=== PATIENT | male | born 1980 | race African-American/Black ===

== ENCOUNTER 2018-07-23 10:27 | Emergency (ER) | payer MEDICARE, OTHER ==
[2018-07-23 16:40] LABS: Eosinophils # (Auto) 0.4 K/mm3 (0.0-0.4); Eosinophils % (Auto) 9.9 % (0.0-4.3); Hematocrit 26.3 % (35.5-45.6); Hemoglobin 8.9 gm/dl (11.8-15.2); Lymphocytes # (Auto) 1.3 K/mm3 (1.2-5.4); Lymphocytes % (Auto) 30.6 % (13.4-35.0); Mean Corpuscular HGB Conc 34 % (32-34); Mean Corpuscular Volume 88 fl (84-94); Monocytes # (Auto) 0.3 K/mm3 (0.0-0.8); Monocytes % (Auto) 7.5 % (0.0-7.3); Platelet Count 219 K/mm3 (140-440); Red Blood Count 2.98 M/mm3 (3.65-5.03); Red Cell Distribution Width 17.7 % (13.2-15.2)
--- NOTE | 2018-07-23 16:53 | Emergency Department Report ---
<SERAFIN BUENO - Last Filed: 07/23/18 16:56> ED General Adult HPI - General Chief complaint: Medical Clearance Stated complaint: DIALYSIS Time Seen by Provider: 07/23/18 16:17 Source: patient, family Mode of arrival: Ambulatory Limitations: No Limitations - History of Present Illness Initial comments: This is a 38-year-old male brought by parents nontoxic, well nourished in appearance, no acute signs of distress presents to the ED for missed dialysis. Mother stated that patient gets diaylsis every 3 days and last dialysis was Sunday, making patient miss dialysis today. Mother and patient stated that they moved from [place] and yet has established a dialysis center/provider. Patient denies any chest pain, shortness of breathe, fever, chills, headache, nausea, vomiting, numbness, tingling, swelling. Patient denies any allergies. Severity scale (0 -10): 0 Improves with: none Worsens with: none Associated Symptoms: denies other symptoms. denies: confusion, chest pain, cough, diaphoresis, fever/chills, headaches, loss of appetite, malaise, nausea/vomiting, rash, seizure, shortness of breath, syncope, weakness Treatments Prior to Arrival: none - Related Data Allergies Allergy/AdvReac Type Severity Reaction Status Date / Time No Known Allergies Allergy Verified 07/23/18 11:11 ED Review of Systems Constitutional: denies: chills, fever Eyes: denies: eye pain, eye discharge, vision change ENT: denies: ear pain, throat pain Respiratory: denies: cough, shortness of breath, wheezing Cardiovascular: denies: chest pain, palpitations Endocrine: no symptoms reported Gastrointestinal: denies: abdominal pain, nausea, diarrhea Genitourinary: denies: urgency, dysuria Musculoskeletal: denies: back pain, joint swelling, arthralgia Skin: denies: rash, lesions Neurological: denies: headache, weakness, paresthesias Psychiatric: denies: anxiety, depression Hematological/Lymphatic: denies: easy bleeding, easy bruising ED Past Medical Hx - Past Medical History Previous Medical History?: Yes Hx Hypertension: Yes Hx Renal Disease: Yes (ESRD-T-TH-S) - Surgical History Past Surgical History?: Yes Additional Surgical History: Right AV fistula - Social History Smoking Status: Never Smoker Substance Use Type: None ED Physical Exam - General Limitations: No Limitations General appearance: alert, in no apparent distress - Head Head exam: Present: atraumatic, normocephalic - Neck Neck exam: Present: normal inspection, full ROM. Absent: tenderness, meningismus, lymphadenopathy - Respiratory Respiratory exam: Present: normal lung sounds bilaterally. Absent: respiratory distress, wheezes, rales, rhonchi, stridor, chest wall tenderness, accessory muscle use, decreased breath sounds, prolonged expiratory - Cardiovascular Cardiovascular Exam: Present: regular rate, normal rhythm, normal heart sounds. Absent: bradycardia, tachycardia, irregular rhythm, systolic murmur, diastolic murmur, rubs, gallop - GI/Abdominal GI/Abdominal exam: Present: soft, normal bowel sounds. Absent: distended, tenderness, guarding, rebound, rigid, diminished bowel sounds - Extremities Exam Extremities exam: Present: normal inspection, full ROM - Back Exam Back exam: Present: normal inspection, full ROM - Neurological Exam Neurological exam: Present: alert, oriented X3 - Psychiatric Psychiatric exam: Present: normal affect, normal mood - Skin Skin exam: Present: warm, dry, intact, normal color. Absent: rash ED Course - Reevaluation(s) Reevaluation #1: 07/23/18 16:55 Patient is speaking in full sentences with no signs of distress noted. - Consultations Consultation #1: 07/23/18 16:56 Patient signed out to Dr. Leon for further evaluation. ED Medical Decision Making - Lab Data Result diagrams: 07/23/18 16:28 07/23/18 16:28 ED Disposition Clinical Impression: ESRD (end stage renal disease) Disposition: DC-01 TO HOME OR SELFCARE Condition: Stable Instructions: Chronic Kidney Disease (ED) Additional Instructions: Continue current outpatient medications. Follow-up in 24 hours in this emergency room, or at a local urgent care center, or with a local primary care doctor for repeat basic metabolic panel to ascertain whether or not patient requires emergency dialysis. Please follow-up with Dr. Vilchis's office first thing tomorrow morning, and request to speak to the director of physician practices to determine what additional paperwork, documentation is necessary to secure the patient's place in that dialysis unit. Other alternative local dialysis units included Dr. Philip office, and Dr. Garcia's office For the patient's convenience, their respective names, phone numbers, addresses have been listed, and I recommend that patient go to either of those offices if not able to secure an appointment in the first nephrology office listed. Please return to the emergency room right away with new, worsening or different symptoms. Referrals: ABDIEL VILCHIS MD [Staff Physician] - 3-5 Days TIKA MOSLEY MD [Staff Physician] - 3-5 Days RONIT KHAN MD [Staff Physician] - 3-5 Days <CEE LEON - Last Filed: 07/24/18 02:02> ED Review of Systems ROS: Stated complaint: DIALYSIS Other details as noted in HPI ED Course Vital Signs 07/23/18 07/23/18 11:05 18:07 Temperature 97.8 F 97.8 F Pulse Rate 64 64 Respiratory 14 14 Rate Blood Pressure 113/70 113/72 [Right] O2 Sat by Pulse 100 100 Oximetry - Reevaluation(s) Reevaluation #2: 07/23/18 17:51 Patient in no respiratory distress and has no acute complaints. He received dialysis this past Sunday. Laboratory studies reviewed and are unremarkable. Patient does not meet criteria for emergent dialysis. The case management team has been consulted, and they have reported that they are going to continue to work externally on this case to resolve the patient's axis outpatient dialysis. Apparently, the [facility] is [facility] a [facility], after speaking to the covering physician, Dr. Vilchis The patient's mother was instructed to follow-up with that dialysis center tomorrow, and to ask to speak to the embedded case manager, director of physician practices, and find out what documentation she needs to submit, in order to secure an outpatient dialysis center. In addition, she'll be referred to alternative local dialysis groups to expand her available options of dialysis centers. The patient will be instructed to return in 24 hours for repeat basic metabolic panel to ascertain need for dialysis. Of note, the millwright supervisor, Dr. Vilchis called back shortly thereafter, and indicated to me that the patient has a scheduled dialysis session tomorrow. This was communicated to the patient's mother, who verbalized understanding. She was counseled to show up a little bit early to help out with paperwork if necessary. 07/24/18 02:01 ED Medical Decision Making - Lab Data Result diagrams: 07/23/18 16:28 07/23/18 16:28 Vital Signs 07/23/18 11:05 Temperature 97.8 F Pulse Rate 64 Respiratory 14 Rate Blood Pressure 113/70 [Right] O2 Sat by Pulse 100 Oximetry Lab Results 07/23/18 07/23/18 Range/Units 16:28 16:28 WBC 4.2 L (4.5-11.0) K/mm3 RBC 2.98 L (3.65-5.03) M/mm3 Hgb 8.9 L (11.8-15.2) gm/dl Hct 26.3 L (35.5-45.6) % MCV 88 (84-94) fl MCH 30 (28-32) pg MCHC 34 (32-34) % RDW 17.7 H (13.2-15.2) % Plt Count 219 (140-440) K/mm3 Lymph % (Auto) 30.6 (13.4-35.0) % [place] % (Auto) 7.5 H (0.0-7.3) % Eos % (Auto) 9.9 H (0.0-4.3) % Baso % (Auto) 1.0 (0.0-1.8) % Lymph # 1.3 (1.2-5.4) K/mm3 [place] # 0.3 (0.0-0.8) K/mm3 Eos # 0.4 (0.0-0.4) K/mm3 Baso # 0.0 (0.0-0.1) K/mm3 Seg Neutrophils % 51.0 (40.0-70.0) % Seg Neutrophils # 2.1 (1.8-7.7) K/mm3 Sodium 133 L (137-145) mmol/L Potassium 3.6 (3.6-5.0) mmol/L Chloride 93.4 L (98-107) mmol/L Carbon Dioxide 28 (22-30) mmol/L Anion Gap 15 mmol/L BUN 32 H (9-20) mg/dL Creatinine 5.6 H (0.8-1.5) mg/dL Estimated GFR 12 ml/min BUN/Creatinine Ratio 6 % Glucose 216 H (75-100) mg/dL Calcium 8.3 L (8.4-10.2) mg/dL Total Bilirubin 1.00 (0.1-1.2) mg/dL Direct Bilirubin 0.6 H (0-0.2) mg/dL Indirect Bilirubin 0.4 mg/dL AST 24 (5-40) units/L ALT 21 (7-56) units/L Alkaline Phosphatase 141 H (35-129) units/L Total Protein 8.0 (6.3-8.2) g/dL Albumin 3.0 L (3.9-5) g/dL Albumin/Globulin Ratio 0.6 % - Radiology Data Radiology results: report reviewed, image reviewed interpreted by me: X-ray of the chest negative for acute disease. Critical care attestation.: If time is entered above; I have spent that time in minutes in the direct care of this critically ill patient, excluding procedure time. ED Disposition Is pt being admited?: No Does the pt Need Aspirin: No
[2018-07-23 16:54] LABS: Bilirubin,Direct 0.6 mg/dL (0-0.2); Calcium 8.3 mg/dL (8.4-10.2)
--- NOTE | 2018-07-23 17:19 | XRay Report ---
FINAL REPORT EXAM: XR CHEST ROUTINE 2V HISTORY: cp TECHNIQUE: PA and lateral views of the chest PRIORS: None. FINDINGS: Lines, tubes, and devices: Metallic device overlies the anterior inferior aspect of the heart, likely a pacemaker. Lungs and pleura: Trachea is normal in position. Lungs are clear of infiltrate, pleural effusion, va scular congestion, or pneumothorax. Cardiomediastinal silhouette: Heart is enlarged. Other: Bony structures are intact. IMPRESSION: No acute cardiopulmonary process seen. Cardiomegaly
[2018-07-23 18:08] VITALS: BP 113/72
== END 2018-07-23 18:08 | disposition home or self-care (01) ==
LOC: ED 10:27
DX: I12.0 Hypertensive chronic kidney disease with stage 5 chronic kidney disease or end stage renal disease (principal); N18.6 End stage renal disease; Z99.2 Dependence on renal dialysis
CPT/HCPCS: 36415; 71046; 80048; 80076; 85025; 99283

== ENCOUNTER 2018-07-25 17:28 | Inpatient (IN) | payer MEDICARE, OTHER ==
[2018-07-25] MEDS ORDERED: TYLENOL PO ONE (17:49)
--- NOTE | 2018-07-25 17:49 | Emergency Department Report ---
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 Further treatment and work-up at subsequent clinical providers discretion. Patient/guardians urged not to elope from their condition may be serious if not clinically assessed and managed. Initial order include:
[2018-07-25] MEDS ORDERED: TYLENOL ONE (17:52)
--- NOTE | 2018-07-25 18:40 | Emergency Department Report ---
ED Fall HPI - General Chief Complaint: Extremity Problem,Nontraumatic Stated Complaint: LEFT LEG PAIN Time Seen by Provider: 07/25/18 18:32 Source: patient Mode of arrival: Wheelchair Limitations: Altered Mental Status - History of Present Illness Initial Comments: Patient is a 38 year-old mellitus emergency room with complaints of a slip and fall and a wet parking lot 2 hours prior to coming to the hospital. Patient is complaining of left hip pain and left lower back pain. Patient states the pain is bad. Patient has a history of CAD, cardiac arrest 2 with secondary anoxic brain injury, hypertension, hyperlipidemia, CAD, artificial nutrition via PEG tube, A. fib on warfarin. Mother is at bedside to assist with history. Mother states the patient slipped and fell directly onto his left hip. Patient is complaining of severe pain in his left lower back and left hip. Patient is not ambulatory due to pain. Patient was transported to the room in a wheelchair. Mother states that the patient states the pain is worse with movement and ambu lation and palpation. Mother states that the pain is better with rest and immobilization The fall was witnessed by mother. Mother states the patient did not lose consciousness and never hit his head. 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 lower back pain) - Related Data Home Medications Medication Instructions Recorded Confirmed Last Taken Clobetasol 0.05% 0.05 mg TP BID 07/26/18 07/26/18 Unknown Lidocaine 4% Kit 4 mg TP 3XW 07/26/18 07/26/18 Unknown Lipitor 40 mg PO DAILY 07/26/18 07/26/18 Unknown Metoprolol 25 mg PO Q12H 07/26/18 07/26/18 Unknown Omeprazole 20 mg PO BID 07/26/18 07/26/18 Unknown QUEtiapine [SEROquel] 25 mg PO DAILY 07/26/18 07/26/18 Unknown Warfarin [Coumadin] 2 mg PO DAILY 07/26/18 07/26/18 Unknown Allergies Allergy/AdvReac Type Severity Reaction Status Date / Time No Known Allergies Allergy Verified 07/25/18 17:57 ED Review of Systems ROS: Stated complaint: LEFT LEG PAIN Other details as noted in HPI Constitutional: denies: chills, fever Eyes: denies: eye pain, eye discharge, vision change ENT: denies: ear pain, throat pain Respiratory: denies: cough, shortness of breath, wheezing Cardiovascular: denies: chest pain, palpitations Endocrine: no symptoms reported Gastrointestinal: denies: abdominal pain, nausea, diarrhea Genitourinary: denies: urgency, dysuria Musculoskeletal: back pain. denies: joint swelling, arthralgia Skin: denies: rash, lesions Neurological: denies: headache, weakness, paresthesias Psychiatric: denies: anxiety, depression Hematological/Lymphatic: denies: easy bleeding, easy bruising ED Past Medical Hx - Past Medical History Previous Medical History?: Yes Hx Hypertension: Yes Hx Heart Attack/AMI: Yes Hx Renal Disease: Yes (ESRD-T-TH-S) Additional medical history: cardiac arrest X2. anoxic brain injury 2/2 cardiac arrest. afib on warfarin, hld, htn, cad. - Surgical History Past Surgical History?: Yes Additional Surgical History: Right AV fistula. peg tube - Family History Family history: no significant - Social History Smoking Status: Never Smoker Substance Use Type: None - Medications Home Medications: Home Medications Medication Instructions Recorded Confirmed Last Taken Type Clobetasol 0.05% 0.05 mg TP BID 07/26/18 07/26/18 Unknown History Lidocaine 4% Kit 4 mg TP 3XW 07/26/18 07/26/18 Unknown History Lipitor 40 mg PO DAILY 07/26/18 07/26/18 Unknown History Metoprolol 25 mg PO Q12H 07/26/18 07/26/18 Unknown History Omeprazole 20 mg PO BID 07/26/18 07/26/18 Unknown History QUEtiapine [SEROquel] 25 mg PO DAILY 07/26/18 07/26/18 Unknown History Warfarin [Coumadin] 2 mg PO DAILY 07/26/18 07/26/18 Unknown History ED Physical Exam - General Limitations: No Limitations General appearance: alert, in no apparent distress - Head Head exam: Present: atraumatic, normocephalic - Eye Eye exam: Present: normal appearance, PERRL Pupils: Present: normal accommodation - ENT ENT exam: Present: mucous membranes moist - Neck Neck exam: Present: normal inspection - Respiratory Respiratory exam: Present: normal lung sounds bilaterally. Absent: respiratory distress - Cardiovascular Cardiovascular Exam: Present: regular rate, normal rhythm. Absent: systolic murmur, diastolic murmur, rubs, gallop - GI/Abdominal GI/Abdominal exam: Present: soft, normal bowel sounds, other (PEG tube in place. ). Absent: distended, tenderness, guarding, rebound - Rectal Rectal exam: Present: deferred - Extremities Exam Extremities exam: Present: tenderness (left hip) - Back Exam Back exam: Present: normal inspection, tenderness, vertebral tenderness - Neurological Exam Neurological exam: Present: alert, altered (patient in O 2. Family states the patient is at baseline) - Psychiatric Psychiatric exam: Present: normal affect, normal mood - Skin Skin exam: Present: warm, dry, intact, normal color. Absent: rash ED Course Vital Signs 07/25/18 07/25/18 07/25/18 17:44 20:14 22:20 Temperature 97.7 F Pulse Rate 81 85 69 Respiratory 18 20 22 Rate Blood Pressure 143/77 Blood Pressure 132/72 118/76 [Left] O2 Sat by Pulse 100 97 96 Oximetry 07/26/18 01:44 Temperature Pulse Rate 81 Respiratory 18 Rate Blood Pressure Blood Pressure 108/57 [Left] O2 Sat by Pulse Oximetry - Reevaluation(s) Reevaluation #1: Discussed all results with family. Patient was admitted to the hospitalist service for further evaluation treatment. Patient will also be admitted to the orthopedics service. 07/25/18 23:17 - Consultations Consultation #1: Dr. Puente consulted, orthopedics. Dr. Puente states have the patient to be admitted to the hospitalist service and he will see the patient in the morning. 07/25/18 23:05 Consultation #2: Hospitalist consulted for admission. Hospitalist to assume care of the patient and admit patient 07/25/18 23:17 ED Medical Decision Making - Lab Data Result diagrams: 07/25/18 22:37 07/25/18 22:37 - Radiology Data Radiology results: report reviewed PROCEDURE: CT LUMBAR SPINE WO CON TECHNIQUE: Axial helical imaging through the lumbar spine with sagittal and coronal reformatted images obtained. HISTORY: hip pain. lower back pain. fall. pelvic pain COMPARISONS: CT abdomen and pelvis also performed today FINDINGS: There is grade 1 anterolisthesis L5 on S1 secondary to bilateral L5 spondylolysis.. There is slight loss of height of the anterior aspect of the vertebral body of L2 consistent with acute compression fracture as was demonstrated on the recent CT abdomen and pelvis. Loss of height is less than 25%. The vertebral heights are otherwise maintained. There is loss of height of the L1-L2 and L5-S1 discs. Visualization of detail of the contents of the lumbar canal is limited by artifact. There is no evidence of bony canal stenosis. The paraspinous soft tissues are unremarkable. There is a small amount of free fluid in the visualized portion of the pelvis. IMPRESSION: 1. Acute compression fracture L2 vertebral body. 2. Grade 1 anterolisthesis L5 on S1 with bilateral L5 spondylolysis PROCEDURE: XR FEMUR 2+V LT TECHNIQUE: AP and lateral views of the left femur HISTORY: s/p fall left leg pain COMPARISONS: None . FINDINGS: There is an acute nondisplaced acute fracture through the intertrochanteric region. Fracture is better identified on the lateral view. There is no evidence for dislocation. No soft tissue swelling or radiopaque foreign bodies are seen. Vascular calcifications in the soft tissues are noted. Bony mineralization is normal and joint spaces are maintained. IMPRESSION: Acute nondisplaced intertrochanteric fracture PROCEDURE: CT ABDOMEN PELVIS WO CON TECHNIQUE: Axial helical imaging through the abdomen and pelvis with sagittal and coronal reformatted images obtained. HISTORY: hip pain. lower back pain. fall. pelvic pain DLP: 532.43 COMPARISONS: CT lumbar spine also performed today FINDINGS: Visualization of fine detail is significantly limited by motion artifact and lack of contrast. The lung bases are notable for small bilateral pleural fluid collections and areas of pulmonary consolidation in the lower lobes bilaterally. The heart is enlarged with a small pericardial fluid collection. A surgical device is demonstrated in the right ventricle. The liver, spleen, pancreas, kidneys and adrenal glands are unremarkable. The gallbladder is moderately distended. There is increased density within the gallbladder which may represent sludge or gallstones. The bowel is normal caliber. There is a [id number] amount of stool throughout the colon. A percutaneous gastrostomy tube is demonstrated with the tip in the stomach. There is a small to moderate amount of free fluid in the abdomen and pelvis. There is no definite evidence of pneumoperitoneum. The abdominal aorta is normal caliber. The urinary bladder is mildly distended. There appears to be increased thickness of the urinary bladder wall. The prostate gland and seminal vesicles are unremarkable. The bony structures are notable for a compression fracture of the L2 vertebral body that appears to be acute. Loss of height is less than 50%. There is grade 1 anterolisthesis L5 on S1 with bilateral L5 spondylolysis. There is a mildly displaced left intertrochanteric fracture. There is diffuse anasarca. IMPRESSION: 1. This study is degraded by motion artifact and lack of contrast. 2. Mildly displaced left intertrochanteric fracture. 3. Compression fracture L2 vertebral body that appears to be acute. 4. Grade 1 anterolisthesis L5 on S1 with bilateral L5 spondylolysis. 5. Cardiomegaly with small pericardial effusion and surgical device in the right ventricle. 6. Pleural effusions and areas of pulmonary consolidation both lung bases. Infectious and noninfectious etiologies, to include CHF, immediately considered. 7. Small to moderate amount of free fluid in the abdomen and pelvis. 8. Percutaneous gastrostomy tube. 9. Diffuse anasarca. - Medical Decision Making She is a 38-year-old male with multiple medical problems and presented to the emergency room with left hip pain and low lower back pain. Patient was found to have a L2 compression fraction and a left intertrochanteric femur fracture. Orthopedics consulted. Orthopedics wants patient admitted to the hospitalist service. Patient was admitted to the hospitalist service for further evaluation and treatment. Patient's labs are consistent with anemia of chronic disease and chronic kidney disease stage V. Patient requires dialysis 3 days a week. - Differential Diagnosis back pain. Hip pain. fx. hematoma. Critical Care Time: Yes Critical care attestation.: If time is entered above; I have spent that time in minutes in the direct care of this critically ill patient, excluding procedure time. Critical Care Time: 35 minutes ED Disposition Clinical Impression: ESRD (end stage renal disease), CKD (chronic kidney disease) stage V requiring chronic dialysis Fall Qualifiers: Encounter type: initial encounter Qualified Code(s): W19.XXXA - Unspecified fall, initial encounter Lumbar compression fracture Qualifiers: Encounter type: initial encounter Lumbar vertebra fracture level: L2 Fracture type: closed Qualified Code(s): S32.020A - Wedge compression fracture of second lumbar vertebra, initial encounter for closed fracture Femur fracture, left Qualifiers: Encounter type: initial encounter Femur location: intertrochanteric Fracture type: closed Fracture alignment: displaced Qualified Code(s): S72.142A - Displaced intertrochanteric fracture of left femur, initial encounter for closed fracture Anemia Qualifiers: Anemia type: due to chronic kidney disease Chronic kidney disease stage: on chronic dialysis Qualified Code(s): N18.6 - End stage renal disease; D63.1 - Anemia in chronic kidney disease; Z99.2 - Dependence on renal dialysis Disposition: OP ADMIT IP TO THIS HOSP Is pt being admited?: Yes Does the pt Need Aspirin: No Condition: Critical Time of Disposition: 23:19
[2018-07-25] MEDS ORDERED: DILAUDID IV ONE (18:57)
--- NOTE | 2018-07-25 21:10 | XRay Report ---
PROCEDURE: XR FEMUR 2+V LT TECHNIQUE: AP and lateral views of the left femur HISTORY: s/p fall left leg pain COMPARISONS: None . FINDINGS: There is an acute nondisplaced acute fracture through the intertrochanteric region. Fracture is coleman r identified on the lateral view. There is no evidence for dislocation. No soft tissue swelling or radiopaque foreign bodies are seen. Vascular calcifications in the soft tissues are noted. Bony mineralization is normal and joint spaces are maintained. IMPRESSION: Acute nondisplaced intertrochanteric fracture This document is electronically signed by Elva Santos MD., July 25 2018 09:08:59 PM ET
--- NOTE | 2018-07-25 22:38 | Cat Scan Report ---
PROCEDURE: CT ABDOMEN PELVIS WO CON TECHNIQUE: Axial helical imaging through the abdomen and pelvis with sagittal and coronal reformatte d images obtained. HISTORY: hip pain. lower back pain. fall. pelvic pain DLP: 532.43 COMPARISONS: CT lumbar spine also performed today FINDINGS: Visualization of fine detail is significantly limited by motion artifact and lack of contrast. The lung bases are notable for small bilateral pleural fluid collections and areas of pulmonary conso lidation in the lower lobes bilaterally. The heart is enlarged with a small pericardial fluid collection. A surgical device is demonstrated in the right ventricle. The liver, spleen, pancreas, kidneys and adrenal glands are unremarkable. The gallbladder is moderately distended. There is increased density within the gallbladder which may represent sludge or gallstones. The bowel is normal caliber. There is a [id number] amount of stool throughout the colon. A percutaneous gastrostomy tube is demonstrated with the tip in the stomach. There is a small to moderate amount of free fluid in the abdomen and pelvis. There is no definite evidence of pneumoperitoneum. The abdominal aorta is normal caliber. The urinary bladder is mildly distended. There appears to be increased thickness of the urinary bladd er wall. The prostate gland and seminal vesicles are unremarkable. The bony structures are notable for a compression fracture of the L2 vertebral body that appears to b e acute. Loss of height is less than 50%. There is grade 1 anterolisthesis L5 on S1 with bilateral L5 spondylolysis. There is a mildly displaced left intertrochanteric fracture. There is diffuse anasarca. IMPRESSION: 1. This study is degraded by motion artifact and lack of contrast. 2. Mildly displaced left intertrochanteric fracture. 3. Compression fracture L2 vertebral body that appears to be acute. 4. Grade 1 anterolisthesis L5 on S1 with bilateral L5 spondylolysis. 5. Cardiomegaly with small pericardial effusion and surgical device in the right ventricle. 6. Pleural effusions and areas of pulmonary consolidation both lung bases. Infectious and noninfectio us etiologies, to include CHF, immediately considered. 7. Small to moderate amount of free fluid in the abdomen and pelvis. 8. Percutaneous gastrostomy tube. 9. Diffuse anasarca. This document is electronically signed by Lo Tolentino MD., July 25 2018 10:35:48 PM ET
[2018-07-25 22:47] LABS: Hematocrit 25.5 % (35.5-45.6); Hemoglobin 8.8 gm/dl (11.8-15.2); Mean Corpuscular HGB Conc 35 % (32-34); Mean Corpuscular Volume 88 fl (84-94); Platelet Count 189 K/mm3 (140-440); Red Blood Count 2.89 M/mm3 (3.65-5.03)
--- NOTE | 2018-07-25 22:49 | Cat Scan Report ---
PROCEDURE: CT LUMBAR SPINE WO CON TECHNIQUE: Axial helical imaging through the lumbar spine with sagittal and coronal reformatted imag es obtained. HISTORY: hip pain. lower back pain. fall. pelvic pain COMPARISONS: CT abdomen and pelvis also performed today FINDINGS: There is grade 1 anterolisthesis L5 on S1 secondary to bilateral L5 spondylolysis.. There is slight loss of height of the anterior aspect of the vertebral body of L2 consistent with acu te compression fracture as was demonstrated on the recent CT abdomen and pelvis. Loss of height is le ss than 25%. The vertebral heights are otherwise maintained. There is loss of height of the L1-L2 and L5-S1 discs. Visualization of detail of the contents of the lumbar canal is limited by artifact. There is no evide nce of bony canal stenosis. The paraspinous soft tissues are unremarkable. There is a small amount of free fluid in the visualized portion of the pelvis. IMPRESSION: 1. Acute compression fracture L2 vertebral body. 2. Grade 1 anterolisthesis L5 on S1 with bilateral L5 spondylolysis. This document is electronically signed by Lo Tolentino MD., July 25 2018 10:47:02 PM ET
[2018-07-25 23:03] LABS: Albumin 3.1 g/dL (3.9-5); Calcium 8.5 mg/dL (8.4-10.2)
--- NOTE | 2018-07-25 23:53 | History and Physical Report ---
History of Present Illness Date of examination: 07/25/18 History of present illness: 38 year old man history of coronary artery disease, A. fib, end-stage renal disease on dialysis, hypertension, hyperlipidemia, anoxic brain injury was brought to the emergency room because today he slipped outside and fell on his buttocks, there was no injury to the head, loss of consciousness. history per the mom, patient has been complaining of difficulty ambulating. Review of system unobtainable secondary to amoxicillin with an injury PAST MEDICAL HISTORY:coronary artery disease, A. fib, end-stage renal disease on dialysis, hypertension, hyperlipidemia, anoxic brain injury PAST SURGICAL HISTORY: AV fistula SOCIAL HISTORY: Denies alcohol, drugs, tobacco FAMILY HISTORY: Hypertension Medications and Allergies Allergies Allergy/AdvReac Type Severity Reaction Status Date / Time No Known Allergies Allergy Verified 07/25/18 17:57 Home Medications Medication Instructions Recorded Confirmed Last Taken Type Clobetasol 0.05% 0.05 mg TP BID 07/26/18 07/26/18 Unknown History Lidocaine 4% Kit 4 mg TP 3XW 07/26/18 07/26/18 Unknown History Lipitor 40 mg PO DAILY 07/26/18 07/26/18 Unknown History Metoprolol 25 mg PO Q12H 07/26/18 07/26/18 Unknown History Omeprazole 20 mg PO BID 07/26/18 07/26/18 Unknown History QUEtiapine [SEROquel] 25 mg PO DAILY 07/26/18 07/26/18 Unknown History Warfarin [Coumadin] 0.5 mg PO DAILY@1700 #30 tablet 08/02/18 Unknown Rx Exam - Physical Exam Narrative exam: General Apperance: The patient lying in bed, breathing comfortable HEENT: Normocephalic, atraumatic. Pupils equally round and reactive to light, EOMI, no sclericterus or JVD or thyromegaly or nodule. , no carotid bruit, mucous membranes moist, no exudate or erythema Heart: S1-S2, regular is rhythm Lungs: Clear to auscultation bilaterally, breathing comfortable Abdomen: Positive bowel sounds, soft, +peg, nontender, nondistended, no organomegaly Extremities: No edema cyanosis clubbing Skin: no rash, nodule, warm and dry Neuro: Difficult to assess - Constitutional Vitals: Temp Pulse Resp BP Pulse Ox 97.7 F 69 22 118/76 96 07/25/18 17:44 07/25/18 22:20 07/25/18 22:20 07/25/18 22:20 07/25/18 22:20 Results - Labs CBC & Chem 7: 07/29/18 04:05 07/29/18 04:05 Labs: Abnormal lab results 07/25/18 07/25/18 Range/Units 22:37 22:37 RBC 2.89 L (3.65-5.03) M/mm3 Hgb 8.8 L (11.8-15.2) gm/dl Hct 25.5 L (35.5-45.6) % MCHC 35 H (32-34) % RDW 18.0 H (13.2-15.2) % Sodium 135 L (137-145) mmol/L Chloride 94.8 L (98-107) mmol/L BUN 30 H (9-20) mg/dL Creatinine 5.1 H (0.8-1.5) mg/dL Glucose 131 H (75-100) mg/dL Alkaline Phosphatase 145 H (35-129) units/L Albumin 3.1 L (3.9-5) g/dL - Imaging and Cardiology CT scan - abdomen: report reviewed CT scan - pelvis: report reviewed Assessment and Plan CT of the femur and LS spine reviewed Assessment Left hip fracture Compression fracture of L2 coronary artery disease A. fib end-stage renal disease on dialysis hypertension hyperlipidemia anoxic brain injury Plan Admit to medicine Orthopedic is consulted to see the patient Consult renal for dialysis Continued appropriate outpatient medication IV morphine, DVT prophylaxis
[2018-07-26 00:28] LABS: INR 1.73 (0.87-1.13)
[2018-07-26 00:29] LABS: Partial Thromboplastin Time 43.7 Sec. (24.2-36.6)
[2018-07-26] MEDS ORDERED: NON-FORMULARY (Metoprolol 25 MG) PO SCH (01:45)
[2018-07-26] MEDS: MORPHINE IV PRN ×3 (02:42→23:08)
[2018-07-26 06:35] LABS: Basophils % (Auto) 0.5 % (0.0-1.8); Eosinophils # (Auto) 0.3 K/mm3 (0.0-0.4); Eosinophils % (Auto) 5.8 % (0.0-4.3); Hematocrit 26.3 % (35.5-45.6); Lymphocytes # (Auto) 1.2 K/mm3 (1.2-5.4); Lymphocytes % (Auto) 22.1 % (13.4-35.0); Mean Corpuscular HGB Conc 34 % (32-34); Mean Corpuscular Volume 88 fl (84-94); Monocytes # (Auto) 0.5 K/mm3 (0.0-0.8); Monocytes % (Auto) 9.5 % (0.0-7.3); Platelet Count 182 K/mm3 (140-440); Red Blood Count 2.98 M/mm3 (3.65-5.03); Red Cell Distribution Width 17.7 % (13.2-15.2)
[2018-07-26 06:55] LABS: Calcium 8.5 mg/dL (8.4-10.2)
--- NOTE | 2018-07-26 09:18 | Anesthesia Consultation ---
Anesthesia Consult and Med Hx Date of service: 07/26/18 - Airway Anesthetic Teeth Evaluation: Poor ROM Head & Neck: Adequate Mental/Hyoid Distance: Adequate Mallampati Class: Class III Intubation Access Assessment: Possibly Difficult (hx trach with decannulation 01/2018) - Pulmonary Exam CTA: Yes - Cardiac Exam Cardiac Exam: RRR (mild tachycardia) - Pre-Operative Health Status ASA Pre-Surgery Classification: ASA4 Proposed Anesthetic Plan: General - Pulmonary Hx Smoking: No Hx Asthma: No SOB: No COPD: No Home Oxygen Therapy: No Hx Sleep Apnea: No - Cardiovascular System Hx Hypertension: Yes Hx Heart Attack/AMI: No (hx cardiac arrest x2 01/2018) Hx Cardia Arrhythmia: Yes (a-fib on coumadin per chart review) Hx Pacemaker: No (apparent RV leadless pacer on CXR) - Central Nervous System Hx Neuromuscular Disorder: Yes (contracted on R side) CVA: Yes (anoxic brain injury) - Endocrine Hx End Stage Renal Disease: Yes (HD MWF (last 07/24/18)) Hx Liver Disease: No Hx Insulin Dependent Diabetes: No Hx Non-Insulin Dependent Diabetes: No Hx Thyroid Disease: No - Hematic Hx Anemia: Yes Hx Sickle Cell Disease: No - Other Systems Hx Alcohol Use: No Hx Substance Use: No Hx Obesity: No - Additional Comments Anesthesia Medical History Comments: PMH ESRD 2/2 poorly controlled HTN, cardiac arrest x2 complicated by anoxic brain injury s/p trach (now decannulated) and PEG 01/2018, a-fib on coumadin, apparent leadless pacer in RV on imaging who has left hip fracture 2/2 GLF. Scheduled for IMN femur. Medical hx provided by mother. [place]s with cardiology [place] of state. Cardiology consult requested and will await further evaluation prior to surgery.
--- NOTE | 2018-07-26 09:30 | Consultation ---
History of Present Illness Consult date: 07/26/18 Requesting physician: SUJATA HERNANDEZ Consult reason: pre op evaluation History of present illness: The patient is a 38 year-old male with a past medical history of CAD, CMP, HFrEF, paroxysmal atrial fibrillation, anticoagulated with coumadin, HTN, HLP, anoxic brain injury s/p cardiac arrest x 2, ESRD on HD, dysphagia, PEG in situ, RUE DVT. He recently relocated to [place] from [place]. He presented to emergency room with complaints of a slip and fall in a wet parking lot 2 hours prior to coming to the hospital. Patient c/o left hip pain and left lower back pain. Pt subsequently found to have acute left intertrochanteric fracture and acute L2 compression fracture. Cardiology has been consulted for preoperative evaluation. Pt mother at bedside has medical records from [place] - pt was undergoing RUE AVF placement on 02/15/2018 when he suffered cardiac arrest and anoxic brain injury, pt suffered an additional VT/PEA cardiac arrest on 06/18/2018, s/p cardiac cath on 06/28 which showed multivessel CAD and ca rdiomyopathy EF 40%, evaluated by cardiac surgery and pt was deemed too high risk for CABG. Past History Past Medical History: CAD, heart failure, hypertension, hyperlipidemia, other (anoxic brain injury) Medications and Allergies Allergies Allergy/AdvReac Type Severity Reaction Status Date / Time No Known Allergies Allergy Verified 07/25/18 17:57 Home Medications Medication Instructions Recorded Confirmed Last Taken Type Clobetasol 0.05% 0.05 mg TP BID 07/26/18 07/26/18 Unknown History Lidocaine 4% Kit 4 mg TP 3XW 07/26/18 07/26/18 Unknown History Lipitor 40 mg PO DAILY 07/26/18 07/26/18 Unknown History Metoprolol 25 mg PO Q12H 07/26/18 07/26/18 Unknown History Omeprazole 20 mg PO BID 07/26/18 07/26/18 Unknown History QUEtiapine [SEROquel] 25 mg PO DAILY 07/26/18 07/26/18 Unknown History Warfarin [Coumadin] 2 mg PO DAILY 07/26/18 07/26/18 Unknown History Active Meds: Active Medications Atorvastatin Calcium (Lipitor) 40 mg PO DAILY [facility] Clobetasol Propionate (Temovate) 1 applic TP BID [facility] Lidocaine HCl (Xylocaine Topical 4%) 2.5 ml TP TuThSa [facility] Metoprolol Tartrate (Lopressor) 25 mg PO Q12HR [facility] Morphine Sulfate (Morphine) 1 mg IV Q4H PRN PRN Reason: Pain, Moderate (4-6) Last Admin: 07/26/18 08:23 Dose: 1 mg Documented by: Ondansetron HCl (Zofran) 4 mg IV Q4H PRN PRN Reason: Nausea And Vomiting Pantoprazole Sodium (Protonix) 20 mg PO BID [facility] Quetiapine Fumarate (Seroquel) 25 mg PO DAILY [facility] Sodium Chloride (Sodium Chloride Flush Syringe 10 Ml) 10 ml IV BID [facility] Sodium Chloride (Sodium Chloride Flush Syringe 10 Ml) 10 ml IV PRN PRN PRN Reason: LINE FLUSH Review of Systems ROS unobtainable: due to mental status Physical Examination Vital Signs Temp Pulse Resp BP Pulse Ox 97.7 F 81 18 143/77 100 07/25/18 17:44 07/25/18 17:44 07/25/18 17:44 07/25/18 17:44 07/25/18 17:44 General appearance: no acute distress HEENT: Positive: PERRL, Normocephaly, Mucus Membranes Moist Neck: Positive: neck supple, trachea midline Cardiac: Positive: Regular Rhythm, S1/S2 Lungs: Positive: Decreased Breath Sounds Neuro: Positive: Other (unable to assess) Extremities: Absent: edema Results 07/26/18 05:42 07/26/18 05:42 Cardiac Enzymes 07/25/18 Range/Units 22:37 AST 31 (5-40) units/L Coagulation 07/25/18 Range/Units 23:59 PT 21.4 H (12.2-14.9) Sec. INR 1.73 H (0.87-1.13) APTT 43.7 H (24.2-36.6) Sec. CBC 07/25/18 07/26/18 Range/Units 22:37 05:42 WBC 5.2 5.3 (4.5-11.0) K/mm3 RBC 2.89 L 2.98 L (3.65-5.03) M/mm3 Hgb 8.8 L 9.0 L (11.8-15.2) gm/dl Hct 25.5 L 26.3 L (35.5-45.6) % Plt Count 189 182 (140-440) K/mm3 Lymph # 1.2 (1.2-5.4) K/mm3 [place] # 0.5 (0.0-0.8) K/mm3 Eos # 0.3 (0.0-0.4) K/mm3 Baso # 0.0 (0.0-0.1) K/mm3 Comprehensive Metabolic Panel 07/25/18 07/26/18 Range/Units 22:37 05:42 Sodium 135 L 136 L (137-145) mmol/L Potassium 4.2 4.1 (3.6-5.0) mmol/L Chloride 94.8 L 96.7 L (98-107) mmol/L Carbon Dioxide 28 25 (22-30) mmol/L BUN 30 H 33 H (9-20) mg/dL Creatinine 5.1 H 5.0 H (0.8-1.5) mg/dL Glucose 131 H 102 H (75-100) mg/dL Calcium 8.5 8.5 (8.4-10.2) mg/dL AST 31 (5-40) units/L ALT 25 (7-56) units/L Alkaline Phosphatase 145 H (35-129) units/L Total Protein 8.1 (6.3-8.2) g/dL Albumin 3.1 L (3.9-5) g/dL - Imaging and Cardiology Echo: pending Cardiac cath: report reviewed (cardiac cath on 06/28 which showed multivessel CAD and cardiomyopathy EF 40%) EKG interpretations - Telemetry EKG Rhythm: Sinus Tachycardia Assessment and Plan Pt mother at bedside has medical records from [place] - pt was undergoing RUE AVF placement on 02/15/2018 when he suffered cardiac arrest and anoxic brain injury, pt suffered an additional VT/PEA cardiac arrest on 06/18/2018, s/p cardiac cath on 06/28 which showed multivessel CAD and cardiomyopathy EF 40%, evaluated by cardiac surgery and pt was deemed too high risk for CABG. Obtain ECG. Obtain echo. Based on medical records, pt is at high cardiovascular risk for orthopedic surgery. Await ortho recs. Repeat ischemic evaluation (lexiscan MPI stress test) may be warranted if ortho plans to proceed with surgery. Additionally, pt on coumadin at home for h/o parox AFib. Consider initiation of heparin gtt today if no plans for surgery today and resume coumadin if/when okay per ortho. The patient has been seen in conjunction with Dr. Tellez who agrees with the assessment and plan of care. - Patient Problems (1) Fall Current Visit: Yes Status: Acute Qualifiers: Encounter type: initial encounter Qualified Code(s): W19.XXXA - Unspecified fall, initial encounter (2) Femur fracture, left Current Visit: Yes Status: Acute Qualifiers: Encounter type: initial encounter Femur location: intertrochanteric Fracture type: closed Fracture alignment: displaced Qualified Code(s): S72.142A - Displaced intertrochanteric fracture of left femur, initial encounter for closed fracture (3) Lumbar compression fracture Current Visit: Yes Status: Acute Qualifiers: Encounter type: initial encounter Lumbar vertebra fracture level: L2 Fracture type: closed Qualified Code(s): S32.020A - Wedge compression fracture of second lumbar vertebra, initial encounter for closed fracture (4) CAD (coronary artery disease) Current Visit: Yes Status: Chronic (5) Cardiomyopathy Current Visit: Yes Status: Chronic (6) History of cardiac arrest Current Visit: Yes Status: Chronic (7) Anoxic brain injury Current Visit: Yes Status: Chronic (8) Paroxysmal atrial fibrillation Current Visit: Yes Status: Chronic (9) On Coumadin for atrial fibrillation Current Visit: Yes Status: Chronic (10) HTN (hypertension) Current Visit: Yes Status: Chronic (11) Hyperlipidemia Current Visit: Yes Status: Chronic (12) ESRD on hemodialysis Current Visit: Yes Status: Chronic (13) History of DVT (deep vein thrombosis) Current Visit: Yes Status: Chronic (14) Anemia Current Visit: Yes Status: Acute Qualifiers: Anemia type: due to chronic kidney disease Chronic kidney disease stage: on chronic dialysis Qualified Code(s): N18.6 - End stage renal disease; D63.1 - Anemia in chronic kidney disease; Z99.2 - Dependence on renal dialysis
[2018-07-26] MEDS: PROTONIX PO SCH ×2 (09:40→23:12)
[2018-07-26] MEDS: LOPRESSOR PO SCH ×2 (09:40→23:14)
[2018-07-26] MEDS: SODIUM CHLORIDE FLUSH SYRINGE 10 ML IV SCH ×2 (09:43→23:12)
[2018-07-26] MEDS ORDERED: NON-FORMULARY (Lipitor 40 MG) PO SCH (10:00)
[2018-07-26] MEDS ORDERED: NON-FORMULARY (Omeprazole [Omeprazole] 20 MG) PO SCH (10:00)
[2018-07-26] MEDS ORDERED: LIDOCAINE TP SCH (10:00)
[2018-07-26] MEDS ORDERED: CLOBETASOL TP SCH (10:00)
[2018-07-26] MEDS: TEMOVATE TP SCH ×2 (12:41→23:12)
--- NOTE | 2018-07-26 13:21 | Consultation ---
History of Present Illness - History of Present Illness Thank you for the consultation ! Patient was evaluated today My assessment and plan are as follows; End-stage renal disease: Patient is currently in maintenance hemodialysis and will need to receive his dialysis treatment 3 times a week, ordered hemodialysis today No heparin during hemodialysis due to fall and injury Anemia, and instrument allergies: To monitor and follow Secondary hyperparathyroidism: Periodically check phosphorus and PTH level Hypertension and volume: To monitor and follow History of anoxic brain injury, admitted with status post fall and injury to his hip and buttock area Noted to have left hip fracture and compression fracture of L2, postherpetic to follow Chronic atrial fibrillation During this admission noted to have a hemoglobin of 8.8, sodium 135, potassium 4.2, BUN 30, creatinine is 5.1, blood pressure was normal We will continue to follow and make recommendations from renal standpoint. Thank you for the consultation Author: Dominic Abreu M.D. [facility], [address] [place] [address] Tel; [phone] Source of information: From mother and current chart History of present illness Patient is a 38-year-old [place] male who has been admitted here he has recently moved from [place] and has received 2 dialysis treatment here at [facility], and is normally dialyzing on Sunday and Sunday schedule patient currently does have a right upper WORKING fistula which has been used. Patient started hemodialysis around January 2018 according to mother, his kidneys had failed due to uncontrolled hypertension. Patient appears to be resting comfortably in bed. patient admitted to fall and injury to his hip and buttock Past medical history is significant for And surgical disease Anemia and end-stage renal disease Secondary hypertension Anoxic brain injury Coronary artery disease Heart failure Hyperlipidemia Chronic anticoagulation Atrial fibrillation Current allergies: Reviewed Home medication present medication: Reviewed Social history/family history: Reviewed Review of systems Limited due to stated condition Physical examination Vitals: Reviewed General: No acute distress HEENT: Oral mucosa moist no pallor or icterus Neck: Supple without any JVD thyromegaly or nodular mass Chest: Clear to auscultation Heart: Regular rate and rhythm S1-S2 heard no S3-S4 Abdomen: Soft nontender, bowel sounds present no renal bruit no suprapubic mas ses no CVA tenderness noted Extremity: Minimal edema dry skin no peripheral cyanosis working fistula right hand Endocrine: Thyroid not enlarged Psychiatric: No agitation and aggression noted Musculoskeletal: No joint effusion noted neurological; history of anoxic brain injury Labs and x-rays: Reviewed from this admission Past History Past Medical History: CAD, heart failure, hypertension, hyperlipidemia, other (anoxic brain injury) Medications and Allergies Allergies Allergy/AdvReac Type Severity Reaction Status Date / Time No Known Allergies Allergy Verified 07/25/18 17:57 Home Medications Medication Instructions Recorded Confirmed Last Taken Type Clobetasol 0.05% 0.05 mg TP BID 07/26/18 07/26/18 Unknown History Lidocaine 4% Kit 4 mg TP 3XW 07/26/18 07/26/18 Unknown History Lipitor 40 mg PO DAILY 07/26/18 07/26/18 Unknown History Metoprolol 25 mg PO Q12H 07/26/18 07/26/18 Unknown History Omeprazole 20 mg PO BID 07/26/18 07/26/18 Unknown History QUEtiapine [SEROquel] 25 mg PO DAILY 07/26/18 07/26/18 Unknown History Warfarin [Coumadin] 2 mg PO DAILY 07/26/18 07/26/18 Unknown History Active Meds: Active Medications Atorvastatin Calcium (Lipitor) 40 mg PO DAILY [facility] Last Admin: 07/26/18 09:40 Dose: Not Given Documented by: Clobetasol Propionate (Temovate) 1 applic TP BID [facility] Last Admin: 07/26/18 12:41 Dose: 1 applic Documented by: Lidocaine HCl (Xylocaine Topical 4%) 2.5 ml TP TuTa [facility] Metoprolol Tartrate (Lopressor) 25 mg PO Q12HR [facility] Last Admin: 07/26/18 09:40 Dose: Not Given Documented by: Morphine Sulfate (Morphine) 1 mg IV Q4H PRN PRN Reason: Pain, Moderate (4-6) Last Admin: 07/26/18 08:23 Dose: 1 mg Documented by: Ondansetron HCl (Zofran) 4 mg IV Q4H PRN PRN Reason: Nausea And Vomiting Pantoprazole Sodium (Protonix) 20 mg PO BID [facility] Last Admin: 07/26/18 09:40 Dose: Not Given Documented by: Quetiapine Fumarate (Seroquel) 25 mg PO DAILY [facility] Last Admin: 07/26/18 09:40 Dose: Not Given Documented by: Sodium Chloride (Sodium Chloride Flush Syringe 10 Ml) 10 ml IV BID [facility] Last Admin: 07/26/18 09:43 Dose: 10 ml Documented by: Sodium Chloride (Sodium Chloride Flush Syringe 10 Ml) 10 ml IV PRN PRN PRN Reason: LINE FLUSH Exam - Vital Signs Vital signs: Vital Signs Temp Pulse Resp BP Pulse Ox 97.7 F 81 18 143/77 100 07/25/18 17:44 07/25/18 17:44 07/25/18 17:44 07/25/18 17:44 07/25/18 17:44 Results - Lab Results 07/26/18 05:42 07/26/18 05:42 Most recent lab results Calcium 8.5 mg/dL (8.4-10.2) 07/26/18 05:42
--- NOTE | 2018-07-26 14:25 | Consultation ---
History of Present Illness - [facility] Consult date: 07/26/18 Consult reason: joint pain History of present illness: 38 y/o male with c/o left hip and low back pain after fall recently, seen in the ED Past History Past Medical History: CAD, heart failure, hypertension, hyperlipidemia, other (anoxic brain injury) Medications and Allergies Allergies Allergy/AdvReac Type Severity Reaction Status Date / Time No Known Allergies Allergy Verified 07/25/18 17:57 Home Medications Medication Instructions Recorded Confirmed Last Taken Type Clobetasol 0.05% 0.05 mg TP BID 07/26/18 07/26/18 Unknown History Lidocaine 4% Kit 4 mg TP 3XW 07/26/18 07/26/18 Unknown History Lipitor 40 mg PO DAILY 07/26/18 07/26/18 Unknown History Metoprolol 25 mg PO Q12H 07/26/18 07/26/18 Unknown History Omeprazole 20 mg PO BID 07/26/18 07/26/18 Unknown History QUEtiapine [SEROquel] 25 mg PO DAILY 07/26/18 07/26/18 Unknown History Warfarin [Coumadin] 2 mg PO DAILY 07/26/18 07/26/18 Unknown History Active Meds: Active Medications Atorvastatin Calcium (Lipitor) 40 mg PO DAILY [facility] Last Admin: 07/26/18 09:40 Dose: Not Given Documented by: Clobetasol Propionate (Temovate) 1 applic TP BID [facility] Last Admin: 07/26/18 12:41 Dose: 1 applic Documented by: Lidocaine HCl (Xylocaine Topical 4%) 2.5 ml TP TuTa [facility] Metoprolol Tartrate (Lopressor) 25 mg PO Q12HR [facility] Last Admin: 07/26/18 09:40 Dose: Not Given Documented by: Morphine Sulfate (Morphine) 1 mg IV Q4H PRN PRN Reason: Pain, Moderate (4-6) Last Admin: 07/26/18 08:23 Dose: 1 mg Documented by: Ondansetron HCl (Zofran) 4 mg IV Q4H PRN PRN Reason: Nausea And Vomiting Pantoprazole Sodium (Protonix) 20 mg PO BID [facility] Last Admin: 07/26/18 09:40 Dose: Not Given Documented by: Quetiapine Fumarate (Seroquel) 25 mg PO DAILY [facility] Last Admin: 07/26/18 09:40 Dose: Not Given Documented by: Sodium Chloride (Sodium Chloride Flush Syringe 10 Ml) 10 ml IV BID CARISSA Last Admin: 07/26/18 09:43 Dose: 10 ml Documented by: Sodium Chloride (Sodium Chloride Flush Syringe 10 Ml) 10 ml IV PRN PRN PRN Reason: LINE FLUSH Physical Examination - Physical exam Narrative exam: left hip - no obvious swelling/deformity, tender on passive ROM, plain xrays reviewed of the left femur - no fracture seen CT scan - no fx seen at hip/femur compression fx at L2 vertebra with mild wedging Eyes: PERRL ENT: Positive: clear oral mucosa Respiratory effort: normal Respiratory: bilateral: CTA Rhythm: regular Heart Sounds: Positive: S1 & S2 General gastrointestinal: Positive: soft, non-tender, non-distended, normal bowel sounds Integumentary: clear, warm, dry Neurologic: Positive: CNII-XII intact, moves all extremities, gait normal. Negative: focal deficits Assessment and Plan L2 compression fracture contusion left hip Recommendations- back bracing PT for gait training
--- NOTE | 2018-07-26 16:04 | Progress Note ---
Assessment and Plan Assessment and plan: --Status post fall; Fall precautions, physical therapy occupational therapy --Left hip fracture: Pain medications, PTOT, management per orthopedic --Compression fracture of L2: Orthopedics evaluation noted and appreciated Recommend back brace, supportive care --End-stage renal disease on hemodialysis; HD per schedule, nephrology following -- h/o coronary artery disease; Continue current cardiac medications, cardiology following --Chronic A. fib; rate controlled Stable on metoprolol closely monitor --Chronic anticoagulation with Coumadin; INR is 1.7, management per cardiology and orthopedic --Hypertension; moderate control, continue current antihypertensives When necessary medications --History of cardiac arrest in the past/anoxic brain injury Supportive care --h/o PEG : PEG feeds as needed Patient sometimes tolerates oral diet --DVT prophylaxis; patient is on Coumadin --Full CODE STATUS Closely monitor the patient and adjust management as needed History Interval history: 71-year-old male patient was admitted through emergency room after he slipped and fell. The patient was initially evaluated in the emergency room noted to have, compression fracture of L2 as well as acute nondisplaced intertrochanteric fracture Patient was evaluated by orthopedic surgeon Patient seen and examined medical records reviewed Patient is lying in the bed comfortable, noncommunicative Not in acute distress Vital signs reviewed Hospitalist Physical - Constitutional Vitals: Temp Pulse Resp BP Pulse Ox 98.3 F 91 H 18 128/80 96 07/26/18 02:48 07/26/18 02:48 07/26/18 02:48 07/26/18 02:48 07/26/18 02:48 General appearance: Present: no acute distress, well-nourished - EENT Eyes: Present: PERRL, EOM intact - Respiratory Respiratory effort: normal Respiratory: bilateral: diminished, negative: rales, rhonchi, wheezing - Cardiovascular Rhythm: regular Heart Sounds: Present: S1 & S2 - Extremities Extremities: no ischemia, No edema, abnormal (contracted) - Abdominal General gastrointestinal: soft, non-tender, non-distended, normal bowel sounds - Integumentary Integumentary: Present: clear, warm - Psychiatric Psychiatric: other (noncommunicative/anoxic encephalopathy) - Neurologic Neurologic: other (unable to assess) Results - Labs CBC & Chem 7: 07/26/18 05:42 07/26/18 05:42 Labs: Laboratory Last Values WBC 5.3 K/mm3 (4.5-11.0) 07/26/18 05:42 RBC 2.98 M/mm3 (3.65-5.03) L 07/26/18 05:42 Hgb 9.0 gm/dl (11.8-15.2) L 07/26/18 05:42 Hct 26.3 % (35.5-45.6) L 07/26/18 05:42 MCV 88 fl (84-94) 07/26/18 05:42 MCH 30 pg (28-32) 07/26/18 05:42 MCHC 34 % (32-34) 07/26/18 05:42 RDW 17.7 % (13.2-15.2) H 07/26/18 05:42 Plt Count 182 K/mm3 (140-440) 07/26/18 05:42 Lymph % (Auto) 22.1 % (13.4-35.0) 07/26/18 05:42 [place] % (Auto) 9.5 % (0.0-7.3) H 07/26/18 05:42 Eos % (Auto) 5.8 % (0.0-4.3) H 07/26/18 05:42 Baso % (Auto) 0.5 % (0.0-1.8) 07/26/18 05:42 Lymph # 1.2 K/mm3 (1.2-5.4) 07/26/18 05:42 [place] # 0.5 K/mm3 (0.0-0.8) 07/26/18 05:42 Eos # 0.3 K/mm3 (0.0-0.4) 07/26/18 05:42 Baso # 0.0 K/mm3 (0.0-0.1) 07/26/18 05:42 Seg Neutrophils % 62.1 % (40.0-70.0) 07/26/18 05:42 Seg Neutrophils # 3.3 K/mm3 (1.8-7.7) 07/26/18 05:42 PT 21.4 Sec. (12.2-14.9) H 07/25/18 23:59 INR 1.73 (0.87-1.13) H 07/25/18 23:59 APTT 43.7 Sec. (24.2-36.6) H 07/25/18 23:59 Sodium 136 mmol/L (137-145) L 07/26/18 05:42 Potassium 4.1 mmol/L (3.6-5.0) 07/26/18 05:42 Chloride 96.7 mmol/L (98-107) L 07/26/18 05:42 Carbon Dioxide 25 mmol/L (22-30) 07/26/18 05:42 Anion Gap 18 mmol/L 07/26/18 05:42 BUN 33 mg/dL (9-20) H 07/26/18 05:42 Creatinine 5.0 mg/dL (0.8-1.5) H 07/26/18 05:42 Estimated GFR 13 ml/min 07/26/18 05:42 BUN/Creatinine Ratio 7 % 07/26/18 05:42 Glucose 102 mg/dL (75-100) H 07/26/18 05:42 Calcium 8.5 mg/dL (8.4-10.2) 07/26/18 05:42 Total Bilirubin 1.10 mg/dL (0.1-1.2) 07/25/18 22:37 AST 31 units/L (5-40) 07/25/18 22:37 ALT 25 units/L (7-56) 07/25/18 22:37 Alkaline Phosphatase 145 units/L (35-129) H 07/25/18 22:37 Total Protein 8.1 g/dL (6.3-8.2) 07/25/18 22:37 Albumin 3.1 g/dL (3.9-5) L 07/25/18 22:37 Albumin/Globulin Ratio 0.6 % 07/25/18 22:37 Blood Type AB POSITIVE 07/26/18 09:29 Antibody Screen Negative 07/26/18 09:29 Nutrition/Malnutrition Assess - Dietary Evaluation Nutrition/Malnutrition Findings: Nutrition Notes Start: 07/26/18 14:33 Freq: Status: Active Protocol: Document 07/26/18 14:33 RM (Rec: 07/26/18 14:46 RM [id number]) Nutrition Notes Need for Assessment generated from: environmental safety specialist Initial or Follow up Brief Note Current Diagnosis Coronary Artery Disease Hypertension Hyperlipidemia Other Pertinent Diagnosis ESRD on HD, L hip fracture, Anoxic brain injury Current Diet Consistent CHO Labs/Tests Reviewed Pertinent Medications Reviewed Height 5 ft 7 in Weight 58.997 kg [place] Body Weight (kg) 67.27 BMI 20.3 Percent of energy/protein needs met: Screened for previously receiving nutrition support. NPO in place earlier today. Consistent CHO diet ordered later today. Per nurse pt has PEG. PEG not documented in record. Nurse stated she ordered consistent CHO diet but is waiting for pt mother to return so she can clarify wheter pt is fed through PEG or orally. Burn Absent Trauma Absent Nutrition Intervention Change Diet Order: Renal Follow-Up By: 07/29/18 Additional Comments Follow for POC
[2018-07-26] MEDS ORDERED: SODIUM BICARBONATE FEEDTUBE PRN ×2 (16:30→16:53)
[2018-07-26] MEDS ORDERED: PANCREAZE DR 10,500 UNIT FEEDTUBE PRN ×2 (16:30→16:53)
[2018-07-26] MEDS ORDERED: SIMPLE SYRUP FEEDTUBE PRN ×4 (16:30→16:53)
[2018-07-26] MEDS ORDERED: NACL 0.9% 100 ML IV PRN (17:59)
[2018-07-26 20:56] LABS: Hepatitis B Surface Antigen Nonreactive (Negative); Hepatitis C Virus Antibody Nonreactive (NonReactive)
[2018-07-26] MEDS: PROCRIT IV PRN (21:30)
[2018-07-27] MEDS: MORPHINE IV PRN ×3 (04:53→21:47)
[2018-07-27 05:09] LABS: Basophils % (Auto) 0.7 % (0.0-1.8); Eosinophils # (Auto) 0.2 K/mm3 (0.0-0.4); Eosinophils % (Auto) 3.6 % (0.0-4.3); Hematocrit 26.5 % (35.5-45.6); Hemoglobin 9.1 gm/dl (11.8-15.2); Lymphocytes # (Auto) 1.5 K/mm3 (1.2-5.4); Lymphocytes % (Auto) 29.5 % (13.4-35.0); Mean Corpuscular HGB Conc 34 % (32-34); Mean Corpuscular Volume 88 fl (84-94); Monocytes # (Auto) 0.4 K/mm3 (0.0-0.8); Monocytes % (Auto) 8.6 % (0.0-7.3); Platelet Count 190 K/mm3 (140-440); Red Blood Count 3.03 M/mm3 (3.65-5.03); Red Cell Distribution Width 17.6 % (13.2-15.2)
[2018-07-27 05:37] LABS: Calcium 8.7 mg/dL (8.4-10.2)
[2018-07-27] MEDS: LOPRESSOR PO SCH ×2 (10:22→21:46)
[2018-07-27] MEDS: PROTONIX PO SCH ×2 (10:22→21:46)
[2018-07-27] MEDS: TEMOVATE TP SCH ×2 (10:23→21:47)
--- NOTE | 2018-07-27 11:53 | Progress Note ---
Assessment and Plan No new cardiac symptoms. Continue current management. - Patient Problems (1) ESRD (end stage renal disease) Current Visit: Yes Status: Acute (2) Femur fracture, left Current Visit: Yes Status: Acute Qualifiers: Encounter type: initial encounter Femur location: intertrochanteric Fracture type: closed Fracture alignment: displaced Qualified Code(s): S72.142A - Displaced intertrochanteric fracture of left femur, initial encounter for closed fracture (3) Lumbar compression fracture Current Visit: Yes Status: Acute Qualifiers: Encounter type: initial encounter Lumbar vertebra fracture level: L2 Fracture type: closed Qualified Code(s): S32.020A - Wedge compression fracture of second lumbar vertebra, initial encounter for closed fracture (4) Anoxic brain injury Current Visit: Yes Status: Chronic (5) HTN (hypertension) Current Visit: Yes Status: Chronic (6) History of cardiac arrest Current Visit: Yes Status: Chronic (7) Hyperlipidemia Current Visit: Yes Status: Chronic (8) On Coumadin for atrial fibrillation Current Visit: Yes Status: Chronic Subjective Date of service: 07/27/18 Interval history: Patient denies chest pain difficulty breathing or palpitations. Objective Vital Signs Temp Pulse Resp BP Pulse Ox 07/27/18 07:14 97.8 F 91 H 18 133/78 97 07/27/18 04:38 98.5 F 89 18 128/77 97 07/26/18 23:14 98.5 F 94 H 16 139/82 98 07/26/18 21:50 98.7 F 90 18 140/82 07/26/18 20:45 142 H 142/80 07/26/18 20:30 90 140/80 07/26/18 20:15 92 H 146/84 07/26/18 20:00 96 H 148/86 07/26/18 19:45 94 H 148/87 07/26/18 19:30 89 129/73 07/26/18 19:15 93 H 138/74 07/26/18 19:00 94 H 114/76 07/26/18 18:45 94 H 138/86 07/26/18 18:30 98.8 F 93 H 18 135/81 07/26/18 15:28 98.8 F 92 H 18 134/80 97 07/26/18 12:22 98.0 F 91 H 18 129/85 96 - Physical Examination General: Other (patient appears to be chronically ill) HEENT: Positive: PERRL, Normocephaly, Mucus Membranes Moist Neck: Positive: neck supple, trachea midline Cardiac: Positive: S1/S2 (heard well) Lungs: Positive: clear to auscultation Neuro: Positive: Other (unable to assess) Abdomen: Positive: Soft Extremities: Absent: edema - Labs and Meds CBC 07/27/18 Range/Units 04:22 WBC 5.1 (4.5-11.0) K/mm3 RBC 3.03 L (3.65-5.03) M/mm3 Hgb 9.1 L (11.8-15.2) gm/dl Hct 26.5 L (35.5-45.6) % Plt Count 190 (140-440) K/mm3 Lymph # 1.5 (1.2-5.4) K/mm3 [place] # 0.4 (0.0-0.8) K/mm3 Eos # 0.2 (0.0-0.4) K/mm3 Baso # 0.0 (0.0-0.1) K/mm3 Comprehensive Metabolic Panel 07/27/18 Range/Units 04:22 Sodium 141 (137-145) mmol/L Potassium 4.3 (3.6-5.0) mmol/L Chloride 99.8 (98-107) mmol/L Carbon Dioxide 27 (22-30) mmol/L BUN 22 H (9-20) mg/dL Creatinine 3.8 H (0.8-1.5) mg/dL Glucose 86 (75-100) mg/dL Calcium 8.7 (8.4-10.2) mg/dL - Imaging and Cardiology Echo: pending Cardiac cath: report reviewed (cardiac cath on 06/28 which showed multivessel CAD and cardiomyopathy EF 40%)
--- NOTE | 2018-07-27 11:59 | Progress Note ---
Assessment and Plan Assessment and plan: --Status post fall; Fall precautions, physical therapy occupational therapy --Left hip fracture: Pain medications, PTOT, management per orthopedic --Compression fracture of L2: Orthopedics evaluation noted and appreciated Recommend back brace, supportive care --End-stage renal disease on hemodialysis; HD per schedule, nephrology following -- h/o coronary artery disease; Continue current cardiac medications, cardiology following --Chronic A. fib; rate controlled Stable on metoprolol closely monitor --Chronic anticoagulation with Coumadin; INR is 1.7, management per cardiology and orthopedic --Hypertension; moderate control, continue current antihypertensives When necessary medications --History of cardiac arrest in the past/anoxic brain injury Supportive care --h/o PEG : PEG feeds as needed Patient sometimes tolerates oral diet --DVT prophylaxis; patient is on Coumadin --Full CODE STATUS Closely monitor the patient and adjust management as needed History Interval history: Patient seen and examined medical records reviewed No new events reported by nursing staff Patient is stable, Vital signs noted Hospitalist Physical - Constitutional Vitals: Temp Pulse Resp BP Pulse Ox 97.8 F 91 H 18 133/78 97 07/27/18 07:14 07/27/18 07:14 07/27/18 07:14 07/27/18 07:14 07/27/18 07:14 General appearance: Present: no acute distress, well-nourished - EENT Eyes: Present: PERRL, EOM intact - Neck Neck: Present: supple, normal ROM - Respiratory Respiratory effort: normal Respiratory: bilateral: diminished, negative: rales, rhonchi, wheezing - Cardiovascular Rhythm: regular Heart Sounds: Present: S1 & S2 - Extremities Extremities: No edema, abnormal (contracted) - Abdominal General gastrointestinal: soft, non-tender, non-distended, normal bowel sounds, other (peg tube in place) - Integumentary Integumentary: Present: clear, warm - Psychiatric Psychiatric: other (noncommunicative) - Neurologic Neurologic: other (noncommunicative) Results - Labs CBC & Chem 7: 07/27/18 04:22 07/27/18 04:22 Labs: Laboratory Last Values WBC 5.1 K/mm3 (4.5-11.0) 07/27/18 04:22 RBC 3.03 M/mm3 (3.65-5.03) L 07/27/18 04:22 Hgb 9.1 gm/dl (11.8-15.2) L 07/27/18 04:22 Hct 26.5 % (35.5-45.6) L 07/27/18 04:22 MCV 88 fl (84-94) 07/27/18 04:22 MCH 30 pg (28-32) 07/27/18 04:22 MCHC 34 % (32-34) 07/27/18 04:22 RDW 17.6 % (13.2-15.2) H 07/27/18 04:22 Plt Count 190 K/mm3 (140-440) 07/27/18 04:22 Lymph % (Auto) 29.5 % (13.4-35.0) 07/27/18 04:22 [place] % (Auto) 8.6 % (0.0-7.3) H 07/27/18 04:22 Eos % (Auto) 3.6 % (0.0-4.3) 07/27/18 04:22 Baso % (Auto) 0.7 % (0.0-1.8) 07/27/18 04:22 Lymph # 1.5 K/mm3 (1.2-5.4) 07/27/18 04:22 [place] # 0.4 K/mm3 (0.0-0.8) 07/27/18 04:22 Eos # 0.2 K/mm3 (0.0-0.4) 07/27/18 04:22 Baso # 0.0 K/mm3 (0.0-0.1) 07/27/18 04:22 Seg Neutrophils % 57.6 % (40.0-70.0) 07/27/18 04:22 Seg Neutrophils # 2.9 K/mm3 (1.8-7.7) 07/27/18 04:22 PT 21.4 Sec. (12.2-14.9) H 07/25/18 23:59 INR 1.73 (0.87-1.13) H 07/25/18 23:59 APTT 43.7 Sec. (24.2-36.6) H 07/25/18 23:59 Sodium 141 mmol/L (137-145) 07/27/18 04:22 Potassium 4.3 mmol/L (3.6-5.0) 07/27/18 04:22 Chloride 99.8 mmol/L (98-107) 07/27/18 04:22 Carbon Dioxide 27 mmol/L (22-30) 07/27/18 04:22 Anion Gap 19 mmol/L 07/27/18 04:22 BUN 22 mg/dL (9-20) H 07/27/18 04:22 Creatinine 3.8 mg/dL (0.8-1.5) H 07/27/18 04:22 Estimated GFR 18 ml/min 07/27/18 04:22 BUN/Creatinine Ratio 6 % 07/27/18 04:22 Glucose 86 mg/dL (75-100) 07/27/18 04:22 Calcium 8.7 mg/dL (8.4-10.2) 07/27/18 04:22 Total Bilirubin 1.10 mg/dL (0.1-1.2) 07/25/18 22:37 AST 31 units/L (5-40) 07/25/18 22:37 ALT 25 units/L (7-56) 07/25/18 22:37 Alkaline Phosphatase 145 units/L (35-129) H 07/25/18 22:37 Total Protein 8.1 g/dL (6.3-8.2) 07/25/18 22:37 Albumin 3.1 g/dL (3.9-5) L 07/25/18 22:37 Albumin/Globulin Ratio 0.6 % 07/25/18 22:37 Hepatitis A IgM Ab Nonreactive (NonReactive) 07/26/18 19:25 Hep Bs Antigen Nonreactive (Negative) 07/26/18 19:25 Hep B Core IgM Ab Non-reactive (NonReactive) 07/26/18 19:25 Hepatitis C Antibody Nonreactive (NonReactive) 07/26/18 19:25 Blood Type AB POSITIVE 07/26/18 09:29 Antibody Screen Negative 07/26/18 09:29 Nutrition/Malnutrition Assess - Dietary Evaluation Nutrition/Malnutrition Findings: Nutrition Notes Start: 07/26/18 14:33 Freq: Status: Active Protocol: Document 07/26/18 14:33 RM (Rec: 07/26/18 14:46 RM [id number]) Nutrition Notes Need for Assessment generated from: patient account specialist Initial or Follow up Assessment Current Diagnosis Coronary Artery Disease Hypertension Hyperlipidemia Other Pertinent Diagnosis ESRD on HD, L hip fracture, Anoxic brain injury Current Diet Consistent CHO Labs/Tests Reviewed Pertinent Medications Reviewed Height 5 ft 7 in Weight 58.997 kg [place] Body Weight (kg) 67.27 BMI 20.3 Percent of energy/protein needs met: Screened for previously receiving nutrition support. Consulted for TF recommendation. NPO in place earlier today. Consistent CHO diet ordered later today. Per nurse pt has PEG. PEG not documented in record. Nurse called stating that pt mother stated TF infuses from 8 pm to 7 am and pt eats a few bites of food during the day. Nurse requested TF recommendation and radio news writer informed nurse that MD consult is necessary for that. Later received TF consult from MD. Burn Absent Trauma Absent #1 Nutrition Diagnosis Inadequate oral intake Etiology anoxic brain injury As Evidenced by Signs and Symptoms pt requiring enteral nutrition to meet nutritional needs Is patient on ventilator? No Is Patient Ambulatory and/or Out of Bed No REE-([facility]-confined to bed) 1771.164 Calculation Used for Recommendations [facility] Additional Notes Protein Needs: 71-77g (1.2-1. 3g/kg) Fluid Needs: 1 ml/kcal Nutrition Intervention Change Diet Order: Renal + TF Nutrition Support: Nepro at 80 ml/hr from 8 pm to 8 am. Water flush of 150 mls q 4 hrs . Kcal 1,728 Protein (gm) 78 Fluid (mL) 698 Goal #1 Meet at least 75% of calorie and protein needs via TF Anticipated Discharge Needs: TF Follow-Up By: 07/29/18 Additional Comments Follow for new TF
--- NOTE | 2018-07-27 12:50 | Progress Note ---
Assessment and Plan Impression * End-stage renal disease on maintenance hemodialysis * History of anoxic brain injury * Chronic atrial fibrillation * Hip fracture * Hypertension * Anemia secondary to ESRD Recommendations * Patient had dialysis treatment yesterday * Keep him on MWF scheduled for now as outpatient * Procrit with dialysis * No IV, BP over the puncture his access arm * Adjust diet and meds were ESRD state * Binders with meals * Further plan as per orthopedic services as well as cardiology Subjective Date of service: 07/27/18 Interval history: Patient is comfortable today. Denies any shortness of breath. No nausea or vomiting Objective - Vital Signs Vital signs: Vital Signs - 12hr 07/27/18 07/27/18 04:38 07:14 Temperature 98.5 F 97.8 F Pulse Rate 89 91 H Respiratory 18 18 Rate Blood Pressure 128/77 133/78 O2 Sat by Pulse 97 97 Oximetry - General Appearance General appearance: well-developed, well-nourished, appears stated age EENT: PERRL, mucous membranes moist Neck: no JVD, no thyromegaly, no carotid bruit, supple Respiratory: Present: Clear to Ascultation Cardiology: irregularly irregular, normal heart rate Gastrointestinal: normoactive bowel sounds, other (PEG tube in place) Integumentary: other (AV fistula in his right upper arm. Good bruit and thrill) Musculoskeletal: other (pain on movement of his hips) - Lab 07/27/18 04:22 07/27/18 04:22 Most recent lab results Calcium 8.7 mg/dL (8.4-10.2) 07/27/18 04:22 Medications & Allergies - Medications Allergies/Adverse Reactions: Allergies No Known Allergies Allergy (Verified 07/25/18 17:57) Home Medications: Home Medications Medication Instructions Recorded Confirmed Last Taken Type Clobetasol 0.05% 0.05 mg TP BID 07/26/18 07/26/18 Unknown History Lidocaine 4% Kit 4 mg TP 3XW 07/26/18 07/26/18 Unknown History Lipitor 40 mg PO DAILY 07/26/18 07/26/18 Unknown History Metoprolol 25 mg PO Q12H 07/26/18 07/26/18 Unknown History Omeprazole 20 mg PO BID 07/26/18 07/26/18 Unknown History QUEtiapine [SEROquel] 25 mg PO DAILY 07/26/18 07/26/18 Unknown History Warfarin [Coumadin] 2 mg PO DAILY 07/26/18 07/26/18 Unknown History Active Medications: Generic Name Dose Route Start Last Admin Trade Name Freq PRN Reason Stop Dose Admin Lipase/Protease/Amylase 1 each 07/26/18 16:30 Pancreashwin [place] 10,500 Unit FEEDTUBE PRN PRN For Clogged Feeding Tube Atorvastatin Calcium 40 mg 07/26/18 10:00 07/27/18 10:21 Lipitor PO 40 mg DAILY CARISSA Administration Clobetasol Propionate 1 applic 07/26/18 10:00 07/27/18 10:23 Temovate TP 1 applic BID CARISSA Administration Epoetin Jun 10,000 unit 07/26/18 18:13 07/26/18 21:30 Procrit IV 10,000 unit MIKAEL PRN Administration hemodialysis Sodium Chloride 100 mls @ 999 mls/hr 07/26/18 17:59 Nacl 0.9% IV MIKAEL PRN Hypotension Lidocaine HCl 2.5 ml 07/27/18 10:00 Xylocaine Topical 4% TP [facility] Metoprolol Tartrate 25 mg 07/26/18 10:00 07/27/18 10:22 Lopressor PO 25 mg Q12HR CARISSA Administration Morphine Sulfate 1 mg 07/25/18 23:53 07/27/18 11:33 Morphine IV 1 mg Q4H PRN Administration Pain, Moderate (4-6) Ondansetron HCl 4 mg 07/25/18 23:53 Zofran IV Q4H PRN Nausea And Vomiting Pantoprazole Sodium 20 mg 07/26/18 10:00 07/27/18 10:22 Protonix PO 20 mg BID CARISSA Administration Quetiapine Fumarate 25 mg 07/26/18 10:00 07/27/18 10:24 Seroquel PO Not Given DAILY CARISSA Simple Syrup 15 ml 07/26/18 16:30 Simple Syrup FEEDTUBE PRN PRN Hypoglycemia Simple Syrup 30 ml 07/26/18 16:30 Simple Syrup FEEDTUBE PRN PRN Hypoglycemia Sodium Bicarbonate 325 mg 07/26/18 16:30 Sodium Bicarbonate FEEDTUBE PRN PRN For Clogged Feeding Tube Sodium Chloride 10 ml 07/26/18 10:00 07/26/18 23:12 Sodium Chloride Flush Syringe 10 Ml IV 10 ml BID CARISSA Administration Sodium Chloride 10 ml 07/25/18 23:53 Sodium Chloride Flush Syringe 10 Ml IV PRN PRN LINE FLUSH
[2018-07-27] MEDS ORDERED: COUMADIN PO SCH ×2 (17:00)
[2018-07-27] MEDS: HEPARIN SUB-Q SCH (21:45)
[2018-07-27] MEDS: ZOFRAN IV PRN (21:46)
[2018-07-27] MEDS: SODIUM CHLORIDE FLUSH SYRINGE 10 ML IV SCH (21:49)
[2018-07-28 04:38] LABS: Basophils % (Auto) 0.7 % (0.0-1.8); Eosinophils # (Auto) 0.5 K/mm3 (0.0-0.4); Eosinophils % (Auto) 8.6 % (0.0-4.3); Hematocrit 29.4 % (35.5-45.6); Lymphocytes # (Auto) 1.6 K/mm3 (1.2-5.4); Lymphocytes % (Auto) 26.5 % (13.4-35.0); Mean Corpuscular HGB Conc 34 % (32-34); Mean Corpuscular Volume 89 fl (84-94); Monocytes # (Auto) 0.5 K/mm3 (0.0-0.8); Monocytes % (Auto) 8.9 % (0.0-7.3); Platelet Count 202 K/mm3 (140-440); Red Cell Distribution Width 17.5 % (13.2-15.2)
[2018-07-28 04:48] LABS: INR 1.56 (0.87-1.13)
[2018-07-28] MEDS: LOPRESSOR PO SCH ×2 (09:00→21:14)
[2018-07-28] MEDS: PROTONIX PO SCH ×2 (09:00→21:13)
[2018-07-28] MEDS: SODIUM CHLORIDE FLUSH SYRINGE 10 ML IV SCH ×2 (09:02→23:55)
[2018-07-28] MEDS: HEPARIN SUB-Q SCH ×2 (09:03→21:12)
[2018-07-28] MEDS: TEMOVATE TP SCH ×2 (09:03→21:39)
[2018-07-28] MEDS: MORPHINE IV PRN (10:35)
--- NOTE | 2018-07-28 11:21 | Progress Note ---
Assessment and Plan Impression * End-stage renal disease on maintenance hemodialysis * History of anoxic brain injury * Chronic atrial fibrillation * Hip fracture * Hypertension * Anemia secondary to ESRD Recommendations * Keep him on MWF dialysis schedule for now as outpatient * Procrit with dialysis * No IV, BP over the puncture his access arm * Adjust diet and meds were ESRD state * Binders with meals * Further plan as per orthopedic services as well as cardiology Subjective Date of service: 07/28/18 Interval history: Patient is comfortable today. Denies any shortness of breath. Objective - Vital Signs Vital signs: Vital Signs - 12hr 07/27/18 07/28/18 07/28/18 23:34 04:27 07:06 Temperature 98.0 F 98.2 F 98.0 F Pulse Rate 95 H 122 H 94 H Respiratory 17 16 20 Rate Blood Pressure 120/70 121/81 118/80 O2 Sat by Pulse 98 100 98 Oximetry 07/28/18 10:35 Temperature Pulse Rate Respiratory 20 Rate Blood Pressure O2 Sat by Pulse Oximetry - General Appearance General appearance: well-developed, well-nourished, appears stated age EENT: PERRL, mucous membranes moist Neck: no JVD, no thyromegaly, no carotid bruit, supple Respiratory: Present: Clear to Ascultation Cardiology: irregular, normal heart rate, S1S2, no murmurs Gastrointestinal: normal, normoactive bowel sounds, other (PEG tube in place) Integumentary: other (AV fistula right upper arm. Good bruit and thrill. Pain on movement of his legs) - Lab 07/28/18 04:18 07/27/18 04:22 Most recent lab results Calcium 8.7 mg/dL (8.4-10.2) 07/27/18 04:22 Medications & Allergies - Medications Allergies/Adverse Reactions: Allergies No Known Allergies Allergy (Verified 07/25/18 17:57) Home Medications: Home Medications Medication Instructions Recorded Confirmed Last Taken Type Clobetasol 0.05% 0.05 mg TP BID 07/26/18 07/26/18 Unknown History Lidocaine 4% Kit 4 mg TP 3XW 07/26/18 07/26/18 Unknown History Lipitor 40 mg PO DAILY 07/26/18 07/26/18 Unknown History Metoprolol 25 mg PO Q12H 07/26/18 07/26/18 Unknown History Omeprazole 20 mg PO BID 07/26/18 07/26/18 Unknown History QUEtiapine [SEROquel] 25 mg PO DAILY 07/26/18 07/26/18 Unknown History Warfarin [Coumadin] 2 mg PO DAILY 07/26/18 07/26/18 Unknown History Active Medications: Generic Name Dose Route Start Last Admin Trade Name Freq PRN Reason Stop Dose Admin Lipase/Protease/Amylase 1 each 07/26/18 16:30 Pancreaze 10,500 Unit FEEDTUBE PRN PRN For Clogged Feeding Tube Atorvastatin Calcium 40 mg 07/26/18 10:00 07/28/18 09:00 Lipitor PO 40 mg DAILY CARISSA Administration Clobetasol Propionate 1 applic 07/26/18 10:00 07/28/18 09:03 Temovate TP 1 applic BID CARISSA Administration Epoetin Jun 10,000 unit 07/26/18 18:13 07/26/18 21:30 Procrit IV 10,000 unit MIKAEL PRN Administration hemodialysis Heparin Sodium (Porcine) 5,000 unit 07/27/18 22:00 07/28/18 09:03 Heparin SUB-Q 5,000 unit Q12HR CARISSA Administration Sodium Chloride 100 mls @ 999 mls/hr 07/26/18 17:59 Nacl 0.9% IV MIKAEL PRN Hypotension Lidocaine HCl 2.5 ml 07/27/18 10:00 Xylocaine Topical 4% TP TuThSa CARISSA Metoprolol Tartrate 25 mg 07/26/18 10:00 07/28/18 09:00 Lopressor PO 25 mg Q12HR CARISSA Administration Morphine Sulfate 1 mg 07/25/18 23:53 07/28/18 10:35 Morphine IV 1 mg Q4H PRN Administration Pain, Moderate (4-6) Ondansetron HCl 4 mg 07/25/18 23:53 07/27/18 21:46 Zofran IV 4 mg Q4H PRN Administration Nausea And Vomiting Pantoprazole Sodium 20 mg 07/26/18 10:00 07/28/18 09:00 Protonix PO 20 mg BID CARISSA Administration Quetiapine Fumarate 25 mg 07/26/18 10:00 07/28/18 09:00 Seroquel PO 25 mg DAILY CARISSA Administration Simple Syrup 15 ml 07/26/18 16:30 Simple Syrup FEEDTUBE PRN PRN Hypoglycemia Simple Syrup 30 ml 07/26/18 16:30 Simple Syrup FEEDTUBE PRN PRN Hypoglycemia Sodium Bicarbonate 325 mg 07/26/18 16:30 Sodium Bicarbonate FEEDTUBE PRN PRN For Clogged Feeding Tube Sodium Chloride 10 ml 07/26/18 10:00 07/28/18 09:02 Sodium Chloride Flush Syringe 10 Ml IV 10 ml BID CARISSA Administration Sodium Chloride 10 ml 07/25/18 23:53 Sodium Chloride Flush Syringe 10 Ml IV PRN PRN LINE FLUSH Warfarin Sodium 6 mg 07/28/18 17:00 Coumadin PO DAILY@1700 [facility]
--- NOTE | 2018-07-28 18:01 | Progress Note ---
Assessment and Plan Assessment and plan: --Left hip fracture: Pain medications, PTOT, management per orthopedic --Compression fracture of L2: Orthopedics evaluation noted and appreciated Recommend back brace, supportive care --Status post fall; Fall precautions, physical therapy occupational therapy --End-stage renal disease on hemodialysis; HD per schedule, nephrology following -- h/o coronary artery disease; Continue current cardiac medications, cardiology following --Chronic A. fib; rate controlled Stable on metoprolol closely monitor --Chronic anticoagulation with Coumadin; INR is 1.7, management per cardiology and orthopedic --Hypertension; moderate control, continue current antihypertensives When necessary medications --History of cardiac arrest in the past/anoxic brain injury Supportive care --h/o PEG : PEG feeds as needed Patient sometimes tolerates oral diet --DVT prophylaxis; patient is on Coumadin --Full CODE STATUS Closely monitor the patient and adjust management as needed History Interval history: Patient seen and examined and medical records reviewed Clinically no change, No new events reported by nursing Patient not in acute distress vital signs stable Hospitalist Physical - Constitutional Vitals: Temp Pulse Resp BP Pulse Ox 98 F 87 18 94/54 98 07/28/18 16:01 07/28/18 16:01 07/28/18 16:01 07/28/18 16:01 07/28/18 16:01 General appearance: Present: no acute distress, well-nourished - EENT Eyes: Present: PERRL, EOM intact - Neck Neck: Present: supple, normal ROM - Respiratory Respiratory: negative: rales, rhonchi, wheezing - Cardiovascular Rhythm: regular Heart Sounds: Present: S1 & S2 - Extremities Extremities: abnormal (contracted) - Abdominal General gastrointestinal: soft, non-tender, non-distended, normal bowel sounds, other (PEG tube in place) - Integumentary Integumentary: Present: clear, warm - Psychiatric Psychiatric: other (noncommunicative) - Neurologic Neurologic: other (noncommunicative) Results - Labs CBC & Chem 7: 07/28/18 04:18 07/27/18 04:22 Labs: Laboratory Last Values WBC 6.0 K/mm3 (4.5-11.0) 07/28/18 04:18 RBC 3.30 M/mm3 (3.65-5.03) L 07/28/18 04:18 Hgb 10.0 gm/dl (11.8-15.2) L 07/28/18 04:18 Hct 29.4 % (35.5-45.6) L 07/28/18 04:18 MCV 89 fl (84-94) 07/28/18 04:18 MCH 31 pg (28-32) 07/28/18 04:18 MCHC 34 % (32-34) 07/28/18 04:18 RDW 17.5 % (13.2-15.2) H 07/28/18 04:18 Plt Count 202 K/mm3 (140-440) 07/28/18 04:18 Lymph % (Auto) 26.5 % (13.4-35.0) 07/28/18 04:18 [place] % (Auto) 8.9 % (0.0-7.3) H 07/28/18 04:18 Eos % (Auto) 8.6 % (0.0-4.3) H 07/28/18 04:18 Baso % (Auto) 0.7 % (0.0-1.8) 07/28/18 04:18 Lymph # 1.6 K/mm3 (1.2-5.4) 07/28/18 04:18 [place] # 0.5 K/mm3 (0.0-0.8) 07/28/18 04:18 Eos # 0.5 K/mm3 (0.0-0.4) H 07/28/18 04:18 Baso # 0.0 K/mm3 (0.0-0.1) 07/28/18 04:18 Seg Neutrophils % 55.3 % (40.0-70.0) 07/28/18 04:18 Seg Neutrophils # 3.3 K/mm3 (1.8-7.7) 07/28/18 04:18 PT 19.7 Sec. (12.2-14.9) H 07/28/18 04:09 INR 1.56 (0.87-1.13) H 07/28/18 04:09 APTT 43.7 Sec. (24.2-36.6) H 07/25/18 23:59 Sodium 141 mmol/L (137-145) 07/27/18 04:22 Potassium 4.3 mmol/L (3.6-5.0) 07/27/18 04:22 Chloride 99.8 mmol/L (98-107) 07/27/18 04:22 Carbon Dioxide 27 mmol/L (22-30) 07/27/18 04:22 Anion Gap 19 mmol/L 07/27/18 04:22 BUN 22 mg/dL (9-20) H 07/27/18 04:22 Creatinine 3.8 mg/dL (0.8-1.5) H 07/27/18 04:22 Estimated GFR 18 ml/min 07/27/18 04:22 BUN/Creatinine Ratio 6 % 07/27/18 04:22 Glucose 86 mg/dL (75-100) 07/27/18 04:22 POC Glucose 125 (70-105) H 07/28/18 16:26 Calcium 8.7 mg/dL (8.4-10.2) 07/27/18 04:22 Total Bilirubin 1.10 mg/dL (0.1-1.2) 07/25/18 22:37 AST 31 units/L (5-40) 07/25/18 22:37 ALT 25 units/L (7-56) 07/25/18 22:37 Alkaline Phosphatase 145 units/L (35-129) H 07/25/18 22:37 Total Protein 8.1 g/dL (6.3-8.2) 07/25/18 22:37 Albumin 3.1 g/dL (3.9-5) L 07/25/18 22:37 Albumin/Globulin Ratio 0.6 % 07/25/18 22:37 Hepatitis A IgM Ab Nonreactive (NonReactive) 07/26/18 19:25 Hep Bs Antigen Nonreactive (Negative) 07/26/18 19:25 Hep B Core IgM Ab Non-reactive (NonReactive) 07/26/18 19:25 Hepatitis C Antibody Nonreactive (NonReactive) 07/26/18 19:25 Blood Type AB POSITIVE 07/26/18 09:29 Antibody Screen Negative 07/26/18 09:29 Nutrition/Malnutrition Assess - Dietary Evaluation Nutrition/Malnutrition Findings: Nutrition Notes Start: 07/26/18 14:33 Freq: Status: Active Protocol: Document 07/26/18 14:33 RM (Rec: 07/26/18 14:46 RM [id number]) Nutrition Notes 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 Consulted for TF recommendation. NPO in place earlier today. Consistent CHO diet ordered later today. Per nurse pt has PEG. PEG not documented in record. Nurse called stating that pt mother stated TF infuses from 8 pm to 7 am and pt eats a few bites of food during the day. Nurse requested TF recommendation and movie writer informed nurse that MD consult is necessary for that. Later received TF consult from MD. Burn Absent Trauma Absent #1 Nutrition Diagnosis Inadequate oral intake Etiology anoxic brain injury As Evidenced by Signs and Symptoms pt requiring enteral nutrition to meet nutritional needs Is patient on ventilator? No Is Patient Ambulatory and/or Out of Bed No REE-([facility]-confined to bed) 1771.164 Calculation Used for Recommendations [facility] Additional Notes Protein Needs: 71-77g (1.2-1. 3g/kg) Fluid Needs: 1 ml/kcal Nutrition Intervention Change Diet Order: Renal + TF Nutrition Support: Nepro at 80 ml/hr from 8 pm to 8 am. Water flush of 150 mls q 4 hrs . Kcal 1,728 Protein (gm) 78 Fluid (mL) 698 Goal #1 Meet at least 75% of calorie and protein needs via TF Anticipated Discharge Needs: TF Follow-Up By: 07/29/18 Additional Comments Follow for new TF
[2018-07-28] MEDS: COUMADIN PO SCH (18:37)
[2018-07-28] MEDS: SODIUM CHLORIDE FLUSH SYRINGE 10 ML IV PRN (21:15)
[2018-07-29 04:40] LABS: Basophils % (Auto) 0.2 % (0.0-1.8); Eosinophils # (Auto) 0.1 K/mm3 (0.0-0.4); Eosinophils % (Auto) 1.3 % (0.0-4.3); Hematocrit 25.5 % (35.5-45.6); Hemoglobin 8.7 gm/dl (11.8-15.2); Lymphocytes # (Auto) 1.1 K/mm3 (1.2-5.4); Lymphocytes % (Auto) 16.1 % (13.4-35.0); Mean Corpuscular HGB Conc 34 % (32-34); Mean Corpuscular Volume 89 fl (84-94); Monocytes # (Auto) 0.5 K/mm3 (0.0-0.8); Platelet Count 191 K/mm3 (140-440); Red Blood Count 2.87 M/mm3 (3.65-5.03); Red Cell Distribution Width 17.4 % (13.2-15.2)
[2018-07-29 04:42] LABS: INR 2.25 (0.87-1.13)
[2018-07-29 04:43] LABS: Calcium 8.5 mg/dL (8.4-10.2)
--- NOTE | 2018-07-29 09:11 | Progress Note ---
Assessment and Plan Impression * End-stage renal disease on maintenance hemodialysis * History of anoxic brain injury * Chronic atrial fibrillation * Hip fracture * Hypertension * Anemia secondary to ESRD Recommendations * Patient is scheduled for hemodialysis for today * Keep him on MWF dialysis schedule for now as outpatient * Procrit with dialysis * No IV, BP over the puncture his access arm * Adjust diet and meds were ESRD state * Binders with meals * Further plan as per orthopedic services as well as cardiology Subjective Date of service: 07/29/18 Interval history: Patient is comfortable today. Denies any shortness of breath. Objective - Vital Signs Vital signs: Vital Signs - 12hr 07/28/18 07/29/18 07/29/18 21:14 00:15 03:24 Temperature 98.1 F 98.0 F Pulse Rate 86 82 82 Respiratory 16 16 Rate Blood Pressure 124/78 125/77 Blood Pressure 123/71 [Left] O2 Sat by Pulse 97 100 Oximetry 07/29/18 07:09 Temperature 97.0 F L Pulse Rate 84 Respiratory 18 Rate Blood Pressure 132/77 Blood Pressure [Left] O2 Sat by Pulse 98 Oximetry - General Appearance General appearance: well-developed, well-nourished, appears stated age EENT: PERRL, mucous membranes moist Neck: no JVD, no thyromegaly, no carotid bruit, supple Respiratory: Present: Clear to Ascultation Cardiology: regular, normal heart rate Gastrointestinal: normoactive bowel sounds, other (PEG tube in place) Integumentary: other (AV fistula right upper arm. Good bruit and thrill. Pain on movement of his hips) - Lab 07/29/18 04:05 07/29/18 04:05 Most recent lab results Calcium 8.5 mg/dL (8.4-10.2) 07/29/18 04:05 Medications & Allergies - Medications Allergies/Adverse Reactions: Allergies No Known Allergies Allergy (Verified 07/25/18 17:57) Home Medications: Home Medications Medication Instructions Recorded Confirmed Last Taken Type Clobetasol 0.05% 0.05 mg TP BID 07/26/18 07/26/18 Unknown History Lidocaine 4% Kit 4 mg TP 3XW 07/26/18 07/26/18 Unknown History Lipitor 40 mg PO DAILY 07/26/18 07/26/18 Unknown History Metoprolol 25 mg PO Q12H 07/26/18 07/26/18 Unknown History Omeprazole 20 mg PO BID 07/26/18 07/26/18 Unknown History QUEtiapine [SEROquel] 25 mg PO DAILY 07/26/18 07/26/18 Unknown History Warfarin [Coumadin] 2 mg PO DAILY 07/26/18 07/26/18 Unknown History Active Medications: Generic Name Dose Route Start Last Admin Trade Name Freq PRN Reason Stop Dose Admin Lipase/Protease/Amylase 1 each 07/26/18 16:[address] 10,500 Unit FEEDTUBE PRN PRN For Clogged Feeding Tube Atorvastatin Calcium 40 mg 07/26/18 10:00 07/28/18 09:00 Lipitor PO 40 mg DAILY CARISSA Administration Clobetasol Propionate 1 applic 07/26/18 10:00 07/28/18 21:39 Temovate TP 1 applic BID CARISSA Administration Epoetin Jun 10,000 unit 07/26/18 18:13 07/26/18 21:30 Procrit IV 10,000 unit MIKAEL PRN Administration hemodialysis Heparin Sodium (Porcine) 5,000 unit 07/27/18 22:00 07/28/18 21:12 Heparin SUB-Q 5,000 unit Q12HR CARISSA Administration Sodium Chloride 100 mls @ 999 mls/hr 07/26/18 17:59 Nacl 0.9% IV MIKAEL PRN Hypotension Lidocaine HCl 2.5 ml 07/27/18 10:00 Xylocaine Topical 4% TP TuThSa CARISSA Metoprolol Tartrate 25 mg 07/26/18 10:00 07/28/18 21:14 Lopressor PO 25 mg Q12HR CARISSA Administration Morphine Sulfate 1 mg 07/25/18 23:53 07/28/18 10:35 Morphine IV 1 mg Q4H PRN Administration Pain, Moderate (4-6) Ondansetron HCl 4 mg 07/25/18 23:53 07/27/18 21:46 Zofran IV 4 mg Q4H PRN Administration Nausea And Vomiting Pantoprazole Sodium 20 mg 07/26/18 10:00 07/28/18 21:13 Protonix PO 20 mg BID CARISSA Administration Quetiapine Fumarate 25 mg 07/26/18 10:00 07/28/18 09:00 Seroquel PO 25 mg DAILY CARISSA Administration Simple Syrup 15 ml 07/26/18 16:30 Simple Syrup FEEDTUBE PRN PRN Hypoglycemia Simple Syrup 30 ml 07/26/18 16:30 Simple Syrup FEEDTUBE PRN PRN Hypoglycemia Sodium Bicarbonate 325 mg 07/26/18 16:30 Sodium Bicarbonate FEEDTUBE PRN PRN For Clogged Feeding Tube Sodium Chloride 10 ml 07/26/18 10:00 07/28/18 23:55 Sodium Chloride Flush Syringe 10 Ml IV 10 ml BID CARISSA Administration Sodium Chloride 10 ml 07/25/18 23:53 07/28/18 21:15 Sodium Chloride Flush Syringe 10 Ml IV 10 ml PRN PRN Administration LINE FLUSH Warfarin Sodium 6 mg 07/28/18 17:00 07/28/18 18:37 Coumadin PO 6 mg DAILY@1700 CARISSA Administration
--- NOTE | 2018-07-29 10:26 | Progress Note ---
Assessment and Plan Currently stable cardiac status. No apparent plans for ortho surgery at this time, cont supportive measures and pain control. Cont home cardiac regimen. Nothing further to add from cardiac perspective at this time. Will sign off. Recommend pt follow up in our office with Dr. Tellez within 1-2 weeks of hospital discharge ([phone]). The patient has been seen in conjunction with Dr. Saldana who agrees with the assessment and plan of care. - Patient Problems (1) Fall Current Visit: Yes Status: Acute Qualifiers: Encounter type: initial encounter Qualified Code(s): W19.XXXA - Unspecified fall, initial encounter (2) Femur fracture, left Current Visit: Yes Status: Acute Qualifiers: Encounter type: initial encounter Femur location: intertrochanteric Fracture type: closed Fracture alignment: displaced Qualified Code(s): S72.142A - Displaced intertrochanteric fracture of left femur, initial encounter for closed fracture (3) Lumbar compression fracture Current Visit: Yes Status: Acute Qualifiers: Encounter type: initial encounter Lumbar vertebra fracture level: L2 Fracture type: closed Qualified Code(s): S32.020A - Wedge compression fracture of second lumbar vertebra, initial encounter for closed fracture (4) CAD (coronary artery disease) Current Visit: Yes Status: Chronic (5) Cardiomyopathy Current Visit: Yes Status: Chronic (6) History of cardiac arrest Current Visit: Yes Status: Chronic (7) Anoxic brain injury Current Visit: Yes Status: Chronic (8) Paroxysmal atrial fibrillation Current Visit: Yes Status: Chronic (9) On Coumadin for atrial fibrillation Current Visit: Yes Status: Chronic (10) HTN (hypertension) Current Visit: Yes Status: Chronic (11) Hyperlipidemia Current Visit: Yes Status: Chronic (12) ESRD on hemodialysis Current Visit: Yes Status: Chronic (13) History of DVT (deep vein thrombosis) Current Visit: Yes Status: Chronic (14) Anemia Current Visit: Yes Status: Acute Qualifiers: Anemia type: due to chronic kidney disease Chronic kidney disease stage: on chronic dialysis Qualified Code(s): N18.6 - End stage renal disease; D63.1 - Anemia in chronic kidney disease; Z99.2 - Dependence on renal dialysis Subjective Date of service: 07/29/18 Principal diagnosis: femur fx Interval history: pt resting in bed, awake, no current cardiac complaints. c/o leg pain. Objective Last Vital Signs Temp 97.0 F L 07/29/18 07:09 Pulse 84 07/29/18 07:09 Resp 18 07/29/18 07:09 BP 132/77 07/29/18 07:09 Pulse Ox 98 07/29/18 07:09 - Physical Examination General: Other (patient appears to be chronically ill) HEENT: Positive: PERRL, Normocephaly, Mucus Membranes Moist Neck: Positive: neck supple, trachea midline Cardiac: Positive: Reg Rate and Rhythm, S1/S2 Lungs: Positive: Decreased Breath Sounds Neuro: Positive: Other (unable to assess) Abdomen: Positive: Soft Extremities: Absent: edema - Labs and Meds Coagulation 07/29/18 Range/Units 04:05 PT 26.4 H (12.2-14.9) Sec. INR 2.25 H (0.87-1.13) CBC 07/29/18 Range/Units 04:05 WBC 6.7 (4.5-11.0) K/mm3 RBC 2.87 L (3.65-5.03) M/mm3 Hgb 8.7 L (11.8-15.2) gm/dl Hct 25.5 L (35.5-45.6) % Plt Count 191 (140-440) K/mm3 Lymph # 1.1 L (1.2-5.4) K/mm3 [place] # 0.5 (0.0-0.8) K/mm3 Eos # 0.1 (0.0-0.4) K/mm3 Baso # 0.0 (0.0-0.1) K/mm3 Comprehensive Metabolic Panel 07/29/18 Range/Units 04:05 Sodium 134 L (137-145) mmol/L Potassium 4.5 (3.6-5.0) mmol/L Chloride 94.9 L (98-107) mmol/L Carbon Dioxide 27 (22-30) mmol/L BUN 52 H (9-20) mg/dL Creatinine 5.6 H (0.8-1.5) mg/dL Glucose 239 H (75-100) mg/dL Calcium 8.5 (8.4-10.2) mg/dL - Imaging and Cardiology Echo: report reviewed (07/26/2018: EF 35-40%, mild to mod TR, RVSP 75mmHg, small pericardial effusion ) Cardiac cath: report reviewed (cardiac cath on 2/1 which showed multivessel CAD and cardiomyopathy EF 40%)
[2018-07-29] MEDS ORDERED: NACL 0.9 (PRIMING MACHINE ONLY DIALYSIS) MC ONE (13:11)
[2018-07-29] MEDS: PROCRIT IV PRN (13:15)
[2018-07-29] MEDS: LOPRESSOR PO SCH ×2 (14:49→23:00)
[2018-07-29] MEDS: HEPARIN SUB-Q SCH ×2 (14:49→22:00)
[2018-07-29] MEDS: PROTONIX PO SCH ×2 (14:49→22:01)
[2018-07-29] MEDS: TEMOVATE TP SCH ×2 (14:50→22:02)
--- NOTE | 2018-07-29 16:56 | Progress Note ---
Assessment and Plan Assessment and plan: --Left hip fracture: Pain medications, PTOT, management per orthopedic --Compression fracture of L2: Orthopedics evaluation noted and appreciated Recommend back brace, supportive care --Status post fall; Fall precautions, physical therapy occupational therapy --End-stage renal disease on hemodialysis; HD per schedule, nephrology following -- h/o coronary artery disease; Continue current cardiac medications, cardiology following --Chronic A. fib; rate controlled Stable on metoprolol closely monitor --Chronic anticoagulation with Coumadin; INR is 1.7, management per cardiology and orthopedic --Hypertension; moderate control, continue current antihypertensives When necessary medications --History of cardiac arrest in the past/anoxic brain injury Supportive care --h/o PEG : PEG feeds as needed Patient sometimes tolerates oral diet --DVT prophylaxis; patient is on Coumadin --Full CODE STATUS Closely monitor the patient and adjust management as needed History Interval history: Since seen and examined medical records reviewed Clinically no change , patient is comfortable No new events reported by the nursing Vital signs reviewed Hospitalist Physical - Constitutional Vitals: Temp Pulse Resp BP Pulse Ox 97.6 F 61 20 120/75 95 07/29/18 15:20 07/29/18 15:20 07/29/18 15:20 07/29/18 15:20 07/29/18 15:20 General appearance: Present: no acute distress, well-nourished - EENT Eyes: Present: PERRL, EOM intact - Neck Neck: Present: supple, normal ROM - Respiratory Respiratory effort: normal Respiratory: bilateral: diminished, negative: rales, rhonchi, wheezing - Cardiovascular Rhythm: regular Heart Sounds: Present: S1 & S2 - Extremities Extremities: no ischemia, No edema - Abdominal General gastrointestinal: soft, non-tender, non-distended, normal bowel sounds - Integumentary Integumentary: Present: clear, warm - Psychiatric Psychiatric: other (noncommunicative) - Neurologic Neurologic: other (noncommunicative) Results - Labs CBC & Chem 7: 07/29/18 04:05 07/29/18 04:05 Labs: Laboratory Last Values WBC 6.7 K/mm3 (4.5-11.0) 07/29/18 04:05 RBC 2.87 M/mm3 (3.65-5.03) L 07/29/18 04:05 Hgb 8.7 gm/dl (11.8-15.2) L 07/29/18 04:05 Hct 25.5 % (35.5-45.6) L 07/29/18 04:05 MCV 89 fl (84-94) 07/29/18 04:05 MCH 30 pg (28-32) 07/29/18 04:05 MCHC 34 % (32-34) 07/29/18 04:05 RDW 17.4 % (13.2-15.2) H 07/29/18 04:05 Plt Count 191 K/mm3 (140-440) 07/29/18 04:05 Lymph % (Auto) 16.1 % (13.4-35.0) 07/29/18 04:05 [facility] % (Auto) 8.0 % (0.0-7.3) H 07/29/18 04:05 Eos % (Auto) 1.3 % (0.0-4.3) 07/29/18 04:05 Baso % (Auto) 0.2 % (0.0-1.8) 07/29/18 04:05 Lymph # 1.1 K/mm3 (1.2-5.4) L 07/29/18 04:05 [facility] # 0.5 K/mm3 (0.0-0.8) 07/29/18 04:05 Eos # 0.1 K/mm3 (0.0-0.4) 07/29/18 04:05 Baso # 0.0 K/mm3 (0.0-0.1) 07/29/18 04:05 Seg Neutrophils % 74.4 % (40.0-70.0) H 07/29/18 04:05 Seg Neutrophils # 5.0 K/mm3 (1.8-7.7) 07/29/18 04:05 PT 26.4 Sec. (12.2-14.9) H 07/29/18 04:05 INR 2.25 (0.87-1.13) H 07/29/18 04:05 APTT 43.7 Sec. (24.2-36.6) H 07/25/18 23:59 Sodium 134 mmol/L (137-145) L 07/29/18 04:05 Potassium 4.5 mmol/L (3.6-5.0) 07/29/18 04:05 Chloride 94.9 mmol/L (98-107) L 07/29/18 04:05 Carbon Dioxide 27 mmol/L (22-30) 07/29/18 04:05 Anion Gap 17 mmol/L 07/29/18 04:05 BUN 52 mg/dL (9-20) H 07/29/18 04:05 Creatinine 5.6 mg/dL (0.8-1.5) H 07/29/18 04:05 Estimated GFR 12 ml/min 07/29/18 04:05 BUN/Creatinine Ratio 9 % 07/29/18 04:05 Glucose 239 mg/dL (75-100) H 07/29/18 04:05 POC Glucose 128 (70-105) H 07/29/18 16:36 Calcium 8.5 mg/dL (8.4-10.2) 07/29/18 04:05 Total Bilirubin 1.10 mg/dL (0.1-1.2) 07/25/18 22:37 AST 31 units/L (5-40) 07/25/18 22:37 ALT 25 units/L (7-56) 07/25/18 22:37 Alkaline Phosphatase 145 units/L (35-129) H 07/25/18 22:37 Total Protein 8.1 g/dL (6.3-8.2) 07/25/18 22:37 Albumin 3.1 g/dL (3.9-5) L 07/25/18 22:37 Albumin/Globulin Ratio 0.6 % 07/25/18 22:37 Hepatitis A IgM Ab Nonreactive (NonReactive) 07/26/18 19:25 Hep Bs Antigen Nonreactive (Negative) 07/26/18 19:25 Hep B Core IgM Ab Non-reactive (NonReactive) 07/26/18 19:25 Hepatitis C Antibody Nonreactive (NonReactive) 07/26/18 19:25 Blood Type AB POSITIVE 07/26/18 09:29 Antibody Screen Negative 07/26/18 09:29 Nutrition/Malnutrition Assess - Dietary Evaluation Nutrition/Malnutrition Findings: Nutrition Notes Start: 07/26/18 14:33 Freq: Status: Active Protocol: Document 07/29/18 15:41 RM (Rec: 07/29/18 15:42 RM [id number]) Nutrition Notes Initial or Follow up Reassessment Current Diagnosis Coronary Artery Disease Hypertension Hyperlipidemia Other Pertinent Diagnosis ESRD on HD, L hip fracture, Anoxic brain injury Current Diet Renal diet + Nepro at 80 mlr ( 8am-8pm) Labs/Tests Reviewed Pertinent Medications Reviewed Height 5 ft 7 in Weight 60.2 kg [place] Body Weight (kg) 67.27 BMI 20.7 Subjective/Other Information Pt not in room at time of visit. Nepro hanging in room. Per nurse pt is at HD but was tolerating TF before that. Percent of energy/protein needs met: 100%/100% #1 Nutrition Diagnosis Inadequate oral intake Diagnosis Progress(for reassessment Continues documentation) Is patient on ventilator? No Is Patient Ambulatory and/or Out of Bed No REE-([facility]-confined to bed) 2042.279 Calculation Used for Recommendations [facility] Additional Notes Protein Needs: 71-77g (1.2-1. 3g/kg) Fluid Needs: 1 ml/kcal Nutrition Intervention Change Diet Order: Renal + TF Nutrition Support: Nepro at 80 ml/hr from 8 pm to 8 am. Water flush of 150 mls q 4 hrs . Kcal 1,728 Protein (gm) 78 Fluid (mL) 698 Goal #1 Continue to meet at least 75% of calorie and protein needs via TF Anticipated Discharge Needs: Renal diet + Nepro 1.8 at 80 ml/hr (8am-8pm) Follow-Up By: 08/05/18 Additional Comments Follow for TF tolerance
[2018-07-29] MEDS: SODIUM CHLORIDE FLUSH SYRINGE 10 ML IV SCH ×3 (18:27→23:00)
[2018-07-29] MEDS: COUMADIN PO SCH (18:27)
[2018-07-29] MEDS: SODIUM CHLORIDE FLUSH SYRINGE 10 ML IV PRN (22:02)
[2018-07-30 04:51] LABS: INR 2.62 (0.87-1.13)
--- NOTE | 2018-07-30 08:49 | Progress Note ---
Assessment and Plan Impression * End-stage renal disease on maintenance hemodialysis * History of anoxic brain injury * Chronic atrial fibrillation * Hip fracture * Hypertension * Anemia secondary to ESRD Recommendations * Patient had uneventful hemodialysis yesterday * Keep him on MWF dialysis schedule for now as outpatient * Procrit with dialysis * No IV, BP or venipuncture his access arm * Adjust diet and meds were ESRD state * Binders with meals * Further plan as per orthopedic services as well as cardiology Subjective Date of service: 07/30/18 Principal diagnosis: femur fx Interval history: Patient is awake and alert. Uneventful hemodialysis yesterday. Still complains of pain in his left hip area. Denies any shortness of breath. Objective - Vital Signs Vital signs: Vital Signs - 12hr 07/29/18 07/29/18 07/29/18 21:52 22:00 23:00 Temperature 98.6 F Pulse Rate 79 78 Respiratory 17 Rate Respiratory 17 Rate [Left Hip] Blood Pressure 120/74 Blood Pressure 105/62 [Left] O2 Sat by Pulse 98 Oximetry 07/30/18 07/30/18 07/30/18 00:52 01:45 04:10 Temperature 97.7 F 97.7 F 97.5 F L Pulse Rate 78 Respiratory 18 18 16 Rate Respiratory Rate [Left Hip] Blood Pressure 114/68 135/78 Blood Pressure 114/68 [Left] O2 Sat by Pulse 96 Oximetry 07/30/18 07/30/18 07/30/18 04:12 06:40 07:00 Temperature 97.5 F L 98.6 F 98 F Pulse Rate 84 85 Respiratory 16 18 Rate Respiratory Rate [Left Hip] Blood Pressure Blood Pressure 135/78 131/78 [Left] O2 Sat by Pulse 96 97 Oximetry 07/30/18 07:05 Temperature 98.0 F Pulse Rate Respiratory 18 Rate Respiratory Rate [Left Hip] Blood Pressure 131/78 Blood Pressure [Left] O2 Sat by Pulse Oximetry - General Appearance General appearance: well-developed, well-nourished, appears stated age EENT: PERRL, mucous membranes moist Neck: no JVD, no thyromegaly, no carotid bruit, supple Respiratory: Present: Clear to Ascultation Cardiology: regular, normal heart rate, S1S2, no murmurs Gastrointestinal: normal, normoactive bowel sounds, other (PEG tube in place) Integumentary: other (AV fistula right upper arm. Good bruit and thrill. Pain on movement of his left lower extremity) - Lab 07/29/18 04:05 07/29/18 04:05 Most recent lab results Calcium 8.5 mg/dL (8.4-10.2) 07/29/18 04:05 Medications & Allergies - Medications Allergies/Adverse Reactions: Allergies No Known Allergies Allergy (Verified 07/25/18 17:57) Home Medications: Home Medications Medication Instructions Recorded Confirmed Last Taken Type Clobetasol 0.05% 0.05 mg TP BID 07/26/18 07/26/18 Unknown History Lidocaine 4% Kit 4 mg TP 3XW 07/26/18 07/26/18 Unknown History Lipitor 40 mg PO DAILY 07/26/18 07/26/18 Unknown History Metoprolol 25 mg PO Q12H 07/26/18 07/26/18 Unknown History Omeprazole 20 mg PO BID 07/26/18 07/26/18 Unknown History QUEtiapine [SEROquel] 25 mg PO DAILY 07/26/18 07/26/18 Unknown History Warfarin [Coumadin] 2 mg PO DAILY 07/26/18 07/26/18 Unknown History Active Medications: Generic Name Dose Route Start Last Admin Trade Name Freq PRN Reason Stop Dose Admin Lipase/Protease/Amylase 1 each 07/26/18 16:[address] 10,500 Unit FEEDTUBE PRN PRN For Clogged Feeding Tube Atorvastatin Calcium 40 mg 07/26/18 10:00 07/29/18 14:49 Lipitor PO 40 mg DAILY CARISSA Administration Clobetasol Propionate 1 applic 07/26/18 10:00 07/29/18 22:02 Temovate TP 1 applic BID CARISSA Administration Epoetin Jun 10,000 unit 07/26/18 18:13 07/29/18 13:15 Procrit IV 10,000 unit MIKAEL PRN Administration hemodialysis Heparin Sodium (Porcine) 5,000 unit 07/27/18 22:00 07/29/18 22:00 Heparin SUB-Q 5,000 unit Q12HR CARISSA Administration Sodium Chloride 100 mls @ 999 mls/hr 07/26/18 17:59 Nacl 0.9% IV MIKAEL PRN Hypotension Lidocaine HCl 2.5 ml 07/27/18 10:00 Xylocaine Topical 4% TP TuThSa CARISSA Metoprolol Tartrate 25 mg 07/26/18 10:00 07/29/18 23:00 Lopressor PO 25 mg Q12HR CARISSA Administration Morphine Sulfate 1 mg 07/25/18 23:53 07/28/18 10:35 Morphine IV 1 mg Q4H PRN Administration Pain, Moderate (4-6) Ondansetron HCl 4 mg 07/25/18 23:53 07/27/18 21:46 Zofran IV 4 mg Q4H PRN Administration Nausea And Vomiting Pantoprazole Sodium 20 mg 07/26/18 10:00 07/29/18 22:01 Protonix PO 20 mg BID CARISSA Administration Quetiapine Fumarate 25 mg 07/26/18 10:00 07/29/18 14:49 Seroquel PO 25 mg DAILY CARISSA Administration Simple Syrup 15 ml 07/26/18 16:30 Simple Syrup FEEDTUBE PRN PRN Hypoglycemia Simple Syrup 30 ml 07/26/18 16:30 Simple Syrup FEEDTUBE PRN PRN Hypoglycemia Sodium Bicarbonate 325 mg 07/26/18 16:30 Sodium Bicarbonate FEEDTUBE PRN PRN For Clogged Feeding Tube Sodium Chloride 10 ml 07/26/18 10:00 07/29/18 23:00 Sodium Chloride Flush Syringe 10 Ml IV 10 ml BID CARISSA Administration Sodium Chloride 10 ml 07/25/18 23:53 07/29/18 22:02 Sodium Chloride Flush Syringe 10 Ml IV 10 ml PRN PRN Administration LINE FLUSH Warfarin Sodium 6 mg 07/28/18 17:00 07/29/18 18:27 Coumadin PO 6 mg DAILY@1700 CARISSA Administration
[2018-07-30] MEDS: PROTONIX PO SCH ×2 (12:45→22:34)
[2018-07-30] MEDS: TEMOVATE TP SCH ×2 (12:45→22:35)
[2018-07-30] MEDS: LOPRESSOR PO SCH ×2 (12:45→22:34)
[2018-07-30] MEDS: SODIUM CHLORIDE FLUSH SYRINGE 10 ML IV SCH ×2 (12:45→22:35)
[2018-07-30] MEDS ORDERED: COUMADIN PO SCH (17:00)
--- NOTE | 2018-07-30 18:10 | Progress Note ---
Assessment and Plan Assessment and plan: --Left hip fracture: Pain medications, PTOT, management per orthopedic --Compression fracture of L2: Orthopedics evaluation noted and appreciated Recommend back brace, supportive care --Status post fall; Fall precautions, physical therapy occupational therapy --End-stage renal disease on hemodialysis; HD per schedule, nephrology following -- h/o coronary artery disease; Continue current cardiac medications, cardiology following --Chronic A. fib; rate controlled Stable on metoprolol closely monitor --Chronic anticoagulation with Coumadin; INR is 1.7, management per cardiology and orthopedic --Hypertension; moderate control, continue current antihypertensives When necessary medications --History of cardiac arrest in the past/anoxic brain injury Supportive care --h/o PEG : PEG feeds as needed Patient sometimes tolerates oral diet --DVT prophylaxis; patient is on Coumadin --Full CODE STATUS Closely monitor the patient and adjust management as needed History Interval history: Patient seen and examined medical records reviewed Clinically no change no new events reported by the nursing staff Vital signs noted Hospitalist Physical - Constitutional Vitals: Temp Pulse Resp BP Pulse Ox 98.9 F 77 20 120/71 98 07/30/18 15:47 07/30/18 15:47 07/30/18 15:47 07/30/18 15:47 07/30/18 15:47 General appearance: Present: no acute distress, well-nourished - EENT Eyes: Present: PERRL, EOM intact - Neck Neck: Present: supple, normal ROM - Respiratory Respiratory effort: normal Respiratory: negative: rales, rhonchi, wheezing - Cardiovascular Rhythm: regular Heart Sounds: Present: S1 & S2 - Extremities Extremities: no ischemia, No edema, abnormal (contracted) - Abdominal General gastrointestinal: soft, non-tender, non-distended, normal bowel sounds - Integumentary Integumentary: Present: clear, warm - Psychiatric Psychiatric: appropriate mood/affect, other (noncommunicative) - Neurologic Neurologic: other (noncommunicative) Results - Labs CBC & Chem 7: 07/29/18 04:05 07/29/18 04:05 Labs: Laboratory Last Values WBC 6.7 K/mm3 (4.5-11.0) 07/29/18 04:05 RBC 2.87 M/mm3 (3.65-5.03) L 07/29/18 04:05 Hgb 8.7 gm/dl (11.8-15.2) L 07/29/18 04:05 Hct 25.5 % (35.5-45.6) L 07/29/18 04:05 MCV 89 fl (84-94) 07/29/18 04:05 MCH 30 pg (28-32) 07/29/18 04:05 MCHC 34 % (32-34) 07/29/18 04:05 RDW 17.4 % (13.2-15.2) H 07/29/18 04:05 Plt Count 191 K/mm3 (140-440) 07/29/18 04:05 Lymph % (Auto) 16.1 % (13.4-35.0) 07/29/18 04:05 [place] % (Auto) 8.0 % (0.0-7.3) H 07/29/18 04:05 Eos % (Auto) 1.3 % (0.0-4.3) 07/29/18 04:05 Baso % (Auto) 0.2 % (0.0-1.8) 07/29/18 04:05 Lymph # 1.1 K/mm3 (1.2-5.4) L 07/29/18 04:05 [place] # 0.5 K/mm3 (0.0-0.8) 07/29/18 04:05 Eos # 0.1 K/mm3 (0.0-0.4) 07/29/18 04:05 Baso # 0.0 K/mm3 (0.0-0.1) 07/29/18 04:05 Seg Neutrophils % 74.4 % (40.0-70.0) H 07/29/18 04:05 Seg Neutrophils # 5.0 K/mm3 (1.8-7.7) 07/29/18 04:05 PT 29.8 Sec. (12.2-14.9) H 07/30/18 04:19 INR 2.62 (0.87-1.13) H 07/30/18 04:19 APTT 43.7 Sec. (24.2-36.6) H 07/25/18 23:59 Sodium 134 mmol/L (137-145) L 07/29/18 04:05 Potassium 4.5 mmol/L (3.6-5.0) 07/29/18 04:05 Chloride 94.9 mmol/L (98-107) L 07/29/18 04:05 Carbon Dioxide 27 mmol/L (22-30) 07/29/18 04:05 Anion Gap 17 mmol/L 07/29/18 04:05 BUN 52 mg/dL (9-20) H 07/29/18 04:05 Creatinine 5.6 mg/dL (0.8-1.5) H 07/29/18 04:05 Estimated GFR 12 ml/min 07/29/18 04:05 BUN/Creatinine Ratio 9 % 07/29/18 04:05 Glucose 239 mg/dL (75-100) H 07/29/18 04:05 POC Glucose 107 (70-105) H 07/30/18 16:37 Calcium 8.5 mg/dL (8.4-10.2) 07/29/18 04:05 Total Bilirubin 1.10 mg/dL (0.1-1.2) 07/25/18 22:37 AST 31 units/L (5-40) 07/25/18 22:37 ALT 25 units/L (7-56) 07/25/18 22:37 Alkaline Phosphatase 145 units/L (35-129) H 07/25/18 22:37 Total Protein 8.1 g/dL (6.3-8.2) 07/25/18 22:37 Albumin 3.1 g/dL (3.9-5) L 07/25/18 22:37 Albumin/Globulin Ratio 0.6 % 07/25/18 22:37 Hepatitis A IgM Ab Nonreactive (NonReactive) 07/26/18 19:25 Hep Bs Antigen Nonreactive (Negative) 07/26/18 19:25 Hep B Core IgM Ab Non-reactive (NonReactive) 07/26/18 19:25 Hepatitis C Antibody Nonreactive (NonReactive) 07/26/18 19:25 Blood Type AB POSITIVE 07/26/18 09:29 Antibody Screen Negative 07/26/18 09:29 Nutrition/Malnutrition Assess - Dietary Evaluation Nutrition/Malnutrition Findings: Nutrition Notes Start: 07/26/18 14:33 Freq: Status: Active Protocol: Document 07/29/18 15:41 RM (Rec: 07/29/18 15:42 RM [id number]) Nutrition Notes Initial or Follow up Reassessment Current Diagnosis Coronary Artery Disease Hypertension Hyperlipidemia Other Pertinent Diagnosis ESRD on HD, L hip fracture, Anoxic brain injury Current Diet Renal diet + Nepro at 80 mlr ( 8am-8pm) Labs/Tests Reviewed Pertinent Medications Reviewed Height 5 ft 7 in Weight 60.2 kg [place] Body Weight (kg) 67.27 BMI 20.7 Subjective/Other Information Pt not in room at time of visit. Nepro hanging in room. Per nurse pt is at HD but was tolerating TF before that. Percent of energy/protein needs met: 100%/100% #1 Nutrition Diagnosis Inadequate oral intake Diagnosis Progress(for reassessment Continues documentation) Is patient on ventilator? No Is Patient Ambulatory and/or Out of Bed No REE-([facility]-confined to bed) [phone] Calculation Used for Recommendations [facility] Additional Notes Protein Needs: 71-77g (1.2-1. 3g/kg) Fluid Needs: 1 ml/kcal Nutrition Intervention Change Diet Order: Renal + TF Nutrition Support: Nepro at 80 ml/hr from 8 pm to 8 am. Water flush of 150 mls q 4 hrs . Kcal 1,728 Protein (gm) 78 Fluid (mL) 698 Goal #1 Continue to meet at least 75% of calorie and protein needs via TF Anticipated Discharge Needs: Renal diet + Nepro 1.8 at 80 ml/hr (8am-8pm) Follow-Up By: 08/05/18 Additional Comments Follow for TF tolerance
[2018-07-30] MEDS: XYLOCAINE TOPICAL 4% TP SCH (19:31)
[2018-07-30] MEDS: HEPARIN SUB-Q SCH (19:32)
[2018-07-31 07:44] LABS: INR 4.24 (0.87-1.13)
[2018-07-31] MEDS: TEMOVATE TP SCH ×2 (09:41→22:01)
[2018-07-31] MEDS: LOPRESSOR PO SCH ×2 (10:36→21:59)
[2018-07-31] MEDS: SODIUM CHLORIDE FLUSH SYRINGE 10 ML IV SCH ×2 (10:36→22:10)
[2018-07-31] MEDS: PROTONIX PO SCH ×2 (10:49→21:59)
[2018-07-31 11:59] LABS: INR 4.73 (0.87-1.13)
[2018-07-31] MEDS ORDERED: NACL 0.9% 100 ML IV PRN (13:36)
--- NOTE | 2018-07-31 16:33 | Progress Note ---
Assessment and Plan Assessment and plan: --Left hip fracture: ortho evaluated feels only contusion hip Pain medications, PTOT, --Compression fracture of L2: Orthopedics evaluation noted and appreciated Recommend back brace,PT, OT supportive care --Status post fall; Fall precautions, physical therapy occupational therapy --End-stage renal disease on hemodialysis; HD per schedule, nephrology following -- h/o coronary artery disease; Continue current cardiac medications, cardiology following --Chronic A. fib; rate controlled Stable on metoprolol closely monitor --Chronic anticoagulation with Coumadin; Supratherapeutic INR 4.7, hold Coumadin Closely monitor, target INR 2-3 --Hypertension; moderate control, continue current antihypertensives When necessary medications --History of cardiac arrest in the past/anoxic brain injury Supportive care --h/o PEG : PEG feeds as needed Patient sometimes tolerates oral diet --DVT prophylaxis; patient is on Coumadin --Full CODE STATUS Closely monitor the patient and adjust management as needed Discharge planning; recommend SNF/acute rehabilitation placement. case management discussed with the mother who refused placement Requested discharge home with home health Possible discharge in 1-2 days if stable History Interval history: Patient seen and examined medical records reviewed Clinically no change Patient has elevated INR, no evidence of bleeding No new events reported by the nursing Vital signs reviewed Hospitalist Physical - Constitutional Vitals: Temp Pulse Resp BP Pulse Ox 99.2 F 96 H 16 134/77 98 07/31/18 15:00 07/31/18 16:15 07/31/18 15:00 07/31/18 16:15 07/31/18 00:46 General appearance: Present: no acute distress, well-nourished - EENT Eyes: Present: PERRL, EOM intact - Neck Neck: Present: supple, normal ROM - Respiratory Respiratory effort: normal Respiratory: bilateral: diminished, negative: rales, rhonchi, wheezing - Cardiovascular Rhythm: regular Heart Sounds: Present: S1 & S2 - Extremities Extremities: no ischemia, No edema, abnormal (contracted) - Abdominal General gastrointestinal: soft, non-tender, non-distended, normal bowel sounds, other (PEG tube in place) - Integumentary Integumentary: Present: clear, warm - Psychiatric Psychiatric: other (communication) - Neurologic Neurologic: other (residual weakness) Results - Labs CBC & Chem 7: 07/29/18 04:05 07/29/18 04:05 Labs: Laboratory Last Values WBC 6.7 K/mm3 (4.5-11.0) 07/29/18 04:05 RBC 2.87 M/mm3 (3.65-5.03) L 07/29/18 04:05 Hgb 8.7 gm/dl (11.8-15.2) L 07/29/18 04:05 Hct 25.5 % (35.5-45.6) L 07/29/18 04:05 MCV 89 fl (84-94) 07/29/18 04:05 MCH 30 pg (28-32) 07/29/18 04:05 MCHC 34 % (32-34) 07/29/18 04:05 RDW 17.4 % (13.2-15.2) H 07/29/18 04:05 Plt Count 191 K/mm3 (140-440) 07/29/18 04:05 Lymph % (Auto) 16.1 % (13.4-35.0) 07/29/18 04:05 [place] % (Auto) 8.0 % (0.0-7.3) H 07/29/18 04:05 Eos % (Auto) 1.3 % (0.0-4.3) 07/29/18 04:05 Baso % (Auto) 0.2 % (0.0-1.8) 07/29/18 04:05 Lymph # 1.1 K/mm3 (1.2-5.4) L 07/29/18 04:05 [place] # 0.5 K/mm3 (0.0-0.8) 07/29/18 04:05 Eos # 0.1 K/mm3 (0.0-0.4) 07/29/18 04:05 Baso # 0.0 K/mm3 (0.0-0.1) 07/29/18 04:05 Seg Neutrophils % 74.4 % (40.0-70.0) H 07/29/18 04:05 Seg Neutrophils # 5.0 K/mm3 (1.8-7.7) 07/29/18 04:05 PT 47.8 Sec. (12.2-14.9) H 07/31/18 11:24 INR 4.73 (0.87-1.13) H 07/31/18 11:24 APTT 43.7 Sec. (24.2-36.6) H 07/25/18 23:59 Sodium 134 mmol/L (137-145) L 07/29/18 04:05 Potassium 4.5 mmol/L (3.6-5.0) 07/29/18 04:05 Chloride 94.9 mmol/L (98-107) L 07/29/18 04:05 Carbon Dioxide 27 mmol/L (22-30) 07/29/18 04:05 Anion Gap 17 mmol/L 07/29/18 04:05 BUN 52 mg/dL (9-20) H 07/29/18 04:05 Creatinine 5.6 mg/dL (0.8-1.5) H 07/29/18 04:05 Estimated GFR 12 ml/min 07/29/18 04:05 BUN/Creatinine Ratio 9 % 07/29/18 04:05 Glucose 239 mg/dL (75-100) H 07/29/18 04:05 POC Glucose 158 (70-105) H 07/31/18 12:37 Calcium 8.5 mg/dL (8.4-10.2) 07/29/18 04:05 Total Bilirubin 1.10 mg/dL (0.1-1.2) 07/25/18 22:37 AST 31 units/L (5-40) 07/25/18 22:37 ALT 25 units/L (7-56) 07/25/18 22:37 Alkaline Phosphatase 145 units/L (35-129) H 07/25/18 22:37 Total Protein 8.1 g/dL (6.3-8.2) 07/25/18 22:37 Albumin 3.1 g/dL (3.9-5) L 07/25/18 22:37 Albumin/Globulin Ratio 0.6 % 07/25/18 22:37 Hepatitis A IgM Ab Nonreactive (NonReactive) 07/26/18 19:25 Hep Bs Antigen Nonreactive (Negative) 07/26/18 19:25 Hep B Core IgM Ab Non-reactive (NonReactive) 07/26/18 19:25 Hepatitis C Antibody Nonreactive (NonReactive) 07/26/18 19:25 Blood Type AB POSITIVE 07/26/18 09:29 Antibody Screen Negative 07/26/18 09:29 Nutrition/Malnutrition Assess - Dietary Evaluation Nutrition/Malnutrition Findings: Nutrition Notes Start: 07/26/18 14:33 Freq: Status: Active Protocol: Document 07/29/18 15:41 RM (Rec: 07/29/18 15:42 RM [id number]) Nutrition Notes Initial or Follow up Reassessment Current Diagnosis Coronary Artery Disease, Hypertension,Hyperlipidemia Other Pertinent Diagnosis ESRD on HD, L hip fracture, Anoxic brain injury Current Diet Renal diet + Nepro at 80 mlr ( 8am-8pm) Labs/Tests Reviewed Pertinent Medications Reviewed Height 5 ft 7 in Weight 60.2 kg [place] Body Weight (kg) 67.27 BMI 20.7 Subjective/Other Information Pt not in room at time of visit. Nepro hanging in room. Per nurse pt is at HD but was tolerating TF before that. Percent of energy/protein needs met: 100%/100% #1 Nutrition Diagnosis Inadequate oral intake Diagnosis Progress(for reassessment Continues documentation) Is patient on ventilator? No Is Patient Ambulatory and/or Out of Bed No REE-([facility]-confined to bed) [phone] Calculation Used for Recommendations [facility] Additional Notes Protein Needs: 71-77g (1.2-1. 3g/kg) Fluid Needs: 1 ml/kcal Nutrition Intervention Change Diet Order: Renal + TF Nutrition Support: Nepro at 80 ml/hr from 8 pm to 8 am. Water flush of 150 mls q 4 hrs . Kcal 1,728 Protein (gm) 78 Fluid (mL) 698 Goal #1 Continue to meet at least 75% of calorie and protein needs via TF Anticipated Discharge Needs: Renal diet + Nepro 1.8 at 80 ml/hr (8am-8pm) Follow-Up By: 08/05/18 Additional Comments Follow for TF tolerance
[2018-07-31] MEDS: PROCRIT IV PRN (17:57)
--- NOTE | 2018-07-31 23:33 | Progress Note ---
Assessment and Plan - Patient Problems (1) ESRD (end stage renal disease) Current Visit: Yes Status: Acute Plan to address problem: ESRD on hemodialysis - 2K/2.5ca/35Hco3 bath - MWF (2) Anemia Current Visit: Yes Status: Acute Qualifiers: Anemia type: due to chronic kidney disease Chronic kidney disease stage: on chronic dialysis Qualified Code(s): N18.6 - End stage renal disease; D63.1 - Anemia in chronic kidney disease; Z99.2 - Dependence on renal dialysis Plan to address problem: Moderate anemia : Hb: 8.7g/dl etiology 2/2 chronic kidney disease currently on epogen. Monitor CBC. (3) HTN (hypertension) Current Visit: Yes Status: Chronic Plan to address problem: HTN : controlled continue current medications. (4) Fall Current Visit: Yes Status: Acute Qualifiers: Encounter type: initial encounter Qualified Code(s): W19.XXXA - Unspecified fall, initial encounter Plan to address problem: Recent Fall Fall precautions. Subjective Principal diagnosis: femur fx Interval history: 38 year old with medical history signficant for CAD, Atrial fibrillation , ESRD on dialysis , HTN , Hyperlipidemia presents following a fall , also recent cardiac arrest I attest that I saw the Patient on hemodialysis Review of systems is limited by patients clinical status . Objective - Vital Signs Vital signs: Vital Signs - 12hr 07/31/18 07/31/18 07/31/18 15:00 15:15 15:30 Temperature 99.2 F Pulse Rate 87 88 91 H Respiratory 16 Rate Blood Pressure 144/83 133/79 143/83 O2 Sat by Pulse Oximetry 07/31/18 07/31/18 07/31/18 15:45 16:00 16:15 Temperature Pulse Rate 94 H 96 H 96 H Respiratory Rate Blood Pressure 136/87 143/86 134/77 O2 Sat by Pulse Oximetry 07/31/18 07/31/18 07/31/18 16:30 16:45 17:00 Temperature Pulse Rate 963 H 97 H 96 H Respiratory Rate Blood Pressure 120/67 147/86 142/85 O2 Sat by Pulse Oximetry 07/31/18 07/31/18 07/31/18 17:25 17:40 17:58 Temperature Pulse Rate 94 H 94 H 94 H Respiratory Rate Blood Pressure 130/84 129/83 131/77 O2 Sat by Pulse Oximetry 07/31/18 07/31/18 07/31/18 18:15 18:30 18:45 Temperature 98.9 F Pulse Rate 95 H 97 H 98 H Respiratory 16 Rate Blood Pressure 113/55 128/87 140/85 O2 Sat by Pulse Oximetry 07/31/18 20:32 Temperature 98.4 F Pulse Rate 93 H Respiratory 18 Rate Blood Pressure 119/78 O2 Sat by Pulse 100 Oximetry - General Appearance General appearance: well-developed EENT: ATNC, PERRL, mucous membranes dry Neck: no JVD, no thyromegaly, supple Respiratory: Present: Clear to Ascultation, Normal Exam, Diaphramatic Movement Cardiology: regular, S1S2 Gastrointestinal: normal, normoactive bowel sounds Integumentary: no rash Neurologic: confused Musculoskeletal: other Psychiatric: depressed - Lab 07/29/18 04:05 07/29/18 04:05 Most recent lab results Calcium 8.5 mg/dL (8.4-10.2) 07/29/18 04:05 - Imaging CT scan - abdomen: image reviewed, other Medications & Allergies - Medications Allergies/Adverse Reactions: Allergies No Known Allergies Allergy (Verified 07/25/18 17:57) Home Medications: Home Medications Medication Instructions Recorded Confirmed Last Taken Type Clobetasol 0.05% 0.05 mg TP BID 07/26/18 07/26/18 Unknown History Lidocaine 4% Kit 4 mg TP 3XW 07/26/18 07/26/18 Unknown History Lipitor 40 mg PO DAILY 07/26/18 07/26/18 Unknown History Metoprolol 25 mg PO Q12H 07/26/18 07/26/18 Unknown History Omeprazole 20 mg PO BID 07/26/18 07/26/18 Unknown History QUEtiapine [SEROquel] 25 mg PO DAILY 07/26/18 07/26/18 Unknown History Warfarin [Coumadin] 2 mg PO DAILY 07/26/18 07/26/18 Unknown History Active Medications: Generic Name Dose Route Start Last Admin Trade Name Freq PRN Reason Stop Dose Admin Lipase/Protease/Amylase 1 each 07/26/18 16:30 Pancreashwin Beaulieu 10,500 Unit FEEDTUBE PRN PRN For Clogged Feeding Tube Atorvastatin Calcium 40 mg 07/26/18 10:00 07/30/18 12:45 Lipitor PO 40 mg DAILY CARISSA Administration Clobetasol Propionate 1 applic 07/26/18 10:00 07/31/18 22:01 Temovate TP 1 applic BID CARISSA Administration Epoetin Jun 10,000 unit 07/26/18 18:13 07/31/18 17:57 Procrit IV 10,000 unit MIKAEL PRN Administration hemodialysis Sodium Chloride 100 mls @ 999 mls/hr 07/26/18 17:59 Nacl 0.9% IV MIKAEL PRN Hypotension Lidocaine HCl 2.5 ml 07/27/18 10:00 07/30/18 19:31 Xylocaine Topical 4% TP Not Given [facility] Metoprolol Tartrate 25 mg 07/26/18 10:00 07/31/18 21:59 Lopressor PO 25 mg Q12HR CARISSA Administration Morphine Sulfate 1 mg 07/25/18 23:53 07/28/18 10:35 Morphine IV 1 mg Q4H PRN Administration Pain, Moderate (4-6) Ondansetron HCl 4 mg 07/25/18 23:53 07/27/18 21:46 Zofran IV 4 mg Q4H PRN Administration Nausea And Vomiting Pantoprazole Sodium 20 mg 07/26/18 10:00 07/31/18 21:59 Protonix PO 20 mg BID CARISSA Administration Quetiapine Fumarate 25 mg 07/26/18 10:00 07/30/18 12:45 Seroquel PO 25 mg DAILY CARISSA Administration Simple Syrup 15 ml 07/26/18 16:30 Simple Syrup FEEDTUBE PRN PRN Hypoglycemia Simple Syrup 30 ml 07/26/18 16:30 Simple Syrup FEEDTUBE PRN PRN Hypoglycemia Sodium Bicarbonate 325 mg 07/26/18 16:30 Sodium Bicarbonate FEEDTUBE PRN PRN For Clogged Feeding Tube Sodium Chloride 10 ml 07/26/18 10:00 07/31/18 22:10 Sodium Chloride Flush Syringe 10 Ml IV 10 ml BID CARISSA Administration Sodium Chloride 10 ml 07/25/18 23:53 07/29/18 22:02 Sodium Chloride Flush Syringe 10 Ml IV 10 ml PRN PRN Administration LINE FLUSH
[2018-08-01] MEDS: MORPHINE IV PRN ×4 (00:23→14:19)
[2018-08-01 06:13] LABS: INR 3.69 (0.87-1.13)
[2018-08-01] MEDS: ZOFRAN IV PRN (06:51)
[2018-08-01] MEDS: LOPRESSOR PO SCH ×2 (09:29→21:28)
[2018-08-01] MEDS: PROTONIX PO SCH ×2 (09:29→21:28)
[2018-08-01] MEDS: SODIUM CHLORIDE FLUSH SYRINGE 10 ML IV SCH ×2 (09:30→21:30)
[2018-08-01] MEDS: TEMOVATE TP SCH ×2 (09:32→21:40)
[2018-08-01] MEDS: XYLOCAINE TOPICAL 4% TP SCH (09:34)
--- NOTE | 2018-08-01 11:14 | Progress Note ---
Assessment and Plan - Patient Problems (1) ESRD (end stage renal disease) Current Visit: Yes Status: Acute Plan to address problem: ESRD on hemodialysis - 2K/2.5ca/35Hco3 bath - Tolerated dialysis well. - No acute indication for dialysis today - Will continue MWF schedule. (2) Anemia Current Visit: Yes Status: Acute Qualifiers: Anemia type: due to chronic kidney disease Chronic kidney disease stage: on chronic dialysis Qualified Code(s): N18.6 - End stage renal disease; D63.1 - Anemia in chronic kidney disease; Z99.2 - Dependence on renal dialysis Plan to address problem: Moderate anemia : Hb: 8.7g/dl etiology 2/2 chronic kidney disease currently on epogen. Monitor CBC. (3) HTN (hypertension) Current Visit: Yes Status: Chronic Plan to address problem: HTN : controlled continue current medications. (4) Fall Current Visit: Yes Status: Acute Qualifiers: Encounter type: initial encounter Qualified Code(s): W19.XXXA - Unspecified fall, initial encounter Plan to address problem: Recent Fall CT with evidence of multiple fractures. Fall precautions. Thank you for this consultation Subjective Principal diagnosis: ESRD /volume status managment admitted with femur fx Interval history: 38 year old with medical history signficant for CAD, Atrial fibrillation , ESRD on dialysis via a Right arm AVF, HTN , Hyperlipidemia presents following a fall , also recent cardiac arrest Review of systems is limited by patients clinical status . Patients family at bedside today, they have been trying to call his primary care physician as requested by case making machine operator . had questions regarding aspirin and coumadin . Objective - Vital Signs Vital signs: Vital Signs - 12hr 08/01/18 08/01/18 08/01/18 00:12 04:39 07:53 Temperature 98.2 F 98.6 F Pulse Rate 83 86 84 Respiratory 18 18 Rate Blood Pressure 110/72 114/70 Blood Pressure [Left] O2 Sat by Pulse 97 99 98 Oximetry 08/01/18 08:00 Temperature 98.6 F Pulse Rate 79 Respiratory 18 Rate Blood Pressure Blood Pressure 122/75 [Left] O2 Sat by Pulse Oximetry - General Appearance General appearance: well-developed, well-nourished EENT: ATNC, PERRL Neck: no JVD, no thyromegaly, supple Respiratory: Present: Decreased Breath Sounds Cardiology: regular, S1S2 Gastrointestinal: normal, normoactive bowel sounds Neurologic: disoriented Psychiatric: mood/affect appropriate - Lab 07/29/18 04:05 07/29/18 04:05 Most recent lab results Calcium 8.5 mg/dL (8.4-10.2) 07/29/18 04:05 - Imaging CT scan - abdomen: image reviewed (abdominal CT with anasarca and multiple fractures. ) Medications & Allergies - Medications Allergies/Adverse Reactions: Allergies No Known Allergies Allergy (Verified 07/25/18 17:57) Home Medications: Home Medications Medication Instructions Recorded Confirmed Last Taken Type Clobetasol 0.05% 0.05 mg TP BID 07/26/18 07/26/18 Unknown History Lidocaine 4% Kit 4 mg TP 3XW 07/26/18 07/26/18 Unknown History Lipitor 40 mg PO DAILY 07/26/18 07/26/18 Unknown History Metoprolol 25 mg PO Q12H 07/26/18 07/26/18 Unknown History Omeprazole 20 mg PO BID 07/26/18 07/26/18 Unknown History QUEtiapine [SEROquel] 25 mg PO DAILY 07/26/18 07/26/18 Unknown History Warfarin [Coumadin] 2 mg PO DAILY 07/26/18 07/26/18 Unknown History Active Medications: Generic Name Dose Route Start Last Admin Trade Name Freq PRN Reason Stop Dose Admin Lipase/Protease/Amylase 1 each 07/26/18 16:[address] 10,500 Unit FEEDTUBE PRN PRN For Clogged Feeding Tube Atorvastatin Calcium 40 mg 07/26/18 10:00 08/01/18 09:29 Lipitor PO 40 mg DAILY CARISSA Administration Clobetasol Propionate 1 applic 07/26/18 10:00 08/01/18 09:32 Temovate TP 1 applic BID CARISSA Administration Epoetin Jun 10,000 unit 07/26/18 18:13 07/31/18 17:57 Procrit IV 10,000 unit MIKAEL PRN Administration hemodialysis Sodium Chloride 100 mls @ 999 mls/hr 07/26/18 17:59 Nacl 0.9% IV MIKAEL PRN Hypotension Lidocaine HCl 2.5 ml 07/27/18 10:00 08/01/18 09:34 [facility]ical 4% [facility] Tartrate 25 mg 07/26/18 10:00 08/01/18 09:29 Lopressor PO 25 mg Q12HR CARISSA Administration Morphine Sulfate 1 mg 07/25/18 23:53 08/01/18 06:50 Morphine IV 1 mg Q4H PRN Administration Pain, Moderate (4-6) Ondansetron HCl 4 mg 07/25/18 23:53 08/01/18 06:51 Zofran IV 4 mg Q4H PRN Administration Nausea And Vomiting Pantoprazole Sodium 20 mg 07/26/18 10:00 08/01/18 09:29 Protonix PO 20 mg BID CARISSA Administration Quetiapine Fumarate 25 mg 07/26/18 10:00 08/01/18 09:29 Seroquel PO 25 mg DAILY CARISSA Administration Simple Syrup 15 ml 07/26/18 16:30 Simple Syrup FEEDTUBE PRN PRN Hypoglycemia Simple Syrup 30 ml 07/26/18 16:30 Simple Syrup FEEDTUBE PRN PRN Hypoglycemia Sodium Bicarbonate 325 mg 07/26/18 16:30 Sodium Bicarbonate FEEDTUBE PRN PRN For Clogged Feeding Tube Sodium Chloride 10 ml 07/26/18 10:00 08/01/18 09:30 Sodium Chloride Flush Syringe 10 Ml IV 10 ml BID CARISSA Administration Sodium Chloride 10 ml 07/25/18 23:53 07/29/18 22:02 Sodium Chloride Flush Syringe 10 Ml IV 10 ml PRN PRN Administration LINE FLUSH
--- NOTE | 2018-08-01 19:18 | Progress Note ---
Assessment and Plan Assessment and plan: --Chronic anticoagulation with Coumadin; Supratherapeutic INR 4.7- 3.69 hold Coumadin Closely monitor, target INR 2-3 --Left hip fracture: ortho evaluated feels only contusion hip Pain medications, PTOT, --Compression fracture of L2: Orthopedics evaluation noted and appreciated Recommend back brace,PT, OT supportive care --Status post fall; Fall precautions, physical therapy occupational therapy --End-stage renal disease on hemodialysis; HD per schedule, nephrology following -- h/o coronary artery disease; Continue current cardiac medications, cardiology following --Chronic A. fib; rate controlled Stable on metoprolol closely monitor --Hypertension; moderate control, continue current antihypertensives When necessary medications --History of cardiac arrest in the past/anoxic brain injury Supportive care --h/o PEG : PEG feeds as needed Patient sometimes tolerates oral diet --DVT prophylaxis; patient is on Coumadin --Full CODE STATUS Closely monitor the patient and adjust management as needed Discharge planning; recommend SNF/acute rehabilitation placement. case management discussed with the mother who refused placement Requested discharge home with home health Possible discharge tomorrow if stable History Interval history: Patient seen and examined medical records reviewed No new events reported by the nursing staff Vital signs reviewed INR is supratherapeutic today 3.69 No new complaints Hospitalist Physical - Constitutional Vitals: Temp Pulse Resp BP Pulse Ox 98.6 F 79 20 122/75 98 08/01/18 08:00 08/01/18 08:00 08/01/18 14:19 08/01/18 08:00 08/01/18 07:53 General appearance: Present: no acute distress, well-nourished - EENT Eyes: Present: PERRL, EOM intact - Neck Neck: Present: supple, normal ROM - Respiratory Respiratory effort: normal Respiratory: bilateral: diminished, negative: rales, rhonchi, wheezing - Cardiovascular Rhythm: regular Heart Sounds: Present: S1 & S2 - Extremities Extremities: no ischemia, No edema - Abdominal General gastrointestinal: soft, non-tender, non-distended, normal bowel sounds, other (PEG tube in place) - Integumentary Integumentary: Present: clear, warm - Psychiatric Psychiatric: cooperative - Neurologic Neurologic: other (residual weakness) Results - Labs CBC & Chem 7: 07/29/18 04:05 07/29/18 04:05 Labs: Laboratory Last Values WBC 6.7 K/mm3 (4.5-11.0) 07/29/18 04:05 RBC 2.87 M/mm3 (3.65-5.03) L 07/29/18 04:05 Hgb 8.7 gm/dl (11.8-15.2) L 07/29/18 04:05 Hct 25.5 % (35.5-45.6) L 07/29/18 04:05 MCV 89 fl (84-94) 07/29/18 04:05 MCH 30 pg (28-32) 07/29/18 04:05 MCHC 34 % (32-34) 07/29/18 04:05 RDW 17.4 % (13.2-15.2) H 07/29/18 04:05 Plt Count 191 K/mm3 (140-440) 07/29/18 04:05 Lymph % (Auto) 16.1 % (13.4-35.0) 07/29/18 04:05 [place] % (Auto) 8.0 % (0.0-7.3) H 07/29/18 04:05 Eos % (Auto) 1.3 % (0.0-4.3) 07/29/18 04:05 Baso % (Auto) 0.2 % (0.0-1.8) 07/29/18 04:05 Lymph # 1.1 K/mm3 (1.2-5.4) L 07/29/18 04:05 [place] # 0.5 K/mm3 (0.0-0.8) 07/29/18 04:05 Eos # 0.1 K/mm3 (0.0-0.4) 07/29/18 04:05 Baso # 0.0 K/mm3 (0.0-0.1) 07/29/18 04:05 Seg Neutrophils % 74.4 % (40.0-70.0) H 07/29/18 04:05 Seg Neutrophils # 5.0 K/mm3 (1.8-7.7) 07/29/18 04:05 PT 39.2 Sec. (12.2-14.9) H 08/01/18 05:53 INR 3.69 (0.87-1.13) H 08/01/18 05:53 APTT 43.7 Sec. (24.2-36.6) H 07/25/18 23:59 Sodium 134 mmol/L (137-145) L 07/29/18 04:05 Potassium 4.5 mmol/L (3.6-5.0) 07/29/18 04:05 Chloride 94.9 mmol/L (98-107) L 07/29/18 04:05 Carbon Dioxide 27 mmol/L (22-30) 07/29/18 04:05 Anion Gap 17 mmol/L 07/29/18 04:05 BUN 52 mg/dL (9-20) H 07/29/18 04:05 Creatinine 5.6 mg/dL (0.8-1.5) H 07/29/18 04:05 Estimated GFR 12 ml/min 07/29/18 04:05 BUN/Creatinine Ratio 9 % 07/29/18 04:05 Glucose 239 mg/dL (75-100) H 07/29/18 04:05 POC Glucose 101 (70-105) 08/01/18 18:05 Calcium 8.5 mg/dL (8.4-10.2) 07/29/18 04:05 Total Bilirubin 1.10 mg/dL (0.1-1.2) 07/25/18 22:37 AST 31 units/L (5-40) 07/25/18 22:37 ALT 25 units/L (7-56) 07/25/18 22:37 Alkaline Phosphatase 145 units/L (35-129) H 07/25/18 22:37 Total Protein 8.1 g/dL (6.3-8.2) 07/25/18 22:37 Albumin 3.1 g/dL (3.9-5) L 07/25/18 22:37 Albumin/Globulin Ratio 0.6 % 07/25/18 22:37 Hepatitis A IgM Ab Nonreactive (NonReactive) 07/26/18 19:25 Hep Bs Antigen Nonreactive (Negative) 07/26/18 19:25 Hep B Core IgM Ab Non-reactive (NonReactive) 07/26/18 19:25 Hepatitis C Antibody Nonreactive (NonReactive) 07/26/18 19:25 Blood Type AB POSITIVE 07/26/18 09:29 Antibody Screen Negative 07/26/18 09:29 Nutrition/Malnutrition Assess - Dietary Evaluation Nutrition/Malnutrition Findings: Nutrition Notes Start: 07/26/18 14:33 Freq: Status: Active Protocol: Document 07/29/18 15:41 RM (Rec: 07/29/18 15:42 RM [id number]) Nutrition Notes Initial or Follow up Reassessment Current Diagnosis Coronary Artery Disease, Hypertension,Hyperlipidemia Other Pertinent Diagnosis ESRD on HD, L hip fracture, Anoxic brain injury Current Diet Renal diet + Nepro at 80 mlr ( 8am-8pm) Labs/Tests Reviewed Pertinent Medications Reviewed Height 5 ft 7 in Weight 60.2 kg [place] Body Weight (kg) 67.27 BMI 20.7 Subjective/Other Information Pt not in room at time of visit. Nepro hanging in room. Per nurse pt is at HD but was tolerating TF before that. Percent of energy/protein needs met: 100%/100% #1 Nutrition Diagnosis Inadequate oral intake Diagnosis Progress(for reassessment Continues documentation) Is patient on ventilator? No Is Patient Ambulatory and/or Out of Bed No REE-([facility]-confined to bed) [phone] Calculation Used for Recommendations [facility] Additional Notes Protein Needs: 71-77g (1.2-1. 3g/kg) Fluid Needs: 1 ml/kcal Nutrition Intervention Change Diet Order: Renal + TF Nutrition Support: Nepro at 80 ml/hr from 8 pm to 8 am. Water flush of 150 mls q 4 hrs . Kcal 1,728 Protein (gm) 78 Fluid (mL) 698 Goal #1 Continue to meet at least 75% of calorie and protein needs via TF Anticipated Discharge Needs: Renal diet + Nepro 1.8 at 80 ml/hr (8am-8pm) Follow-Up By: 08/05/18 Additional Comments Follow for TF tolerance
[2018-08-02 05:18] LABS: INR 2.92 (0.87-1.13)
[2018-08-02] MEDS: LOPRESSOR PO SCH (09:29)
[2018-08-02] MEDS: PROTONIX PO SCH (09:29)
[2018-08-02] MEDS: MORPHINE IV PRN (10:00)
[2018-08-02] MEDS ORDERED: NACL 0.9 (PRIMING MACHINE ONLY DIALYSIS) MC ONE ×2 (12:48→20:49)
--- NOTE | 2018-08-02 14:00 | Progress Note ---
Assessment and Plan Contusion left hip Compression fracture L2 vertebrae Recommendations may discharge to home or SNF with in my office in 2-3 weeks Subjective Date of service: 08/02/18 Principal diagnosis: ESRD /volume status managment admitted with femur fx Interval history: no c/o's noted today Objective Vital signs: Vital Signs - 12hr 08/02/18 08/02/18 08/02/18 04:50 07:51 11:21 Temperature 98.2 F 98.5 F 97.9 F Pulse Rate 82 84 77 Respiratory 18 18 18 Rate Blood Pressure 120/80 130/84 118/79 O2 Sat by Pulse 97 99 99 Oximetry 08/02/18 08/02/18 08/02/18 12:00 12:15 12:30 Temperature 98.0 F Pulse Rate 76 78 77 Respiratory 18 Rate Blood Pressure 113/75 113/78 107/74 O2 Sat by Pulse Oximetry Narrative Exam: left hip - no obvious swelling/deformity, tender on passive ROM, plain xrays reviewed of the left femur - no fracture seen CT scan - no fx seen at hip/femur compression fx at L2 vertebra with mild wedging - Labs CBC & BMP: 07/29/18 04:05 07/29/18 04:05 Labs: Abnormal lab results 08/01/18 08/02/18 08/02/18 Range/Units 22:07 04:25 06:27 PT 32.5 H (12.2-14.9) Sec. INR 2.92 H (0.87-1.13) POC Glucose 127 H 194 H (70-105) 08/02/18 Range/Units 11:25 PT (12.2-14.9) Sec. INR (0.87-1.13) POC Glucose 152 H (70-105)
--- NOTE | 2018-08-02 14:40 | Discharge Summary ---
Providers - Providers Date of Admission: 07/25/18 23:53 Date of discharge: 08/02/18 Attending physician: RASHEEDA BATRES 07/25/18 23:50 Consult to Physician [CONS] Routine Comment: Consulting Provider: SANJU RICHMOND Physician Instructions: Reason For Exam: femur fx. l2 fx 07/26/18 00:23 Consult to Physician [CONS] Routine Comment: Consulting Provider: MALDONADO JEAN-BAPTISTE Physician Instructions: Reason For Exam: hd 07/26/18 09:03 Consult to Cardiology [CONS] Urgent Consulting Provider: YA KUHN Reason For Exam: Preoperative evaluation 07/26/18 16:30 Consult to Dietitian/Nutrition [CONS] Routine Physician Instructions: Assess nutrtn needs, initiate, modify, manage TF Reason For Exam: Reason for Consult: Write/Manage Tube Feeding Reason for Consult: Write/Manage Tube Feeding 07/27/18 11:02 Physical Therapy Evaluation and Treat [CONS] Routine Comment: Lumbar Corset when oob Reason For Exam: L2 vertebra Fracture. Assistive devices?: Yes: lumbar Corset when oob Primary care physician: WAIVER ANALYST Hospitalization Reason for admission: status post fall/hip injury/fracture L2 spine Condition: Fair Pertinent studies: CT abdomen and pelvis Femur x-ray Lumbar spine CT Echocardiogram Hospital course: 38-year-old male patient with significant history of coronary artery disease A. fib end-stage renal disease on hemodialysis chronic anticoagulation hypertension dyslipidemia was admitted through emergency room with history of fall. Patient was extensively evaluated in the ED, Noted to have left hip fracture, evaluated by orthopedic feels that No fracture noted ,it is contusion and supportive care, Compression fracture L2, recommend increase and physical therapy of the patient is stable Patient was admitted and evaluated by orthopedic surgeon and symptomatically managed Patient was also seen by client care manager medications optimized, Case management has evaluated the patient and recommended acute rehabilitation however patient's family and mother,the main caregiver refused, And requested home health Today patient is stable, no new complaints,, Cleared by orthopedic, nephrology, cardiology for discharge and follow-up with them per schedule Patient is hemodynamically stable at discharge . Discharge diagnosis:; --Compression fracture of L2: Orthopedics evaluated , Recommend back brace,PT, OT supportive care --Status post fall; Fall precautions, physical therapy occupational therapy --Left hip fracture:contusion ortho evaluated feels only contusion no evidence of fracture Pain medications, PTOT, follow-up in the office --Chronic A. fib; rate controlled Stable on metoprolol closely monitor --Chronic anticoagulation with Coumadin; Supratherapeutic INR 4.7- 3.69 held Coumadin Today INR is therapeutic between 2 and 3 --End-stage renal disease on hemodialysis; HD per schedule, nephrology following -- h/o coronary artery disease; Continue current cardiac medications, cardiology following --Hypertension; continue current antihypertensives --History of cardiac arrest in the past/anoxic brain injury --h/o PEG : PEG feeds as needed Patient sometimes tolerates oral diet --DVT prophylaxis; patient is on Coumadin Patient stable at discharge Orthopedic cleared, recommend pain management OT PT Follow-up in the office per scheduling Disposition: [id number] HOME UNDER HOME [facility] Time spent for discharge: 33 min Core Measure Documentation - Palliative Care Palliative Care/ Comfort Measures: Not Applicable - Core Measures Any of the following diagnoses?: none Exam - Constitutional Vitals: Temp Pulse Resp BP Pulse Ox 98.0 F 82 18 99/60 99 08/02/18 12:00 08/02/18 13:15 08/02/18 12:00 08/02/18 13:15 08/02/18 11:21 General appearance: Present: no acute distress, well-nourished - EENT Eyes: Present: PERRL, EOM intact - Neck Neck: Present: supple, normal ROM - Respiratory Respiratory effort: normal Respiratory: negative: rales, rhonchi, wheezing - Cardiovascular Rhythm: regular Heart Sounds: Present: S1 & S2 - Extremities Extremities: no ischemia, No edema, abnormal (contracted) - Abdominal General gastrointestinal: Present: soft, non-tender, non-distended, normal bowel sounds, other (PEG tube In place) - Integumentary Integumentary: Present: clear, warm - Musculoskeletal Musculoskeletal: generalized weakness - Psychiatric Psychiatric: cooperative - Neurologic Neurologic: other (anoxic brain injury) Plan Activity: advance as tolerated, fall precautions Diet: other ( PEG Feeds per protocol ) Special Instructions: physical therapy, occupational therapy Additional Instructions: Check INR in 2 days at PMDs office[target INR 2-3]. PEG feeds per protocol. Oral diet as tolerated. Fall Precautions Follow up with: CLEOPATRA JUAREZ MD [Primary Care Provider] - 7 Days SANJU RICHMOND MD [Staff Physician] - 7 Days Forms: Warfarin Discharge Instruction Prescriptions: Warfarin [Coumadin] 0.5 mg PO DAILY@1700 #30 tablet
[2018-08-02] MEDS: PROCRIT IV PRN (14:44)
--- NOTE | 2018-08-02 16:25 | Progress Note ---
Assessment and Plan - Patient Problems (1) ESRD (end stage renal disease) Current Visit: Yes Status: Acute Plan to address problem: ESRD on hemodialysis - 2K/2.5ca/35Hco3 bath - Tolerated dialysis well. - No acute indication for dialysis today - Will continue MWF schedule. (2) Anemia Current Visit: Yes Status: Acute Qualifiers: Anemia type: due to chronic kidney disease Chronic kidney disease stage: on chronic dialysis Qualified Code(s): N18.6 - End stage renal disease; D63.1 - Anemia in chronic kidney disease; Z99.2 - Dependence on renal dialysis Plan to address problem: Moderate anemia : Hb: 8.7g/dl etiology 2/2 chronic kidney disease currently on epogen. Monitor CBC. (3) HTN (hypertension) Current Visit: Yes Status: Chronic Plan to address problem: HTN : controlled continue current medications. (4) Fall Current Visit: Yes Status: Acute Qualifiers: Encounter type: initial encounter Qualified Code(s): W19.XXXA - Unspecified fall, initial encounter Plan to address problem: Recent Fall CT with evidence of multiple fractures. Fall precautions. Thank you for this consultation Subjective Principal diagnosis: ESRD /volume status managment admitted with femur fx Interval history: 38 year old with medical history signficant for CAD, Atrial fibrillation , ESRD on dialysis via a Right arm AVF, HTN , Hyperlipidemia presents following a fall , also recent cardiac arrest Patient seen today denies any complaints I attest that I saw the patient on dialysis. Objective - Vital Signs Vital signs: Vital Signs - 12hr 08/02/18 08/02/18 08/02/18 04:50 07:51 11:21 Temperature 98.2 F 98.5 F 97.9 F Pulse Rate 82 84 77 Respiratory 18 18 18 Rate Blood Pressure 120/80 130/84 118/79 O2 Sat by Pulse 97 99 99 Oximetry 08/02/18 08/02/18 08/02/18 12:00 12:15 12:30 Temperature 98.0 F Pulse Rate 76 78 77 Respiratory 18 Rate Blood Pressure 113/75 113/78 107/74 O2 Sat by Pulse Oximetry 08/02/18 08/02/18 08/02/18 12:45 13:00 13:15 Temperature Pulse Rate 79 82 82 Respiratory Rate Blood Pressure 108/74 136/74 99/60 O2 Sat by Pulse Oximetry 03/01/1308/02/18 08/02/18 13:30 13:45 14:00 Temperature Pulse Rate 83 80 81 Respiratory Rate Blood Pressure 124/77 121/79 126/78 O2 Sat by Pulse Oximetry 08/02/18 08/02/18 08/02/18 14:15 14:30 14:45 Temperature Pulse Rate 81 83 83 Respiratory Rate Blood Pressure 122/76 117/75 139/74 O2 Sat by Pulse Oximetry 08/02/18 08/02/18 08/02/18 15:00 15:15 15:35 Temperature 98.2 F Pulse Rate 82 80 81 Respiratory 18 Rate Blood Pressure 120/70 124/74 121/81 O2 Sat by Pulse Oximetry - General Appearance General appearance: well-developed, well-nourished EENT: ATNC, PERRL, mucous membranes moist Neck: no JVD Respiratory: Present: Clear to Ascultation Cardiology: S1S2 Gastrointestinal: normal, normoactive bowel sounds Integumentary: no rash Neurologic: other (awake and alert occassionally confused. ) Musculoskeletal: deferred Psychiatric: mood/affect appropriate - Lab 07/29/18 04:05 07/29/18 04:05 Most recent lab results Calcium 8.5 mg/dL (8.4-10.2) 07/29/18 04:05 - Imaging Chest x-ray: report reviewed Medications & Allergies - Medications Allergies/Adverse Reactions: Allergies No Known Allergies Allergy (Verified 07/25/18 17:57) Home Medications: Home Medications Medication Instructions Recorded Confirmed Last Taken Type Clobetasol 0.05% 0.05 mg TP BID 07/26/18 07/26/18 Unknown History Lidocaine 4% Kit 4 mg TP 3XW 07/26/18 07/26/18 Unknown History Lipitor 40 mg PO DAILY 07/26/18 07/26/18 Unknown History Metoprolol 25 mg PO Q12H 07/26/18 07/26/18 Unknown History Omeprazole 20 mg PO BID 07/26/18 07/26/18 Unknown History QUEtiapine [SEROquel] 25 mg PO DAILY 07/26/18 07/26/18 Unknown History Warfarin [Coumadin] 0.5 mg PO DAILY@1700 #30 tablet 08/02/18 Unknown Rx Active Medications: Generic Name Dose Route Start Last Admin Trade Name Freq PRN Reason Stop Dose Admin Lipase/Protease/Amylase 1 each 07/26/18 16:[address] 10,500 Unit FEEDTUBE PRN PRN For Clogged Feeding Tube Atorvastatin Calcium 40 mg 07/26/18 10:00 08/02/18 09:29 Lipitor PO 40 mg DAILY CARISSA Administration Clobetasol Propionate 1 applic 07/26/18 10:00 08/01/18 21:40 Temovate TP 1 applic BID CARISSA Administration Epoetin Jun 10,000 unit 07/26/18 18:13 08/02/18 14:44 Procrit IV 10,000 unit MIKAEL PRN Administration hemodialysis Sodium Chloride 100 mls @ 999 mls/hr 07/26/18 17:59 Nacl 0.9% IV MIKAEL PRN Hypotension Lidocaine HCl 2.5 ml 07/27/18 10:00 08/01/18 09:34 Xylocaine Topical 4% TP Not [facility] Tartrate 25 mg 07/26/18 10:00 08/02/18 09:29 Lopressor PO 25 mg Q12HR CARISSA Administration Morphine Sulfate 1 mg 07/25/18 23:53 08/02/18 10:00 Morphine IV 1 mg Q4H PRN Administration Pain, Moderate (4-6) Ondansetron HCl 4 mg 07/25/18 23:53 08/01/18 06:51 Zofran IV 4 mg Q4H PRN Administration Nausea And Vomiting Pantoprazole Sodium 20 mg 07/26/18 10:00 08/02/18 09:29 Protonix PO 20 mg BID CARISSA Administration Quetiapine Fumarate 25 mg 07/26/18 10:00 08/02/18 09:29 Seroquel PO 25 mg DAILY CARISSA Administration Simple Syrup 15 ml 07/26/18 16:30 Simple Syrup FEEDTUBE PRN PRN Hypoglycemia Simple Syrup 30 ml 07/26/18 16:30 Simple Syrup FEEDTUBE PRN PRN Hypoglycemia Sodium Bicarbonate 325 mg 07/26/18 16:30 Sodium Bicarbonate FEEDTUBE PRN PRN For Clogged Feeding Tube Sodium Chloride 10 ml 07/26/18 10:00 08/01/18 21:30 Sodium Chloride Flush Syringe 10 Ml IV 10 ml BID CARISSA Administration Sodium Chloride 10 ml 07/25/18 23:53 07/29/18 22:02 Sodium Chloride Flush Syringe 10 Ml IV 10 ml PRN PRN Administration LINE FLUSH Warfarin Sodium 0.5 mg 08/02/18 17:00 Coumadin PO DAILY@1700 CARISSA
[2018-08-02 16:56] VITALS: BP 118/75
[2018-08-02] MEDS ORDERED: COUMADIN PO SCH (17:00)
== END 2018-08-02 18:42 | disposition home health service (06) | DRG 551 ==
LOC: ED 17:28 → 3B-SURG 23:53
PROVIDERS: ADMIT Internal Medicine; ATTEND Internal Medicine
PROC: 5A1D70Z Performance of Urinary Filtration, Intermittent, Less than 6 Hours Per Day (ICD-10-PCS; principal; 2018-07-26)
PROC: 5A1D70Z Performance of Urinary Filtration, Intermittent, Less than 6 Hours Per Day (ICD-10-PCS; 2018-07-29)
PROC: 5A1D70Z Performance of Urinary Filtration, Intermittent, Less than 6 Hours Per Day (ICD-10-PCS; 2018-07-31)
PROC: 5A1D70Z Performance of Urinary Filtration, Intermittent, Less than 6 Hours Per Day (ICD-10-PCS; 2018-08-02)
DX: S32.029A Unspecified fracture of second lumbar vertebra, initial encounter for closed fracture (principal); S72.145A Nondisplaced intertrochanteric fracture of left femur, initial encounter for closed fracture; N18.6 End stage renal disease; G93.1 Anoxic brain damage, not elsewhere classified; I42.9 Cardiomyopathy, unspecified; I13.2 Hypertensive heart and chronic kidney disease with heart failure and with stage 5 chronic kidney disease, or end stage renal disease; N25.81 Secondary hyperparathyroidism of renal origin; I50.20 Unspecified systolic (congestive) heart failure; I25.10 Atherosclerotic heart disease of native coronary artery without angina pectoris; D63.1 Anemia in chronic kidney disease; I48.2 Chronic atrial fibrillation; R13.10 Dysphagia, unspecified; W01.0XXA Fall on same level from slipping, tripping and stumbling without subsequent striking against object, initial encounter; E78.5 Hyperlipidemia, unspecified; Z79.899 Other long term (current) drug therapy; Z79.01 Long term (current) use of anticoagulants; Z86.74 Personal history of sudden cardiac arrest; Z93.1 Gastrostomy status; Z95.828 Presence of other vascular implants and grafts; Y93.89 Activity, other specified; Y99.8 Other external cause status; Z99.2 Dependence on renal dialysis; Y92.481 Parking lot as the place of occurrence of the external cause
CPT/HCPCS: 36415; 71046; 72131; 74176; 80048; 80053; 80074; 80076; 82962; 85025; 85027; 85610; 85730; 86850; 86900; 86901; 93005; 93010; 93306; 96374; 99291; G0378; A9270-GY; J0885; J1170; J1644; J2270; J2405; J7030

== ENCOUNTER 2018-11-13 16:12 | Emergency (ER) | payer MEDICARE ==
[2018-11-13] MEDS ORDERED: SILVER NITRATE TP ONE ×3 (16:44→17:01)
--- NOTE | 2018-11-13 17:40 | Emergency Department Report ---
HPI - General Chief Complaint: Extremity Problem,Nontraumatic Time Seen by Provider: 11/13/18 17:00 - HPI HPI: patient with right arm dialysis graft that is bleeding. Patient had dialysis today and dialysis nurses report that the graft was bleeding throughout dialysis, but mildly. Bleeding had significantly worsen after dialysis, patient was brought by EMS to the ED. Upon arrival to the ED trauma bay 1, patient had arterial bleeding in the dialysis access area. He denies any pain, n/v, sob, chest pain, dizziness or lightheadedness. Bleeding was stopped momentarily with pressure. Area was cleaned in Betadine, small amount of lidocaine use and to figure of 8 stitches placed on the 2 areas that were bleeding. Bleeding stopped. Patient was observed in ED for about 2 hours, no more bleeding was observed. I consulted vascular surgery Dr. Ann, he agrees to see patient in a.m., prior to his next dialysis scheduled to reevaluate the patient's graft. ED Past Medical Hx - Past Medical History Previous Medical History?: Yes Hx Hypertension: Yes Hx Heart Attack/AMI: No (hx cardiac arrest x2 01/2018) Hx Congestive Heart Failure: No Hx Diabetes: No Hx Liver Disease: No Hx Renal Disease: Yes (ESRD-T-TH-S) Hx Sickle Cell Disease: No Hx Arthritis: No Hx Kidney Stones: No Hx Asthma: No Hx COPD: No Hx Tuberculosis: No Hx Dementia: Yes Additional medical history: cardiac arrest X2. anoxic brain injury 2/2 cardiac arrest. afib on warfarin, hld, htn, cad. - Surgical History Past Surgical History?: Yes Hx Coronary Stent: No Hx Open Heart Surgery: No Hx Pacemaker: No (apparent RV leadless pacer on CXR) Hx Appendectomy: No Additional Surgical History: Right AV fistula. peg tube, trach - Social History Smoking Status: Never Smoker - Medications Home Medications: Home Medications Medication Instructions Recorded Confirmed Last Taken Type Lipitor 40 mg PO DAILY 07/26/18 11/13/18 Unknown History Metoprolol 25 mg PO Q12H 07/26/18 11/13/18 Unknown History Omeprazole 20 mg PO DAILY 07/26/18 11/13/18 Unknown History QUEtiapine [SEROquel] 25 mg PO DAILY 07/26/18 11/13/18 Unknown History Aspirin [Aspirin BABY CHEW TAB] 81 mg PO DAILY 11/13/18 11/13/18 Unknown History Lisinopril [Zestril] 5 mg PO DAILY 11/13/18 11/13/18 Unknown History Warfarin [Coumadin] 2 mg PO DAILY 11/13/18 11/13/18 Unknown History ED Review of Systems ROS: Stated complaint: PORT BLEED Other details as noted in HPI Comment: All other systems reviewed and negative ENT: denies: ear pain Respiratory: denies: cough Endocrine: denies: intolerance to cold Gastrointestinal: denies: nausea Genitourinary: denies: urgency Skin: denies: rash Neurological: denies: headache Psychiatric: denies: anxiety Hematological/Lymphatic: easy bleeding Physical Exam - Physical Exam Vital Signs: Vital Signs 11/13/18 11/13/18 11/13/18 16:26 16:50 17:32 Pulse Rate 173 H 61 62 Respiratory 18 14 13 Rate Blood Pressure 173/92 [Left] O2 Sat by Pulse 99 98 100 Oximetry Physical Exam: - Physical Exam Physical Exam: - General Limitations: No Limitations General appearance: alert, in no apparent distress. - Head Head exam: Present: atraumatic, normocephalic - Eye Eye exam: Present: normal appearance - ENT ENT exam: Present: mucous membranes moist - Neck Neck exam: Present: normal inspection - Respiratory Respiratory exam: Present: normal lung sounds bilaterally. Absent: respiratory distress - Cardiovascular Cardiovascular Exam: Present: normal rhythm, tachycardia. Absent: systolic murmur, diastolic murmur, rubs, gallop - GI/Abdominal GI/Abdominal exam: Present: soft, normal bowel sounds - Extremities Exam Extremities exam: Present: Right upper arm graft with 2 puncture old, about 0.5 cm each. - Back Exam Back exam: Present: normal inspection - Neurological Exam Neurological exam: Present: alert, oriented X3 - Psychiatric Psychiatric exam: normal affect and mood - Skin Skin exam: Present: warm, dry, intact, normal color. Absent: rash ED Course Vital Signs 11/13/18 11/13/18 11/13/18 16:26 16:50 17:32 Pulse Rate 173 H 61 62 Respiratory 18 14 13 Rate Blood Pressure 173/92 [Left] O2 Sat by Pulse 99 98 100 Oximetry - Reevaluation(s) Reevaluation #1: 11/13/18 18:35 Normal bleeding. Patient stable. BP better. ED Medical Decision Making - Lab Data Result diagrams: 11/13/18 17:20 11/13/18 17:20 - Medical Decision Making patient with right arm dialysis graft that is bleeding. Patient had dialysis today and dialysis nurses report that the graft was bleeding throughout dialysis, but mildly. Bleeding had significantly worsen after dialysis, patient was brought by EMS to the ED. Upon arrival to the ED trauma bay 1, patient had arterial bleeding in the dialysis access area. He denies any pain, n/v, sob, chest pain, dizziness or lightheadedness. Bleeding was stopped momentarily with pressure. Area was cleaned in Betadine, small amount of lidocaine use and two figure of 8 stitches placed on the 2 areas that were bleeding. Bleeding sto pped. Patient was observed in ED for about 2 hours, no more bleeding was observed. I consulted vascular surgery Dr. Ann, he agrees to see patient in a.m.prior to his next dialysis scheduled for Sunday to reevaluate the patient's graft. Critical care attestation.: If time is entered above; I have spent that time in minutes in the direct care of this critically ill patient, excluding procedure time. ED Disposition Clinical Impression: On Coumadin for atrial fibrillation Hemorrhage of arteriovenous graft Qualifiers: Encounter type: initial encounter Qualified Code(s): T82.838A - Hemorrhage due to vascular prosthetic devices, implants and grafts, initial encounter Disposition: TO HOME OR SELFCARE Is pt being admited?: No Does the pt Need Aspirin: No Condition: Stable Instructions: End-Stage Kidney Disease (ED) Additional Instructions: Do not take COUMADIN FOR 48HRS. Referrals: CHRIS WAGNER MD [Primary Care Provider] - 3-5 Days CAROLINE ANN MD [Staff Physician] - 24 Hours
[2018-11-13 17:49] LABS: Hematocrit 46.5 % (35.5-45.6); Hemoglobin 15.6 gm/dl (11.8-15.2); Mean Corpuscular HGB Conc 34 % (32-34); Mean Corpuscular Volume 88 fl (84-94); Platelet Count 155 K/mm3 (140-440); Red Blood Count 5.26 M/mm3 (3.65-5.03); Red Cell Distribution Width 17.9 % (13.2-15.2)
[2018-11-13] MEDS ORDERED: CATAPRES PO ONE (17:56)
[2018-11-13 17:58] LABS: INR 4.65 (0.87-1.13)
[2018-11-13 18:04] LABS: Partial Thromboplastin Time 64.5 Sec. (24.2-36.6)
[2018-11-13 18:12] LABS: Albumin 4.2 g/dL (3.9-5); Calcium 9.4 mg/dL (8.4-10.2)
[2018-11-13 18:51] LABS: Basophils % (Manual) 0 % (0.0-1.8); Platelet Estimate Consistent w Auto; Poikilocytosis 1+; Total Cells Counted 100
[2018-11-13 18:59] VITALS: BP 151/78
== END 2018-11-13 19:02 | disposition home or self-care (01) ==
LOC: ED 16:12
DX: T82.838A Hemorrhage due to vascular prosthetic devices, implants and grafts, initial encounter (principal); I48.91 Unspecified atrial fibrillation; I12.0 Hypertensive chronic kidney disease with stage 5 chronic kidney disease or end stage renal disease; N18.6 End stage renal disease; Z99.2 Dependence on renal dialysis; Z79.82 Long term (current) use of aspirin; Z79.01 Long term (current) use of anticoagulants; Z79.899 Other long term (current) drug therapy; Z95.1 Presence of aortocoronary bypass graft; Y84.0 Cardiac catheterization as the cause of abnormal reaction of the patient, or of later complication, without mention of misadventure at the time of the procedure; Y92.89 Other specified places as the place of occurrence of the external cause
CPT/HCPCS: 36415; 80053; 85007; 85025; 85610; 85730; 99283

== ENCOUNTER 2018-11-20 07:44 | Emergency (ER) | payer MEDICARE ==
[2018-11-20 08:12] LABS: Hemoglobin 11.8 gm/dl (11.8-15.2); Mean Corpuscular HGB Conc 33 % (32-34); Mean Corpuscular Volume 89 fl (84-94); Platelet Count 133 K/mm3 (140-440); Red Blood Count 4.03 M/mm3 (3.65-5.03); Red Cell Distribution Width 17.7 % (13.2-15.2)
[2018-11-20 08:22] LABS: Calcium 8.2 mg/dL (8.4-10.2)
[2018-11-20 08:35] LABS: INR 2.59 (0.87-1.13)
[2018-11-20 08:36] LABS: Partial Thromboplastin Time 46.8 Sec. (24.2-36.6)
--- NOTE | 2018-11-20 08:59 | Emergency Department Report ---
ED Male HPI - General Chief complaint: Urogenital-Male Stated complaint: BLOOD IN STOOL Time Seen by Provider: 11/20/18 08:50 Source: family Mode of arrival: Ambulatory Limitations: Altered Mental Status - History of Present Illness Initial comments: Patient is a 38-year-old male that presents to the emergency room with complaints of hematuria times one. Patient states he is not having any pain. Patient and mother riding history. Mother states the patient is on warfarin. Patient's on dialysis and does not create very much urine. Mother states there was gross blood and in the toilet this morning. Mother states is not coming from the rectum is coming from the penis. Patient and mother deny in the stool. Patient denies pain. She denies abdominal pain. Patient denies nausea vomiting. Patient denies chest pain shortness of breath. -: Sudden Radiation: none Consistency: intermittent Improves with: none Worsens with: none blood in urine. denies: discharge, swelling, mass, rash, urinary retention, dysuria, fever, nausea/vomiting, incontinence - Related Data Home Medications Medication Instructions Recorded Confirmed Last Taken Lipitor 40 mg PO DAILY 07/26/18 11/13/18 Unknown Metoprolol 25 mg PO Q12H 07/26/18 11/13/18 Unknown Omeprazole 20 mg PO DAILY 07/26/18 11/13/18 Unknown QUEtiapine [SEROquel] 25 mg PO DAILY 07/26/18 11/13/18 Unknown Aspirin [Aspirin BABY CHEW TAB] 81 mg PO DAILY 11/13/18 11/13/18 Unknown Lisinopril [Zestril] 5 mg PO DAILY 11/13/18 11/13/18 Unknown Warfarin [Coumadin] 2 mg PO DAILY 11/13/18 11/13/18 Unknown Previous Rx's Medication Instructions Recorded Last Taken Type Ciprofloxacin HCl [Ciprofloxacin 250 mg PO BID 10 Days #20 tablet 11/20/18 Unknown Rx TAB] Allergies Allergy/AdvReac Type Severity Reaction Status Date / Time No Known Allergies Allergy Verified 07/25/18 17:57 ED Review of Systems ROS: Stated complaint: BLOOD IN STOOL Other details as noted in HPI Constitutional: denies: chills, fever Eyes: denies: eye pain, eye discharge, vision change ENT: denies: ear pain, throat pain Respiratory: denies: cough, shortness of breath, wheezing Cardiovascular: denies: chest pain, palpitations Endocrine: no symptoms reported Gastrointestinal: denies: abdominal pain, nausea, diarrhea Genitourinary: hematuria. denies: urgency, dysuria, frequency, discharge, testicular pain, testicular mass Musculoskeletal: denies: back pain, joint swelling, arthralgia Skin: denies: rash, lesions Neurological: denies: headache, weakness, paresthesias Psychiatric: denies: anxiety, depression Hematological/Lymphatic: denies: easy bleeding, easy bruising ED Past Medical Hx - Past Medical History Previous Medical History?: Yes Hx Hypertension: Yes Hx Heart Attack/AMI: No (hx cardiac arrest x2 01/2018) Hx Congestive Heart Failure: No Hx Diabetes: No Hx Liver Disease: No Hx Renal Disease: Yes (ESRD-T--) Hx Sickle Cell Disease: No Hx Arthritis: No Hx Kidney Stones: No Hx Asthma: No Hx COPD: No Hx Tuberculosis: No Hx Dementia: Yes Additional medical history: cardiac arrest X2. anoxic brain injury 2/2 cardiac arrest. afib on warfarin, hld, htn, cad. - Surgical History Past Surgical History?: Yes Hx Coronary Stent: No Hx Open Heart Surgery: No Hx Pacemaker: No (apparent RV leadless pacer on CXR) Hx Appendectomy: No Additional Surgical History: Right AV fistula. peg tube, trach - Family History Family history: no significant - Social History Smoking Status: Never Smoker Substance Use Type: None - Medications Home Medications: Home Medications Medication Instructions Recorded Confirmed Last Taken Type Lipitor 40 mg PO DAILY 07/26/18 11/13/18 Unknown History Metoprolol 25 mg PO Q12H 07/26/18 11/13/18 Unknown History Omeprazole 20 mg PO DAILY 07/26/18 11/13/18 Unknown History QUEtiapine [SEROquel] 25 mg PO DAILY 07/26/18 11/13/18 Unknown History Aspirin [Aspirin BABY CHEW TAB] 81 mg PO DAILY 11/13/18 11/13/18 Unknown History Lisinopril [Zestril] 5 mg PO DAILY 11/13/18 11/13/18 Unknown History Warfarin [Coumadin] 2 mg PO DAILY 11/13/18 11/13/18 Unknown History Ciprofloxacin HCl [Ciprofloxacin 250 mg PO BID 10 Days #20 tablet 11/20/18 Unknown Rx TAB] ED Physical Exam - General Limitations: Altered Mental Status General appearance: alert, in no apparent distress - Head Head exam: Present: atraumatic, normocephalic - Eye Eye exam: Present: normal appearance - ENT ENT exam: Present: mucous membranes moist - Neck Neck exam: Present: normal inspection - Respiratory Respiratory exam: Present: normal lung sounds bilaterally. Absent: respiratory distress, wheezes, rales, rhonchi - Cardiovascular Cardiovascular Exam: Present: regular rate, normal rhythm. Absent: systolic murmur, diastolic murmur, rubs, gallop - GI/Abdominal GI/Abdominal exam: Present: soft, normal bowel sounds. Absent: distended, tenderness, guarding - Rectal Rectal exam: Present: deferred - Extremities Exam Extremities exam: Present: normal inspection - Back Exam Back exam: Present: normal inspection, full ROM. Absent: tenderness, CVA tenderness (R), CVA tenderness (L), paraspinal tenderness, vertebral tenderness - Neurological Exam Neurological exam: Present: alert, altered (patient is A& O 2. Patient is oriented to place and person) - Psychiatric Psychiatric exam: Present: normal affect, normal mood - Skin Skin exam: Present: warm, dry, intact, normal color. Absent: rash ED Course Vital Signs 11/20/18 11/20/18 11/20/18 07:45 09:21 09:22 Temperature 98.3 F 97.5 F L Pulse Rate 63 61 Respiratory 16 18 16 Rate Blood Pressure 122/71 Blood Pressure 159/82 [Left] O2 Sat by Pulse 98 100 Oximetry 11/20/18 11:19 Temperature Pulse Rate 62 Respiratory 18 Rate Blood Pressure Blood Pressure 163/84 [Left] O2 Sat by Pulse 100 Oximetry - Reevaluation(s) Reevaluation #1: Discussed all results with patient. Patient is stable for discharge. Patient will be discharged home. Patient and mother agree to plan of care. Patient/mother given discharge instructions. Patient/mother voiced understanding of discharge instructions. Patient to continue with dialysis schedule. 11/20/18 10:49 ED Medical Decision Making - Lab Data Result diagrams: 11/20/18 07:58 11/20/18 07:58 - Medical Decision Making Patient is a 38-year-old male who presents emergency room for asymptomatic gross hematuria. Patient found have a UTI. Patient's left consistent with end-stage renal disease. Patient is on dialysis. Patient instructed to continue dialysis. Patient given discharge instructions. Mother at bedside during discussions. Patient's labs essentially unremarkable except for ESRD. Patient's UA positive for hematuria and WBCs. Patient given Cipro 250 mg by mouth twice a day for 10 days. Patient's INR within normal range for Coumadin therapy. Patient instructed to hold Coumadin for 2 days due to going on Cipro and follow up with primary care within 2 days for further management of his Coumadin and being on antibiotics. - Differential Diagnosis UTI. Hematuria. Coumadin toxicity Critical care attestation.: If time is entered above; I have spent that time in minutes in the direct care of this critically ill patient, excluding procedure time. ED Disposition Clinical Impression: Hematuria, gross, Painless hematuria, CKD (chronic kidney disease) stage V requiring chronic dialysis, On Coumadin for atrial fibrillation UTI (urinary tract infection) Qualifiers: Urinary tract infection type: acute cystitis Hematuria presence: with hematuria Qualified Code(s): N30.01 - Acute cystitis with hematuria Disposition: TO HOME OR SELFCARE Is pt being admited?: No Does the pt Need Aspirin: No Condition: Stable Instructions: Urinary Tract Infection in Men (ED), Acute Hematuria (ED) Additional Instructions: Patient to follow-up with primary care in 2-3 days. He is to follow-up with urologist in 2-3 days. Patient to take Tylenol when necessary for pain. Patient to return to ER if condition worsens. Patient to take meds as directed. Patient to increase water. Patient to rest. Patient to continue all meds. Patient to follow up with primary care for management of his Coumadin. Patient to hold Coumadin for 2 days Prescriptions: Ciprofloxacin HCl [Ciprofloxacin TAB] 250 mg PO BID 10 Days #20 tablet Referrals: CHRIS WAGNER MD [Primary Care Provider] - 2-3 Days MARY ELLEN PRIDE MD [Staff Physician] - 2-3 Days Time of Disposition: 10:48
[2018-11-20 09:30] LABS: Basophils % (Manual) 0 % (0.0-1.8); Total Cells Counted 100
[2018-11-20 09:31] LABS: Platelet Estimate Consistent w Auto; Poikilocytosis 1+
[2018-11-20 10:25] LABS: Bacteria,Urine 4+ /HPF (Negative)
[2018-11-20 10:26] LABS: RBC,Urine > 182.0 /HPF (0.0-6.0)
[2018-11-20 10:33] LABS: Bilirubin,Urine NEG (Negative); Blood,Urine LG (Negative); Color,Urine Red (Yellow); Urobilinogen,Urine < 2.0 mg/dL (<2.0)
[2018-11-20 10:34] LABS: Protein,Urine >2000 mg dL mg/dL (Negative)
[2018-11-20 11:19] VITALS: BP 163/84
== END 2018-11-20 11:19 | disposition home or self-care (01) ==
LOC: ED 07:44
DX: I12.0 Hypertensive chronic kidney disease with stage 5 chronic kidney disease or end stage renal disease (principal); N18.6 End stage renal disease; Z99.2 Dependence on renal dialysis; Z98.890 Other specified postprocedural states; Z79.01 Long term (current) use of anticoagulants; Z79.82 Long term (current) use of aspirin; Z79.899 Other long term (current) drug therapy
CPT/HCPCS: 36415; 80048; 81001; 85007; 85025; 85610; 85730; 99283

== ENCOUNTER 2019-02-28 18:11 | Emergency (ER) | payer MEDICARE ==
[2019-02-28 19:55] LABS: Hematocrit 36.1 % (35.5-45.6); Hemoglobin 11.8 gm/dl (11.8-15.2); Mean Corpuscular HGB Conc 33 % (32-34); Mean Corpuscular Volume 92 fl (84-94); Red Blood Count 3.95 M/mm3 (3.65-5.03); Red Cell Distribution Width 15.1 % (13.2-15.2)
[2019-02-28] MEDS ORDERED: FAMOTIDINE 20 MG/2 ML INJ IV ONE (20:03)
[2019-02-28] MEDS ORDERED: ONDANSETRON 4 MG/2 ML INJ IV ONE (20:04)
[2019-02-28 20:25] LABS: Albumin 3.4 g/dL (3.9-5); Calcium 8.2 mg/dL (8.4-10.2)
[2019-02-28 20:29] LABS: Platelet Count 94 K/mm3 (140-440)
[2019-02-28 20:35] LABS: Bilirubin,Urine NEG (Negative); Blood,Urine LG (Negative); Color,Urine Yellow (Yellow); Urobilinogen,Urine < 2.0 mg/dL (<2.0)
[2019-02-28 20:36] LABS: Protein,Urine >500 mg/dL (Negative)
[2019-02-28 20:48] VITALS: BP 121/71
--- NOTE | 2019-02-28 21:39 | Ultrasound Report ---
LIMITED RUQ ABDOMINAL ULTRASOUND INDICATION: RUQ PAIN. COMPARISON: No relevant prior imaging study available. FINDINGS: Pancreas: Visualized portions show no significant abnormality. Abdominal Aorta: No significant abnormality. IVC: No significant abnormality. Liver: Normal. Gallbladder: There are a few 5 mm stones in the neck of the gallbladder. No gallbladder wall thickeni ng or pericholecystic fluid noted.. Bile ducts: Normal. Common bile duct measures 4 mm. Free fluid: None. Additional Findings: Right kidney was well visualized and appeared unremarkable.. IMPRESSION: 1. Cholelithiasis. No sonographic evidence for acute cholecystitis.. Signer Name: Orquidea Johnson MD Signed: 02/28/2019 9:35 PM Workstation Name: [id number]
--- NOTE | 2019-02-28 22:11 | Emergency Department Report ---
ED Abdominal Pain HPI - General Chief Complaint: Abdominal Pain Stated Complaint: ABD PAIN Source: patient, family, EMS Mode of arrival: Stretcher Limitations: Other - History of Present Illness Initial Comments: Patient is a 38-year-old male with a history of anoxic brain injury, A. fib, ESRD on hemodialysis 3 times a week, the last of which was 8 hours ago, presents to the ED accompanied by his mother, with acute onset persistent diffuse upper abdominal pain radiating to the right upper quadrant per mother relates much of the patient's history. Mother states that the patient is nonverbal most of the time because of the previous brain injury. Mother states that the patient was at dialysis earlier when he started complaining of abdominal pain in the upper abdomen mostly in the right upper quadrant area with nausea. Mother states the patient has been sleeping most of the time after coming home dialysis. Mother states the patient has not had any vomiting, chest pain, shortness of breath, fever, chills, seizures, syncope, cough or diarrhea. MD Complaint: abdominal pain, other (nausea) -: Sudden, hour(s) (12) Location: RUQ, epigastric Radiation: none Migration to: no migration Quality: cramping, aching Consistency: constant Improves With: eating Worsens With: nothing Associated Symptoms: denies other symptoms, nausea. denies: vomiting, diarrhea, fever, chills, constipation, hematemesis, hematochezia, melena, syncope - Related Data Home Medications Medication Instructions Recorded Confirmed Last Taken Lipitor 40 mg PO DAILY 07/26/18 02/20/19 Unknown Metoprolol 25 mg PO Q12H 07/26/18 02/20/19 Unknown Omeprazole 20 mg PO DAILY 07/26/18 02/20/19 Unknown QUEtiapine [SEROquel] 25 mg PO DAILY 07/26/18 02/20/19 Unknown Aspirin [Aspirin BABY CHEW TAB] 81 mg PO DAILY 11/13/18 02/20/19 Unknown Lisinopril [Zestril TAB] 5 mg PO DAILY 11/13/18 02/20/19 Unknown Warfarin [Coumadin] 2 mg PO DAILY 11/13/18 02/20/19 Unknown Tramadol ER (Nf) [Ultram ER (Nf)] 50 mg PO BID 02/20/19 02/20/19 Unknown Previous Rx's Medication Instructions Recorded Last Taken Type Ciprofloxacin HCl [Ciprofloxacin 250 mg PO BID 10 Days #20 tablet 11/20/18 Unknown Rx TAB] Dicyclomine [Bentyl] 20 mg PO Q6H PRN #24 tablet 02/28/19 Unknown Rx Ondansetron [Zofran Odt] 4 mg PO Q6HR PRN #20 tab.rapdis 02/28/19 Unknown Rx raNITIdine HCl [Zantac] 150 mg PO Q12H #30 tablet 02/28/19 Unknown Rx Allergies Allergy/AdvReac Type Severity Reaction Status Date / Time No Known Allergies Allergy Verified 07/25/18 17:57 ED Review of Systems ROS: Stated complaint: ABD PAIN Other details as noted in HPI Constitutional: denies: chills, fever Eyes: denies: eye pain, eye discharge, vision change ENT: denies: ear pain, throat pain Respiratory: denies: cough, shortness of breath, wheezing Cardiovascular: denies: chest pain, palpitations Endocrine: no symptoms reported Gastrointestinal: abdominal pain, nausea. denies: diarrhea Genitourinary: denies: urgency, dysuria Musculoskeletal: denies: back pain, joint swelling, arthralgia Skin: denies: rash, lesions Neurological: denies: headache, weakness, paresthesias Psychiatric: denies: anxiety, depression Hematological/Lymphatic: denies: easy bleeding, easy bruising ED Past Medical Hx - Past Medical History Previous Medical History?: Yes Hx Hypertension: Yes 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 anoxic brain injury 2/2 cardiac arrest. afib on warfarin, hld, htn, cad. - Surgical History Past Surgical History?: Yes Hx Coronary Stent: No Hx Open Heart Surgery: No Hx Pacemaker: No (apparent RV leadless pacer on CXR) Hx Appendectomy: No Additional Surgical History: Right AV fistula. peg tube, trach - Social History Smoking Status: Never Smoker Substance Use Type: None - Medications Home Medications: Home Medications Medication Instructions Recorded Confirmed Last Taken Type Lipitor 40 mg PO DAILY 07/26/18 02/20/19 Unknown History Metoprolol 25 mg PO Q12H 07/26/18 02/20/19 Unknown History Omeprazole 20 mg PO DAILY 07/26/18 02/20/19 Unknown History QUEtiapine [SEROquel] 25 mg PO DAILY 07/26/18 02/20/19 Unknown History Aspirin [Aspirin BABY CHEW TAB] 81 mg PO DAILY 11/13/18 02/20/19 Unknown History Lisinopril [Zestril TAB] 5 mg PO DAILY 11/13/18 02/20/19 Unknown History Warfarin [Coumadin] 2 mg PO DAILY 11/13/18 02/20/19 Unknown History Ciprofloxacin HCl [Ciprofloxacin 250 mg PO BID 10 Days #20 tablet 11/20/18 Unknown Rx TAB] Tramadol ER (Nf) [Ultram ER (Nf)] 50 mg PO BID 02/20/19 02/20/19 Unknown History Dicyclomine [Bentyl] 20 mg PO Q6H PRN #24 tablet 02/28/19 Unknown Rx Ondansetron [Zofran Odt] 4 mg PO Q6HR PRN #20 tab.rapdis 02/28/19 Unknown Rx raNITIdine HCl [Zantac] 150 mg PO Q12H #30 tablet 02/28/19 Unknown Rx ED Physical Exam - General Limitations: Other General appearance: alert, in no apparent distress - Head Head exam: Present: atraumatic, normocephalic, normal inspection - Eye Eye exam: Present: normal appearance, PERRL Pupils: Present: normal accommodation - ENT ENT exam: Present: normal exam, normal orophraynx, mucous membranes moist, normal external ear exam - Neck Neck exam: Present: normal inspection, full ROM - Respiratory Respiratory exam: Present: normal lung sounds bilaterally. Absent: respiratory distress, wheezes, rales, rhonchi, chest wall tenderness, accessory muscle use, prolonged expiratory - Cardiovascular Cardiovascular Exam: Present: regular rate, normal rhythm, normal heart sounds. Absent: systolic murmur, diastolic murmur, rubs, gallop - GI/Abdominal GI/Abdominal exam: Present: soft, tenderness (Mildly tender RUQ and epigastric area to palpation), normal bowel sounds. Absent: guarding, rebound, rigid, hypoactive bowel sounds, mass, pulsatile mass - Rectal Rectal exam: Present: deferred - Extremities Exam Extremities exam: Present: normal inspection, full ROM, normal capillary refill - Back Exam Back exam: Present: normal inspection, full ROM. Absent: muscle spasm, paraspinal tenderness - Neurological Exam Neurological exam: Present: alert, oriented X3, CN II-XII intact, normal gait, reflexes normal - Psychiatric Psychiatric exam: Present: normal affect, normal mood - Skin Skin exam: Present: warm, dry, intact, normal color. Absent: rash ED Course Vital Signs 02/28/19 19:30 Pulse Rate 60 Respiratory 16 Rate Blood Pressure 121/71 [Left] O2 Sat by Pulse 100 Oximetry - Reevaluation(s) Reevaluation #1: 02/28/19 22:25 This is a 38-year-old male with a history of end-stage renal disease on hemodialysis, A. fib and anoxic brain injury who presents to the ED accompanied by his mother with complaint of acute onset diffuse upper abdominal pain radiat ing to the right upper quadrant area with nausea for 8 hours. In the ED, patient is alert and oriented 3, appears groggy during the physical exam but answers questions appropriately, responding appropriately to every stimuli. Lab test results were reviewed and are none actionable, with creatinine level at chronic baseline for his chronic renal disease on hemodialysis. Other lab test results are nonactionable. Right upper quadrant gallbladder ultrasound shows cholelithiasis without evidence of cholecystitis. These findings were discussed with the ED attending physician Dr. Noemi puente through the plan of care to discharge the patient home for an outpatient follow-up with the general surgeon iron carrier Dr. Jackie hill for possible cholecystectomy procedure. The lab test results and the imaging report as well as the plan of care was discussed with the patient's family, and the mother was advised to contact the general surgeon iron carrier in 3 days to schedule an appointment for outpatient follow-up of cholelithiasis. Patient was therefore discharged home on pain medications and antiemetics as well as antacids. Mother was also advised of the patient return to the ED immediately if symptoms get worse. ED Medical Decision Making - Lab Data Result diagrams: 02/28/19 19:33 02/28/19 19:33 - Radiology Data Radiology results: report reviewed, image reviewed Findings [facility] [address] [place] [address] Ultrasound Report Signed Patient: MAXINE MELTON MR#: [id number] : 1980 Acct:[id number] Age/Sex: 38 / M ADM Date: 02/28/19 Loc: ED Attending Dr: Ordering Physician: RADHA POP Date of Service: 02/28/19 Procedure(s): US abdomen limited Accession Number(s): [id number] cc: RADHA POP LIMITED RUQ ABDOMINAL ULTRASOUND INDICATION: RUQ PAIN. COMPARISON: No relevant prior imaging study available. FINDINGS: Pancreas: Visualized portions show no significant abnormality. Abdominal Aorta: No significant abnormality. IVC: No significant abnormality. Liver: Normal. Gallbladder: There are a few 5 mm stones in the neck of the gallbladder. No gallbladder wall thickening or pericholecystic fluid noted.. Bile ducts: Normal. Common bile duct measures 4 mm. Free fluid: None. Additional Findings: Right kidney was well visualized and appeared unremarkable.. IMPRESSION: 1. Cholelithiasis. No sonographic evidence for acute cholecystitis.. Signer Name: Orquidea Johnson MD Signed: 02/28/2019 9:35 PM Workstation Name: [id number] Transcribed By: JR Dictated By: Orquidea Johnson MD Electronically Authenticated By: Orquidea Johnson MD Signed Date/Time: 02/28/192134 DD/ 30 TD/TT: - Medical Decision Making This is a 38-year-old male with a history of end-stage renal disease on hemodialysis, A. fib and anoxic brain injury who presents to the ED accompanied by his mother with complaint of acute onset diffuse upper abdominal pain radiating to the right upper quadrant area with nausea for 8 hours. In the ED, patient is alert and oriented 3, appears groggy during the physical exam but answers questions appropriately, responding appropriately to every stimuli. Lab test results were reviewed and are none actionable, with creatinine level at chronic baseline for his chronic renal disease on hemodialysis. Other lab test results are nonactionable. Right upper quadrant gallbladder ultrasound shows cholelithiasis without evidence of cholecystitis. These findings were discussed with the ED attending physician Dr. Noemi puente through the plan of care to discharge the patient home for an outpatient follow-up with the general surgeon iron carrier Dr. Jackie hill for possible cholecystectomy procedure. The lab test results and the imaging report as well as the plan of care was discussed with the patient's family, and the mother was advised to contact the general surgeon iron carrier in 3 days to schedule an appointment for outpatient follow-up of cholelithiasis. Patient was therefore discharged home on pain medications and antiemetics as well as antacids. Mother was also advised of the patient return to the ED immediately if symptoms get worse. - Differential Diagnosis Abdominal pain; Cholelithiasis; GERD, UTI Critical care attestation.: If time is entered above; I have spent that time in minutes in the direct care of this critically ill patient, excluding procedure time. ED Disposition Clinical Impression: Abdominal pain Qualifiers: Abdominal location: right upper quadrant Qualified Code(s): R10.11 - Right upper quadrant pain Cholelithiasis Qualifiers: Cholelithiasis location: gallbladder Cholecystitis presence: without cholecystitis Biliary obstruction: without biliary obstruction Qualified Code(s): K80.20 - Calculus of gallbladder without cholecystitis without obstruction Disposition: TO HOME OR SELFCARE Is pt being admited?: No Does the pt Need Aspirin: No Condition: Stable Instructions: Cholelithiasis (ED), Abdominal Pain (ED) Additional Instructions: Take medication with food, drink plenty of fluids and follow-up with the general surgeon iron carrier Dr. Samuel first thing on Sunday03/03/2019 to schedule an appointment. Please contact Dr. Samuel's office to schedule a follow-up appointment. Return to the ED immediately if symptoms get worse. Prescriptions: Dicyclomine [Bentyl] 20 mg PO Q6H PRN #24 tablet PRN Reason: Pain , Severe (7-10) raNITIdine HCl [Zantac] 150 mg PO Q12H #30 tablet Ondansetron [Zofran Odt] 4 mg PO Q6HR PRN #20 tab.rapdis PRN Reason: Nausea Referrals: EDISON SAMUEL DO [Staff Physician] - 3-5 Days Time of Disposition: 22:10 Print Language: NAMIBIAN
[2019-02-28 23:37] LABS: Total Cells Counted 100
[2019-02-28 23:38] LABS: Platelet Estimate Consistent w Auto; RBC Morphology Normal
== END 2019-02-28 22:20 | disposition home or self-care (01) ==
LOC: ED 18:11
DX: K80.20 Calculus of gallbladder without cholecystitis without obstruction (principal); I25.2 Old myocardial infarction; I12.0 Hypertensive chronic kidney disease with stage 5 chronic kidney disease or end stage renal disease; N18.6 End stage renal disease; Z99.2 Dependence on renal dialysis; F03.90 Unspecified dementia, unspecified severity, without behavioral disturbance, psychotic disturbance, mood disturbance, and anxiety
CPT/HCPCS: 36415; 76705; 80053; 81001; 83690; 85007; 85025; 96374; 96375; 99284; J2405

== ENCOUNTER → 2019-03-29 | Emergency (ER) | payer MEDICARE ==
[~2019-03-29] MED LIST: ACETAMINOPHEN 325 MG TAB PO PRN; MAGNESIUM HYDROXIDE (MOM) ORAL LIQD UDC PO PRN; MORPHINE 2 MG/1 ML INJ IV PRN; ONDANSETRON 4 MG/2 ML INJ IV PRN
--- NOTE | 2019-03-29 22:27 | Event Note ---
ED Screening Note Date of service: 03/29/19 Time: 22:22 ED Screening Note: This is a 38 y.o. M. that presents to the ER lethargic for 1 month. Patient mother states he was seen by PCP 4 times and they keep telling her he is okay. He went to dialysis yesterday and came home with weakness and coughing. She is concerned symptoms are worsening. PMH CAD, HTN, ESRD on dialysis MWF, and DVT. This initial assessment/diagnostic orders/clinical plan/treatment(s) is/are subject to change based on patients health status, clinical progression and re- assessment by fellow clinical providers in the ED. Further treatment and workup at subsequent clinical providers discretion. Patient/guardian urged not to elope from the ED as their condition may be serious if not clinically assessed and managed. Initial orders include: Labs and ekg
[2019-03-29 23:15] LABS: Basophils # (Auto) 0.1 K/mm3 (0.0-0.1); Basophils % (Auto) 1.3 % (0.0-1.8); Eosinophils # (Auto) 0.4 K/mm3 (0.0-0.4); Hematocrit 36.2 % (35.5-45.6); Hemoglobin 11.7 gm/dl (11.8-15.2); Lymphocytes # (Auto) 0.8 K/mm3 (1.2-5.4); Mean Corpuscular HGB Conc 32 % (32-34); Mean Corpuscular Volume 94 fl (84-94); Monocytes # (Auto) 0.3 K/mm3 (0.0-0.8); Monocytes % (Auto) 6.1 % (0.0-7.3); Platelet Count 131 K/mm3 (140-440); Red Blood Count 3.86 M/mm3 (3.65-5.03); Red Cell Distribution Width 16.4 % (13.2-15.2)
[2019-03-29 23:31] LABS: Albumin 3.5 g/dL (3.9-5); BUN/Creatinine Ratio 5; Blood Urea Nitrogen 29 mg/dL (9-20); Calcium 8.4 mg/dL (8.4-10.2); Hemolysis Index 7
[2019-03-29 23:52] LABS: Alanine Aminotransferase < 5 units/L (7-56)
--- NOTE | 2019-03-30 01:03 | Emergency Department Report ---
ED General Adult HPI - General Chief complaint: Weakness Stated complaint: GENERAL WEAKNESS Time Seen by Provider: 03/29/19 22:22 Source: patient Mode of arrival: Ambulatory Limitations: No Limitations - History of Present Illness Initial comments: Patient is 38 years old male with history of cardiac arrest x2, end-stage renal disease on hemodialysis, hypertension and diabetes. Patient brought to the emergency room by his mother. Mother stated that patient has been lethargic for the last 2-3 weeks. She also notices that he has been coughing a lot in the last 2-3 days. She denied any fever or chills. She stated that patient had his dialysis yesterday. Patient is lethargic and obtunded but is following command. - Related Data Home Medications Medication Instructions Recorded Confirmed Last Taken Lipitor 40 mg PO DAILY 07/26/18 02/20/19 Unknown Metoprolol 25 mg PO Q12H 07/26/18 02/20/19 Unknown Omeprazole 20 mg PO DAILY 07/26/18 02/20/19 Unknown QUEtiapine [SEROquel] 25 mg PO DAILY 07/26/18 02/20/19 Unknown Aspirin [Aspirin BABY CHEW TAB] 81 mg PO DAILY 11/13/18 02/20/19 Unknown Lisinopril [Zestril TAB] 5 mg PO DAILY 11/13/18 02/20/19 Unknown Warfarin [Coumadin] 2 mg PO DAILY 11/13/18 02/20/19 Unknown Tramadol ER (Nf) [Ultram ER (Nf)] 50 mg PO BID 02/20/19 02/20/19 Unknown Previous Rx's Medication Instructions Recorded Last Taken Type Ciprofloxacin HCl [Ciprofloxacin 250 mg PO BID 10 Days #20 tablet 11/20/18 Unknown Rx TAB] Dicyclomine [Bentyl] 20 mg PO Q6H PRN #24 tablet 02/28/19 Unknown Rx Ondansetron [Zofran Odt] 4 mg PO Q6HR PRN #20 tab.rapdis 02/28/19 Unknown Rx raNITIdine HCl [Zantac] 150 mg PO Q12H #30 tablet 02/28/19 Unknown Rx Allergies Allergy/AdvReac Type Severity Reaction Status Date / Time No Known Allergies Allergy Verified 07/25/18 17:57 ED Review of Systems ROS: Stated complaint: GENERAL WEAKNESS Other details as noted in HPI Comment: All other systems reviewed and negative Constitutional: denies: chills, fever Respiratory: cough. denies: shortness of breath, SOB with exertion, SOB at rest Cardiovascular: denies: chest pain, palpitations Gastrointestinal: denies: abdominal pain, nausea, vomiting ED Past Medical Hx - Past Medical History Previous Medical History?: Yes Hx Hypertension: Yes 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 anoxic brain injury 2/2 cardiac arrest. afib on warfarin, hld, htn, cad. - Surgical History Past Surgical History?: Yes Hx Coronary Stent: No Hx Open Heart Surgery: No Hx Pacemaker: (apparent RV leadless pacer on CXR) Hx Appendectomy: No Additional Surgical History: Right AV fistula. peg tube, trach - Social History Smoking Status: Never Smoker Substance Use Type: None - Medications Home Medications: Home Medications Medication Instructions Recorded Confirmed Last Taken Type Lipitor 40 mg PO DAILY 07/26/18 02/20/19 Unknown History Metoprolol 25 mg PO Q12H 07/26/18 02/20/19 Unknown History Omeprazole 20 mg PO DAILY 07/26/18 02/20/19 Unknown History QUEtiapine [SEROquel] 25 mg PO DAILY 07/26/18 02/20/19 Unknown History Aspirin [Aspirin BABY CHEW TAB] 81 mg PO DAILY 11/13/18 02/20/19 Unknown History Lisinopril [Zestril TAB] 5 mg PO DAILY 11/13/18 02/20/19 Unknown History Warfarin [Coumadin] 2 mg PO DAILY 11/13/18 02/20/19 Unknown History Ciprofloxacin HCl [Ciprofloxacin 250 mg PO BID 10 Days #20 tablet 11/20/18 Unknown Rx TAB] Tramadol ER (Nf) [Ultram ER (Nf)] 50 mg PO BID 02/20/19 02/20/19 Unknown History Dicyclomine [Bentyl] 20 mg PO Q6H PRN #24 tablet 02/28/19 Unknown Rx Ondansetron [Zofran Odt] 4 mg PO Q6HR PRN #20 tab.rapdis 02/28/19 Unknown Rx raNITIdine HCl [Zantac] 150 mg PO Q12H #30 tablet 02/28/19 Unknown Rx ED Physical Exam - General Limitations: No Limitations General appearance: obtunded - Head Head exam: Present: atraumatic, normocephalic, normal inspection - Eye Eye exam: Present: normal appearance - ENT ENT exam: Present: normal exam, normal orophraynx, mucous membranes moist - Neck Neck exam: Present: normal inspection, full ROM. Absent: tenderness, meningismus - Respiratory Respiratory exam: Present: normal lung sounds bilaterally - Cardiovascular Cardiovascular Exam: Present: regular rate, normal rhythm, normal heart sounds - GI/Abdominal GI/Abdominal exam: Present: soft, normal bowel sounds. Absent: distended, tenderness, guarding, rebound, rigid, organomegaly, mass, bruit, pulsatile mass, hernia - Extremities Exam Extremities exam: Present: normal inspection, full ROM, normal capillary refill - Neurological Exam Neurological exam: Present: alert, oriented X3 - Skin Skin exam: Present: warm, intact ED Course Vital Signs 03/29/19 03/30/19 03/30/19 22:20 02:13 02:15 Temperature 98.4 F Pulse Rate 62 60 Respiratory 18 16 Rate Blood Pressure 148/76 128/74 137/71 O2 Sat by Pulse 100 100 Oximetry 03/30/19 03/30/19 03/30/19 02:30 02:45 03:00 Temperature Pulse Rate 61 60 63 Respiratory 20 11 L 12 Rate Blood Pressure 142/77 125/74 129/78 O2 Sat by Pulse 100 98 100 Oximetry 03/30/19 03/30/19 03/30/19 03:15 03:30 03:45 Temperature Pulse Rate 63 61 60 Respiratory 13 20 18 Rate Blood Pressure 130/74 119/76 128/77 O2 Sat by Pulse 100 100 100 Oximetry ED Medical Decision Making - Lab Data Result diagrams: 03/29/19 22:39 03/29/19 22:39 - EKG Data -: EKG Interpreted by Oh EKG shows normal: sinus rhythm Rate: normal - EKG Data Interpretation: no acute changes - Radiology Data Radiology results: report reviewed - Medical Decision Making Patient is 38 years old male with history of cardiac arrest x2, end-stage renal disease on hemodialysis, hypertension and diabetes. Patient brought to the emergency room by his mother. Mother stated that patient has been lethargic for the last 2-3 weeks. She also notices that he has been coughing a lot in the last 2-3 days. She denied any fever or chills. She stated that patient had his dialysis yesterday. Patient is lethargic and obtunded but is following command. EKG showed no ST elevation or depression. Chest x-ray is unremarkable. CT brain is negative for acute finding. Labs reviewed and showed elevated creatinine was she is consistent with his kidney failure patient had dialysis yesterday. I discussed the patient with , he agreed to admit Frantz to hospital for further management. Critical care attestation.: If time is entered above; I have spent that time in minutes in the direct care of this critically ill patient, excluding procedure time. ED Disposition Clinical Impression: Altered mental status, ESRD on hemodialysis Disposition: OP ADMIT IP TO THIS HOSP Is pt being admited?: Yes Condition: Stable Referrals: PRIMARY CARE, [Primary Care Provider] - 3-5 Days
--- NOTE | 2019-03-30 01:25 | XRay Report ---
CHEST 1 VIEW 03/30/2019 12:57 AM INDICATION / CLINICAL INFORMATION: cough. COMPARISON: 07/23/18 FINDINGS: SUPPORT DEVICES: None. HEART / MEDIASTINUM: Heart is mildly enlarged. Leadless pacemaker projects over the right ventricle, unchanged.. LUNGS / PLEURA: No significant pulmonary or pleural abnormality. No pneumothorax. ADDITIONAL FINDINGS: No significant additional findings. IMPRESSION: 1. No acute pulmonary or pleural findings. Signer Name: Fortino Sagastume MD Signed: 03/30/2019 1:21 AM Workstation Name: [id number]
--- NOTE | 2019-03-30 01:39 | Cat Scan Report ---
CT HEAD WITHOUT CONTRAST INDICATION / CLINICAL INFORMATION: Altered mental status. TECHNIQUE: All CT scans at this location are performed using CT dose reduction for ALARA by means of automated e xposure control. COMPARISON: None available. FINDINGS: HEMORRHAGE: None. EXTRA-AXIAL SPACES: Normal in size and morphology for the patient's age. VENTRICULAR SYSTEM: Normal in size and morphology for the patient's age. CEREBRAL PARENCHYMA: No significant abnormality. No acute territorial infarct. MIDLINE SHIFT OR HERNIATION: None. CEREBELLUM / BRAINSTEM: No significant abnormality. ORBITS: Normal as visualized. SOFT TISSUES of HEAD: Skin thickening and increased subcutaneous soft tissue density of the posterior neck. CALVARIUM: No significant abnormality. PARANASAL SINUSES / MASTOID AIR CELLS: Normal as visualized. ADDITIONAL FINDINGS: None. IMPRESSION: 1. No acute intracranial abnormality. Signer Name: Fortino Sagastume MD Signed: 03/30/2019 2:35 AM Workstation Name: [id number]
[2019-03-30 02:11] LABS: Chol/HDL Ratio 3.77 %
[2019-03-30 07:09] VITALS: BP 138/97
--- NOTE | 2019-03-30 07:15 | History and Physical Report ---
History of Present Illness Date of examination: 03/30/19 Date of admission: 03/30/19 Chief complaint: Altered mental status for 2 weeks History of present illness: Patient is a 38-year-old male with known history of history of renal disease on dialysis, hypertension, diabetes mellitus, hyperlipidemia. He is accompanied to the emergency room today by his mother. Has been no history of fever or chills no chest pain no shortness of breath however patient has been quite lethargic lately. Patient is sad to have had similar episodes in the past and had gone into car diac arrest in the past. Patient has been compliant with his medications and also with his dialysis. Last dialysis was yesterday. Past History Past Medical History: renal failure (On dialysis) Past Surgical History: Other (Tracheostomy placement in the past) Social history: no significant social history Family history: CAD (Father had an LA) Medications and Allergies Allergies Allergy/AdvReac Type Severity Reaction Status Date / Time No Known Allergies Allergy Verified 07/25/18 17:57 Home Medications Medication Instructions Recorded Confirmed Last Taken Type Lipitor 40 mg PO DAILY 07/26/18 02/20/19 Unknown History Metoprolol 25 mg PO Q12H 07/26/18 02/20/19 Unknown History Omeprazole 20 mg PO DAILY 07/26/18 02/20/19 Unknown History QUEtiapine [SEROquel] 25 mg PO DAILY 07/26/18 02/20/19 Unknown History Aspirin [Aspirin BABY CHEW TAB] 81 mg PO DAILY 11/13/18 02/20/19 Unknown History Lisinopril [Zestril TAB] 5 mg PO DAILY 11/13/18 02/20/19 Unknown History Warfarin [Coumadin] 2 mg PO DAILY 11/13/18 02/20/19 Unknown History Ciprofloxacin HCl [Ciprofloxacin 250 mg PO BID 10 Days #20 tablet 11/20/18 Unknown Rx TAB] Tramadol ER (Nf) [Ultram ER (Nf)] 50 mg PO BID 02/20/19 02/20/19 Unknown History Dicyclomine [Bentyl] 20 mg PO Q6H PRN #24 tablet 02/28/19 Unknown Rx Ondansetron [Zofran Odt] 4 mg PO Q6HR PRN #20 tab.rapdis 02/28/19 Unknown Rx raNITIdine HCl [Zantac] 150 mg PO Q12H #30 tablet 02/28/19 Unknown Rx Active Meds: Active Medications Acetaminophen (Tylenol) 650 mg PO Q4H PRN PRN Reason: Pain MILD(1-3)/Fever >100.5/GOLDEN Magnesium Hydroxide (Milk Of Magnesia) 30 ml PO Q4H PRN PRN Reason: Constipation Morphine Sulfate (Morphine) 2 mg IV Q4H PRN PRN Reason: Pain, Moderate (4-6) Ondansetron HCl (Zofran) 4 mg IV Q8H PRN PRN Reason: Nausea And Vomiting Sodium Chloride (Sodium Chloride Flush Syringe 10 Ml) 10 ml IV BID CARISSA Sodium Chloride (Sodium Chloride Flush Syringe 10 Ml) 10 ml IV PRN PRN PRN Reason: LINE FLUSH Review of Systems Constitutional: fatigue Neurological: confusion Exam - Constitutional Vitals: Temp Pulse Resp BP Pulse Ox 98.4 F 62 10 L 138/97 98 03/29/19 22:20 03/30/19 06:00 03/30/19 06:00 03/30/19 06:00 03/30/19 06:00 - EENT Eyes: Present: PERRL, EOM intact ENT: hearing intact, clear oral mucosa - Neck Neck: Present: supple, normal ROM - Respiratory Respiratory effort: normal Respiratory: bilateral: CTA - Cardiovascular Rhythm: regular Heart Sounds: Present: S1 & S2 - Extremities Extremities: no ischemia, pulses intact, No edema Peripheral Pulses: within normal limits - Abdominal General gastrointestinal: Present: soft, non-tender - Integumentary Integumentary: Present: clear, warm, dry - Musculoskeletal Musculoskeletal: strength equal bilaterally - Neurologic Neurologic: CNII-XII intact, moves all extremities Results - Labs CBC & Chem 7: 03/29/19 22:39 03/29/19 22:39 Labs: Abnormal lab results 03/29/19 03/29/19 03/30/19 Range/Units 22:39 22:39 01:16 EST Hgb 11.7 L (11.8-15.2) gm/dl RDW 16.4 H (13.2-15.2) % Plt Count 131 L (140-440) K/mm3 Eos % (Auto) 10.0 H (0.0-4.3) % Lymph # 0.8 L (1.2-5.4) K/mm3 Sodium 130 L (137-145) mmol/L Chloride 97.3 L (98-107) mmol/L Carbon Dioxide 20 L (22-30) mmol/L BUN 29 H (9-20) mg/dL Creatinine 6.2 H (0.8-1.5) mg/dL Glucose 135 H (75-100) mg/dL ALT < 5 L (7-56) units/L Troponin T 0.380 H* (0.00-0.029) ng/mL Albumin 3.5 L (3.9-5) g/dL HDL Cholesterol 31 L (40-59) mg/dL 03/30/19 Range/Units 02:49 Hgb (11.8-15.2) gm/dl RDW (13.2-15.2) % Plt Count (140-440) K/mm3 Eos % (Auto) (0.0-4.3) % Lymph # (1.2-5.4) K/mm3 Sodium (137-145) mmol/L Chloride (98-107) mmol/L Carbon Dioxide (22-30) mmol/L BUN (9-20) mg/dL Creatinine (0.8-1.5) mg/dL Glucose (75-100) mg/dL ALT (7-56) units/L Troponin T 0.349 H* (0.00-0.029) ng/mL Albumin (3.9-5) g/dL HDL Cholesterol (40-59) mg/dL Assessment and Plan - Patient Problems (1) Altered mental status Current Visit: Yes Status: Acute Plan to address problem: Etiology is unclear. Will monitor mental status. Patient admitted for observation. (2) ESRD needing dialysis Current Visit: No Status: Acute Plan to address problem: Patient is on dialysis. We will monitor chemistry
== END | disposition left against medical advice (07) ==
LOC: ED 22:13
DX: R41.82 Altered mental status, unspecified (principal); I25.2 Old myocardial infarction; I25.10 Atherosclerotic heart disease of native coronary artery without angina pectoris; F03.90 Unspecified dementia, unspecified severity, without behavioral disturbance, psychotic disturbance, mood disturbance, and anxiety; I12.0 Hypertensive chronic kidney disease with stage 5 chronic kidney disease or end stage renal disease; E11.22 Type 2 diabetes mellitus with diabetic chronic kidney disease; N18.6 End stage renal disease; Z99.2 Dependence on renal dialysis; Z79.899 Other long term (current) drug therapy; Z86.718 Personal history of other venous thrombosis and embolism
CPT/HCPCS: 36415; 70450; 71045; 80053; 80061; 82140; 84484; 85025; 93005; 93010

== ENCOUNTER 2019-03-30 13:31 | Inpatient (IN) | payer MEDICARE ==
[2019-03-30 15:03] LABS: Basophils % (Auto) 0.4 % (0.0-1.8); Eosinophils # (Auto) 0.2 K/mm3 (0.0-0.4); Eosinophils % (Auto) 2.2 % (0.0-4.3); Hematocrit 39.1 % (35.5-45.6); Hemoglobin 12.3 gm/dl (11.8-15.2); Lymphocytes # (Auto) 0.6 K/mm3 (1.2-5.4); Lymphocytes % (Auto) 8.9 % (13.4-35.0); Mean Corpuscular HGB Conc 31 % (32-34); Mean Corpuscular Volume 96 fl (84-94); Monocytes # (Auto) 0.4 K/mm3 (0.0-0.8); Monocytes % (Auto) 5.3 % (0.0-7.3); Platelet Count 128 K/mm3 (140-440); Red Blood Count 4.06 M/mm3 (3.65-5.03); Red Cell Distribution Width 16.6 % (13.2-15.2)
[2019-03-30 15:13] LABS: INR 1.79 (0.87-1.13)
[2019-03-30 15:25] LABS: Albumin 3.7 g/dL (3.9-5); BUN/Creatinine Ratio 5; Bilirubin,Direct 0.5 mg/dL (0-0.2); Blood Urea Nitrogen 38 mg/dL (9-20); Calcium 8.6 mg/dL (8.4-10.2); Hemolysis Index 6
[2019-03-30 15:30] LABS: Alanine Aminotransferase < 5 units/L (7-56)
--- NOTE | 2019-03-30 15:35 | Emergency Department Report ---
ED Altered Mental Status HPI - General Chief Complaint: Altered Mental Status Stated Complaint: AMS Time Seen by Provider: 03/30/19 14:12 Source: family, EMS Mode of arrival: Stretcher Limitations: Altered Mental Status, Physical Limitation - History of Present Illness Initial Comments: 38-year-old Yor[place] male presents back to the emergency room for worsening altered mental status. Patient has a history of end-stage renal disease, hyperlipidemia, diabetes, hypertension and was last dialysis on 03/28/2019. Mother brings patient in her worsening altered mental status.. Patient was seen yesterday and was admitted but left the hospital. Mother reports that he is seen by [facility] on [address] MD Complaint: altered mental status Onset/Timin -: month(s) Consistency of Symptoms: getting worse Context: history of similar presen Associated Symptoms: cough. denies: chest pain, nausea/vomiting, rash - Related Data Home Medications Medication Instructions Recorded Confirmed Last Taken Lipitor 40 mg PO DAILY 07/26/18 03/30/19 Unknown Metoprolol 25 mg PO Q12H 07/26/18 03/30/19 Unknown Omeprazole 20 mg PO DAILY 07/26/18 03/30/19 Unknown QUEtiapine [SEROquel] 25 mg PO DAILY 07/26/18 03/30/19 Unknown Aspirin [Aspirin BABY CHEW TAB] 81 mg PO DAILY 11/13/18 03/30/19 Unknown Lisinopril [Zestril TAB] 5 mg PO DAILY 11/13/18 03/30/19 Unknown Warfarin [Coumadin] 2 mg PO DAILY 11/13/18 03/30/19 Unknown Ursodiol 300 mg PO BID 03/30/19 03/30/19 Unknown acetaZOLAMIDE [Diamox TAB] 500 mg PO BID 03/30/19 03/30/19 Unknown Previous Rx's Medication Instructions Recorded Last Taken Type Ondansetron [Zofran ODT TAB] 4 mg PO Q6HR PRN #20 tab.rapdis 02/28/19 Unknown Rx raNITIdine HCl [Zantac] 150 mg PO Q12H #30 tablet 02/28/19 Unknown Rx guaiFENesin [Robitussin] 200 mg PO Q4H PRN #1 bottle 04/04/19 Unknown Rx Allergies Allergy/AdvReac Type Severity Reaction Status Date / Time No Known Allergies Allergy Verified 07/25/18 17:57 ED Review of Systems ROS: Stated complaint: AMS Other details as noted in HPI Comment: All other systems reviewed and negative ED Past Medical Hx - Past Medical History Hx Hypertension: Yes 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 anoxic brain injury 2/ cardiac arrest. afib on warfarin, hld, htn, cad. - Surgical History Hx Coronary Stent: No Hx Open Heart Surgery: No Hx Pacemaker: (apparent RV leadless pacer on CXR) Hx Appendectomy: No Additional Surgical History: Right AV fistula. peg tube, trach - Social History Smoking Status: Never Smoker Substance Use Type: None - Medications Home Medications: Home Medications Medication Instructions Recorded Confirmed Last Taken Type Lipitor 40 mg PO DAILY 07/26/18 03/30/19 Unknown History Metoprolol 25 mg PO Q12H 07/26/18 03/30/19 Unknown History Omeprazole 20 mg PO DAILY 07/26/18 03/30/19 Unknown History QUEtiapine [SEROquel] 25 mg PO DAILY 07/26/18 03/30/19 Unknown History Aspirin [Aspirin BABY CHEW TAB] 81 mg PO DAILY 11/13/18 03/30/19 Unknown History Lisinopril [Zestril TAB] 5 mg PO DAILY 11/13/18 03/30/19 Unknown History Warfarin [Coumadin] 2 mg PO DAILY 11/13/18 03/30/19 Unknown History Ondansetron [Zofran ODT TAB] 4 mg PO Q6HR PRN #20 tab.rapdis 02/28/19 03/30/19 Unknown Rx raNITIdine HCl [Zantac] 150 mg PO Q12H #30 tablet 02/28/19 03/30/19 Unknown Rx Ursodiol 300 mg PO BID 03/30/19 03/30/19 Unknown History acetaZOLAMIDE [Diamox TAB] 500 mg PO BID 03/30/19 03/30/19 Unknown History guaiFENesin [Robitussin] 200 mg PO Q4H PRN #1 bottle 04/04/19 Unknown Rx ED Physical Exam - General Limitations: Altered Mental Status, Physical Limitation General appearance: lethargic - Eye Eye exam: Present: normal appearance - ENT ENT exam: Present: mucous membranes moist - Respiratory Respiratory exam: Present: normal lung sounds bilaterally. Absent: respiratory distress - Cardiovascular Cardiovascular Exam: Present: regular rate, normal rhythm. Absent: systolic murmur, diastolic murmur, rubs, gallop - GI/Abdominal GI/Abdominal exam: Present: soft, normal bowel sounds. Absent: distended, tenderness, guarding - Rectal Rectal exam: Present: deferred - Extremities Exam Extremities exam: Present: normal inspection - Back Exam Back exam: Present: normal inspection - Neurological Exam Neurological exam: Present: alert, oriented X3 - Psychiatric Psychiatric exam: Present: depressed - Skin Skin exam: Present: warm, dry, intact, normal color. Absent: rash ED Course Vital Signs 03/30/19 03/30/19 03/30/19 13:48 17:29 18:33 Temperature 98.9 F Pulse Rate 63 62 62 Respiratory 18 16 20 Rate Blood Pressure 120/78 148/70 Blood Pressure 126/72 [Left] O2 Sat by Pulse 100 100 100 Oximetry 03/30/19 03/30/19 03/30/19 18:46 19:00 19:15 Temperature 98.2 F Pulse Rate 60 Respiratory 24 18 21 Rate Blood Pressure 148/70 138/75 133/80 Blood Pressure 127/70 [Left] O2 Sat by Pulse 99 100 100 Oximetry 03/30/19 03/30/19 03/30/19 19:30 19:45 20:00 Temperature Pulse Rate Respiratory 21 20 19 Rate Blood Pressure 133/80 143/71 143/71 Blood Pressure [Left] O2 Sat by Pulse 100 96 98 Oximetry 03/30/19 03/30/19 03/30/19 20:15 20:30 20:45 Temperature Pulse Rate Respiratory 20 23 20 Rate Blood Pressure 132/75 132/75 122/74 Blood Pressure [Left] O2 Sat by Pulse 100 100 98 Oximetry 03/30/19 03/30/19 03/30/19 21:00 21:16 21:30 Temperature Pulse Rate Respiratory 20 20 17 Rate Blood Pressure 122/74 111/69 122/72 Blood Pressure [Left] O2 Sat by Pulse 100 100 100 Oximetry 03/30/19 03/30/19 03/30/19 21:45 22:00 22:15 Temperature Pulse Rate Respiratory 22 20 19 Rate Blood Pressure 132/73 132/73 127/72 Blood Pressure [Left] O2 Sat by Pulse 100 100 Oximetry 03/30/19 03/30/19 03/30/19 22:30 22:45 23:00 Temperature Pulse Rate Respiratory 20 20 19 Rate Blood Pressure 127/72 129/72 122/61 Blood Pressure [Left] O2 Sat by Pulse 99 97 Oximetry 03/30/19 03/30/19 03/30/19 23:15 23:16 23:30 Temperature Pulse Rate 62 Respiratory 20 21 Rate Blood Pressure 109/65 119/74 Blood Pressure [Left] O2 Sat by Pulse 97 100 Oximetry 03/30/19 03/30/19 23:40 23:50 Temperature Pulse Rate Respiratory 24 18 Rate Blood Pressure 119/74 114/70 Blood Pressure [Left] O2 Sat by Pulse 100 100 Oximetry - Lab Data Result diagrams: 04/02/19 05:59 04/04/19 07:18 Lab Results 03/30/19 03/30/19 03/30/19 Range/Units 14:48 14:48 14:48 WBC 7.3 (4.5-11.0) K/mm3 RBC 4.06 (3.65-5.03) M/mm3 Hgb 12.3 (11.8-15.2) gm/dl Hct 39.1 (35.5-45.6) % MCV 96 H (84-94) fl MCH 30 (28-32) pg MCHC 31 L (32-34) % RDW 16.6 H (13.2-15.2) % Plt Count 128 L (140-440) K/mm3 Lymph % (Auto) 8.9 L (13.4-35.0) % Tripp % (Auto) 5.3 (0.0-7.3) % Eos % (Auto) 2.2 (0.0-4.3) % Baso % (Auto) 0.4 (0.0-1.8) % Lymph # 0.6 L (1.2-5.4) K/mm3 Tripp # 0.4 (0.0-0.8) K/mm3 Eos # 0.2 (0.0-0.4) K/mm3 Baso # 0.0 (0.0-0.1) K/mm3 Seg Neutrophils % 83.2 H (40.0-70.0) % Seg Neutrophils # 6.1 (1.8-7.7) K/mm3 PT (12.2-14.9) Sec. INR (0.87-1.13) APTT (24.2-36.6) Sec. Heparin Anti-Xa, Unfract (Negative) Sodium (137-145) mmol/L Potassium (3.6-5.0) mmol/L Chloride (98-107) mmol/L Carbon Dioxide (22-30) mmol/L Anion Gap mmol/L BUN (9-20) mg/dL Creatinine (0.8-1.5) mg/dL Estimated GFR ml/min BUN/Creatinine Ratio % Glucose (75-100) mg/dL Lactic Acid 1.40 (0.7-2.0) mmol/L Calcium (8.4-10.2) mg/dL Total Bilirubin (0.1-1.2) mg/dL Direct Bilirubin (0-0.2) mg/dL Indirect Bilirubin mg/dL AST (5-40) units/L ALT (7-56) units/L Alkaline Phosphatase (35-129) units/L Ammonia 51.0 (25-60) umol/L Troponin T (0.00-0.029) ng/mL Total Protein (6.3-8.2) g/dL Albumin (3.9-5) g/dL Albumin/Globulin Ratio % Serotonin Release Assay Vitamin B12 (211-911) pg/mL Folate (7.3-26.0) ng/mL Salicylates (2.8-20.0) mg/dL Acetaminophen (10.0-30.0) ug/mL Heparin-induced Plt Ab (Negative) UF Heparin High Dose % Release LACY UFH Low Dose 0.1 % Release LACY UFH Low Dose 0.5 % Release 03/30/19 03/30/19 03/30/19 Range/Units 14:48 14:48 14:48 WBC (4.5-11.0) K/mm3 RBC (3.65-5.03) M/mm3 Hgb (11.8-15.2) gm/dl Hct (35.5-45.6) % MCV (84-94) fl MCH (28-32) pg MCHC (32-34) % RDW (13.2-15.2) % Plt Count (140-440) K/mm3 Lymph % (Auto) (13.4-35.0) % Tripp % (Auto) (0.0-7.3) % Eos % (Auto) (0.0-4.3) % Baso % (Auto) (0.0-1.8) % Lymph # (1.2-5.4) K/mm3 Tripp # (0.0-0.8) K/mm3 Eos # (0.0-0.4) K/mm3 Baso # (0.0-0.1) K/mm3 Seg Neutrophils % (40.0-70.0) % Seg Neutrophils # (1.8-7.7) K/mm3 PT 20.5 H (12.2-14.9) Sec. INR 1.79 H (0.87-1.13) APTT 37.0 H (24.2-36.6) Sec. Heparin Anti-Xa, Unfract (Negative) Sodium (137-145) mmol/L Potassium (3.6-5.0) mmol/L Chloride (98-107) mmol/L Carbon Dioxide (22-30) mmol/L Anion Gap mmol/L BUN (9-20) mg/dL Creatinine (0.8-1.5) mg/dL Estimated GFR ml/min BUN/Creatinine Ratio % Glucose (75-100) mg/dL Lactic Acid (0.7-2.0) mmol/L Calcium (8.4-10.2) mg/dL Total Bilirubin (0.1-1.2) mg/dL Direct Bilirubin (0-0.2) mg/dL Indirect Bilirubin mg/dL AST (5-40) units/L ALT (7-56) units/L Alkaline Phosphatase (35-129) units/L Ammonia (25-60) umol/L Troponin T 0.374 H* (0.00-0.029) ng/mL Total Protein (6.3-8.2) g/dL Albumin (3.9-5) g/dL Albumin/Globulin Ratio % Serotonin Release Assay Vitamin B12 (211-911) pg/mL Folate (7.3-26.0) ng/mL Salicylates < 0.3 L (2.8-20.0) mg/dL Acetaminophen (10.0-30.0) ug/mL Heparin-induced Plt Ab (Negative) UF Heparin High Dose % Release LACY UFH Low Dose 0.1 % Release LACY UFH Low Dose 0.5 % Release 03/30/19 03/30/19 03/31/19 Range/Units 14:48 14:48 06:40 WBC 5.5 (4.5-11.0) K/mm3 RBC 4.18 (3.65-5.03) M/mm3 Hgb 12.8 (11.8-15.2) gm/dl Hct 39.9 (35.5-45.6) % MCV 96 H (84-94) fl MCH 31 (28-32) pg MCHC 32 (32-34) % RDW 17.1 H (13.2-15.2) % Plt Count 128 L (140-440) K/mm3 Lymph % (Auto) 11.4 L (13.4-35.0) % Tripp % (Auto) 9.7 H (0.0-7.3) % Eos % (Auto) 3.3 (0.0-4.3) % Baso % (Auto) 0.7 (0.0-1.8) % Lymph # 0.6 L (1.2-5.4) K/mm3 Tripp # 0.5 (0.0-0.8) K/mm3 Eos # 0.2 (0.0-0.4) K/mm3 Baso # 0.0 (0.0-0.1) K/mm3 Seg Neutrophils % 74.9 H (40.0-70.0) % Seg Neutrophils # 4.2 (1.8-7.7) K/mm3 PT (12.2-14.9) Sec. INR (0.87-1.13) APTT (24.2-36.6) Sec. Heparin Anti-Xa, Unfract (Negative) Sodium 129 L (137-145) mmol/L Potassium 3.6 (3.6-5.0) mmol/L Chloride 96.1 L (98-107) mmol/L Carbon Dioxide 18 L (22-30) mmol/L Anion Gap 19 mmol/L BUN 38 H (9-20) mg/dL Creatinine 7.0 H (0.8-1.5) mg/dL Estimated GFR 9 ml/min BUN/Creatinine Ratio 5 % Glucose 137 H (75-100) mg/dL Lactic Acid (0.7-2.0) mmol/L Calcium 8.6 (8.4-10.2) mg/dL Total Bilirubin 1.20 (0.1-1.2) mg/dL Direct Bilirubin 0.5 H (0-0.2) mg/dL Indirect Bilirubin 0.7 mg/dL AST 6 (5-40) units/L ALT < 5 L (7-56) units/L Alkaline Phosphatase 142 H (35-129) units/L Ammonia (25-60) umol/L Troponin T (0.00-0.029) ng/mL Total Protein 8.0 (6.3-8.2) g/dL Albumin 3.7 L (3.9-5) g/dL Albumin/Globulin Ratio 0.9 % Serotonin Release Assay Vitamin B12 (211-911) pg/mL Folate (7.3-26.0) ng/mL Salicylates (2.8-20.0) mg/dL Acetaminophen < 5.0 L (10.0-30.0) ug/mL Heparin-induced Plt Ab (Negative) UF Heparin High Dose % Release LACY UFH Low Dose 0.1 % Release LACY UFH Low Dose 0.5 % Release 03/31/19 03/31/19 03/31/19 Range/Units 06:40 06:40 13:43 WBC (4.5-11.0) K/mm3 RBC (3.65-5.03) M/mm3 Hgb (11.8-15.2) gm/dl Hct (35.5-45.6) % MCV (84-94) fl MCH (28-32) pg MCHC (32-34) % RDW (13.2-15.2) % Plt Count (140-440) K/mm3 Lymph % (Auto) (13.4-35.0) % Tripp % (Auto) (0.0-7.3) % Eos % (Auto) (0.0-4.3) % Baso % (Auto) (0.0-1.8) % Lymph # (1.2-5.4) K/mm3 Tripp # (0.0-0.8) K/mm3 Eos # (0.0-0.4) K/mm3 Baso # (0.0-0.1) K/mm3 Seg Neutrophils % (40.0-70.0) % Seg Neutrophils # (1.8-7.7) K/mm3 PT 20.6 H (12.2-14.9) Sec. INR 1.80 H (0.87-1.13) APTT > 240.0 H* (24.2-36.6) Sec. Heparin Anti-Xa, Unfract (Negative) Sodium 133 L (137-145) mmol/L Potassium 5.0 D (3.6-5.0) mmol/L Chloride 98.0 (98-107) mmol/L Carbon Dioxide 19 L (22-30) mmol/L Anion Gap 21 mmol/L BUN 44 H (9-20) mg/dL Creatinine 8.0 H (0.8-1.5) mg/dL Estimated GFR 8 ml/min BUN/Creatinine Ratio 6 % Glucose 98 (75-100) mg/dL Lactic Acid (0.7-2.0) mmol/L Calcium 8.8 (8.4-10.2) mg/dL Total Bilirubin (0.1-1.2) mg/dL Direct Bilirubin (0-0.2) mg/dL Indirect Bilirubin mg/dL AST (5-40) units/L ALT (7-56) units/L Alkaline Phosphatase (35-129) units/L Ammonia (25-60) umol/L Troponin T (0.00-0.029) ng/mL Total Protein (6.3-8.2) g/dL Albumin (3.9-5) g/dL Albumin/Globulin Ratio % Serotonin Release Assay Vitamin B12 791.4 (211-911) pg/mL Folate (7.3-26.0) ng/mL Salicylates (2.8-20.0) mg/dL Acetaminophen (10.0-30.0) ug/mL Heparin-induced Plt Ab (Negative) UF Heparin High Dose % Release LACY UFH Low Dose 0.1 % Release LACY UFH Low Dose 0.5 % Release 03/31/19 03/31/19 04/01/19 Range/Units 13:43 15:05 06:38 WBC (4.5-11.0) K/mm3 RBC (3.65-5.03) M/mm3 Hgb (11.8-15.2) gm/dl Hct (35.5-45.6) % MCV (84-94) fl MCH (28-32) pg MCHC (32-34) % RDW (13.2-15.2) % Plt Count (140-440) K/mm3 Lymph % (Auto) (13.4-35.0) % Tripp % (Auto) (0.0-7.3) % Eos % (Auto) (0.0-4.3) % Baso % (Auto) (0.0-1.8) % Lymph # (1.2-5.4) K/mm3 Tripp # (0.0-0.8) K/mm3 Eos # (0.0-0.4) K/mm3 Baso # (0.0-0.1) K/mm3 Seg Neutrophils % (40.0-70.0) % Seg Neutrophils # (1.8-7.7) K/mm3 PT 19.9 H (12.2-14.9) Sec. INR 1.72 H (0.87-1.13) APTT (24.2-36.6) Sec. Heparin Anti-Xa, Unfract Negative (Negative) Sodium (137-145) mmol/L Potassium (3.6-5.0) mmol/L Chloride (98-107) mmol/L Carbon Dioxide (22-30) mmol/L Anion Gap mmol/L BUN (9-20) mg/dL Creatinine (0.8-1.5) mg/dL Estimated GFR ml/min BUN/Creatinine Ratio % Glucose (75-100) mg/dL Lactic Acid (0.7-2.0) mmol/L Calcium (8.4-10.2) mg/dL Total Bilirubin (0.1-1.2) mg/dL Direct Bilirubin (0-0.2) mg/dL Indirect Bilirubin mg/dL AST (5-40) units/L ALT (7-56) units/L Alkaline Phosphatase (35-129) units/L Ammonia (25-60) umol/L Troponin T (0.00-0.029) ng/mL Total Protein (6.3-8.2) g/dL Albumin (3.9-5) g/dL Albumin/Globulin Ratio % Serotonin Release Assay See scanned result Vitamin B12 (211-911) pg/mL Folate 5.98 L (7.3-26.0) ng/mL Salicylates (2.8-20.0) mg/dL Acetaminophen (10.0-30.0) ug/mL Heparin-induced Plt Ab Negative (Negative) UF Heparin High Dose 5 % Release LACY UFH Low Dose 0.1 7 % Release LACY UFH Low Dose 0.5 9 % Release 04/01/19 04/01/19 Range/Units 07:56 07:56 WBC 4.1 L (4.5-11.0) K/mm3 RBC 3.69 (3.65-5.03) M/mm3 Hgb 11.1 L (11.8-15.2) gm/dl Hct 34.2 L (35.5-45.6) % MCV 93 (84-94) fl MCH 30 (28-32) pg MCHC 33 (32-34) % RDW 16.4 H (13.2-15.2) % Plt Count 124 L (140-440) K/mm3 Lymph % (Auto) (13.4-35.0) % Tripp % (Auto) (0.0-7.3) % Eos % (Auto) (0.0-4.3) % Baso % (Auto) (0.0-1.8) % Lymph # (1.2-5.4) K/mm3 Tripp # (0.0-0.8) K/mm3 Eos # (0.0-0.4) K/mm3 Baso # (0.0-0.1) K/mm3 Seg Neutrophils % (40.0-70.0) % Seg Neutrophils # (1.8-7.7) K/mm3 PT (12.2-14.9) Sec. INR (0.87-1.13) APTT (24.2-36.6) Sec. Heparin Anti-Xa, Unfract (Negative) Sodium 138 (137-145) mmol/L Potassium 3.1 L D (3.6-5.0) mmol/L Chloride 100.6 (98-107) mmol/L Carbon Dioxide 26 D (22-30) mmol/L Anion Gap 15 mmol/L BUN 28 H (9-20) mg/dL Creatinine 5.6 H (0.8-1.5) mg/dL Estimated GFR 12 ml/min BUN/Creatinine Ratio 5 % Glucose 90 (75-100) mg/dL Lactic Acid (0.7-2.0) mmol/L Calcium 8.3 L (8.4-10.2) mg/dL Total Bilirubin (0.1-1.2) mg/dL Direct Bilirubin (0-0.2) mg/dL Indirect Bilirubin mg/dL AST (5-40) units/L ALT (7-56) units/L Alkaline Phosphatase (35-129) units/L Ammonia (25-60) umol/L Troponin T 0.343 H* (0.00-0.029) ng/mL Total Protein (6.3-8.2) g/dL Albumin (3.9-5) g/dL Albumin/Globulin Ratio % Serotonin Release Assay Vitamin B12 (211-911) pg/mL Folate (7.3-26.0) ng/mL Salicylates (2.8-20.0) mg/dL Acetaminophen (10.0-30.0) ug/mL Heparin-induced Plt Ab (Negative) UF Heparin High Dose % Release LACY UFH Low Dose 0.1 % Release LACY UFH Low Dose 0.5 % Release - Medical Decision Making 38-year-old Y[place] male presents back to the emergency room for worsening altered mental status. Patient has a history of end-stage renal disease, hyperlipidemia, diabetes, hypertension and was last dialysis on 03/28/2019. Mother brings patient in her worsening altered mental status.. Patient was seen yesterday and was admitted but left the hospital. Mother reports that he is seen by [facility] on [address] Critical care attestation.: If time is entered above; I have spent that time in minutes in the direct care of this critically ill patient, excluding procedure time. ED Disposition Clinical Impression: ESRD needing dialysis Disposition: OP ADMIT IP TO THIS HOSP Is pt being admited?: Yes Does the pt Need Aspirin: No Condition: Fair
--- NOTE | 2019-03-30 19:48 | History and Physical Report ---
Medications and Allergies Allergies Allergy/AdvReac Type Severity Reaction Status Date / Time No Known Allergies Allergy Verified 07/25/18 17:57 Home Medications Medication Instructions Recorded Confirmed Last Taken Type Lipitor 40 mg PO DAILY 07/26/18 02/20/19 Unknown History Metoprolol 25 mg PO Q12H 07/26/18 02/20/19 Unknown History Omeprazole 20 mg PO DAILY 07/26/18 02/20/19 Unknown History QUEtiapine [SEROquel] 25 mg PO DAILY 07/26/18 02/20/19 Unknown History Aspirin [Aspirin BABY CHEW TAB] 81 mg PO DAILY 11/13/18 02/20/19 Unknown History Lisinopril [Zestril TAB] 5 mg PO DAILY 11/13/18 02/20/19 Unknown History Warfarin [Coumadin] 2 mg PO DAILY 11/13/18 02/20/19 Unknown History Ciprofloxacin HCl [Ciprofloxacin 250 mg PO BID 10 Days #20 tablet 11/20/18 Unknown Rx TAB] Tramadol ER (Nf) [Ultram ER (Nf)] 50 mg PO BID 02/20/19 02/20/19 Unknown History Dicyclomine [Bentyl] 20 mg PO Q6H PRN #24 tablet 02/28/19 Unknown Rx Ondansetron [Zofran Odt] 4 mg PO Q6HR PRN #20 tab.rapdis 02/28/19 Unknown Rx raNITIdine HCl [Zantac] 150 mg PO Q12H #30 tablet 02/28/19 Unknown Rx Exam - Constitutional Vitals: Temp Pulse Resp BP Pulse Ox 98.9 F 62 16 126/72 100 03/30/19 13:48 03/30/19 17:29 03/30/19 17:29 03/30/19 17:29 03/30/19 17:29 Results - Labs CBC & Chem 7: 03/30/19 14:48 03/30/19 14:48 Labs: Abnormal lab results 03/30/19 03/30/19 03/30/19 Range/Units 14:48 14:48 14:48 MCV 96 H (84-94) fl MCHC 31 L (32-34) % RDW 16.6 H (13.2-15.2) % Plt Count 128 L (140-440) K/mm3 Lymph % (Auto) 8.9 L (13.4-35.0) % Lymph # 0.6 L (1.2-5.4) K/mm3 Seg Neutrophils % 83.2 H (40.0-70.0) % PT 20.5 H (12.2-14.9) Sec. INR 1.79 H (0.87-1.13) APTT 37.0 H (24.2-36.6) Sec. Sodium (137-145) mmol/L Chloride (98-107) mmol/L Carbon Dioxide (22-30) mmol/L BUN (9-20) mg/dL Creatinine (0.8-1.5) mg/dL Glucose (75-100) mg/dL Direct Bilirubin (0-0.2) mg/dL ALT (7-56) units/L Alkaline Phosphatase (35-129) units/L Troponin T 0.374 H* (0.00-0.029) ng/mL Albumin (3.9-5) g/dL Salicylates (2.8-20.0) mg/dL Acetaminophen (10.0-30.0) ug/mL 03/30/19 03/30/19 03/30/19 Range/Units 14:48 14:48 14:48 MCV (84-94) fl MCHC (32-34) % RDW (13.2-15.2) % Plt Count (140-440) K/mm3 Lymph % (Auto) (13.4-35.0) % Lymph # (1.2-5.4) K/mm3 Seg Neutrophils % (40.0-70.0) % PT (12.2-14.9) Sec. INR (0.87-1.13) APTT (24.2-36.6) Sec. Sodium 129 L (137-145) mmol/L Chloride 96.1 L (98-107) mmol/L Carbon Dioxide 18 L (22-30) mmol/L BUN 38 H (9-20) mg/dL Creatinine 7.0 H (0.8-1.5) mg/dL Glucose 137 H (75-100) mg/dL Direct Bilirubin 0.5 H (0-0.2) mg/dL ALT < 5 L (7-56) units/L Alkaline Phosphatase 142 H (35-129) units/L Troponin T (0.00-0.029) ng/mL Albumin 3.7 L (3.9-5) g/dL Salicylates < 0.3 L (2.8-20.0) mg/dL Acetaminophen < 5.0 L (10.0-30.0) ug/mL
[2019-03-30] MEDS ORDERED: ONDANSETRON 4 MG/2 ML INJ IV PRN (21:55)
[2019-03-30] MEDS ORDERED: ACETAMINOPHEN 325 MG TAB PO PRN (21:55)
--- NOTE | 2019-03-31 01:55 | History and Physical Report ---
History of Present Illness Date of examination: 03/30/19 Date of admission: 03/30/19 21:55 Chief complaint: Altered Mental Status History of present illness: Patient is a 38-year-old male with known history of history of renal disease on dialysis, hypertension, diabetes mellitus, hyperlipidemia. He is accompanied to the emergency room today by his mother. He had gone home against medical advice overnight. There has been no history of fever or chills no chest pain no shortness of breath however patient has been quite lethargic lately. Patient is sad to have had similar episodes in the past and had gone into cardiac arrest in the past. Patient has been compliant with his medications and also with his dialysis. He is due for dialysis on sunday. Past History Past Medical History: diabetes, ESRD, hypertension, hyperlipidemia, other (History of visual loss) Past Surgical History: Other Social history: no significant social history Family history: CAD (Father had an DE) Medications and Allergies Allergies Allergy/AdvReac Type Severity Reaction Status Date / Time No Known Allergies Allergy Verified 07/25/18 17:57 Home Medications Medication Instructions Recorded Confirmed Last Taken Type Lipitor 40 mg PO DAILY 07/26/18 03/30/19 Unknown History Metoprolol 25 mg PO Q12H 07/26/18 03/30/19 Unknown History Omeprazole 20 mg PO DAILY 07/26/18 03/30/19 Unknown History QUEtiapine [SEROquel] 25 mg PO DAILY 07/26/18 03/30/19 Unknown History Aspirin [Aspirin BABY CHEW TAB] 81 mg PO DAILY 11/13/18 03/30/19 Unknown History Lisinopril [Zestril TAB] 5 mg PO DAILY 11/13/18 03/30/19 Unknown History Warfarin [Coumadin] 2 mg PO DAILY 11/13/18 03/30/19 Unknown History Ondansetron [Zofran Odt] 4 mg PO Q6HR PRN #20 tab.rapdis 02/28/19 03/30/19 Unk nown Rx raNITIdine HCl [Zantac] 150 mg PO Q12H #30 tablet 02/28/19 03/30/19 Unknown Rx Ursodiol 300 mg PO BID 03/30/19 03/30/19 Unknown History acetaZOLAMIDE [Diamox TAB] 500 mg PO BID 03/30/19 03/30/19 Unknown History Active Meds: Active Medications Acetaminophen (Tylenol) 650 mg PO Q4H PRN PRN Reason: Pain MILD(1-3)/Fever >100.5/GOLDEN Ondansetron HCl (Zofran) 4 mg IV Q8H PRN PRN Reason: Nausea And Vomiting Sodium Chloride (Sodium Chloride Flush Syringe 10 Ml) 10 ml IV BID CARISSA Last Admin: 03/30/19 23:13 Dose: 10 ml Documented by: Review of Systems Constitutional: fatigue, lethargy Neurological: change in mentation Exam - Constitutional Vitals: Temp Pulse Resp BP Pulse Ox 98.1 F 61 16 147/80 100 03/31/19 00:15 03/31/19 00:15 03/31/19 00:15 03/31/19 00:15 03/31/19 00:15 General appearance: Present: no acute distress, well-nourished - EENT Eyes: Present: PERRL, EOM intact ENT: hearing intact, clear oral mucosa, dentition normal - Neck Neck: Present: supple, normal ROM, other (Scar of trach in the past) - Respiratory Respiratory: bilateral: CTA - Cardiovascular Rhythm: regular Heart Sounds: Present: S1 & S2 - Extremities Extremities: no ischemia, pulses intact, pulses symmetrical, No edema Peripheral Pulses: within normal limits - Abdominal General gastrointestinal: Present: soft, non-tender, non-distended - Integumentary Integumentary: Present: clear, warm, dry - Musculoskeletal Musculoskeletal: strength equal bilaterally - Neurologic Neurologic: CNII-XII intact, focal deficits, other (Appears confused) Results - Labs CBC & Chem 7: 03/30/19 14:48 03/30/19 14:48 Labs: Abnormal lab results 03/30/19 03/30/19 03/30/19 Range/Units 14:48 14:48 14:48 MCV 96 H (84-94) fl MCHC 31 L (32-34) % RDW 16.6 H (13.2-15.2) % Plt Count 128 L (140-440) K/mm3 Lymph % (Auto) 8.9 L (13.4-35.0) % Lymph # 0.6 L (1.2-5.4) K/mm3 Seg Neutrophils % 83.2 H (40.0-70.0) % PT 20.5 H (12.2-14.9) Sec. INR 1.79 H (0.87-1.13) APTT 37.0 H (24.2-36.6) Sec. Sodium (137-145) mmol/L Chloride (98-107) mmol/L Carbon Dioxide (22-30) mmol/L BUN (9-20) mg/dL Creatinine (0.8-1.5) mg/dL Glucose (75-100) mg/dL Direct Bilirubin (0-0.2) mg/dL ALT (7-56) units/L Alkaline Phosphatase (35-129) units/L Troponin T 0.374 H* (0.00-0.029) ng/mL Albumin (3.9-5) g/dL Salicylates (2.8-20.0) mg/dL Acetaminophen (10.0-30.0) ug/mL 03/30/19 03/30/19 03/30/19 Range/Units 14:48 14:48 14:48 MCV (84-94) fl MCHC (32-34) % RDW (13.2-15.2) % Plt Count (140-440) K/mm3 Lymph % (Auto) (13.4-35.0) % Lymph # (1.2-5.4) K/mm3 Seg Neutrophils % (40.0-70.0) % PT (12.2-14.9) Sec. INR (0.87-1.13) APTT (24.2-36.6) Sec. Sodium 129 L (137-145) mmol/L Chloride 96.1 L (98-107) mmol/L Carbon Dioxide 18 L (22-30) mmol/L BUN 38 H (9-20) mg/dL Creatinine 7.0 H (0.8-1.5) mg/dL Glucose 137 H (75-100) mg/dL Direct Bilirubin 0.5 H (0-0.2) mg/dL ALT < 5 L (7-56) units/L Alkaline Phosphatase 142 H (35-129) units/L Troponin T (0.00-0.029) ng/mL Albumin 3.7 L (3.9-5) g/dL Salicylates < 0.3 L (2.8-20.0) mg/dL Acetaminophen < 5.0 L (10.0-30.0) ug/mL Assessment and Plan - Patient Problems (1) Altered mental status Current Visit: No Status: Acute Plan to address problem: Etiology is unclear. We will monitor mental status. Patient is known to have presented with similar complaints in the past. He was said to have gone into cardiac arrest in the past after presenting with similar complaints. We will monitor on telemetry. (2) ESRD on hemodialysis Current Visit: No Status: Chronic Plan to address problem: He has been compliant with his dialysis. We will schedule for dialysis in the a.m. We will continue to monitor chemistry. (3) HTN (hypertension) Current Visit: No Status: Chronic Qualifiers: Hypertension type: essential hypertension Qualified Code(s): I10 - Essential (primary) hypertension Plan to address problem: Blood pressure stable. We will continue routine home medications once medications have been reconciled. We will continue to monitor vital signs closely.
[2019-03-31 07:53] LABS: Basophils % (Auto) 0.7 % (0.0-1.8); Eosinophils # (Auto) 0.2 K/mm3 (0.0-0.4); Eosinophils % (Auto) 3.3 % (0.0-4.3); Hematocrit 39.9 % (35.5-45.6); Hemoglobin 12.8 gm/dl (11.8-15.2); Lymphocytes # (Auto) 0.6 K/mm3 (1.2-5.4); Lymphocytes % (Auto) 11.4 % (13.4-35.0); Mean Corpuscular HGB Conc 32 % (32-34); Mean Corpuscular Volume 96 fl (84-94); Monocytes # (Auto) 0.5 K/mm3 (0.0-0.8); Monocytes % (Auto) 9.7 % (0.0-7.3); Platelet Count 128 K/mm3 (140-440); Red Blood Count 4.18 M/mm3 (3.65-5.03); Red Cell Distribution Width 17.1 % (13.2-15.2)
[2019-03-31 08:13] LABS: Partial Thromboplastin Time > 240.0 Sec. (24.2-36.6)
[2019-03-31 08:14] LABS: Calcium 8.8 mg/dL (8.4-10.2)
--- NOTE | 2019-03-31 08:26 | Consultation ---
History of Present Illness - History of Present Illness Thank you for the consultation ! Patient was evaluated today My assessment and plan are as follows; Renal failure: Patient has end-stage renal disease currently on maintenance h emodialysis Sunday and Sunday, patient will continue to receive hemodialysis as long as he is hemodynamically stable fistula appears to be somewhat tense, atient may require fistulogram as it does not easily collapsible Will find records from the dialysis center about his treatment, and compliance Admitted here with altered mental status, workup in progress Noted to be noncompliant Hypertension: Appears to be adequately controlled Hyponatremia currently improving from 129-133 Thrombocytopenia: Currently stable platelet count is 128,000, it was 200+ in June 2018 we'll check for HIT , B12 and folic acid Metabolic acidosis bicarbonate between 18 and 19 Multiple underlying comorbidities including hypertension, diabetes mellitus type 2, cardiac arrest 2, end-stage renal disease, 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 overall prognosis remains guarded at this time All renal related questions were answered and simple Indian pertinent lab studies as well as imaging results were also discussed with patient We will continue to follow and make recommendations from renal standpoint. Thank you for the consultation Author: Dominic Abreu M.D. [facility], [facility], [address] [place] [address] Tel; [phone] Source of information: From patient History of present illness Patient is a 38-year-old [place] male who has been admitted here with altered mental status is currently in Sunday hemodialysis, patient is unable to provide any history but his mother is at the bedside and he did receive hemodialysis treatment on Sunday He is currently getting dialysis through his right upper arm fistula Past medical history: Current allergies: Reviewed from the current chart Social history: Reviewed from the current chart Family history: Reviewed from the current chart Review of system: Positive for altered mental status Patient unable to provide any history Please not altered mental status did limit review of systems All other review of systems negative Physical examination Vitals: Reviewed General: No acute distress/patient appears to have altered mental status HEENT: Oral mucosa moist no pallor or icterus Neck: Supple without any JVD thyromegaly or nodular mass Chest: Clear to auscultation Heart: Regular rate and rhythm S1-S2 heard no S3-S4 Abdomen: Soft nontender, bowel sounds present no renal bruit no suprapubic masses no CVA tenderness noted Extremity: Minimal edema dry skin no peripheral cyanosis fistula appears to be somewhat firm, and gently pulsatile Endocrine: Thyroid not enlarged Psychiatric: No agitation and aggression noted Musculoskeletal: No joint effusion noted Labs and x-rays: Reviewed from this admission Past History Past Medical History: diabetes, ESRD, hypertension, hyperlipidemia, other (History of visual loss) Past Surgical History: Other Social history: no significant social history Family history: CAD (Father had an AR) Medications and Allergies Allergies Allergy/AdvReac Type Severity Reaction Status Date / Time No Known Allergies Allergy Verified 07/25/18 17:57 Home Medications Medication Instructions Recorded Confirmed Last Taken Type Lipitor 40 mg PO DAILY 07/26/18 03/30/19 Unknown History Metoprolol 25 mg PO Q12H 07/26/18 03/30/19 Unknown History Omeprazole 20 mg PO DAILY 07/26/18 03/30/19 Unknown History QUEtiapine [SEROquel] 25 mg PO DAILY 07/26/18 03/30/19 Unknown History Aspirin [Aspirin BABY CHEW TAB] 81 mg PO DAILY 11/13/18 03/30/19 Unknown History Lisinopril [Zestril TAB] 5 mg PO DAILY 11/13/18 03/30/19 Unknown History Warfarin [Coumadin] 2 mg PO DAILY 11/13/18 03/30/19 Unknown History Ondansetron [Zofran Odt] 4 mg PO Q6HR PRN #20 tab.rapdis 02/28/19 03/30/19 Unknown Rx raNITIdine HCl [Zantac] 150 mg PO Q12H #30 tablet 02/28/19 03/30/19 Unknown Rx Ursodiol 300 mg PO BID 03/30/19 03/30/19 Unknown History acetaZOLAMIDE [Diamox TAB] 500 mg PO BID 03/30/19 03/30/19 Unknown History Active Meds: Active Medications Acetaminophen (Tylenol) 650 mg PO Q4H PRN PRN Reason: Pain MILD(1-3)/Fever >100.5/GOLDEN Ondansetron HCl (Zofran) 4 mg IV Q8H PRN PRN Reason: Nausea And Vomiting Sodium Chloride (Sodium Chloride Flush Syringe 10 Ml) 10 ml IV BID CARISSA Last Admin: 03/30/19 23:13 Dose: 10 ml Documented by: Exam - Vital Signs Vital signs: Vital Signs Temp Pulse Resp BP Pulse Ox 98.9 F 63 18 120/78 100 03/30/19 13:48 03/30/19 13:48 03/30/19 13:48 03/30/19 13:48 03/30/19 13:48 Results - Lab Results 03/31/19 06:40 03/31/19 06:40 Most recent lab results Calcium 8.8 mg/dL (8.4-10.2) 03/31/19 06:40
[2019-03-31] MEDS ORDERED: ONDANSETRON 4 MG ODT TAB PO PRN (08:42)
[2019-03-31] MEDS ORDERED: NON-FORMULARY EACH (Metoprolol 25 MG) PO SCH (08:45)
--- NOTE | 2019-03-31 08:52 | Event Note ---
Date: 03/31/19 Patient seen and evaluated AMS Uremia ESRD HTN For HD today.
[2019-03-31] MEDS ORDERED: URSODIOL 300 MG PO SCH (10:00)
[2019-03-31] MEDS ORDERED: NON-FORMULARY EACH (Lipitor 40 MG) PO SCH (10:00)
[2019-03-31] MEDS ORDERED: NON-FORMULARY EACH (Omeprazole [Omeprazole] 20 MG) PO SCH (10:00)
[2019-03-31] MEDS ORDERED: WARFARIN 2 MG TAB PO SCH (10:00)
[2019-03-31] MEDS: ASPIRIN 81 MG TAB CHEW PO SCH (10:32)
[2019-03-31] MEDS: LISINOPRIL 5 MG TAB PO SCH (10:32)
[2019-03-31] MEDS: PANTOPRAZOLE 20 MG TAB PO SCH (10:33)
[2019-03-31] MEDS: acetaZOLAMIDE 250 MG TAB PO SCH ×2 (10:33→22:45)
[2019-03-31] MEDS: METOPROLOL TARTRATE 25 MG TAB PO SCH ×2 (10:33→22:45)
[2019-03-31] MEDS: QUEtiapine 25 MG TAB PO SCH (10:33)
[2019-03-31] MEDS ORDERED: SODIUM CHLORIDE*PRIMING MACHINE ONLY FOR DIALYSIS MC ONE (18:22)
[2019-04-01 07:37] LABS: INR 1.72 (0.87-1.13)
--- NOTE | 2019-04-01 08:29 | Progress Note ---
Subjective Interval history: Patient was seen today for follow-up on multiple renal related issues Events of this hospitalization were noted Interdisciplinary notes were also reviewed Has had hemodialysis treatment yesterday Vitals intake output medications were reviewed Past medical history: Reviewed Family, social history: Reviewed Allergies: Reviewed Physical examination General: No acute distress Vitals: Reviewed HEENT: Oral mucosa moist no icterus Neck: Supple no thyromegaly nodular mass or JVD Chest: Clear to auscultation anteriorly Heart: Regular rate and rhythm S1-S2 heard no S3-S4 Abdomen: Soft nontender no suprapubic masses no organomegaly Extremity: Dry skin less than 1+ edema Psych: No evidence of any agitation and aggression noted Derm: No petechial rash Assessment and plan: End-stage renal disease: Patient will continue with hemodialysis treatment on Sunday and Sunday scheduled as tolerated, monitor dialysis related labs Dialysis access: Fistula in the right upper arm patient will need to have consult vascular/ has fistula appears to be slightly tense and pulsatile we need to make sure that he does have a good blood flow and a good clearance we'll check clinic records also, he may require a vascular Doppler at least Anemia and end-stage renal disease: To monitor and follow, erythropoietin as re quired goal hemoglobin dialysis patients usually occurring 10 and 12, we will follow Secondary hyperparathyroidism: Monitor phosphorus and PTH periodically and adjust binders as needed Diet and nutrition: Fluid restriction 1200 mL per day, high-protein diet may benefit from nutrition consultation , patient is protein intake should be 1.5 g per KG body weight Hypertension and volume continue to monitor, educated about fluid restriction sodium restriction Encephalopathy: Currently being followed by primary team We'll continue to follow and make recommendation from renal standpoint Objective - Vital Signs Vital signs: Vital Signs - 12hr 03/31/19 03/31/19 04/01/19 22:45 23:58 00:00 Temperature 98.4 F Pulse Rate 69 63 Respiratory 19 20 Rate Blood Pressure 130/84 109/68 O2 Sat by Pulse 100 96 Oximetry 04/01/19 04/01/19 06:04 07:43 Temperature 98.7 F Pulse Rate 61 Respiratory 20 20 Rate Blood Pressure 135/76 O2 Sat by Pulse 99 96 Oximetry - Lab 03/31/19 06:40 03/31/19 06:40 Most recent lab results Calcium 8.8 mg/dL (8.4-10.2) 03/31/19 06:40 Medications & Allergies - Medications Allergies/Adverse Reactions: Allergies No Known Allergies Allergy (Verified 07/25/18 17:57) Home Medications: Home Medications Medication Instructions Recorded Confirmed Last Taken Type Lipitor 40 mg PO DAILY 07/26/18 03/30/19 Unknown History Metoprolol 25 mg PO Q12H 07/26/18 03/30/19 Unknown History Omeprazole 20 mg PO DAILY 07/26/18 03/30/19 Unknown History QUEtiapine [SEROquel] 25 mg PO DAILY 07/26/18 03/30/19 Unknown History Aspirin [Aspirin BABY CHEW TAB] 81 mg PO DAILY 11/13/18 03/30/19 Unknown History Lisinopril [Zestril TAB] 5 mg PO DAILY 11/13/18 03/30/19 Unknown History Warfarin [Coumadin] 2 mg PO DAILY 11/13/18 03/30/19 Unknown History Ondansetron [Zofran Odt] 4 mg PO Q6HR PRN #20 tab.rapdis 02/28/19 03/30/19 Unknown Rx raNITIdine HCl [Zantac] 150 mg PO Q12H #30 tablet 02/28/19 03/30/19 Unknown Rx Ursodiol 300 mg PO BID 03/30/19 03/30/19 Unknown History acetaZOLAMIDE [Diamox TAB] 500 mg PO BID 03/30/19 03/30/19 Unknown History Active Medications: Generic Name Dose Route Start Last Admin Trade Name Freq PRN Reason Stop Dose Admin Acetaminophen 650 mg 03/30/19 21:55 Tylenol PO Q4H PRN Pain MILD(1-3)/Fever >100.5/GOLDEN Acetazolamide 500 mg 03/31/19 10:00 03/31/19 22:45 Diamox PO 500 mg BID CARISSA Administration Aspirin 81 mg 03/31/19 10:00 03/31/19 10:32 Baby Aspirin PO 81 mg DAILY CARISSA Administration Atorvastatin Calcium 40 mg 03/31/19 22:00 03/31/19 22:45 Lipitor PO 40 mg QHS CARISSA Administration Lisinopril 5 mg 03/31/19 10:00 03/31/19 10:32 Zestril PO 5 mg DAILY CARISSA Administration Metoprolol Tartrate 25 mg 03/31/19 10:00 03/31/19 22:45 Metoprolol PO 25 mg BID CARISSA Administration Miscellaneous Medication 300 mg 03/31/19 10:00 Ursodiol [Ursodiol] PO BID CARISSA Ondansetron HCl 4 mg 03/31/19 08:42 Zofran Odt PO Q6HR PRN Nausea Pantoprazole Sodium 20 mg 03/31/19 10:00 03/31/19 10:33 Protonix PO 20 mg QDAY CARISSA Administration Quetiapine Fumarate 25 mg 03/31/19 10:00 03/31/19 10:33 Seroquel PO 25 mg DAILY CARISSA Administration Sodium Chloride 10 ml 03/30/19 22:00 03/31/19 22:45 Sodium Chloride Flush Syringe 10 Ml IV 10 ml BID CARISSA Administration Warfarin Sodium 2 mg 03/31/19 10:00 03/31/19 10:08 Coumadin PO 2 mg DAILY CARISSA Administration Protocol
[2019-04-01 08:36] LABS: Hematocrit 34.2 % (35.5-45.6); Hemoglobin 11.1 gm/dl (11.8-15.2); Mean Corpuscular HGB Conc 33 % (32-34); Mean Corpuscular Volume 93 fl (84-94); Platelet Count 124 K/mm3 (140-440); Red Blood Count 3.69 M/mm3 (3.65-5.03); Red Cell Distribution Width 16.4 % (13.2-15.2)
[2019-04-01 09:08] LABS: Calcium 8.3 mg/dL (8.4-10.2)
[2019-04-01] MEDS: LISINOPRIL 5 MG TAB PO SCH ×2 (09:58→10:03)
[2019-04-01] MEDS: METOPROLOL TARTRATE 25 MG TAB PO SCH ×3 (09:58→22:57)
[2019-04-01] MEDS: PANTOPRAZOLE 20 MG TAB PO SCH ×2 (09:58→10:03)
[2019-04-01] MEDS: acetaZOLAMIDE 250 MG TAB PO SCH ×3 (09:59→22:56)
[2019-04-01] MEDS: QUEtiapine 25 MG TAB PO SCH ×2 (09:59→10:03)
[2019-04-01] MEDS: ASPIRIN 81 MG TAB CHEW PO SCH ×2 (09:59→10:02)
--- NOTE | 2019-04-01 10:35 | Progress Note ---
Assessment and Plan - Patient Problems (1) Acute encephalopathy Current Visit: Yes Status: Acute Plan to address problem: Sec to Uremia?/ (2) ESRD on hemodialysis Current Visit: No Status: Chronic Plan to address problem: Cont HD (3) HTN (hypertension) Current Visit: No Status: Chronic Qualifiers: Hypertension type: essential hypertension Qualified Code(s): I10 - Essential (primary) hypertension Plan to address problem: Cont antihypertensives (4) NSTEMI (non-ST elevated myocardial infarction) Current Visit: Yes Status: Chronic Plan to address problem: Sec to Troponin leak in ESRd (5) DVT prophylaxis Current Visit: Yes Status: Acute Plan to address problem: On Heparin Subjective Date of service: 03/31/19 Principal diagnosis: Acute Encephalopathy Interval history: Patient is a 38-year-old male with known history of history of renal disease on dialysis, hypertension, diabetes mellitus, hyperlipidemia. He is accompanied to the emergency room today by his mother. He had gone home against medical advice overnight. There has been no history of fever or chills no chest pain no shortness of breath however patient has been quite lethargic lately. Patient is sad to have had similar episodes in the past and had gone into cardiac arrest in the past. Patient has been compliant with his medications and also with his dialysis. He is due for dialysis on sunday. Doing better. Objective - Constitutional Vitals: Vital Signs - 12hr 03/31/19 03/31/19 04/01/19 22:45 23:58 00:00 Temperature 98.4 F Pulse Rate 69 63 Respiratory 19 20 Rate Blood Pressure 130/84 109/68 O2 Sat by Pulse 100 96 Oximetry 04/01/19 04/01/19 06:04 07:43 Temperature 98.7 F Pulse Rate 61 Respiratory 20 20 Rate Blood Pressure 135/76 O2 Sat by Pulse 99 96 Oximetry General appearance: Present: no acute distress, well-nourished - EENT Eyes: PERRL, EOM intact ENT: hearing intact, clear oral mucosa Ears: bilateral: normal - Neck Neck: supple, normal ROM - Respiratory Respiratory effort: normal Respiratory: bilateral: CTA - Breasts Breasts: normal - Cardiovascular Heart rate: 78 Rhythm: regular Heart Sounds: Present: S1 & S2. Absent: gallop, rub Extremities: no ischemia, pulses intact, No edema, normal color, Full ROM - Gastrointestinal General gastrointestinal: Present: soft, non-tender, non-distended, normal bowel sounds Rectal Exam: deferred - Genitourinary Male genitourinary: normal - Integumentary Integumentary: clear, warm, dry - Musculoskeletal Musculoskeletal: 1, strength equal bilaterally - Neurologic Neurologic: moves all extremities - Psychiatric Psychiatric: memory intact, appropriate mood/affect, intact judgment & insight - Allied health notes Allied health notes reviewed: nursing, case management - Labs CBC & Chem 7: 04/01/19 07:56 04/01/19 07:56 Labs: Abnormal lab results 03/31/19 04/01/19 04/01/19 Range/Units 13:43 06:38 07:56 WBC 4.1 L (4.5-11.0) K/mm3 Hgb 11.1 L (11.8-15.2) gm/dl Hct 34.2 L (35.5-45.6) % RDW 16.4 H (13.2-15.2) % Plt Count 124 L (140-440) K/mm3 PT 19.9 H (12.2-14.9) Sec. INR 1.72 H (0.87-1.13) Potassium (3.6-5.0) mmol/L BUN (9-20) mg/dL Creatinine (0.8-1.5) mg/dL Calcium (8.4-10.2) mg/dL Troponin T (0.00-0.029) ng/mL Folate 5.98 L (7.3-26.0) ng/mL 04/01/19 Range/Units 07:56 WBC (4.5-11.0) K/mm3 Hgb (11.8-15.2) gm/dl Hct (35.5-45.6) % RDW (13.2-15.2) % Plt Count (140-440) K/mm3 PT (12.2-14.9) Sec. INR (0.87-1.13) Potassium 3.1 L D (3.6-5.0) mmol/L BUN 28 H (9-20) mg/dL Creatinine 5.6 H (0.8-1.5) mg/dL Calcium 8.3 L (8.4-10.2) mg/dL Troponin T 0.343 H* (0.00-0.029) ng/mL Folate (7.3-26.0) ng/mL
[2019-04-01] MEDS ORDERED: HEPARIN/NS 5000 UNIT/500ML 500 ML IR ONE (11:11)
[2019-04-01] MEDS ORDERED: SODIUM CHLORIDE 0.9% 250ML 250 ML ONE (11:12)
[2019-04-01] MEDS ORDERED: HEPARIN 10,000 UNITS/10 ML VIAL ONE (11:12)
[2019-04-01] MEDS: LIDOCAINE 1%/EPINEPHRINE 1:100,000 VIAL (20 ML) INFILTRATI ONE ×3 (11:30→11:37)
--- NOTE | 2019-04-01 12:07 | Operative Report ---
Operative Report Operative Report: EXAM: 1. Ultrasound guided access of the right arm AV access towards the venous outflow 2. Fistulogram 3. Predilatation of the cephalic arch with a 4 mm x 60 mm angioplasty balloon 4. Stenting of the cephalic arch with a 8 mm x 5 cm Viabahn stent-graft with angioplasty with a 8 mm x 60 mm angioplasty balloon and 8 mm x 40 mm Conquest 5. Angioplasty of the mid cephalic vein with a 8 mm x 40 mm conquest DATE: 04/01/19 RECORD FILING CLERK: MICHEL PATEL MD INDICATION: End-stage renal disease with AV fistula malfunction. MEDICATIONS: Please see nursing report for full details. DEVICES: 8 mm x 4 cm conquest angioplasty balloon 4 mm x 60 mm angioplasty balloon 8 mm x 60 mm angioplasty balloon 8 mm x 5 cm Viabahn stent graft PROCEDURE: The risks, benefits, and alternatives of the procedure were discussed and written informed consent was obtained. The patient was transported in stable condition to the angiography suite. The patient's right arm cephalic fistula was assessed by ultrasound and was patent. The patient was prepped and draped in a sterile fashion. Under ultrasound guidance, the right arm brachiocephalic AV fistula was accessed with a 21-gauge micropuncture needle. The area was anesthetized prior to access. 0.018 inch wire was advanced through the micropuncture needle into the fistula and then the needle was exchanged for a 5 Wallisian transitional dilator. The inner dilator and wire were removed and a 0.035 inch wire was advanced through the venous outflow. The transitional dilator was exchanged for a 6 Wallisian short sheath. Fistulogram was performed of the venous outflow and central veins. Sonography was performed of the anastomosis which was patent. Digital subtraction angiography demonstrated an aneurysmal peripheral cephalic vein with a 50% stenosis in the mid cephalic vein, and a 95% narrowing of the cephalic arch. Wire was passed into the IVC. 4 mm x 60 mm angioplasty balloon is used predilated cephalic arch. 8 mm x 5 cm Viabahn stent graft was then deployed in the cephalic arch. Due to slight patient motion, the stent graft was placed half a centimeter more distally than intended. This post dilated with an 8 mm x 60 mm angioplasty balloon which was unable to open the stents completely. 8 mm x 4 cm conquest angioplasty balloon was used to open the cephalic arch stent graft at high pressure. The mid cephalic vein was then treated with the conquest angioplasty balloon at high pressure. Digital subtraction angiography demonstrated no residual narrowing at the mid cephalic vein narrowing and no residual narrowing at the cephalic arch narrowing. There is now excellent flow into the central veins. The wire was removed and the site was closed with a 4-0 Vicryl suture. The sheath was then removed. Hemostasis was achieved with slight manual compression. The patient was transported from the angiography suite to the floor in stable condition. IMPRESSION: Successful peripheral dialysis access angioplasty with stent placement.
--- NOTE | 2019-04-01 12:08 | Consultation ---
History of Present Illness - Reason for Consult Consult date: 04/01/19 ESRD with malfunctioning AVF - History of Present Illness Patient is a 38-year-old male with known history of history of renal disease on dialysis, hypertension, diabetes mellitus, hyperlipidemia. He is accompanied to the emergency room today by his mother. He had gone home against medical advice overnight. There has been no history of fever or chills no chest pain no shortness of breath however patient has been quite lethargic lately. Patient is sad to have had similar episodes in the past and had gone into cardia c arrest in the past. Patient has been compliant with his medications and also with his dialysis. He is due for dialysis on sunday. Patient had AV fistula malfunction 6 weeks ago requiring angioplasty. Past History Past Medical History: diabetes, ESRD, hypertension, hyperlipidemia, other (History of visual loss) Past Surgical History: Other Social history: no significant social history Family history: CAD (Father had an [place]) Medications and Allergies Allergies Allergy/AdvReac Type Severity Reaction Status Date / Time No Known Allergies Allergy Verified 07/25/18 17:57 Home Medications Medication Instructions Recorded Confirmed Last Taken Type Lipitor 40 mg PO DAILY 07/26/18 03/30/19 Unknown History Metoprolol 25 mg PO Q12H 07/26/18 03/30/19 Unknown History RX: Omeprazole 20 mg PO DAILY 07/26/18 03/30/19 Unknown History RX: QUEtiapine [SEROquel] 25 mg PO DAILY 07/26/18 03/30/19 Unknown History RX: Aspirin [Aspirin BABY CHEW TAB] 81 mg PO DAILY 11/13/18 03/30/19 Unknown History RX: Lisinopril [Zestril TAB] 5 mg PO DAILY 11/13/18 03/30/19 Unknown History RX: Warfarin [Coumadin] 2 mg PO DAILY 11/13/18 03/30/19 Unknown History Ondansetron [Zofran Odt] 4 mg PO Q6HR PRN #20 tab.rapdis 02/28/19 03/30/19 Unknown Rx raNITIdine HCl [Zantac] 150 mg PO Q12H #30 tablet 02/28/19 03/30/19 Unknown Rx RX: Ursodiol 300 mg PO BID 03/30/19 03/30/19 Unknown History acetaZOLAMIDE [Diamox TAB] 500 mg PO BID 03/30/19 03/30/19 Unknown History Active Meds: Active Medications Acetaminophen (Tylenol) 650 mg PO Q4H PRN PRN Reason: Pain MILD(1-3)/Fever >100.5/GOLDEN Acetazolamide (Diamox) 500 mg PO BID [facility] Last Admin: 04/01/19 10:02 Dose: Not Given Documented by: Aspirin (Baby Aspirin) 81 mg PO DAILY [facility] Last Admin: 04/01/19 10:02 Dose: Not Given Documented by: Atorvastatin Calcium (Lipitor) 40 mg PO QHS [facility] Last Admin: 03/31/19 22:45 Dose: 40 mg Documented by: Lisinopril (Zestril) 5 mg PO DAILY [facility] Last Admin: 04/01/19 10:03 Dose: Not Given Documented by: Metoprolol Tartrate (Metoprolol) 25 mg PO BID [facility] Last Admin: 04/01/19 10:02 Dose: Not Given Documented by: Miscellaneous Medication (Ursodiol [Ursodiol]) 300 mg PO BID [facility] Ondansetron HCl (Zofran Odt) 4 mg PO Q6HR PRN PRN Reason: Nausea Pantoprazole Sodium (Protonix) 20 mg PO QDAY [facility] Last Admin: 04/01/19 10:03 Dose: Not Given Documented by: Quetiapine Fumarate (Seroquel) 25 mg PO DAILY [facility] Last Admin: 04/01/19 10:03 Dose: Not Given Documented by: Sodium Chloride (Sodium Chloride Flush Syringe 10 Ml) 10 ml IV BID [facility] Last Admin: 04/01/19 09:59 Dose: 10 ml Documented by: Warfarin Sodium (Coumadin) 3 mg PO DAILY@1700 [facility] Review of Systems ROS unobtainable: due to mental status Exam - Constitutional Vitals: Temp Pulse Resp BP Pulse Ox 98.7 F 61 20 135/76 96 04/01/19 06:04 04/01/19 06:04 04/01/19 07:43 04/01/19 06:04 04/01/19 07:43 General appearance: Present: no acute distress - Respiratory Respiratory effort: normal - Extremities Extremities: normal temperature, normal color, abnormal (AV fistula pulsatile, tense, indicative of outflow lesion) Results - Labs CBC & Chem 7: 04/01/19 07:56 04/01/19 07:56 Labs: Abnormal lab results 03/31/19 04/01/19 04/01/19 Range/Units 13:43 06:38 07:56 WBC 4.1 L (4.5-11.0) K/mm3 Hgb 11.1 L (11.8-15.2) gm/dl Hct 34.2 L (35.5-45.6) % RDW 16.4 H (13.2-15.2) % Plt Count 124 L (140-440) K/mm3 PT 19.9 H (12.2-14.9) Sec. INR 1.72 H (0.87-1.13) Potassium (3.6-5.0) mmol/L BUN (9-20) mg/dL Creatinine (0.8-1.5) mg/dL Calcium (8.4-10.2) mg/dL Troponin T (0.00-0.029) ng/mL Folate 5.98 L (7.3-26.0) ng/mL 04/01/19 Range/Units 07:56 WBC (4.5-11.0) K/mm3 Hgb (11.8-15.2) gm/dl Hct (35.5-45.6) % RDW (13.2-15.2) % Plt Count (140-440) K/mm3 PT (12.2-14.9) Sec. INR (0.87-1.13) Potassium 3.1 L D (3.6-5.0) mmol/L BUN 28 H (9-20) mg/dL Creatinine 5.6 H (0.8-1.5) mg/dL Calcium 8.3 L (8.4-10.2) mg/dL Troponin T 0.343 H* (0.00-0.029) ng/mL Folate (7.3-26.0) ng/mL Assessment and Plan 38-year-old male with end-stage renal disease and AV fistula malfunction status post recent angioplasty 6 weeks ago. Given recent angioplasty and AV fistula malfunction, plan will be for stent/graft placement. Risks, benefits, and alternatives discussed.. Patient can follow-up in the office if there is further issues.
--- NOTE | 2019-04-01 12:09 | Post Operative Note ---
Date of procedure: 04/01/19 Pre-op diagnosis: ESRD with AV access malfunction Post-op diagnosis: same Procedure: 1. Ultrasound guided access of the right arm AV access towards the venous outflow 2. Fistulogram 3. Predilatation of the cephalic arch with a 4 mm x 60 mm angioplasty balloon 4. Stenting of the cephalic arch with a 8 mm x 5 cm Viabahn stent-graft with angioplasty with a 8 mm x 60 mm angioplasty balloon and 8 mm x 40 mm Conquest 5. Angioplasty of the mid cephalic vein with a 8 mm x 40 mm conquest Anesthesia: local (w/ conscious sedation) Surgeon: MICHEL PATEL Estimated blood loss: minimal Condition: stable Disposition: floor
[2019-04-01] MEDS ORDERED: WARFARIN 1 MG TAB PO SCH (17:00)
--- NOTE | 2019-04-01 18:18 | Progress Note ---
Assessment and Plan Assessment and plan: Acute metaboolic encephalopathy Sec to Uremia ESRD on hemodialysis Cont HD AV acess malfunction s/p fistulogrm. angioplasty , stenting by Dr. Thomas, today Hypertension Cont antihypertensives NSTEMI Type 2 Elevated troponin, likely chronic No chest pain due to ESRD DVT prophylaxis: On Coumadin. History Interval history: Confused No chest pain Hospitalist Physical - Physical exam Narrative exam: Gen: Not in acute distress, lying in bed HEENT: Normocephalic, atraumatic Neck: supple, no JVD Heart: S1 and S2 reg, no murmurs, rubs or gallop Lungs: Clear to auscultation, no rhonchi, no wheeze Abd: soft, non tender, non distended, normal BS, Ext: RUE av fistula, no clubbing, no cyanosis Neuro: Awake, alert, confused, no focal neurological signs - Constitutional Vitals: Temp Pulse Resp BP Pulse Ox 98.7 F 61 20 135/76 96 04/01/19 06:04 04/01/19 06:04 04/01/19 07:43 04/01/19 06:04 04/01/19 07:43 General appearance: Present: no acute distress Results - Labs CBC & Chem 7: 04/01/19 07:56 04/01/19 07:56 Labs: Laboratory Last Values WBC 4.1 K/mm3 (4.5-11.0) L 04/01/19 07:56 RBC 3.69 M/mm3 (3.65-5.03) 04/01/19 07:56 Hgb 11.1 gm/dl (11.8-15.2) L 04/01/19 07:56 Hct 34.2 % (35.5-45.6) L 04/01/19 07:56 MCV 93 fl (84-94) 04/01/19 07:56 MCH 30 pg (28-32) 04/01/19 07:56 MCHC 33 % (32-34) 04/01/19 07:56 RDW 16.4 % (13.2-15.2) H 04/01/19 07:56 Plt Count 124 K/mm3 (140-440) L 04/01/19 07:56 Lymph % (Auto) 11.4 % (13.4-35.0) L 03/31/19 06:40 [place] % (Auto) 9.7 % (0.0-7.3) H 03/31/19 06:40 Eos % (Auto) 3.3 % (0.0-4.3) 03/31/19 06:40 Baso % (Auto) 0.7 % (0.0-1.8) 03/31/19 06:40 Lymph # 0.6 K/mm3 (1.2-5.4) L 03/31/19 06:40 [place] # 0.5 K/mm3 (0.0-0.8) 03/31/19 06:40 Eos # 0.2 K/mm3 (0.0-0.4) 03/31/19 06:40 Baso # 0.0 K/mm3 (0.0-0.1) 03/31/19 06:40 Seg Neutrophils % 74.9 % (40.0-70.0) H 03/31/19 06:40 Seg Neutrophils # 4.2 K/mm3 (1.8-7.7) 03/31/19 06:40 PT 19.9 Sec. (12.2-14.9) H 04/01/19 06:38 INR 1.72 (0.87-1.13) H 04/01/19 06:38 APTT > 240.0 Sec. (24.2-36.6) H* 03/31/19 06:40 Sodium 138 mmol/L (137-145) 04/01/19 07:56 Potassium 3.1 mmol/L (3.6-5.0) L D 04/01/19 07:56 Chloride 100.6 mmol/L (98-107) 04/01/19 07:56 Carbon Dioxide 26 mmol/L (22-30) D 04/01/19 07:56 Anion Gap 15 mmol/L 04/01/19 07:56 BUN 28 mg/dL (9-20) H 04/01/19 07:56 Creatinine 5.6 mg/dL (0.8-1.5) H 04/01/19 07:56 Estimated GFR 12 ml/min 04/01/19 07:56 BUN/Creatinine Ratio 5 % 04/01/19 07:56 Glucose 90 mg/dL (75-100) 04/01/19 07:56 Lactic Acid 1.40 mmol/L (0.7-2.0) 03/30/19 14:48 Calcium 8.3 mg/dL (8.4-10.2) L 04/01/19 07:56 Total Bilirubin 1.20 mg/dL (0.1-1.2) 03/30/19 14:48 Direct Bilirubin 0.5 mg/dL (0-0.2) H 03/30/19 14:48 Indirect Bilirubin 0.7 mg/dL 03/30/19 14:48 AST 6 units/L (5-40) 03/30/19 14:48 ALT < 5 units/L (7-56) L 03/30/19 14:48 Alkaline Phosphatase 142 units/L (35-129) H 03/30/19 14:48 Ammonia 51.0 umol/L (25-60) 03/30/19 14:48 Troponin T 0.343 ng/mL (0.00-0.029) H* 04/01/19 07:56 Total Protein 8.0 g/dL (6.3-8.2) 03/30/19 14:48 Albumin 3.7 g/dL (3.9-5) L 03/30/19 14:48 Albumin/Globulin Ratio 0.9 % 03/30/19 14:48 Vitamin B12 791.4 pg/mL (211-911) 03/31/19 13:43 Folate 5.98 ng/mL (7.3-26.0) L 03/31/19 13:43 Salicylates < 0.3 mg/dL (2.8-20.0) L 03/30/19 14:48 Acetaminophen < 5.0 ug/mL (10.0-30.0) L 03/30/19 14:48 Active Medications - Current Medications Current Medications: Generic Name Dose Route Start Last Admin Trade Name Freq PRN Reason Stop Dose Admin Acetaminophen 650 mg 03/30/19 21:55 Tylenol PO Q4H PRN Pain MILD(1-3)/Fever >100.5/GOLDEN Acetazolamide 500 mg 03/31/19 10:00 04/01/19 10:02 Diamox PO Not Given BID [facility] Aspirin 81 mg 03/31/19 10:00 04/01/19 10:02 Baby Aspirin PO Not Given DAILY [facility] Atorvastatin Calcium 40 mg 03/31/19 22:00 03/31/19 22:45 Lipitor PO 40 mg QHS [facility] Administration Lisinopril 5 mg 03/31/19 10:00 04/01/19 10:03 Zestril PO Not Given DAILY [facility] Metoprolol Tartrate 25 mg 03/31/19 10:00 04/01/19 10:02 Metoprolol PO Not Given BID [facility] Miscellaneous Medication 300 mg 03/31/19 10:00 Ursodiol [Ursodiol] PO BID [facility] Ondansetron HCl 4 mg 03/31/19 08:42 Zofran Odt PO Q6HR PRN Nausea Pantoprazole Sodium 20 mg 03/31/19 10:00 04/01/19 10:03 Protonix PO Not Given QDAY [facility] Quetiapine Fumarate 25 mg 03/31/19 10:00 04/01/19 10:03 Seroquel PO Not Given DAILY [facility] Sodium Chloride 10 ml 03/30/19 22:00 04/01/19 09:59 Sodium Chloride Flush Syringe 10 Ml IV 10 ml BID [facility] Administration Warfarin Sodium 3 mg 04/01/19 17:00 04/01/19 17:18 Coumadin PO 3 mg DAILY@1700 [facility] Administration Nutrition/Malnutrition Assess - Dietary Evaluation Nutrition/Malnutrition Findings: Nutrition Notes Start: 03/31/19 16:47 Freq: Status: Active Protocol: Document 04/01/19 10:17 CT (Rec: 04/01/19 11:08 CT [id number]) Co-Sign 04/01/19 10:17 LP Nutrition Notes Need for Assessment generated from: [facility] Initial or Follow up Assessment Current Diagnosis Diabetes,Hypertension, Hyperlipidemia Other Pertinent Diagnosis ESRD on HD (M/W/F), AMS Current Diet Renal Labs/Tests K 3.1 BUN 28 Creatinine 5.6 Pertinent Medications Coumadin Height 5 ft 6 in Weight 64.8 kg [place] Body Weight (kg) 64.54 BMI 23.0 Subjective/Other Information Pt. and pt. mother and father in the room at time of visit. Pt. was asleep. Pt. mother says that pt. sleeps a lot and is only able to eat softer foods. Pt. mother states pt. is eating okay with the soft and cut foods. Pt. does not eat tomato or sugar. Burn Absent Trauma Absent Difficulty In Chewing Cultural/Ethnic/Buddhist Belief German Current % PO Negligible Minimum of two criteria No #1 Nutrition Diagnosis Inadequate oral intake Etiology difficulty chewing As Evidenced by Signs and Symptoms pt. mother stating pt. is only able to tolerate soft food. Is patient on ventilator? No Is Patient Ambulatory and/or Out of Bed Yes REE-([place]-ambulatory/OOB) [ 1970.475 [id number]] Calculation Used for Recommendations [facility] Additional Notes Pro > 77 g (>1.2 g/kg/day) Fluid 1-1.5 L Nutrition Intervention Change Diet Order: Change to Mechanical Soft Renal Diet Add Supplement/Snack (indicate name/kcal Nepro with CARBSTEADY daily /protein ) Vanilla Provides kCal: 425 Provides Protein (gm) 19 Goal #1 Pt. meet >80% of energy and pro needs after starting mechanical soft diet Anticipated Discharge Needs: Unable to determine Follow-Up By: 04/03/19 Additional Comments Follow up for intake
[2019-04-01 19:13] LABS: Hepatitis B Surface Antigen Non-Reactive (Negative); Hepatitis C Virus Antibody Non-Reactive (NonReactive)
[2019-04-01] MEDS: guaiFENesin 100 MG/5 ML ORAL LIQD PO PRN (23:03)
[2019-04-02] MEDS: guaiFENesin 100 MG/5 ML ORAL LIQD PO PRN ×2 (06:16→13:55)
[2019-04-02 06:32] LABS: Hemoglobin 12.1 gm/dl (11.8-15.2); Mean Corpuscular HGB Conc 33 % (32-34); Mean Corpuscular Volume 94 fl (84-94); Platelet Count 137 K/mm3 (140-440); Red Blood Count 3.95 M/mm3 (3.65-5.03); Red Cell Distribution Width 16.8 % (13.2-15.2)
[2019-04-02 06:37] LABS: INR 1.56 (0.87-1.13)
[2019-04-02 06:59] LABS: Calcium 8.3 mg/dL (8.4-10.2)
--- NOTE | 2019-04-02 12:21 | Progress Note ---
Subjective Principal diagnosis: Acute Encephalopathy Interval history: Patient was seen today for follow-up on multiple renal related issues Events of this hospitalization were noted discussed with dialysis nurse he was also seen and supervised on hemodialysis Interdisciplinary notes were also reviewed Vitals intake output medications were reviewed Past medical history: Reviewed Family, social history: Reviewed Allergies: Reviewed Physical examination General: No acute distress Vitals: Reviewed HEENT: Oral mucosa moist no icterus Neck: Supple no thyromegaly nodular mass or JVD Chest: Clear to auscultation anteriorly Heart: Regular rate and rhythm S1-S2 heard no S3-S4 Abdomen: Soft nontender no suprapubic masses no organomegaly Extremity: Dry skin less than 1+ edema fistula has a good thrill Psych: No evidence of any agitation and aggression noted Derm: No petechial rash Assessment and plan: End-stage renal disease: Patient will continue with hemodialysis treatment on Sunday and Sunday scheduled as tolerated, monitor dialysis related labs Status post vascular evaluation, in the outpatient setting occasionally has been noted to have prolonged bleeding according to his mother Encephalopathy: Multifactorial Check dialysis related labs periodically Supportive care/ followed by Hospital medicine for other problems Overall stable from renal standpoint We'll continue to follow and make recommendation from renal standpoint Objective - Vital Signs Vital signs: Vital Signs - 12hr 04/02/19 04/02/19 04/02/19 05:09 09:15 09:20 Temperature 98.1 F 98.1 F Pulse Rate 61 60 65 Respiratory 18 18 Rate Blood Pressure 130/73 133/76 145/76 O2 Sat by Pulse 100 Oximetry 04/02/19 04/02/19 04/02/19 09:30 10:00 10:15 Temperature Pulse Rate 60 63 60 Respiratory Rate Blood Pressure 152/74 130/76 141/70 O2 Sat by Pulse Oximetry 04/02/19 04/02/19 04/02/19 10:30 10:45 11:00 Temperature Pulse Rate 61 63 61 Respiratory Rate Blood Pressure 129/68 146/71 114/64 O2 Sat by Pulse Oximetry 04/02/19 04/02/19 04/02/19 11:15 11:30 11:45 Temperature Pulse Rate 67 75 62 Respiratory Rate Blood Pressure 140/72 146/76 129/70 O2 Sat by Pulse Oximetry - Lab 04/02/19 05:59 04/02/19 05:59 Most recent lab results Calcium 8.3 mg/dL (8.4-10.2) L 04/02/19 05:59 Medications & Allergies - Medications Allergies/Adverse Reactions: Allergies No Known Allergies Allergy (Verified 07/25/18 17:57) Home Medications: Home Medications Medication Instructions Recorded Confirmed Last Taken Type Lipitor 40 mg PO DAILY 07/26/18 03/30/19 Unknown History Metoprolol 25 mg PO Q12H 07/26/18 03/30/19 Unknown History Omeprazole 20 mg PO DAILY 07/26/18 03/30/19 Unknown History QUEtiapine [SEROquel] 25 mg PO DAILY 07/26/18 03/30/19 Unknown History Aspirin [Aspirin BABY CHEW TAB] 81 mg PO DAILY 11/13/18 03/30/19 Unknown History Lisinopril [Zestril TAB] 5 mg PO DAILY 11/13/18 03/30/19 Unknown History Warfarin [Coumadin] 2 mg PO DAILY 11/13/18 03/30/19 Unknown History Ondansetron [Zofran Odt] 4 mg PO Q6HR PRN #20 tab.rapdis 02/28/19 03/30/19 Unknown Rx raNITIdine HCl [Zantac] 150 mg PO Q12H #30 tablet 02/28/19 03/30/19 Unknown Rx Ursodiol 300 mg PO BID 03/30/19 03/30/19 Unknown History acetaZOLAMIDE [Diamox TAB] 500 mg PO BID 03/30/19 03/30/19 Unknown History Active Medications: Generic Name Dose Route Start Last Admin Trade Name Freq PRN Reason Stop Dose Admin Acetaminophen 650 mg 03/30/19 21:55 Tylenol PO Q4H PRN Pain MILD(1-3)/Fever >100.5/GOLDEN Acetazolamide 500 mg 03/31/19 10:00 04/01/19 22:56 Diamox PO 500 mg BID [facility] Administration Aspirin 81 mg 03/31/19 10:00 04/01/19 10:02 Baby Aspirin PO Not Given DAILY [facility] Atorvastatin Calcium 40 mg 03/31/19 22:00 04/01/19 22:57 Lipitor PO 40 mg QHS [facility] Administration Guaifenesin 200 mg 04/01/19 22:11 04/02/19 06:16 Robitussin PO 200 mg Q4H PRN Administration Cough Lisinopril 5 mg 03/31/19 10:00 04/01/19 10:03 Zestril PO Not Given DAILY [facility] Metoprolol Tartrate 25 mg 03/31/19 10:00 04/01/19 22:57 Metoprolol PO 25 mg BID [facility] Administration Miscellaneous Medication 300 mg 03/31/19 10:00 Ursodiol [Ursodiol] PO BID [facility] Ondansetron HCl 4 mg 03/31/19 08:42 Zofran Odt PO Q6HR PRN Nausea Pantoprazole Sodium 20 mg 03/31/19 10:00 04/01/19 10:03 Protonix PO Not Given QDAY [facility] Quetiapine Fumarate 25 mg 03/31/19 10:00 04/01/19 10:03 Seroquel PO Not Given DAILY [facility] Sodium Chloride 10 ml 03/30/19 22:00 04/01/19 22:58 Sodium Chloride Flush Syringe 10 Ml IV 10 ml BID [facility] Administration Warfarin Sodium 3 mg 04/01/19 17:00 04/01/19 17:18 Coumadin PO 3 mg DAILY@1700 [facility] Administration
[2019-04-02] MEDS: QUEtiapine 25 MG TAB PO SCH (13:56)
[2019-04-02] MEDS: ASPIRIN 81 MG TAB CHEW PO SCH (13:56)
[2019-04-02] MEDS: PANTOPRAZOLE 20 MG TAB PO SCH (13:57)
[2019-04-02] MEDS: acetaZOLAMIDE 250 MG TAB PO SCH ×2 (13:58→23:33)
[2019-04-02] MEDS: LISINOPRIL 5 MG TAB PO SCH (14:03)
[2019-04-02] MEDS: METOPROLOL TARTRATE 25 MG TAB PO SCH ×2 (14:04→23:15)
[2019-04-02] MEDS: WARFARIN 2 MG TAB PO SCH (17:32)
--- NOTE | 2019-04-02 18:19 | Progress Note ---
Assessment and Plan Assessment and plan: Acute metaboolic encephalopathy Sec to Uremia Still confused neurochecks ESRD on hemodialysis Cont HD AV acess malfunction s/p fistulogrm. angioplasty , stenting by Dr. Thomas, 04/01 Hypertension Cont antihypertensives NSTEMI Type 2 Elevated troponin, likely chronic No chest pain due to ESRD Atrial fibrillation patient on Coumadin INR subtherapeutic DVT prophylaxis: On Coumadin Hopefully dc home tomorrow. History Interval history: Still Confused No chest pain Hospitalist Physical - Physical exam Narrative exam: Gen: Not in acute distress, lying in bed HEENT: Normocephalic, atraumatic Neck: supple, no JVD Heart: S1 and S2 reg, no murmurs, rubs or gallop Lungs: Clear to auscultation, no rhonchi, no wheeze Abd: soft, non tender, non distended, normal BS, Ext: RUE av fistula, no clubbing, no cyanosis Neuro: Awake, alert, confused, no focal neurological signs - Constitutional Vitals: Temp Pulse Resp BP Pulse Ox 98.1 F 70 18 150/72 100 04/02/19 13:07 04/02/19 14:04 04/02/19 13:07 04/02/19 14:04 04/02/19 05:09 General appearance: Present: no acute distress Results - Labs CBC & Chem 7: 04/02/19 05:59 04/02/19 05:59 Labs: Laboratory Last Values WBC 5.1 K/mm3 (4.5-11.0) 04/02/19 05:59 RBC 3.95 M/mm3 (3.65-5.03) 04/02/19 05:59 Hgb 12.1 gm/dl (11.8-15.2) 04/02/19 05:59 Hct 37.0 % (35.5-45.6) 04/02/19 05:59 MCV 94 fl (84-94) 04/02/19 05:59 MCH 31 pg (28-32) 04/02/19 05:59 MCHC 33 % (32-34) 04/02/19 05:59 RDW 16.8 % (13.2-15.2) H 04/02/19 05:59 Plt Count 137 K/mm3 (140-440) L 04/02/19 05:59 Lymph % (Auto) 11.4 % (13.4-35.0) L 03/31/19 06:40 [place] % (Auto) 9.7 % (0.0-7.3) H 03/31/19 06:40 Eos % (Auto) 3.3 % (0.0-4.3) 03/31/19 06:40 Baso % (Auto) 0.7 % (0.0-1.8) 03/31/19 06:40 Lymph # 0.6 K/mm3 (1.2-5.4) L 03/31/19 06:40 [place] # 0.5 K/mm3 (0.0-0.8) 03/31/19 06:40 Eos # 0.2 K/mm3 (0.0-0.4) 03/31/19 06:40 Baso # 0.0 K/mm3 (0.0-0.1) 03/31/19 06:40 Seg Neutrophils % 74.9 % (40.0-70.0) H 03/31/19 06:40 Seg Neutrophils # 4.2 K/mm3 (1.8-7.7) 03/31/19 06:40 PT 18.4 Sec. (12.2-14.9) H 04/02/19 05:59 INR 1.56 (0.87-1.13) H 04/02/19 05:59 APTT > 240.0 Sec. (24.2-36.6) H* 03/31/19 06:40 Sodium 138 mmol/L (137-145) 04/02/19 05:59 Potassium 3.8 mmol/L (3.6-5.0) D 04/02/19 05:59 Chloride 98.6 mmol/L (98-107) 04/02/19 05:59 Carbon Dioxide 21 mmol/L (22-30) L 04/02/19 05:59 Anion Gap 22 mmol/L 04/02/19 05:59 BUN 40 mg/dL (9-20) H 04/02/19 05:59 Creatinine 6.9 mg/dL (0.8-1.5) H 04/02/19 05:59 Estimated GFR 9 ml/min 04/02/19 05:59 BUN/Creatinine Ratio 6 % 04/02/19 05:59 Glucose 91 mg/dL (75-100) 04/02/19 05:59 Lactic Acid 1.40 mmol/L (0.7-2.0) 03/30/19 14:48 Calcium 8.3 mg/dL (8.4-10.2) L 04/02/19 05:59 Total Bilirubin 1.20 mg/dL (0.1-1.2) 03/30/19 14:48 Direct Bilirubin 0.5 mg/dL (0-0.2) H 03/30/19 14:48 Indirect Bilirubin 0.7 mg/dL 03/30/19 14:48 AST 6 units/L (5-40) 03/30/19 14:48 ALT < 5 units/L (7-56) L 03/30/19 14:48 Alkaline Phosphatase 142 units/L (35-129) H 03/30/19 14:48 Ammonia 51.0 umol/L (25-60) 03/30/19 14:48 Troponin T 0.343 ng/mL (0.00-0.029) H* 04/01/19 07:56 Total Protein 8.0 g/dL (6.3-8.2) 03/30/19 14:48 Albumin 3.7 g/dL (3.9-5) L 03/30/19 14:48 Albumin/Globulin Ratio 0.9 % 03/30/19 14:48 Vitamin B12 791.4 pg/mL (211-911) 03/31/19 13:43 Folate 5.98 ng/mL (7.3-26.0) L 03/31/19 13:43 Salicylates < 0.3 mg/dL (2.8-20.0) L 03/30/19 14:48 Acetaminophen < 5.0 ug/mL (10.0-30.0) L 03/30/19 14:48 Hepatitis A IgM Ab Non-reactive (NonReactive) 04/01/19 14:55 Hep Bs Antigen Non-reactive (Negative) 04/01/19 14:55 Hep B Core IgM Ab Non-reactive (NonReactive) 04/01/19 14:55 Hepatitis C Antibody Non-reactive (NonReactive) 04/01/19 14:55 Active Medications - Current Medications Current Medications: Generic Name Dose Route Start Last Admin Trade Name Freq PRN Reason Stop Dose Admin Acetaminophen 650 mg 03/30/19 21:55 Tylenol PO Q4H PRN Pain MILD(1-3)/Fever >100.5/GOLDEN Acetazolamide 500 mg 03/31/19 10:00 04/02/19 13:58 Diamox PO Not Given BID [facility] Aspirin 81 mg 03/31/19 10:00 04/02/19 13:56 Baby Aspirin PO 81 mg DAILY CARISSA Administration Atorvastatin Calcium 40 mg 03/31/19 22:00 04/01/19 22:57 Lipitor PO 40 mg QHS CARISSA Administration Guaifenesin 200 mg 04/01/19 22:11 04/02/19 13:55 Robitussin PO 200 mg Q4H PRN Administration Cough Lisinopril 5 mg 03/31/19 10:00 04/02/19 14:03 Zestril PO 5 mg DAILY CARISSA Administration Metoprolol Tartrate 25 mg 03/31/19 10:00 04/02/19 14:04 Metoprolol PO 25 mg BID [facility] Administration Miscellaneous Medication 300 mg 03/31/19 10:00 Ursodiol [Ursodiol] PO BID [facility] Ondansetron HCl 4 mg 03/31/19 08:42 Zofran Odt PO Q6HR PRN Nausea Pantoprazole Sodium 20 mg 03/31/19 10:00 04/02/19 13:57 Protonix PO 20 mg QDAY [facility] Administration Quetiapine Fumarate 25 mg 03/31/19 10:00 04/02/19 13:56 Seroquel PO 25 mg DAILY [facility] Administration Sodium Chloride 10 ml 03/30/19 22:00 04/02/19 13:58 Sodium Chloride Flush Syringe 10 Ml IV 10 ml BID [facility] Administration Warfarin Sodium 4 mg 04/02/19 17:00 04/02/19 17:32 Coumadin PO 4 mg DAILY@1700 CARISSA Administration Nutrition/Malnutrition Assess - Dietary Evaluation Nutrition/Malnutrition Findings: Nutrition Notes Start: 03/31/19 16:47 Freq: Status: Active Protocol: Document 04/01/19 10:17 CT (Rec: 04/01/19 11:08 CT [id number]) Co-Sign 04/01/19 10:17 LP Nutrition Notes Need for Assessment generated from: MST Initial or Follow up Assessment Current Diagnosis Diabetes,Hypertension, Hyperlipidemia Other Pertinent Diagnosis ESRD on HD (M/W/F), AMS Current Diet Renal Labs/Tests K 3.1 BUN 28 Creatinine 5.6 Pertinent Medications Coumadin Height 5 ft 6 in Weight 64.8 kg [place] Body Weight (kg) 64.54 BMI 23.0 Subjective/Other Information Pt. and pt. mother and father in the room at time of visit. Pt. was asleep. Pt. mother says that pt. sleeps a lot and is only able to eat softer foods. Pt. mother states pt. is eating okay with the soft and cut foods. Pt. does not eat tomato or sugar. Burn Absent Trauma Absent Difficulty In Chewing Cultural/Ethnic/Voodoo Belief [place] Current % PO Negligible Minimum of two criteria No #1 Nutrition Diagnosis Inadequate oral intake Etiology difficulty chewing As Evidenced by Signs and Symptoms pt. mother stating pt. is only able to tolerate soft food. Is patient on ventilator? No Is Patient Ambulatory and/or Out of Bed Yes REE-([place] or-ambulatory/OOB) [ 1970.475 NUTR.MSJOOB] Calculation Used for Recommendations [place] or Additional Notes Pro > 77 g (>1.2 g/kg/day) Fluid 1-1.5 L Nutrition Intervention Change Diet Order: Change to Mechanical Soft Renal Diet Add Supplement/Snack (indicate name/kcal Nepro with CARBSTEADY daily /protein ) Vanilla Provides kCal: 425 Provides Protein (gm) 19 Goal #1 Pt. meet >80% of energy and pro needs after starting mechanical soft diet Anticipated Discharge Needs: Unable to determine Follow-Up By: 04/03/19 Additional Comments Follow up for intake
[2019-04-02] MEDS ORDERED: SODIUM CHLORIDE*PRIMING MACHINE ONLY FOR DIALYSIS MC ONE (22:49)
[2019-04-03 06:19] LABS: INR 1.7 (0.87-1.13)
--- NOTE | 2019-04-03 08:32 | Progress Note ---
Subjective Principal diagnosis: Acute Encephalopathy Interval history: Patient was seen today for follow-up on multiple renal related issues Events of this hospitalization were noted patient is able to get up and go to the bathroom with help Status post angiogram and balloon angioplasty of the right upper arm access Mother is at bedside discussed with dialysis nurse he was also seen and supervised on hemodialysis Interdisciplinary notes were also reviewed Vitals intake output medications were reviewed Past medical history: Reviewed Family, social history: Reviewed Allergies: Reviewed Physical examination General: No acute distress Vitals: Reviewed HEENT: Oral mucosa moist no icterus Neck: Supple no thyromegaly nodular mass or JVD Chest: Clear to auscultation anteriorly Heart: Regular rate and rhythm S1-S2 heard no S3-S4 Abdomen: Soft nontender no suprapubic masses no organomegaly Extremity: Dry skin less than 1+ edema fistula has a good thrill neurological: Patient is more alert and able to go to the bathroom today Assessment and plan: End-stage renal disease: Patient will continue with hemodialysis treatment on Sunday and Sunday scheduled as tolerated, monitor dialysis related labs care plan was discussed with mother Status post-fistulogram and angioplasty and balloon Encephalopathy: Multifactorial/ status post cardiac arrest Some of this could be due to dialysis Check metabolic causes/ being followed by Hospital medicine and neurology Check dialysis related labs periodically Supportive care/ followed by Hospital medicine for other problems Overall stable from renal standpoint We'll continue to follow and make recommendation from renal standpoint Objective - Vital Signs Vital signs: Vital Signs - 12hr 04/02/19 04/02/19 04/02/19 22:00 23:15 23:21 Temperature 98.6 F Pulse Rate 60 60 Pulse Rate [ 60 Apical] Respiratory 16 16 Rate Blood Pressure 124/61 93/53 O2 Sat by Pulse 98 Oximetry 04/03/19 05:47 Temperature 98.9 F Pulse Rate 63 Pulse Rate [ Apical] Respiratory 18 Rate Blood Pressure 138/69 O2 Sat by Pulse 98 Oximetry - Lab 04/02/19 05:59 04/02/19 05:59 Most recent lab results Calcium 8.3 mg/dL (8.4-10.2) L 04/02/19 05:59 Medications & Allergies - Medications Allergies/Adverse Reactions: Allergies No Known Allergies Allergy (Verified 07/25/18 17:57) Home Medications: Home Medications Medication Instructions Recorded Confirmed Last Taken Type Lipitor 40 mg PO DAILY 07/26/18 03/30/19 Unknown History Metoprolol 25 mg PO Q12H 07/26/18 03/30/19 Unknown History Omeprazole 20 mg PO DAILY 07/26/18 03/30/19 Unknown History QUEtiapine [SEROquel] 25 mg PO DAILY 07/26/18 03/30/19 Unknown History Aspirin [Aspirin BABY CHEW TAB] 81 mg PO DAILY 11/13/18 03/30/19 Unknown History Lisinopril [Zestril TAB] 5 mg PO DAILY 11/13/18 03/30/19 Unknown History Warfarin [Coumadin] 2 mg PO DAILY 11/13/18 03/30/19 Unknown History Ondansetron [Zofran Odt] 4 mg PO Q6HR PRN #20 tab.rapdis 02/28/19 03/30/19 Unknown Rx raNITIdine HCl [Zantac] 150 mg PO Q12H #30 tablet 02/28/19 03/30/19 Unknown Rx Ursodiol 300 mg PO BID 03/30/19 03/30/19 Unknown History acetaZOLAMIDE [Diamox TAB] 500 mg PO BID 03/30/19 03/30/19 Unknown History Active Medications: Generic Name Dose Route Start Last Admin Trade Name Freq PRN Reason Stop Dose Admin Acetaminophen 650 mg 03/30/19 21:55 Tylenol PO Q4H PRN Pain MILD(1-3)/Fever >100.5/GOLDEN Acetazolamide 500 mg 03/31/19 10:00 04/02/19 23:33 Diamox PO 500 mg BID CARISSA Administration Aspirin 81 mg 03/31/19 10:00 04/02/19 13:56 Baby Aspirin PO 81 mg DAILY CARISSA Administration Atorvastatin Calcium 40 mg 03/31/19 22:00 04/02/19 23:33 Lipitor PO 40 mg QHS CARISSA Administration Guaifenesin 200 mg 04/01/19 22:11 04/02/19 13:55 Robitussin PO 200 mg Q4H PRN Administration Cough Lisinopril 5 mg 03/31/19 10:00 04/02/19 14:03 Zestril PO 5 mg DAILY CARISSA Administration Metoprolol Tartrate 25 mg 03/31/19 10:00 04/02/19 23:15 Metoprolol PO Not Given BID [facility] Miscellaneous Medication 300 mg 03/31/19 10:00 Ursodiol [Ursodiol] PO BID [facility] Ondansetron HCl 4 mg 03/31/19 08:42 Zofran Odt PO Q6HR PRN Nausea Pantoprazole Sodium 20 mg 03/31/19 10:00 04/02/19 13:57 Protonix PO 20 mg QDAY CARISSA Administration Quetiapine Fumarate 25 mg 03/31/19 10:00 04/02/19 13:56 Seroquel PO 25 mg DAILY CARISSA Administration Sodium Chloride 10 ml 03/30/19 22:00 04/02/19 23:34 Sodium Chloride Flush Syringe 10 Ml IV 10 ml BID CARISSA Administration Warfarin Sodium 4 mg 04/02/19 17:00 04/02/19 17:32 Coumadin PO 4 mg DAILY@1700 CARISSA Administration
[2019-04-03] MEDS: acetaZOLAMIDE 250 MG TAB PO SCH ×2 (12:08→21:51)
[2019-04-03] MEDS: ASPIRIN 81 MG TAB CHEW PO SCH (12:09)
[2019-04-03] MEDS: PANTOPRAZOLE 20 MG TAB PO SCH (12:09)
[2019-04-03] MEDS: LISINOPRIL 5 MG TAB PO SCH (12:09)
[2019-04-03] MEDS: METOPROLOL TARTRATE 25 MG TAB PO SCH ×2 (12:10→21:52)
[2019-04-03] MEDS: QUEtiapine 25 MG TAB PO SCH (12:23)
[2019-04-03] MEDS: WARFARIN 2 MG TAB PO SCH (17:01)
[2019-04-03 17:13] LABS: Heparin-Induced Platelet Antib Negative (Negative); Unfractionated Heparin Negative (Negative)
--- NOTE | 2019-04-03 17:17 | Progress Note ---
Assessment and Plan Assessment and plan: Acute metabolic encephalopathy Sec to Uremia Still confused neurochecks Neuro consulted Obtain CT head to r/o structural disease Cannot do MRI because of pacemaker ESRD on hemodialysis Cont HD AV acess malfunction s/p fistulogrm. angioplasty , stenting by Dr. Thomas, 04/01/19 Hypertension Cont antihypertensives NSTEMI Type 2 Elevated troponin, c No chest pain may be due to ESRD Will consult cardiology cardiomyopathy history of cardiac arrest 1-2 yrs ago in [place] Atrial fibrillation patient on Coumadin INR subtherapeutic DVT prophylaxis: On Coumadin History Interval history: Altered mental status very lethargic Mother says patient has been sleeping most of time for 1 month now Hospitalist Physical - Physical exam Narrative exam: Gen: Not in acute distress, lying in bed HEENT: Normocephalic, atraumatic Neck: supple, no JVD Heart: S1 and S2 reg, no murmurs, rubs or gallop Lungs: Clear to auscultation, no rhonchi, no wheeze Abd: soft, non tender, non distended, normal BS, Ext: RUE av fistula, no clubbing, no cyanosis Neuro: Lethargic, arouseable, moves all ext, follows commands, - Constitutional Vitals: Temp Pulse Resp BP Pulse Ox 97.9 F 61 16 122/68 99 04/03/19 11:49 04/03/19 12:09 04/03/19 11:49 04/03/19 12:09 04/03/19 11:49 General appearance: Present: no acute distress Results - Labs CBC & Chem 7: 04/02/19 05:59 04/02/19 05:59 Labs: Laboratory Last Values WBC 5.1 K/mm3 (4.5-11.0) 04/02/19 05:59 RBC 3.95 M/mm3 (3.65-5.03) 04/02/19 05:59 Hgb 12.1 gm/dl (11.8-15.2) 04/02/19 05:59 Hct 37.0 % (35.5-45.6) 04/02/19 05:59 MCV 94 fl (84-94) 04/02/19 05:59 MCH 31 pg (28-32) 04/02/19 05:59 MCHC 33 % (32-34) 04/02/19 05:59 RDW 16.8 % (13.2-15.2) H 04/02/19 05:59 Plt Count 137 K/mm3 (140-440) L 04/02/19 05:59 Lymph % (Auto) 11.4 % (13.4-35.0) L 03/31/19 06:40 [place] % (Auto) 9.7 % (0.0-7.3) H 03/31/19 06:40 Eos % (Auto) 3.3 % (0.0-4.3) 03/31/19 06:40 Baso % (Auto) 0.7 % (0.0-1.8) 03/31/19 06:40 Lymph # 0.6 K/mm3 (1.2-5.4) L 03/31/19 06:40 [place] # 0.5 K/mm3 (0.0-0.8) 03/31/19 06:40 Eos # 0.2 K/mm3 (0.0-0.4) 03/31/19 06:40 Baso # 0.0 K/mm3 (0.0-0.1) 03/31/19 06:40 Seg Neutrophils % 74.9 % (40.0-70.0) H 03/31/19 06:40 Seg Neutrophils # 4.2 K/mm3 (1.8-7.7) 03/31/19 06:40 PT 19.7 Sec. (12.2-14.9) H 04/03/19 05:27 INR 1.70 (0.87-1.13) H 04/03/19 05:27 APTT > 240.0 Sec. (24.2-36.6) H* 03/31/19 06:40 Heparin Anti-Xa, Unfract Negative (Negative) 03/31/19 15:05 Sodium 138 mmol/L (137-145) 04/02/19 05:59 Potassium 3.8 mmol/L (3.6-5.0) D 04/02/19 05:59 Chloride 98.6 mmol/L (98-107) 04/02/19 05:59 Carbon Dioxide 21 mmol/L (22-30) L 04/02/19 05:59 Anion Gap 22 mmol/L 04/02/19 05:59 BUN 40 mg/dL (9-20) H 04/02/19 05:59 Creatinine 6.9 mg/dL (0.8-1.5) H 04/02/19 05:59 Estimated GFR 9 ml/min 04/02/19 05:59 BUN/Creatinine Ratio 6 % 04/02/19 05:59 Glucose 91 mg/dL (75-100) 04/02/19 05:59 Lactic Acid 1.40 mmol/L (0.7-2.0) 03/30/19 14:48 Calcium 8.3 mg/dL (8.4-10.2) L 04/02/19 05:59 Total Bilirubin 1.20 mg/dL (0.1-1.2) 03/30/19 14:48 Direct Bilirubin 0.5 mg/dL (0-0.2) H 03/30/19 14:48 Indirect Bilirubin 0.7 mg/dL 03/30/19 14:48 AST 6 units/L (5-40) 03/30/19 14:48 ALT < 5 units/L (7-56) L 03/30/19 14:48 Alkaline Phosphatase 142 units/L (35-129) H 03/30/19 14:48 Ammonia 51.0 umol/L (25-60) 03/30/19 14:48 Troponin T 0.343 ng/mL (0.00-0.029) H* 04/01/19 07:56 Total Protein 8.0 g/dL (6.3-8.2) 03/30/19 14:48 Albumin 3.7 g/dL (3.9-5) L 03/30/19 14:48 Albumin/Globulin Ratio 0.9 % 03/30/19 14:48 Vitamin B12 791.4 pg/mL (211-911) 03/31/19 13:43 Folate 5.98 ng/mL (7.3-26.0) L 03/31/19 13:43 Salicylates < 0.3 mg/dL (2.8-20.0) L 03/30/19 14:48 Acetaminophen < 5.0 ug/mL (10.0-30.0) L 03/30/19 14:48 Heparin-induced Plt Ab Negative (Negative) 03/31/19 15:05 UF Heparin High Dose 5 % Release 03/31/19 15:05 LACY UFH Low Dose 0.1 7 % Release 03/31/19 15:05 LACY UFH Low Dose 0.5 9 % Release 03/31/19 15:05 Hepatitis A IgM Ab Non-reactive (NonReactive) 04/01/19 14:55 Hep Bs Antigen Non-reactive (Negative) 04/01/19 14:55 Hep B Core IgM Ab Non-reactive (NonReactive) 04/01/19 14:55 Hepatitis C Antibody Non-reactive (NonReactive) 04/01/19 14:55 Active Medications - Current Medications Current Medications: Generic Name Dose Route Start Last Admin Trade Name Freq PRN Reason Stop Dose Admin Acetaminophen 650 mg 03/30/19 21:55 Tylenol PO Q4H PRN Pain MILD(1-3)/Fever >100.5/GOLDEN Acetazolamide 500 mg 03/31/19 10:00 04/03/19 12:08 Diamox PO 500 mg BID CARISSA Administration Aspirin 81 mg 03/31/19 10:00 04/03/19 12:09 Baby Aspirin PO 81 mg DAILY CARISSA Administration Atorvastatin Calcium 40 mg 03/31/19 22:00 04/02/19 23:33 Lipitor PO 40 mg QHS CARISSA Administration Guaifenesin 200 mg 04/01/19 22:11 04/02/19 13:55 Robitussin PO 200 mg Q4H PRN Administration Cough Lisinopril 5 mg 03/31/19 10:00 04/03/19 12:09 Zestril PO 5 mg DAILY CARISSA Administration Metoprolol Tartrate 25 mg 03/31/19 10:00 04/03/19 12:10 Metoprolol PO 25 mg BID CARISSA Administration Miscellaneous Medication 300 mg 03/31/19 10:00 Ursodiol [Ursodiol] PO BID CARISSA Ondansetron HCl 4 mg 03/31/19 08:42 Zofran Odt PO Q6HR PRN Nausea Pantoprazole Sodium 20 mg 03/31/19 10:00 04/03/19 12:09 Protonix PO 20 mg QDAY CARISSA Administration Sodium Chloride 10 ml 03/30/19 22:00 04/03/19 12:09 Sodium Chloride Flush Syringe 10 Ml IV 10 ml BID CARISSA Administration Warfarin Sodium 4 mg 04/02/19 17:00 04/03/19 17:01 Coumadin PO 4 mg DAILY@1700 CARISSA Administration Nutrition/Malnutrition Assess - Dietary Evaluation Nutrition/Malnutrition Findings: Nutrition Notes Start: 03/31/19 16:47 Freq: Status: Active Protocol: Document 04/03/19 09:35 CT (Rec: 04/03/19 10:05 CT [id number]) Co-Sign 04/03/19 09:35 KH Nutrition Notes Initial or Follow up Reassessment Current Diagnosis Diabetes,Hypertension, Hyperlipidemia Other Pertinent Diagnosis ESRD on HD (M/W/F), AMS Current Diet Renal Mechanical Soft w/ Nepro once daily Labs/Tests BUN 40 Creatinine 6.9 Pertinent Medications Coumadin Height 5 ft 6 in Weight 64.8 kg [place] Body Weight (kg) 64.54 BMI 23.0 Subjective/Other Information Pt follow up for coumadin education. Pt was semi- conscious at time of visit. Gave education on coumadin. Discussed sources of Vitamin K . Pt family was not in the room at time of visit. Noted that he ate most of his breakfast tray and consumed 50 % of Nepro shake. Percent of energy/protein needs met: 90%/88% Burn Absent Trauma Absent Difficulty In Chewing Cultural/Ethnic/Judaism Belief [place] Current % PO Good (75-100%) Minimum of two criteria No #1 Nutrition Diagnosis Inadequate oral intake As Evidenced by Signs and Symptoms Pt met 90% energy and 88% of protein needs for breakfast. Diagnosis Progress(for reassessment Improved documentation) Is patient on ventilator? No Is Patient Ambulatory and/or Out of Bed Yes REE-([facility]-ambulatory/OOB) [ 1970.475 NUTR.MSJOOB] Calculation Used for Recommendations [facility] Additional Notes Pro > 77 g (>1.2 g/kg/day) Fluid 1-1.5 L Nutrition Intervention Change Diet Order: Continue current diet Add Supplement/Snack (indicate name/kcal Nepro with CARBSTEADY daily /protein ) Vanilla Provides kCal: 425 Provides Protein (gm) 19 Teaching Recipient Patient Learning Readiness Poor Teaching Methods Discussion,Handout Response to Teaching Reinforcement needed,Unable to comprehend Education Handouts Provided Coumadin and K foods Barriers to Learning Cognitive/Verbal,Physical RD phone number provided Yes Patient aware of follow up options Yes Actions To Overcome Barriers Other Goal #1 Pt. meet >80% of energy and pro needs after starting mechanical soft diet Anticipated Discharge Needs: Unable to determine Follow-Up By: 04/07/19 Additional Comments Follow up for intake and ONS tolerance. Additional education needs.
--- NOTE | 2019-04-03 17:40 | Consultation ---
History of Present Illness Consult date: 04/03/19 Reason for Consult: Altered mental status Chief complaint: Altered mental status History of present illness: Patient is a 38 y/o man w/ a h/o ESRD on HD, HTN, DM, HLD, h/o previous cardiac arrest, s/p PPM. He presented on lethargy on 03/30/19. Per his mother, the patient has had lethargy, increased somnolence, and confusion for the past 1-2 months. Prior to that, she states that he was more alert. Patient also has v isual deficits in b/l eyes at baseline, and reportedly has had eye surgery in the past. Past History Past Medical History: diabetes, ESRD, hypertension, hyperlipidemia, other (History of visual loss) Past Surgical History: Other Social history: no significant social history, lives with family Family history: CAD (Father had an AR) Medications and Allergies Allergies Allergy/AdvReac Type Severity Reaction Status Date / Time No Known Allergies Allergy Verified 07/25/18 17:57 Home Medications Medication Instructions Recorded Confirmed Last Taken Type Lipitor 40 mg PO DAILY 07/26/18 03/30/19 Unknown History Metoprolol 25 mg PO Q12H 07/26/18 03/30/19 Unknown History Omeprazole 20 mg PO DAILY 07/26/18 03/30/19 Unknown History QUEtiapine [SEROquel] 25 mg PO DAILY 07/26/18 03/30/19 Unknown History Aspirin [Aspirin BABY CHEW TAB] 81 mg PO DAILY 11/13/18 03/30/19 Unknown History Lisinopril [Zestril TAB] 5 mg PO DAILY 11/13/18 03/30/19 Unknown History Warfarin [Coumadin] 2 mg PO DAILY 11/13/18 03/30/19 Unknown History Ondansetron [Zofran Odt] 4 mg PO Q6HR PRN #20 tab.rapdis 02/28/19 03/30/19 Unknown Rx raNITIdine HCl [Zantac] 150 mg PO Q12H #30 tablet 02/28/19 03/30/19 Unknown Rx Ursodiol 300 mg PO BID 03/30/19 03/30/19 Unknown History acetaZOLAMIDE [Diamox TAB] 500 mg PO BID 03/30/19 03/30/19 Unknown History Active Meds: Active Medications Acetaminophen (Tylenol) 650 mg PO Q4H PRN PRN Reason: Pain MILD(1-3)/Fever >100.5/GOLDEN Acetazolamide (Diamox) 500 mg PO BID [facility] Last Admin: 04/03/19 12:08 Dose: 500 mg Documented by: Aspirin (Baby Aspirin) 81 mg PO DAILY [facility] Last Admin: 04/03/19 12:09 Dose: 81 mg Documented by: Atorvastatin Calcium (Lipitor) 40 mg PO QHS [facility] Last Admin: 04/02/19 23:33 Dose: 40 mg Documented by: Guaifenesin (Robitussin) 200 mg PO Q4H PRN PRN Reason: Cough Last Admin: 04/02/19 13:55 Dose: 200 mg Documented by: Lisinopril (Zestril) 5 mg PO DAILY [facility] Last Admin: 04/03/19 12:09 Dose: 5 mg Documented by: Metoprolol Tartrate (Metoprolol) 25 mg PO BID [facility] Last Admin: 04/03/19 12:10 Dose: 25 mg Documented by: Miscellaneous Medication (Ursodiol [Ursodiol]) 300 mg PO BID [facility] Ondansetron HCl (Zofran Odt) 4 mg PO Q6HR PRN PRN Reason: Nausea Pantoprazole Sodium (Protonix) 20 mg PO QDAY [facility] Last Admin: 04/03/19 12:09 Dose: 20 mg Documented by: Sodium Chloride (Sodium Chloride Flush Syringe 10 Ml) 10 ml IV BID [facility] Last Admin: 04/03/19 12:09 Dose: 10 ml Documented by: Warfarin Sodium (Coumadin) 4 mg PO DAILY@1700 [facility] Last Admin: 04/03/19 17:01 Dose: 4 mg Documented by: Review of Systems ROS unobtainable: due to mental status Physical Examination - Vital Signs Vital Signs: Vital Signs Temp Pulse Resp BP Pulse Ox 98.9 F 63 18 120/78 100 03/30/19 13:48 03/30/19 13:48 03/30/19 13:48 03/30/19 13:48 03/30/19 13:48 - Physical Exam Narrative exam: Patient is awake, lethargic, oriented only to self, follows 1-step commands. Pupils asymmetric (baseline since eye surgery), EOMI, vision loss (baseline) to extent of not seeing hand in front of face, tongue midline, noted to have right facial weakness, b/l intact to LT. No dysarthria or aphasia noted. 4/5 strength in all extremities. 2+ reflexes throughout. B/l intact to LT. - Constitutional General appearance: comfortable - EENT EENT: Present: ATNC, mucous membranes moist - Respiratory Respiratory: Present: lungs clear, normal breath sounds - Cardiovascular Cardiovascular: Present: regular rate, normal S1, normal S2 Extremities: Present: no clubbing, cyanosis, no inflammation - Gastrointestinal Gastrointestinal: Present: normoactive bowel sounds, soft, non-tender - Integumentary Integumentary: Present: normal - Musculoskeletal Musculoskeletal: Present: no fluid collection, no pain Results - Laboratory Findings CBC and BMP: 04/02/19 05:59 04/02/19 05:59 Abnormal Lab Findings: Abnormal Labs 03/30/19 03/30/19 03/30/19 14:48 14:48 14:48 WBC Hgb Hct MCV 96 H MCHC 31 L RDW 16.6 H Plt Count 128 L Lymph % (Auto) 8.9 L [place] % (Auto) Lymph # 0.6 L Seg Neutrophils % 83.2 H PT 20.5 H INR 1.79 H APTT 37.0 H Sodium Potassium Chloride Carbon Dioxide BUN Creatinine Glucose Calcium Direct Bilirubin ALT Alkaline Phosphatase Troponin T 0.374 H* Albumin Folate Salicylates Acetaminophen 03/30/19 03/30/19 03/30/19 14:48 14:48 14:48 WBC Hgb Hct MCV MCHC RDW Plt Count Lymph % (Auto) [place] % (Auto) Lymph # Seg Neutrophils % PT INR APTT Sodium 129 L Potassium Chloride 96.1 L Carbon Dioxide 18 L BUN 38 H Creatinine 7.0 H Glucose 137 H Calcium Direct Bilirubin 0.5 H ALT < 5 L Alkaline Phosphatase 142 H Troponin T Albumin 3.7 L Folate Salicylates < 0.3 L Acetaminophen < 5.0 L 03/31/19 03/31/19 03/31/19 06:40 06:40 06:40 WBC Hgb Hct MCV 96 H MCHC RDW 17.1 H Plt Count 128 L Lymph % (Auto) 11.4 L [place] % (Auto) 9.7 H Lymph # 0.6 L Seg Neutrophils % 74.9 H PT 20.6 H INR 1.80 H APTT > 240.0 H* Sodium 133 L Potassium Chloride Carbon Dioxide 19 L BUN 44 H Creatinine 8.0 H Glucose Calcium Direct Bilirubin ALT Alkaline Phosphatase Troponin T Albumin Folate Salicylates Acetaminophen 03/31/19 04/01/19 04/01/19 13:43 06:38 07:56 WBC 4.1 L Hgb 11.1 L Hct 34.2 L MCV MCHC RDW 16.4 H Plt Count 124 L Lymph % (Auto) [place] % (Auto) Lymph # Seg Neutrophils % PT 19.9 H INR 1.72 H APTT Sodium Potassium Chloride Carbon Dioxide BUN Creatinine Glucose Calcium Direct Bilirubin ALT Alkaline Phosphatase Troponin T Albumin Folate 5.98 L Salicylates Acetaminophen 04/01/19 04/02/19 04/02/19 07:56 05:59 05:59 WBC Hgb Hct MCV MCHC RDW 16.8 H Plt Count 137 L Lymph % (Auto) [place] % (Auto) Lymph # Seg Neutrophils % PT 18.4 H INR 1.56 H APTT Sodium Potassium 3.1 L D Chloride Carbon Dioxide BUN 28 H Creatinine 5.6 H Glucose Calcium 8.3 L Direct Bilirubin ALT Alkaline Phosphatase Troponin T 0.343 H* Albumin Folate Salicylates Acetaminophen 04/02/19 04/03/19 05:59 05:27 WBC Hgb Hct MCV MCHC RDW Plt Count Lymph % (Auto) [place] % (Auto) Lymph # Seg Neutrophils % PT 19.7 H INR 1.70 H APTT Sodium Potassium Chloride Carbon Dioxide 21 L BUN 40 H Creatinine 6.9 H Glucose Calcium 8.3 L Direct Bilirubin ALT Alkaline Phosphatase Troponin T Albumin Folate Salicylates Acetaminophen Assessment and Plan Patient is a 38 y/o man w/ a h/o ESRD on HD, HTN, DM, HLD, h/o previous cardiac arrest, s/p PPM, who p/w lethargy, increased somnolence, and confusion for past 1-2 months. According to the patient's clinical findings, it is likely that he has metabolic encephalopathy, likely caused by underlying comorbidities. Plan: 1. Metabolic encephalopathy: - Patient has had ongoing lethargy for 1-2 months. No acute change. he reportedly had similar episodes in the past. - Noted to have hyponatremia on admission. - Check CT head - Unable to check MRI due PPM. - Chech UDS - Will continue to monitor neurologic status. - Continue to correct metabolic abnormalities per primary team. Thank you for allowing me to take part in the care of this patient. Dean Vilchis MD Neurology
[2019-04-03] MEDS: guaiFENesin 100 MG/5 ML ORAL LIQD PO PRN (21:53)
--- NOTE | 2019-04-03 22:25 | Cat Scan Report ---
CT brain without contrast. INDICATION / CLINICAL INFORMATION: 38 years Male; AMS. TECHNIQUE: Routine CT head without contrast. All CT scans at this location are performed using CT dos e reduction for ALARA by means of automated exposure control. COMPARISON: The study is compared to the nonionic contrast the CT head of 03/30/2019. The initial study was perfor med without contrast. The patient has a history of renal disease and clarification will be obtained r egarding initial order. FINDINGS: BRAIN / INTRACRANIAL CONTENTS: The motion degrades image quality despite repeat imaging. However, the brain appears to demonstrate appropriate attenuation without significant interval change from the pr evious exam though the prior study was also degraded by motion. The ventricular system appears unchan ged in size and configuration. There is no definitive CT evidence of acute intracranial hemorrhage or significant mass effect. ORBITS: No significant abnormality of visualized orbits. SINUSES / MASTOIDS: There is mild mucosal thickening along the inferior left sphenoid sinus. CRANIOCERVICAL JUNCTION: No significant abnormality. ADDITIONAL FINDINGS: None. IMPRESSION: 1. The motion degrades image quality. However, there is no CT evidence of acute intracranial process or significant interval change from 03/30/2019. Signer Name: Sherman Velez MD Signed: 04/03/2019 10:21 PM Workstation Name: [id number]
[2019-04-04] MEDS: BENZONATATE 100 MG CAP PO SCH ×3 (01:01→19:01)
[2019-04-04] MEDS: guaiFENesin 100 MG/5 ML ORAL LIQD PO PRN (04:18)
[2019-04-04 08:12] LABS: INR TNR (0.87-1.13)
[2019-04-04] MEDS ORDERED: REGADENOSON 0.4 MG/5 ML INJ IV ONE ×2 (08:18→08:19)
[2019-04-04 08:47] LABS: Albumin 3.2 g/dL (3.9-5); BUN/Creatinine Ratio 5; Blood Urea Nitrogen 36 mg/dL (9-20); Calcium 8.3 mg/dL (8.4-10.2); Hemolysis Index 7
[2019-04-04 08:49] LABS: Alanine Aminotransferase < 5 units/L (7-56)
--- NOTE | 2019-04-04 08:57 | Progress Note ---
Assessment and Plan Assessment: * End-stage renal disease * Encephalopthy * Atrial fibrillation * Anemia secondary to ESRD * Secondary hyperparathyroidism Plan: * Continue HD MWF and prn * UF as tolerated * Difficult to attribute mental status to uremia w/ BUN 20-40. Would rec pursuing other etiologies. Neuro work up in progress * Rate control and anticoagulation per primary team/cardiology * Epogen TIW prn * Renal diet Subjective Date of service: 04/04/19 Principal diagnosis: Acute Encephalopathy Interval history: Patient has no complaints today Objective - Vital Signs Vital signs: Vital Signs - 12hr 04/03/19 04/03/19 04/04/19 21:49 22:55 06:23 Temperature 97.3 F L 97.2 F L Pulse Rate 61 60 62 Respiratory 19 18 Rate Blood Pressure 107/67 115/61 155/75 O2 Sat by Pulse 100 100 100 Oximetry - General Appearance General appearance: well-developed, well-nourished EENT: ATNC Respiratory: Present: Clear to Ascultation Cardiology: regular, S1S2 Gastrointestinal: normal, no tenderness, no distended Neurologic: disoriented Musculoskeletal: other (no edema) Psychiatric: cooperative - Lab 04/02/19 05:59 04/04/19 07:18 Most recent lab results Calcium 8.3 mg/dL (8.4-10.2) L 04/04/19 07:18 Medications & Allergies - Medications Allergies/Adverse Reactions: Allergies No Known Allergies Allergy (Verified 07/25/18 17:57) Home Medications: Home Medications Medication Instructions Recorded Confirmed Last Taken Type Lipitor 40 mg PO DAILY 07/26/18 03/30/19 Unknown History Metoprolol 25 mg PO Q12H 07/26/18 03/30/19 Unknown History Omeprazole 20 mg PO DAILY 07/26/18 03/30/19 Unknown History QUEtiapine [SEROquel] 25 mg PO DAILY 07/26/18 03/30/19 Unknown History Aspirin [Aspirin BABY CHEW TAB] 81 mg PO DAILY 11/13/18 03/30/19 Unknown History Lisinopril [Zestril TAB] 5 mg PO DAILY 11/13/18 03/30/19 Unknown History Warfarin [Coumadin] 2 mg PO DAILY 11/13/18 03/30/19 Unknown History Ondansetron [Zofran Odt] 4 mg PO Q6HR PRN #20 tab.rapdis 02/28/19 03/30/19 Unknown Rx raNITIdine HCl [Zantac] 150 mg PO Q12H #30 tablet 02/28/19 03/30/19 Unknown Rx Ursodiol 300 mg PO BID 03/30/19 03/30/19 Unknown History acetaZOLAMIDE [Diamox TAB] 500 mg PO BID 03/30/19 03/30/19 Unknown History Active Medications: Generic Name Dose Route Start Last Admin Trade Name Freq PRN Reason Stop Dose Admin Acetaminophen 650 mg 03/30/19 21:55 Tylenol PO Q4H PRN Pain MILD(1-3)/Fever >100.5/GOLDEN Acetazolamide 500 mg 03/31/19 10:00 04/03/19 21:51 Diamox PO 500 mg BID CARISSA Administration Aspirin 81 mg 03/31/19 10:00 04/03/19 12:09 Baby Aspirin PO 81 mg DAILY CARISSA Administration Atorvastatin Calcium 40 mg 03/31/19 22:00 04/03/19 21:52 Lipitor PO 40 mg QHS CARISSA Administration Benzonatate 100 mg 04/04/19 01:00 04/04/19 01:01 Tessalon Perles PO 100 mg Q8H CARISSA Administration Guaifenesin 200 mg 04/01/19 22:11 04/04/19 04:18 Robitussin PO 200 mg Q4H PRN Administration Cough Lisinopril 5 mg 03/31/19 10:00 04/03/19 12:09 Zestril PO 5 mg DAILY CARISSA Administration Metoprolol Tartrate 25 mg 03/31/19 10:00 04/03/19 21:52 Metoprolol PO 25 mg BID CARISSA Administration Miscellaneous Medication 300 mg 03/31/19 10:00 Ursodiol [Ursodiol] PO BID CARISSA Ondansetron HCl 4 mg 03/31/19 08:42 Zofran Odt PO Q6HR PRN Nausea Pantoprazole Sodium 20 mg 03/31/19 10:00 04/03/19 12:09 Protonix PO 20 mg QDAY CARISSA Administration Sodium Chloride 10 ml 03/30/19 22:00 04/03/19 21:53 Sodium Chloride Flush Syringe 10 Ml IV 10 ml BID CARISSA Administration Warfarin Sodium 4 mg 04/02/19 17:00 11/07/19 17:01 Coumadin PO 4 mg DAILY@1700 CARISSA Administration
[2019-04-04 10:06] LABS: INR 1.81 (0.87-1.13)
--- NOTE | 2019-04-04 10:18 | XRay Report ---
CHEST 1 VIEW INDICATION / CLINICAL INFORMATION: cough. COMPARISON: None available. FINDINGS: SUPPORT DEVICES: None. HEART / MEDIASTINUM: Mild cardiomegaly. LUNGS / PLEURA: No significant pulmonary or pleural abnormality. No pneumothorax. ADDITIONAL FINDINGS: No significant additional findings. Impression: Borderline cardiomegaly. No pneumonia. Signer Name: Noel Cevallos MD Signed: 04/04/2019 10:14 AM Workstation Name: [id number]
[2019-04-04] MEDS: PANTOPRAZOLE 20 MG TAB PO SCH (10:36)
[2019-04-04] MEDS: ASPIRIN 81 MG TAB CHEW PO SCH (10:36)
[2019-04-04] MEDS: acetaZOLAMIDE 250 MG TAB PO SCH (10:36)
[2019-04-04] MEDS: LISINOPRIL 5 MG TAB PO SCH (10:36)
[2019-04-04] MEDS: METOPROLOL TARTRATE 25 MG TAB PO SCH ×2 (10:36→10:43)
--- NOTE | 2019-04-04 10:51 | Consultation ---
History of Present Illness Consult date: 04/04/19 Requesting physician: CEE OCHOA Consult reason: elevated troponin, other (cmp) History of present illness: The patient is a 38 year-old male with a past medical history of CAD, CMP, HFrEF, paroxysmal atrial fibrillation, anticoagulated with coumadin, leadless PPM in situ (placed in [place] in 01/2018), HTN, HLP, anoxic brain injury s/p cardiac arrest x 2, ESRD on HD, dysphagia, PEG in situ, RUE DVT. He recently relocated to [place] from [place]. His HPI is obtained from the chart as pt has anoxic brain injury and his mother is not present on evaluation. He presented for evaluation of AMS on 04/01/2019. Per his mother, the patient has had lethargy, increased somnolence, and confusion for the past 1-2 months. Prior to that, she states that he was more alert. Pt has subsequently been diagnosed with metabolic encephalopathy, uremia, AV acess malfunction s/p stenting by Dr. Thomas on 04/01/19. Pt was noted to have elevated troponins and thus cardiology has been consulted. Pt has no current cardiac complaints. Per previously obtained medical records from [place] - pt was undergoing RUE AVF placement on 02/15/2018 when he suffered cardiac arrest and anoxic brain injury, pt suffered an additional VT/PEA cardiac arrest on 06/18/2018, s/p cardiac cath on 06/28 which showed multivessel CAD and cardiomyopathy EF 40%, evaluated by cardiac surgery and pt was deemed too high risk for CABG. Echo done here 07/2018 showed EF 35-40%, RV mildly dilated and hypokinetic, mild to mod TR, pulm HTN with RVSP >75mmHg. Past History Past Medical History: diabetes, ESRD, hypertension, hyperlipidemia, other (History of visual loss) Past Surgical History: Other Social history: no significant social history, lives with family Family history: CAD (Father had an DC) Medications and Allergies Allergies Allergy/AdvReac Type Severity Reaction Status Date / Time No Known Allergies Allergy Verified 07/25/18 17:57 Home Medications Medication Instructions Recorded Confirmed Last Taken Type Lipitor 40 mg PO DAILY 07/26/18 03/30/19 Unknown History Metoprolol 25 mg PO Q12H 07/26/18 03/30/19 Unknown History Omeprazole 20 mg PO DAILY 07/26/18 03/30/19 Unknown History QUEtiapine [SEROquel] 25 mg PO DAILY 07/26/18 03/30/19 Unknown History Aspirin [Aspirin BABY CHEW TAB] 81 mg PO DAILY 11/13/18 03/30/19 Unknown History Lisinopril [Zestril TAB] 5 mg PO DAILY 11/13/18 03/30/19 Unknown History Warfarin [Coumadin] 2 mg PO DAILY 11/13/18 03/30/19 Unknown History Ondansetron [Zofran Odt] 4 mg PO Q6HR PRN #20 tab.rapdis 02/28/19 03/30/19 Unknown Rx raNITIdine HCl [Zantac] 150 mg PO Q12H #30 tablet 02/28/19 03/30/19 Unknown Rx Ursodiol 300 mg PO BID 03/30/19 03/30/19 Unknown History acetaZOLAMIDE [Diamox TAB] 500 mg PO BID 03/30/19 03/30/19 Unknown History Active Meds: Active Medications Acetaminophen (Tylenol) 650 mg PO Q4H PRN PRN Reason: Pain MILD(1-3)/Fever >100.5/GOLDEN Acetazolamide (Diamox) 500 mg PO BID [facility] Last Admin: 04/04/19 10:36 Dose: 500 mg Documented by: Aspirin (Baby Aspirin) 81 mg PO DAILY [facility] Last Admin: 04/04/19 10:36 Dose: 81 mg Documented by: Atorvastatin Calcium (Lipitor) 40 mg PO QHS [facility] Last Admin: 04/03/19 21:52 Dose: 40 mg Documented by: Benzonatate (Tessalon Perles) 100 mg PO Q8H [facility] Last Admin: 04/04/19 09:00 Dose: Not Given Documented by: Guaifenesin (Robitussin) 200 mg PO Q4H PRN PRN Reason: Cough Last Admin: 04/04/19 04:18 Dose: 200 mg Documented by: Lisinopril (Zestril) 5 mg PO DAILY [facility] Last Admin: 04/04/19 10:36 Dose: 5 mg Documented by: Metoprolol Tartrate (Metoprolol) 25 mg PO BID [facility] Last Admin: 04/03/19 21:52 Dose: 25 mg Documented by: Miscellaneous Medication (Ursodiol [Ursodiol]) 300 mg PO BID [facility] Ondansetron HCl (Zofran Odt) 4 mg PO Q6HR PRN PRN Reason: Nausea Pantoprazole Sodium (Protonix) 20 mg PO QDAY [facility] Last Admin: 04/04/19 10:36 Dose: 20 mg Documented by: Sodium Chloride (Sodium Chloride Flush Syringe 10 Ml) 10 ml IV BID [facility] Last Admin: 04/03/19 21:53 Dose: 10 ml Documented by: Warfarin Sodium (Coumadin) 4 mg PO DAILY@1700 [facility] Last Admin: 04/03/19 17:01 Dose: 4 mg Documented by: Review of Systems ROS unobtainable: due to mental status (no apparent distress, no current complaints) Physical Examination Vital Signs Temp Pulse Resp BP Pulse Ox 98.9 F 63 18 120/78 100 03/30/19 13:48 03/30/19 13:48 03/30/19 13:48 03/30/19 13:48 03/30/19 13:48 General appearance: no acute distress, other (lethargic, withdrawn) HEENT: Positive: PERRL Neck: Positive: neck supple, trachea midline Cardiac: Positive: Reg Rate and Rhythm, S1/S2 Lungs: Positive: Decreased Breath Sounds Neuro: Positive: Other (h/o anoxic brain injury) Abdomen: Negative: Tender Skin: Negative: Rash Musculoskeletal: No Pain Results 04/02/19 05:59 04/04/19 07:18 Cardiac Enzymes 04/04/19 Range/Units 07:18 AST 7 (5-40) units/L Coagulation 04/04/19 04/04/19 Range/Units 07:18 09:12 PT TNR 20.7 H INR TNR 1.81 H Comprehensive Metabolic Panel 04/04/19 Range/Units 07:18 Sodium 139 (137-145) mmol/L Potassium 4.0 (3.6-5.0) mmol/L Chloride 103.2 (98-107) mmol/L Carbon Dioxide 20 L (22-30) mmol/L BUN 36 H (9-20) mg/dL Creatinine 6.6 H (0.8-1.5) mg/dL Glucose 95 (75-100) mg/dL Calcium 8.3 L (8.4-10.2) mg/dL AST 7 (5-40) units/L ALT < 5 L (7-56) units/L Alkaline Phosphatase 120 (35-129) units/L Total Protein 7.2 (6.3-8.2) g/dL Albumin 3.2 L (3.9-5) g/dL - Imaging and Cardiology Echo: report reviewed (07/2018 showed EF 35-40%, RV mildly dilated and hypokinetic, mild to mod TR, pulm HTN with RVSP >75mmHg. ) EKG: report reviewed, image reviewed EKG interpretations - Telemetry EKG Rhythm: Sinus Rhythm - EKG Sinus rhythms and dysrhythmias: sinus rhythm Assessment and Plan Currently stable cardiac status. CE elevation pattern appears c/w NSTEMI type II. Pt has no current cardiac complaints. ECG with no acute ischemic changes. Per previously obtained medical records from [place] - pt was undergoing RUE AVF placement on 02/15/2018 when he suffered cardiac arrest and anoxic brain injury, pt suffered an additional VT/PEA cardiac arrest on 06/18/2018, s/p cardiac cath on 06/28 which showed multivessel CAD and cardiomyopathy EF 40%, evaluated by cardiac surgery and pt was deemed too high risk for CABG. We will continue with conservative cardiac management at this time. Cont home cardiac regimen. The patient has been seen in conjunction with Dr. Tellez who agrees with the assessment and plan of care. - Patient Problems (1) Acute encephalopathy Current Visit: Yes Status: Acute (2) Altered mental status Current Visit: Yes Status: Acute (3) Dialysis AV fistula malfunction Current Visit: Yes Status: Acute (4) NSTEMI (non-ST elevated myocardial infarction) Current Visit: Yes Status: Acute Plan to address problem: suspect type II (5) CAD (coronary artery disease) Current Visit: Yes Status: Chronic (6) Cardiomyopathy Current Visit: Yes Status: Chronic (7) History of cardiac arrest Current Visit: Yes Status: Chronic (8) HTN (hypertension) Current Visit: Yes Status: Chronic Qualifiers: Hypertension type: essential hypertension Qualified Code(s): I10 - Essential (primary) hypertension (9) Hyperlipidemia Current Visit: Yes Status: Chronic (10) Paroxysmal atrial fibrillation Current Visit: Yes Status: Chronic (11) On Coumadin for atrial fibrillation Current Visit: Yes Status: Chronic (12) Anoxic brain injury Current Visit: Yes Status: Chronic (13) Cardiac pacemaker in situ Current Visit: Yes Status: Chronic (14) ESRD on hemodialysis Current Visit: Yes Status: Chronic (15) History of DVT (deep vein thrombosis) Current Visit: No Status: Chronic (16) Thrombocytopenia Current Visit: Yes Status: Chronic
--- NOTE | 2019-04-04 11:24 | Progress Note ---
Assessment and Plan Assessment and plan: Acute metabolic encephalopathy Sec to Uremia Still confused neurochecks Neuro consulted CT head unremarkable Cannot do MRI because of pacemaker ESRD on hemodialysis Cont HD AV acess malfunction s/p fistulogrm. angioplasty , stenting by Dr. Thomas, 04/01/19 Hypertension Cont antihypertensives NSTEMI Type 2 Elevated troponin, c No chest pain may be due to ESRD Will consult cardiology cardiomyopathy history of cardiac arrest 1-2 yrs ago in [place] Atrial fibrillation patient on Coumadin INR subtherapeutic DVT prophylaxis: On Coumadin History Interval history: Altered mental status very lethargic Mother says patient has been sleeping most of time for 1 month now Hospitalist Physical - Physical exam Narrative exam: Gen: Not in acute distress, lying in bed HEENT: Normocephalic, atraumatic Neck: supple, no JVD Heart: S1 and S2 reg, no murmurs, rubs or gallop Lungs: Clear to auscultation, no rhonchi, no wheeze Abd: soft, non tender, non distended, normal BS, Ext: RUE av fistula, no clubbing, no cyanosis Neuro: Lethargic, arouseable, moves all ext, follows commands, - Constitutional Vitals: Temp Pulse Resp BP Pulse Ox 97.2 F L 60 18 155/75 100 04/04/19 06:23 04/04/19 10:43 04/04/19 06:23 04/04/19 06:23 04/04/19 06:23 General appearance: Present: no acute distress, other (lethargic, withdrawn) Results - Labs CBC & Chem 7: 04/02/19 05:59 04/04/19 07:18 Labs: Laboratory Last Values WBC 5.1 K/mm3 (4.5-11.0) 04/02/19 05:59 RBC 3.95 M/mm3 (3.65-5.03) 04/02/19 05:59 Hgb 12.1 gm/dl (11.8-15.2) 04/02/19 05:59 Hct 37.0 % (35.5-45.6) 04/02/19 05:59 MCV 94 fl (84-94) 04/02/19 05:59 MCH 31 pg (28-32) 04/02/19 05:59 MCHC 33 % (32-34) 04/02/19 05:59 RDW 16.8 % (13.2-15.2) H 04/02/19 05:59 Plt Count 137 K/mm3 (140-440) L 04/02/19 05:59 Lymph % (Auto) 11.4 % (13.4-35.0) L 03/31/19 06:40 [place] % (Auto) 9.7 % (0.0-7.3) H 03/31/19 06:40 Eos % (Auto) 3.3 % (0.0-4.3) 03/31/19 06:40 Baso % (Auto) 0.7 % (0.0-1.8) 03/31/19 06:40 Lymph # 0.6 K/mm3 (1.2-5.4) L 03/31/19 06:40 [place] # 0.5 K/mm3 (0.0-0.8) 03/31/19 06:40 Eos # 0.2 K/mm3 (0.0-0.4) 03/31/19 06:40 Baso # 0.0 K/mm3 (0.0-0.1) 03/31/19 06:40 Seg Neutrophils % 74.9 % (40.0-70.0) H 03/31/19 06:40 Seg Neutrophils # 4.2 K/mm3 (1.8-7.7) 03/31/19 06:40 PT 20.7 Sec. (12.2-14.9) H 04/04/19 09:12 INR 1.81 (0.87-1.13) H 04/04/19 09:12 APTT > 240.0 Sec. (24.2-36.6) H* 03/31/19 06:40 Heparin Anti-Xa, Unfract Negative (Negative) 03/31/19 15:05 Sodium 139 mmol/L (137-145) 04/04/19 07:18 Potassium 4.0 mmol/L (3.6-5.0) 04/04/19 07:18 Chloride 103.2 mmol/L (98-107) 04/04/19 07:18 Carbon Dioxide 20 mmol/L (22-30) L 04/04/19 07:18 Anion Gap 20 mmol/L 04/04/19 07:18 BUN 36 mg/dL (9-20) H 04/04/19 07:18 Creatinine 6.6 mg/dL (0.8-1.5) H 04/04/19 07:18 Estimated GFR 10 ml/min 04/04/19 07:18 BUN/Creatinine Ratio 5 % 04/04/19 07:18 Glucose 95 mg/dL (75-100) 04/04/19 07:18 Lactic Acid 1.40 mmol/L (0.7-2.0) 03/30/19 14:48 Calcium 8.3 mg/dL (8.4-10.2) L 04/04/19 07:18 Total Bilirubin 0.70 mg/dL (0.1-1.2) 04/04/19 07:18 Direct Bilirubin 0.5 mg/dL (0-0.2) H 03/30/19 14:48 Indirect Bilirubin 0.7 mg/dL 03/30/19 14:48 AST 7 units/L (5-40) 04/04/19 07:18 ALT < 5 units/L (7-56) L 04/04/19 07:18 Alkaline Phosphatase 120 units/L (35-129) 04/04/19 07:18 Ammonia 42.0 umol/L (25-60) 04/04/19 07:18 Troponin T 0.354 ng/mL (0.00-0.029) H* 04/04/19 07:18 Total Protein 7.2 g/dL (6.3-8.2) 04/04/19 07:18 Albumin 3.2 g/dL (3.9-5) L 04/04/19 07:18 Albumin/Globulin Ratio 0.8 % 04/04/19 07:18 Vitamin B12 791.4 pg/mL (211-911) 03/31/19 13:43 Folate 5.98 ng/mL (7.3-26.0) L 03/31/19 13:43 TSH 2.770 mlU/mL (0.270-4.200) 04/03/19 16:53 Salicylates < 0.3 mg/dL (2.8-20.0) L 03/30/19 14:48 Acetaminophen < 5.0 ug/mL (10.0-30.0) L 03/30/19 14:48 Heparin-induced Plt Ab Negative (Negative) 03/31/19 15:05 UF Heparin High Dose 5 % Release 03/31/19 15:05 LACY UFH Low Dose 0.1 7 % Release 03/31/19 15:05 LACY UFH Low Dose 0.5 9 % Release 03/31/19 15:05 Hepatitis A IgM Ab Non-reactive (NonReactive) 04/01/19 14:55 Hep Bs Antigen Non-reactive (Negative) 04/01/19 14:55 Hep B Core IgM Ab Non-reactive (NonReactive) 04/01/19 14:55 Hepatitis C Antibody Non-reactive (NonReactive) 04/01/19 14:55 Active Medications - Current Medications Current Medications: Generic Name Dose Route Start Last Admin Trade Name Freq PRN Reason Stop Dose Admin Acetaminophen 650 mg 03/30/19 21:55 Tylenol PO Q4H PRN Pain MILD(1-3)/Fever >100.5/GOLDEN Acetazolamide 500 mg 03/31/19 10:00 04/04/19 10:36 Diamox PO 500 mg BID CARISSA Administration Aspirin 81 mg 03/31/19 10:00 04/04/19 10:36 Baby Aspirin PO 81 mg DAILY [facility] Administration Atorvastatin Calcium 40 mg 03/31/19 22:00 04/03/19 21:52 Lipitor PO 40 mg QHS CARISSA Administration Benzonatate 100 mg 04/04/19 01:00 04/04/19 09:00 Tessalon Perles PO Not Given Q8H [facility] Guaifenesin 200 mg 04/01/19 22:11 04/04/19 04:18 Robitussin PO 200 mg Q4H PRN Administration Cough Lisinopril 5 mg 03/31/19 10:00 04/04/19 10:36 Zestril PO 5 mg DAILY [facility] Administration Metoprolol Tartrate 25 mg 03/31/19 10:00 04/04/19 10:43 Metoprolol PO Not Given BID [facility] Miscellaneous Medication 300 mg 03/31/19 10:00 Ursodiol [Ursodiol] PO BID [facility] Ondansetron HCl 4 mg 03/31/19 08:42 Zofran Odt PO Q6HR PRN Nausea Pantoprazole Sodium 20 mg 03/31/19 10:00 04/04/19 10:36 Protonix PO 20 mg QDAY CARISSA Administration Sodium Chloride 10 ml 03/30/19 22:00 04/04/19 10:44 Sodium Chloride Flush Syringe 10 Ml IV 10 ml BID CARISSA Administration Warfarin Sodium 4 mg 04/02/19 17:00 04/03/19 17:01 Coumadin PO 4 mg DAILY@1700 CARISSA Administration Nutrition/Malnutrition Assess - Dietary Evaluation Nutrition/Malnutrition Findings: Nutrition Notes Start: 03/31/19 16:47 Freq: Status: Active Protocol: Document 04/03/19 09:35 CT (Rec: 04/03/19 10:05 CT [id number]) Co-Sign 04/03/19 09:35 Nutrition Notes Initial or Follow up Reassessment Current Diagnosis Diabetes,Hypertension, Hyperlipidemia Other Pertinent Diagnosis ESRD on HD (M/W/F), AMS Current Diet Renal Mechanical Soft w/ Nepro once daily Labs/Tests BUN 40 Creatinine 6.9 Pertinent Medications Coumadin Height 5 ft 6 in Weight 64.8 kg [place] Body Weight (kg) 64.54 BMI 23.0 Subjective/Other Information Pt follow up for coumadin education. Pt was semi- conscious at time of visit. Gave education on coumadin. Discussed sources of Vitamin K . Pt family was not in the room at time of visit. Noted that he ate most of his breakfast tray and consumed 50 % of Nepro shake. Percent of energy/protein needs met: 90%/88% Burn Absent Trauma Absent Difficulty In Chewing Cultural/Ethnic/Rastafarian Belief Palestinian Current % PO Good (75-100%) Minimum of two criteria No #1 Nutrition Diagnosis Inadequate oral intake As Evidenced by Signs and Symptoms Pt met 90% energy and 88% of protein needs for breakfast. Diagnosis Progress(for reassessment Improved documentation) Is patient on ventilator? No Is Patient Ambulatory and/or Out of Bed Yes REE-([place]-St. Jeor-ambulatory/OOB) [ 1970.475 [id number]] Calculation Used for Recommendations [place]-St Jeor Additional Notes Pro > 77 g (>1.2 g/kg/day) Fluid 1-1.5 L Nutrition Intervention Change Diet Order: Continue current diet Add Supplement/Snack (indicate name/kcal Nepro with CARBSTEADY daily /protein ) Vanilla Provides kCal: 425 Provides Protein (gm) 19 Teaching Recipient Patient Learning Readiness Poor Teaching Methods Discussion,Handout Response to Teaching Reinforcement needed,Unable to comprehend Education Handouts Provided Coumadin and K foods Barriers to Learning Cognitive/Verbal,Physical RD phone number provided Yes Patient aware of follow up options Yes Actions To Overcome Barriers Other Goal #1 Pt. meet >80% of energy and pro needs after starting mechanical soft diet Anticipated Discharge Needs: Unable to determine Follow-Up By: 04/07/19 Additional Comments Follow up for intake and ONS tolerance. Additional education needs.
--- NOTE | 2019-04-04 13:42 | Electroencephalogram Report ---
Electroencephalogram EEG Date of exam: 04/04/19 History: Patient is a 38 y/o man w/ a h/o ESRD on HD, HTN, DM, HLD, h/o previous cardiac arrest, s/p PPM, who p/w lethargy, increased somnolence, and confusion for past 1-2 months. Description: DESCRIPTION OF THE PROCEDURE: Electrodes were applied using Paste technique in positions dictated by International 10-20 system of placement. In addition to EEG data EKG and was recorded. DESCRIPTION OF ACTIVITY: At the onset of this recording, the patient is lying supine. In the background we note a 5-7 Hz theta activity that has an amplitude ranging 20-30uV. Additional low voltage rhythmic delta activity occurs at the anterior head regions bilaterally. There are no asymmetries in amplitude or frequency between hemispheres. Significant movement and lead artifact noted. Intermittent photic stimulation was not performed. Hyperventilation was not performed. EEG Impression: 1) Generalized slowing. 2) No seizures or epileptiform discharges 3. Significant movement and lead artifact noted. CLINICAL INTERPRETATION: This routine video EEG, performed is abnormal secondary to above findings and is consistent with bi-hemispheric dysfunction and encephalopathy. The above described finding of diffuse slowing is etiologically non-specific and similar findings have been reported in cases of toxic, metabolic, hypoxic ischemic, infectious, medication, sleep deprivation, dementia,post-ictal state, and other causes of diffuse and multifocal encephalopathy.
--- NOTE | 2019-04-04 14:45 | Progress Note ---
Assessment and Plan Patient is a 38 y/o man w/ a h/o ESRD on HD, HTN, DM, HLD, h/o previous cardiac arrest, s/p PPM, who p/w lethargy, increased somnolence, and confusion for past 1-2 months. According to the patient's clinical findings, it is likely that he h as metabolic encephalopathy, likely caused by underlying comorbidities. Plan: 1. Metabolic encephalopathy: - Patient has had ongoing lethargy for 1-2 months. No acute change. he reportedly had similar episodes in the past. - Likely has baseline of encephalopathy due to previous cardiac arrests. - Noted to have hyponatremia on admission. - EEG: No seizures or epileptiform activity. Noted to have generalized slowing. - CT head unremarkable - Unable to check MRI due PPM. - Chech UDS- Pending - Will sign off. Please call with any questions. - Continue to correct metabolic abnormalities per primary team. Thank you for allowing me to take part in the care of this patient. Dean Vilchis MD Neurology Subjective Date of service: 04/04/19 Principal diagnosis: Acute Encephalopathy Interval history: No acute events overnight. Objective - Exam Narrative Exam: Patient is awake, lethargic, oriented only to self, follows 1-step commands. Pupils asymmetric (baseline since eye surgery), EOMI, vision loss (baseline) to extent of not seeing hand in front of face, tongue midline, noted to have right facial weakness, b/l intact to LT. No dysarthria or aphasia noted. 4/5 strength in all extremities. 2+ reflexes throughout. B/l intact to LT. - Vital Sign Vital Signs - 12hr 04/04/19 04/04/19 04/04/19 06:23 10:43 11:37 Temperature 97.2 F L 98.8 F Pulse Rate 62 60 60 Respiratory 18 18 Rate Blood Pressure 155/75 143/71 O2 Sat by Pulse 100 99 Oximetry - General Apperance Constitutional: comfortable - EENT EENT: ATNC, mucous membranes moist - Respiratory Respiratory: lungs clear, normal breath sounds - Cardiovascular Cardiovascular: regular rate, normal S1, normal S2 Extremities: no clubbing, cyanosis, no inflammation - Gastrointestinal Gastrointestinal: normoactive bowel sounds, soft, non-tender - Integumentary Integumentary: normal - Musculoskeletal Musculoskeletal: no pain - Laboratory Findings CBC and BMP: 04/02/19 05:59 04/04/19 07:18 Abnormal Lab Findings: Abnormal Labs 03/30/19 03/30/19 03/30/19 14:48 14:48 14:48 WBC Hgb Hct MCV 96 H MCHC 31 L RDW 16.6 H Plt Count 128 L Lymph % (Auto) 8.9 L [place] % (Auto) Lymph # 0.6 L Seg Neutrophils % 83.2 H PT 20.5 H INR 1.79 H APTT 37.0 H Sodium Potassium Chloride Carbon Dioxide BUN Creatinine Glucose Calcium Direct Bilirubin ALT Alkaline Phosphatase Troponin T 0.374 H* Albumin Folate Salicylates Acetaminophen 03/30/19 03/30/19 03/30/19 14:48 14:48 14:48 WBC Hgb Hct MCV MCHC RDW Plt Count Lymph % (Auto) [place] % (Auto) Lymph # Seg Neutrophils % PT INR APTT Sodium 129 L Potassium Chloride 96.1 L Carbon Dioxide 18 L BUN 38 H Creatinine 7.0 H Glucose 137 H Calcium Direct Bilirubin 0.5 H ALT < 5 L Alkaline Phosphatase 142 H Troponin T Albumin 3.7 L Folate Salicylates < 0.3 L Acetaminophen < 5.0 L 03/31/19 03/31/19 03/31/19 06:40 06:40 06:40 WBC Hgb Hct MCV 96 H MCHC RDW 17.1 H Plt Count 128 L Lymph % (Auto) 11.4 L [place] % (Auto) 9.7 H Lymph # 0.6 L Seg Neutrophils % 74.9 H PT 20.6 H INR 1.80 H APTT > 240.0 H* Sodium 133 L Potassium Chloride Carbon Dioxide 19 L BUN 44 H Creatinine 8.0 H Glucose Calcium Direct Bilirubin ALT Alkaline Phosphatase Troponin T Albumin Folate Salicylates Acetaminophen 03/31/19 04/01/19 04/01/19 13:43 06:38 07:56 WBC 4.1 L Hgb 11.1 L Hct 34.2 L MCV MCHC RDW 16.4 H Plt Count 124 L Lymph % (Auto) [place] % (Auto) Lymph # Seg Neutrophils % PT 19.9 H INR 1.72 H APTT Sodium Potassium Chloride Carbon Dioxide BUN Creatinine Glucose Calcium Direct Bilirubin ALT Alkaline Phosphatase Troponin T Albumin Folate 5.98 L Salicylates Acetaminophen 04/01/19 04/02/19 04/02/19 07:56 05:59 05:59 WBC Hgb Hct MCV MCHC RDW 16.8 H Plt Count 137 L Lymph % (Auto) [place] % (Auto) Lymph # Seg Neutrophils % PT 18.4 H INR 1.56 H APTT Sodium Potassium 3.1 L D Chloride Carbon Dioxide BUN 28 H Creatinine 5.6 H Glucose Calcium 8.3 L Direct Bilirubin ALT Alkaline Phosphatase Troponin T 0.343 H* Albumin Folate Salicylates Acetaminophen 04/02/19 04/03/19 04/04/19 05:59 05:27 07:18 WBC Hgb Hct MCV MCHC RDW Plt Count Lymph % (Auto) [place] % (Auto) Lymph # Seg Neutrophils % PT 19.7 H INR 1.70 H APTT Sodium Potassium Chloride Carbon Dioxide 21 L 20 L BUN 40 H 36 H Creatinine 6.9 H 6.6 H Glucose Calcium 8.3 L 8.3 L Direct Bilirubin ALT < 5 L Alkaline Phosphatase Troponin T 0.354 H* Albumin 3.2 L Folate Salicylates Acetaminophen 04/04/19 09:12 WBC Hgb Hct MCV MCHC RDW Plt Count Lymph % (Auto) [place] % (Auto) Lymph # Seg Neutrophils % PT 20.7 H INR 1.81 H APTT Sodium Potassium Chloride Carbon Dioxide BUN Creatinine Glucose Calcium Direct Bilirubin ALT Alkaline Phosphatase Troponin T Albumin Folate Salicylates Acetaminophen
--- NOTE | 2019-04-04 15:21 | Discharge Summary ---
Providers - Providers Date of Admission: 04/01/19 11:05 Date of discharge: 04/04/19 Attending physician: CEE OCHOA 03/30/19 22:02 Consult to Physician [CONS] Routine Comment: Consulting Provider: ABDIEL VILCHIS Physician Instructions: Reason For Exam: esrd 04/01/19 08:29 Consult to Physician [CONS] Routine Comment: Consulting Provider: VELMA MORRIS Physician Instructions: Reason For Exam: fistula evaluation 04/02/19 07:37 Physical Therapy Evaluation and Treat [CONS] Routine Comment: Reason For Exam: Ambulation 04/03/19 10:10 Consult to Physician [CONS] Routine Comment: Consulting Provider: TATE VILCHIS Physician Instructions: Reason For Exam: AMS, excessive sleepiness for 1 month 04/03/19 17:16 Consult to Physician [CONS] Routine Comment: Consulting Provider: TRINA KEENAN Physician Instructions: Reason For Exam: Cardiomyopathy, elevated Troponin,afib [facility] Condition: [facility] Hospital course: Patient is a 38-year-old male with known history of history of ESRD on dialysis, hypertension, diabetes mellitus, hyperlipidemia. He is accompanied to the emergency room today by his mother. He had gone home against medical advice night before. His main presentation is altered mental status for weeks. He was diagnosed with acute metabolic encephalopathy due to uremia. Also had av fistula malfunction and had angioplasty and stenting done 04/01/19. Patient remained lethargic and was discharged home on 04/04/19 Acute metabolic encephalopathy Secondary to Uremia neurochecks checked during stay Neuro consulted and he was evaluated by Dr. Vilchis CT head was unremarkable Cannot do MRI because of pacemaker ESRD on hemodialysis Cont HD AV access malfunction s/p fistulogrm. angioplasty , stenting by Dr. Thomas, 04/01/19 Hypertension Cont antihypertensives NSTEMI Type 2 Elevated troponin, No chest pain may be due to ESRD cardiomyopathy history of cardiac arrest 1-2 yrs ago in [place] Atrial fibrillation Patient on Coumadin Total time spent on discharge, 35 mins Disposition: DC-[id number] TO HOME OR SELFCARE - Discharge Diagnoses (1) Acute metabolic encephalopathy Status: Acute (2) Dialysis AV fistula malfunction Status: Acute (3) ESRD needing dialysis Status: Acute (4) CAD (coronary artery disease) Status: Chronic (5) Cardiac pacemaker in situ Status: Chronic (6) Cardiomyopathy Status: Chronic (7) ESRD on hemodialysis Status: Chronic (8) HTN (hypertension) Status: Chronic Qualifiers: Hypertension type: essential hypertension Qualified Code(s): I10 - Essential (primary) hypertension (9) History of cardiac arrest Status: Chronic (10) Hyperlipidemia Status: Chronic (11) Paroxysmal atrial fibrillation Status: Chronic (12) Thrombocytopenia Status: Chronic Core Measure Documentation - Palliative Care Palliative Care/ Comfort Measures: Not Applicable - Core Measures Any of the following diagnoses?: none Exam - Constitutional Vitals: Temp Pulse Resp BP Pulse Ox 98.8 F 60 18 143/71 99 04/04/19 11:37 04/04/19 11:37 04/04/19 11:37 04/04/19 11:37 04/04/19 11:37 Plan Activity: advance as tolerated Plan of Treatment: 1.Follow up with PCP in 1 week 2.Follow up with Cardiology in 1 week 3.continue hemodialysis as scheduled Follow up with: CHRIS WAGNER MD [Primary Care Provider] - 7 Days Forms: Warfarin Discharge Instruction Prescriptions: guaiFENesin [Robitussin] 200 mg PO Q4H PRN #1 bottle PRN Reason: Cough
[2019-04-04 16:02] LABS: Amphetamine Screen,Urine PRESUMPTIVE NEGATIVE; Benzodiazepines Screen,Urine PRESUMPTIVE NEGATIVE; Cannabinoid Screen,Urine PRESUMPTIVE NEGATIVE; Cocaine Screen,Urine PRESUMPTIVE NEGATIVE; Methadone Screen,Urine PRESUMPTIVE NEGATIVE; Opiate Screen,Urine PRESUMPTIVE NEGATIVE
[2019-04-04] MEDS: WARFARIN 2 MG TAB PO SCH (19:01)
[2019-04-04 20:10] VITALS: BP 158/83
== END 2019-04-04 20:16 | disposition home or self-care (01) | DRG 252 ==
LOC: ED 13:31 → 3A 21:55 → OBSVTOIN 04-01 11:05
PROVIDERS: ADMIT Internal Medicine Geriatric Medicine; ATTEND Internal Medicine
PROC: 5A1D70Z Performance of Urinary Filtration, Intermittent, Less than 6 Hours Per Day (ICD-10-PCS; 2019-03-31)
PROC: 057D3DZ Dilation of Right Cephalic Vein with Intraluminal Device, Percutaneous Approach (ICD-10-PCS; principal; 2019-04-01)
PROC: B51W1ZZ Fluoroscopy of Dialysis Shunt/Fistula using Low Osmolar Contrast (ICD-10-PCS; 2019-04-01)
PROC: 5A1D70Z Performance of Urinary Filtration, Intermittent, Less than 6 Hours Per Day (ICD-10-PCS; 2019-04-02)
PROC: B51V1ZZ Fluoroscopy of Other Veins using Low Osmolar Contrast (ICD-10-PCS; 2019-04-02)
PROC: 5A1D70Z Performance of Urinary Filtration, Intermittent, Less than 6 Hours Per Day (ICD-10-PCS; 2019-04-04)
DX: T82.858A Stenosis of other vascular prosthetic devices, implants and grafts, initial encounter (principal); N18.6 End stage renal disease; G93.41 Metabolic encephalopathy; I21.A1 Myocardial infarction type 2; E87.1 Hypo-osmolality and hyponatremia; E87.2 Acidosis; N25.81 Secondary hyperparathyroidism of renal origin; E11.22 Type 2 diabetes mellitus with diabetic chronic kidney disease; Y83.2 Surgical operation with anastomosis, bypass or graft as the cause of abnormal reaction of the patient, or of later complication, without mention of misadventure at the time of the procedure; E78.5 Hyperlipidemia, unspecified; D63.1 Anemia in chronic kidney disease; D69.6 Thrombocytopenia, unspecified; I48.91 Unspecified atrial fibrillation; Z82.49 Family history of ischemic heart disease and other diseases of the circulatory system; Z79.899 Other long term (current) drug therapy; Z79.82 Long term (current) use of aspirin; Z86.74 Personal history of sudden cardiac arrest; Z95.0 Presence of cardiac pacemaker; Y92.098 Other place in other non-institutional residence as the place of occurrence of the external cause
CPT/HCPCS: 36415; 36903; 70450; 71045; 76937; 80048; 80053; 80061; 80074; 80076; 80307; 80320; 82140; 82607; 82747; 84443; 84484; 85025; 85027; 85610; 85730; 86022; 87116; 93005; 93010; 95819; 96365; G0378; A9270-GY; C1725; C1751; C1769; C1874; C1894; G0480; J1644; J2785; J7030; J7050; Q9967

== ENCOUNTER 2019-07-17 09:27 | Emergency (ER) | payer MEDICARE ==
[2019-07-17 11:11] LABS: Bilirubin,Urine NEG (Negative); Blood,Urine LG (Negative); Urobilinogen,Urine < 2.0 mg/dL (<2.0)
[2019-07-17 11:14] LABS: Color,Urine Red (Yellow); RBC,Urine > 182.0 /HPF (0.0-6.0); WBC,Urine > 182.0 /HPF (0.0-6.0)
[2019-07-17 14:23] LABS: Hematocrit 38.6 % (35.5-45.6); Hemoglobin 12.6 gm/dl (11.8-15.2); Mean Corpuscular HGB Conc 33 % (32-34); Mean Corpuscular Volume 93 fl (84-94); Platelet Count 102 K/mm3 (140-440); Red Blood Count 4.16 M/mm3 (3.65-5.03); Red Cell Distribution Width 16.8 % (13.2-15.2)
[2019-07-17 14:34] LABS: INR 1.77 (0.87-1.13)
[2019-07-17 14:35] LABS: Partial Thromboplastin Time 42.8 Sec. (24.2-36.6)
[2019-07-17 14:41] LABS: Calcium 9.3 mg/dL (8.4-10.2)
[2019-07-17 14:56] LABS: Anisocytosis 1+; Basophils % (Manual) 0 % (0.0-1.8); Platelet Estimate Consistent w Auto; Total Cells Counted 100
--- NOTE | 2019-07-17 14:56 | Emergency Department Report ---
ED General Adult HPI - General Chief complaint: High BP Stated complaint: BLOOD IN URINE Time Seen by Provider: 07/17/19 11:20 Source: patient Mode of arrival: Wheelchair Limitations: No Limitations - History of Present Illness Initial comments: Patient is a 39-year-old Nepali gentleman who is presenting with hematuria. Patient denies any pain. Patient's mother states that she patient noticed blood in his urine starting yesterday. Patient has history of end-stage renal disease but still makes urine at least daily. Patient's last dialysis was yesterday. He is denying any history of fevers chills nausea vomiting. Patient has a history of renal failure A. fib and is on Coumadin as well as anoxic brain injury as a child. - Related Data Home Medications Medication Instructions Recorded Confirmed Last Taken Lipitor 40 mg PO DAILY 07/26/18 06/11/19 Unknown Metoprolol 25 mg PO Q12H 07/26/18 06/11/19 Unknown Omeprazole 20 mg PO DAILY 07/26/18 06/11/19 Unknown QUEtiapine [SEROquel] 25 mg PO DAILY 07/26/18 06/11/19 Unknown Aspirin [Aspirin BABY CHEW TAB] 81 mg PO DAILY 11/13/18 06/11/19 Unknown Warfarin [Coumadin] 2 mg PO DAILY 11/13/18 06/11/19 Unknown lisinopriL [Zestril TAB] 5 mg PO DAILY 11/13/18 06/11/19 Unknown acetaZOLAMIDE [Diamox TAB] 500 mg PO BID 03/30/19 06/11/19 Unknown ursodioL [Ursodiol] 300 mg PO BID 03/30/19 06/11/19 Unknown Bimatoprost [Lumigan] 1 drop OU QHS 06/12/19 06/12/19 Unknown Netarsudil Mesylate [Rhopressa] 1 drop OS QHS 06/12/19 06/12/19 Unknown Prednisolone Acet 1% Eye Drop 1 drop OD TID 06/12/19 06/12/19 Unknown Previous Rx's Medication Instructions Recorded Last Taken Type Ondansetron [Zofran ODT TAB] 4 mg PO Q6HR PRN #20 tab.rapdis 02/28/19 Unknown Rx raNITIdine HCl [Zantac] 150 mg PO Q12H #30 tablet 02/28/19 Unknown Rx levoFLOXacin [Levaquin TAB] 500 mg PO QDAY #7 tablet 07/17/19 Unknown Rx Allergies Allergy/AdvReac Type Severity Reaction Status Date / Time No Known Allergies Allergy Verified 07/17/19 09:28 ED Review of Systems ROS: Stated complaint: BLOOD IN URINE Other details as noted in HPI Comment: All other systems reviewed and negative ED Past Medical Hx - Past Medical History Hx Hypertension: Yes Hx Heart Attack/AMI: Yes (X2) Hx Congestive Heart Failure: No Hx Diabetes: No Hx Liver Disease: No Hx Renal Disease: Yes Hx Sickle Cell Disease: No Hx Arthritis: No Hx Kidney Stones: No Hx Asthma: No Hx COPD: No Hx Tuberculosis: No Hx Dementia: Yes Additional medical history: cardiac arrest X2. anoxic brain injury 2/2 cardiac arrest. afib on warfarin, hld, htn, cad. - Surgical History Hx Coronary Stent: No Hx Open Heart Surgery: No Hx Pacemaker: (apparent RV leadless pacer on CXR) Hx Appendectomy: No Additional Surgical History: Right AV fistula. peg tube, trach - Social History Smoking Status: Never Smoker Substance Use Type: None - Medications Home Medications: Home Medications Medication Instructions Recorded Confirmed Last Taken Type Lipitor 40 mg PO DAILY 07/26/18 06/11/19 Unknown History Metoprolol 25 mg PO Q12H 07/26/18 06/11/19 Unknown History Omeprazole 20 mg PO DAILY 07/26/18 06/11/19 Unknown History QUEtiapine [SEROquel] 25 mg PO DAILY 07/26/18 06/11/19 Unknown History Aspirin [Aspirin BABY CHEW TAB] 81 mg PO DAILY 11/13/18 06/11/19 Unknown History Warfarin [Coumadin] 2 mg PO DAILY 11/13/18 06/11/19 Unknown History lisinopriL [Zestril TAB] 5 mg PO DAILY 11/13/18 06/11/19 Unknown History Ondansetron [Zofran ODT TAB] 4 mg PO Q6HR PRN #20 tab.rapdis 02/28/19 06/11/19 Unknown Rx raNITIdine HCl [Zantac] 150 mg PO Q12H #30 tablet 02/28/19 06/11/19 Unknown Rx acetaZOLAMIDE [Diamox TAB] 500 mg PO BID 03/30/19 06/11/19 Unknown History ursodioL [Ursodiol] 300 mg PO BID 03/30/19 06/11/19 Unknown History Bimatoprost [Lumigan] 1 drop OU QHS 06/12/19 06/12/19 Unknown History Netarsudil Mesylate [Rhopressa] 1 drop OS QHS 06/12/19 06/12/19 Unknown History Prednisolone Acet 1% Eye Drop 1 drop OD TID 06/12/19 06/12/19 Unknown History levoFLOXacin [Levaquin TAB] 500 mg PO QDAY #7 tablet 07/17/19 Unknown Rx ED Physical Exam - General Limitations: No Limitations General appearance: alert, in no apparent distress - Head Head exam: Present: atraumatic, normocephalic - Eye Eye exam: Present: normal appearance - ENT ENT exam: Present: mucous membranes moist - Neck Neck exam: Present: normal inspection - Respiratory Respiratory exam: Present: normal lung sounds bilaterally. Absent: respiratory distress, wheezes, rales, rhonchi - Cardiovascular Cardiovascular Exam: Present: regular rate, normal rhythm. Absent: systolic murmur, diastolic murmur, rubs, gallop - GI/Abdominal GI/Abdominal exam: Present: soft, normal bowel sounds. Absent: distended, tenderness, guarding, rebound - Rectal Rectal exam: Present: deferred - Extremities Exam Extremities exam: Present: normal inspection - Back Exam Back exam: Present: normal inspection - Neurological Exam Neurological exam: Present: alert, oriented X3 - Psychiatric Psychiatric exam: Present: normal affect, normal mood - Skin Skin exam: Present: warm, dry, intact, normal color. Absent: rash ED Course Vital Signs 07/17/19 07/17/19 07/17/19 09:34 12:32 12:59 Temperature 97.5 F L Pulse Rate 60 60 Respiratory 18 18 18 Rate Blood Pressure 120/75 125/78 O2 Sat by Pulse 99 100 100 Oximetry 07/17/19 07/17/19 07/17/19 13:00 13:16 13:30 Temperature Pulse Rate 60 60 60 Respiratory 19 13 18 Rate Blood Pressure 125/78 128/80 130/76 O2 Sat by Pulse 100 100 100 Oximetry 07/17/19 07/17/19 13:45 14:00 Temperature Pulse Rate 64 60 Respiratory 13 18 Rate Blood Pressure 121/77 O2 Sat by Pulse 100 100 Oximetry ED Medical Decision Making - Lab Data Result diagrams: 07/17/19 13:32 07/17/19 13:32 Lab Results 07/17/19 07/17/19 07/17/19 Range/Units 13:32 13:32 13:32 WBC 7.2 (4.5-11.0) K/mm3 RBC 4.16 (3.65-5.03) M/mm3 Hgb 12.6 (11.8-15.2) gm/dl Hct 38.6 (35.5-45.6) % MCV 93 (84-94) fl MCH 30 (28-32) pg MCHC 33 (32-34) % RDW 16.8 H (13.2-15.2) % Plt Count 102 L (140-440) K/mm3 Eos % (Auto) Senior Sas Developer Add Manual Diff Complete Total Counted 100 Seg Neuts % (Manual) 65.0 (40.0-70.0) % Band Neutrophils % 0 % Lymphocytes % (Manual) 15.0 (13.4-35.0) % Reactive Lymphs % (Man) 0 % Monocytes % (Manual) 5.0 (0.0-7.3) % Eosinophils % (Manual) 15.0 H (0.0-4.3) % Basophils % (Manual) 0 (0.0-1.8) % Metamyelocytes % 0 % Myelocytes % 0 % Promyelocytes % 0 % Blast Cells % 0 % Nucleated RBC % Not Reportable Seg Neutrophils # Man 4.7 (1.8-7.7) K/mm3 Band Neutrophils # 0.0 K/mm3 Lymphocytes # (Manual) 1.1 L (1.2-5.4) K/mm3 Abs React Lymphs (Man) 0.0 K/mm3 Monocytes # (Manual) 0.4 (0.0-0.8) K/mm3 Eosinophils # (Manual) 1.1 H (0.0-0.4) K/mm3 Basophils # (Manual) 0.0 (0.0-0.1) K/mm3 Metamyelocytes # 0.0 K/mm3 Myelocytes # 0.0 K/mm3 Promyelocytes # 0.0 K/mm3 Blast Cells # 0.0 K/mm3 WBC Morphology Not Reportable Hypersegmented Neuts Not Reportable Hyposegmented Neuts Not Reportable Hypogranular Neuts Not Reportable Smudge Cells Not Reportable Toxic Granulation Not Reportable Toxic Vacuolation Not Reportable Dohle Bodies Not Reportable Pelger-Huet Anomaly Not Reportable Greg Rods Not Reportable Platelet Estimate Consistent w auto Clumped Platelets Not Reportable Plt Clumps, EDTA Not Reportable Large Platelets Not Reportable Giant Platelets Not Reportable Platelet Satelliting Not Reportable Plt Morphology Comment Not Reportable RBC Morphology Not Reportable Dimorphic RBCs Not Reportable Polychromasia Not Reportable Hypochromasia Not Reportable Poikilocytosis Not Reportable Anisocytosis 1+ Microcytosis Not Reportable Macrocytosis Not Reportable Spherocytes Not Reportable Pappenheimer Bodies Not Reportable Sickle Cells Not Reportable Target Cells Not Reportable Tear Drop Cells Not Reportable Ovalocytes Not Reportable Helmet Cells Not Reportable Peña-[place] Bodies Not Reportable [place] Rings Not Reportable Huy Cells Not Reportable Bite Cells Not Reportable Crenated Cell Not Reportable Elliptocytes Not Reportable Acanthocytes (Spur) Not Reportable Rouleaux Not Reportable Hemoglobin C Crystals Not Reportable Schistocytes Not Reportable Malaria parasites Not Reportable Franklyn Bodies Not Reportable Hem Pathologist Commnt No PT 20.9 H (12.2-14.9) Sec. INR 1.77 H (0.87-1.13) APTT 42.8 H (24.2-36.6) Sec. Sodium 133 L (137-145) mmol/L Potassium 4.4 (3.6-5.0) mmol/L Chloride 95.2 L (98-107) mmol/L Carbon Dioxide 22 (22-30) mmol/L Anion Gap 20 mmol/L BUN 32 H (9-20) mg/dL Creatinine 5.5 H (0.8-1.5) mg/dL Estimated GFR 12 ml/min BUN/Creatinine Ratio 6 % Glucose 80 (75-100) mg/dL Calcium 9.3 (8.4-10.2) mg/dL Urine Color (Yellow) Urine Turbidity (Clear) Urine pH (5.0-7.0) Ur Specific [place] (1.003-1.030) Urine Protein (Negative) mg/dL Urine Glucose (UA) (Negative) mg/dL Urine Ketones (Negative) mg/dL Urine Blood (Negative) Urine Nitrite (Negative) Urine Bilirubin (Negative) Urine Urobilinogen (<2.0) mg/dL Ur Leukocyte Esterase (Negative) Urine WBC (Auto) (0.0-6.0) /HPF Urine RBC (Auto) (0.0-6.0) /HPF 07/17/19 Range/Units Unknown WBC (4.5-11.0) K/mm3 RBC (3.65-5.03) M/mm3 Hgb (11.8-15.2) gm/dl Hct (35.5-45.6) % MCV (84-94) fl MCH (28-32) pg MCHC (32-34) % RDW (13.2-15.2) % Plt Count (140-440) K/mm3 Eos % (Auto) Add Manual Diff Total Counted Seg Neuts % (Manual) (40.0-70.0) % Band Neutrophils % % Lymphocytes % (Manual) (13.4-35.0) % Reactive Lymphs % (Man) % Monocytes % (Manual) (0.0-7.3) % Eosinophils % (Manual) (0.0-4.3) % Basophils % (Manual) (0.0-1.8) % Metamyelocytes % % Myelocytes % % Promyelocytes % % Blast Cells % % Nucleated RBC % Seg Neutrophils # Man (1.8-7.7) K/mm3 Band Neutrophils # K/mm3 Lymphocytes # (Manual) (1.2-5.4) K/mm3 Abs React Lymphs (Man) K/mm3 Monocytes # (Manual) (0.0-0.8) K/mm3 Eosinophils # (Manual) (0.0-0.4) K/mm3 Basophils # (Manual) (0.0-0.1) K/mm3 Metamyelocytes # K/mm3 Myelocytes # K/mm3 Promyelocytes # K/mm3 Blast Cells # K/mm3 WBC Morphology Hypersegmented Neuts Hyposegmented Neuts Hypogranular Neuts Smudge Cells Toxic Granulation Toxic Vacuolation Dohle Bodies Pelger-Huet Anomaly Greg Rods Platelet Estimate Clumped Platelets Plt Clumps, EDTA Large Platelets Giant Platelets Platelet Satelliting Plt Morphology Comment RBC Morphology Dimorphic RBCs Polychromasia Hypochromasia Poikilocytosis Anisocytosis Microcytosis Macrocytosis Spherocytes Pappenheimer Bodies Sickle Cells Target Cells Tear Drop Cells Ovalocytes Helmet Cells Peña-[place] Bodies [place] Rings Huy Cells Bite Cells Crenated Cell Elliptocytes Acanthocytes (Spur) Rouleaux Hemoglobin C Crystals Schistocytes Malaria parasites Franklyn Bodies Hem Pathologist Commnt PT (12.2-14.9) Sec. INR (0.87-1.13) APTT (24.2-36.6) Sec. Sodium (137-145) mmol/L Potassium (3.6-5.0) mmol/L Chloride (98-107) mmol/L Carbon Dioxide (22-30) mmol/L Anion Gap mmol/L BUN (9-20) mg/dL Creatinine (0.8-1.5) mg/dL Estimated GFR ml/min BUN/Creatinine Ratio % Glucose (75-100) mg/dL Calcium (8.4-10.2) mg/dL Urine Color Red (Yellow) Urine Turbidity Turbid (Clear) Urine pH 7.0 (5.0-7.0) Ur Specific [place] 1.023 (1.003-1.030) Urine Protein 100 mg/dl (Negative) mg/dL Urine Glucose (UA) 50 (Negative) mg/dL Urine Ketones Neg (Negative) mg/dL Urine Blood Lg (Negative) Urine Nitrite Neg (Negative) Urine Bilirubin Neg (Negative) Urine Urobilinogen < 2.0 (<2.0) mg/dL Ur Leukocyte Esterase Tr (Negative) Urine WBC (Auto) > 182.0 H (0.0-6.0) /HPF Urine RBC (Auto) > 182.0 (0.0-6.0) /HPF - Medical Decision Making Patient's INR is slightly subtherapeutic. No changes to his Coumadin regimen has been suggested. Patient does have evidence of a UTI. Patient be started on Levaquin and will be discharged home. Critical care attestation.: If time is entered above; I have spent that time in minutes in the direct care of this critically ill patient, excluding procedure time. ED Disposition Clinical Impression: Acute cystitis with hematuria Disposition: DC-01 TO HOME OR SELFCARE Is pt being admited?: No Does the pt Need Aspirin: No Condition: Stable Instructions: Urinary Tract Infection in Men (ED), Acute Hematuria (ED) Referrals: PRIMARY CARE, [Primary Care Provider] - 3-5 Days Time of Disposition: 14:58
[2019-07-17 16:28] VITALS: BP 125/75
== END 2019-07-17 13:10 | disposition home or self-care (01) ==
LOC: ED 09:27
DX: N30.01 Acute cystitis with hematuria (principal); I13.11 Hypertensive heart and chronic kidney disease without heart failure, with stage 5 chronic kidney disease, or end stage renal disease; N18.6 End stage renal disease; Z99.2 Dependence on renal dialysis; I25.2 Old myocardial infarction; Z98.890 Other specified postprocedural states; Z79.899 Other long term (current) drug therapy
CPT/HCPCS: 36415; 80048; 81001; 85007; 85025; 85610; 85730

== ENCOUNTER 2019-08-01 20:15 | Emergency (ER) | payer MEDICARE ==
[2019-08-01] MEDS ORDERED: SILVER NITRATE APPLICATOR 1 EA TP ONE (20:43)
[2019-08-01] MEDS ORDERED: DESMOPRESSIN ACETATE IV ONE (20:44)
[2019-08-01] MEDS ORDERED: SODIUM CHLORIDE 0.9% IV ONE (20:44)
--- NOTE | 2019-08-01 20:44 | Emergency Department Report ---
ED General Adult HPI - General Chief complaint: Weakness Stated complaint: BLEEDING FROM DIALYSIS PORT Time Seen by Provider: 08/01/19 20:20 Source: patient, family, EMS ( EMS documentation not available at time of chart dictation ), RN notes reviewed, old records reviewed Mode of arrival: Stretcher Limitations: Other (Patient is a poor historian. History obtained from patient's mother) - History of Present Illness Initial comments: Nephrology: Dr. Macias Patient is a 39-year-old gentleman whom I evaluated in the past, has a history of uremia, stroke, right-sided weakness, end-stage renal disease on hemodialysis, distant history of anoxic brain injury. He presents to the ER with his mother with a complaint of bleeding from right upper extremity fistula, he received his hemodialysis today. The patient indicates that he is not having any physical pain. His mother indicates that he is basically at his mental status baseline. She indicates this happens occasionally. In the emergency room, bleeding was identified, direct gentle digital pressure was applied, silver nitrate cautery was applied, and gentle pressure bandages were applied, a ll of which improved and resolved the patient's bleeding. No additional complaints. Mother is asking to be discharged. -: Gradual Location: right, upper extremity Severity scale (0 -10): 0 Consistency: constant Improves with: medication, other Worsens with: other - Related Data Home Medications Medication Instructions Recorded Confirmed Last Taken Lipitor 40 mg PO DAILY 07/26/18 06/11/19 Unknown Metoprolol 25 mg PO Q12H 07/26/18 06/11/19 Unknown Omeprazole 20 mg PO DAILY 07/26/18 06/11/19 Unknown QUEtiapine [SEROquel] 25 mg PO DAILY 07/26/18 06/11/19 Unknown Aspirin [Aspirin BABY CHEW TAB] 81 mg PO DAILY 11/13/18 06/11/19 Unknown Warfarin [Coumadin] 2 mg PO DAILY 11/13/18 06/11/19 Unknown lisinopriL [Zestril TAB] 5 mg PO DAILY 11/13/18 06/11/19 Unknown acetaZOLAMIDE [Diamox TAB] 500 mg PO BID 03/30/19 06/11/19 Unknown ursodioL [Ursodiol] 300 mg PO BID 03/30/19 06/11/19 Unknown Bimatoprost [Lumigan] 1 drop OU QHS 06/12/19 06/12/19 Unknown Netarsudil Mesylate [Rhopressa] 1 drop OS QHS 06/12/19 06/12/19 Unknown Prednisolone Acet 1% Eye Drop 1 drop OD TID 06/12/19 06/12/19 Unknown Previous Rx's Medication Instructions Recorded Last Taken Type Ondansetron [Zofran ODT TAB] 4 mg PO Q6HR PRN #20 tab.rapdis 02/28/19 Unknown Rx raNITIdine HCl [Zantac] 150 mg PO Q12H #30 tablet 02/28/19 Unknown Rx levoFLOXacin [Levaquin TAB] 500 mg PO QDAY #7 tablet 07/17/19 Unknown Rx Allergies Allergy/AdvReac Type Severity Reaction Status Date / Time No Known Allergies Allergy Verified 07/17/19 09:28 ED Review of Systems ROS: Stated complaint: BLEEDING FROM DIALYSIS PORT Other details as noted in HPI Constitutional: see HPI Eyes: as per HPI ENT: as per HPI Respiratory: see HPI Cardiovascular: as per HPI Endocrine: see HPI Gastrointestinal: as per HPI Genitourinary: as per HPI Musculoskeletal: as per HPI Skin: as per HPI Neurological: as per HPI Psychiatric: as per HPI Hematological/Lymphatic: easy bleeding ED Past Medical Hx - Past Medical History Hx Hypertension: Yes Hx Heart Attack/AMI: Yes (X2) Hx Congestive Heart Failure: No Hx Diabetes: No Hx Liver Disease: No Hx Renal Disease: Yes Hx Sickle Cell Disease: No Hx Arthritis: No Hx Kidney Stones: No Hx Asthma: No Hx COPD: No Hx Tuberculosis: No Hx Dementia: Yes Additional medical history: cardiac arrest X2. anoxic brain injury 2/2 cardiac arrest. afib on warfarin, hld, htn, cad. - Surgical History Hx Coronary Stent: No Hx Open Heart Surgery: No Hx Pacemaker: (apparent RV leadless pacer on CXR) Hx Appendectomy: No Additional Surgical History: Right AV fistula. peg tube, trach - Social History Smoking Status: Never Smoker Substance Use Type: None - Medications Home Medications: Home Medications Medication Instructions Recorded Confirmed Last Taken Type Lipitor 40 mg PO DAILY 07/26/18 06/11/19 Unknown History Metoprolol 25 mg PO Q12H 07/26/18 06/11/19 Unknown History Omeprazole 20 mg PO DAILY 07/26/18 06/11/19 Unknown History QUEtiapine [SEROquel] 25 mg PO DAILY 07/26/18 06/11/19 Unknown History Aspirin [Aspirin BABY CHEW TAB] 81 mg PO DAILY 11/13/18 06/11/19 Unknown History Warfarin [Coumadin] 2 mg PO DAILY 11/13/18 06/11/19 Unknown History lisinopriL [Zestril TAB] 5 mg PO DAILY 11/13/18 06/11/19 Unknown History Ondansetron [Zofran ODT TAB] 4 mg PO Q6HR PRN #20 tab.rapdis 02/28/19 06/11/19 Unknown Rx raNITIdine HCl [Zantac] 150 mg PO Q12H #30 tablet 02/28/19 06/11/19 Unknown Rx acetaZOLAMIDE [Diamox TAB] 500 mg PO BID 03/30/19 06/11/19 Unknown History ursodioL [Ursodiol] 300 mg PO BID 03/30/19 06/11/19 Unknown History Bimatoprost [Lumigan] 1 drop OU QHS 06/12/19 06/12/19 Unknown History Netarsudil Mesylate [Rhopressa] 1 drop OS QHS 06/12/19 06/12/19 Unknown History Prednisolone Acet 1% Eye Drop 1 drop OD TID 06/12/19 06/12/19 Unknown History levoFLOXacin [Levaquin TAB] 500 mg PO QDAY #7 tablet 07/17/19 Unknown Rx ED Physical Exam - General Limitations: Other (Patient is a poor historian. 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 Absent: tenderness, meningismus - Respiratory Respiratory exam: Present: normal lung sounds bilaterally. Absent: respiratory distress - Cardiovascular Cardiovascular Exam: Present: regular rate, normal rhythm, normal heart sounds. Absent: bradycardia, tachycardia, irregular rhythm, systolic murmur, diastolic murmur, rubs, gallop - GI/Abdominal GI/Abdominal exam: Present: soft. Absent: distended, tenderness, guarding, rebound, rigid, pulsatile mass - Rectal Rectal exam: Present: deferred - Extremities Exam Extremities exam: Present: normal inspection (There is a right upper extremity fistula noted, with no redness, pus or streaking. There is an appropriate thrill noted. Small oozing is noted from puncture wounds.), full ROM, other (2+ pulses noted in the bilateral upper and lower extremities. There is no palpable cord. negative Homans sign. Muscular compartments are soft. The pelvis is stable.). Absent: calf tenderness - Back Exam Back exam: Present: normal inspection, full ROM. Absent: tenderness, CVA tenderness (R), CVA tenderness (L), paraspinal tenderness, vertebral tenderness - Neurological Exam Neurological exam: Present: alert (The patient is alert to name. The patient follows commands. There is no facial droop. 5 out of 5 strength in 4 extremities. Sensation is intact to light touch in 4 extremities.) - Psychiatric Psychiatric exam: Present: flat affect - Skin Skin exam: Present: warm, dry, intact, normal color. Absent: rash ED Course Vital Signs 08/01/19 08/01/19 20:28 22:10 Temperature 97.3 F L 98.0 F Pulse Rate 60 60 Respiratory 13 14 Rate Blood Pressure 136/82 125/75 [Left] O2 Sat by Pulse 100 100 Oximetry ED Medical Decision Making - Lab Data Result diagrams: 08/01/19 20:50 08/01/19 20:50 Vital Signs 08/01/19 08/01/19 20:28 22:10 Temperature 97.3 F L 98.0 F Pulse Rate 60 60 Respiratory 13 14 Rate Blood Pressure 136/82 125/75 [Left] O2 Sat by Pulse 100 100 Oximetry Lab Results 08/01/19 08/01/19 08/01/19 Range/Units 20:50 20:50 20:50 WBC 4.0 L (4.5-11.0) K/mm3 RBC 3.75 (3.65-5.03) M/mm3 Hgb 11.7 L (11.8-15.2) gm/dl Hct 35.0 L (35.5-45.6) % MCV 93 (84-94) fl MCH 31 (28-32) pg MCHC 34 (32-34) % RDW 16.6 H (13.2-15.2) % Plt Count 88 L (140-440) K/mm3 Eos % (Auto) [employer] Supervisor Add Manual Diff Complete Total Counted 100 Seg Neuts % (Manual) 52.0 (40.0-70.0) % Band Neutrophils % 0 % Lymphocytes % (Manual) 25.0 (13.4-35.0) % Reactive Lymphs % (Man) 0 % Monocytes % (Manual) 5.0 (0.0-7.3) % Eosinophils % (Manual) 17.0 H (0.0-4.3) % Basophils % (Manual) 1.0 (0.0-1.8) % Metamyelocytes % 0 % Myelocytes % 0 % Promyelocytes % 0 % Blast Cells % 0 % Nucleated RBC % Not Reportable Seg Neutrophils # Man 2.1 (1.8-7.7) K/mm3 Band Neutrophils # 0.0 K/mm3 Lymphocytes # (Manual) 1.0 L (1.2-5.4) K/mm3 Abs React Lymphs (Man) 0.0 K/mm3 Monocytes # (Manual) 0.2 (0.0-0.8) K/mm3 Eosinophils # (Manual) 0.7 H (0.0-0.4) K/mm3 Basophils # (Manual) 0.0 (0.0-0.1) K/mm3 Metamyelocytes # 0.0 K/mm3 Myelocytes # 0.0 K/mm3 Promyelocytes # 0.0 K/mm3 Blast Cells # 0.0 K/mm3 WBC Morphology Not Reportable Hypersegmented Neuts Not Reportable Hyposegmented Neuts Not Reportable Hypogranular Neuts Not Reportable Smudge Cells Not Reportable Toxic Granulation Not Reportable Toxic Vacuolation Not Reportable Dohle Bodies Not Reportable Pelger-Huet Anomaly Not Reportable Greg Rods Not Reportable Platelet Estimate Not Reportable Clumped Platelets Not Reportable Plt Clumps, EDTA Not Reportable Large Platelets Not Reportable Giant Platelets Not Reportable Platelet Satelliting Not Reportable Plt Morphology Comment Not Reportable RBC Morphology Not Reportable Dimorphic RBCs Not Reportable Polychromasia Not Reportable Hypochromasia Not Reportable Poikilocytosis Not Reportable Anisocytosis 1+ Microcytosis Not Reportable Macrocytosis Not Reportable Spherocytes Not Reportable Pappenheimer Bodies Not Reportable Sickle Cells Not Reportable Target Cells Not Reportable Tear Drop Cells Not Reportable Ovalocytes Not Reportable Helmet Cells Not Reportable Peña-Duarte Bodies Not Reportable [place] Rings Not Reportable [place] Cells Not Reportable Bite Cells Not Reportable Crenated Cell Not Reportable Elliptocytes Not Reportable Acanthocytes (Spur) Not Reportable Rouleaux Not Reportable Hemoglobin C Crystals Not Reportable Schistocytes Not Reportable Malaria parasites Not Reportable Franklyn Bodies Not Reportable Hem Pathologist Commnt No PT 19.9 H (12.2-14.9) Sec. INR 1.66 H (0.87-1.13) APTT 39.4 H (24.2-36.6) Sec. Sodium 133 L (137-145) mmol/L Potassium 4.6 (3.6-5.0) mmol/L Chloride 97.6 L (98-107) mmol/L Carbon Dioxide 20 L (22-30) mmol/L Anion Gap 20 mmol/L BUN 28 H (9-20) mg/dL Creatinine 4.4 H (0.8-1.5) mg/dL Estimated GFR 15 ml/min BUN/Creatinine Ratio 6 % Glucose 147 H (75-100) mg/dL Calcium 9.0 (8.4-10.2) mg/dL - Medical Decision Making Differential diagnosis, including but not limited to: Heparin induced bleeding, uremia induced platelet dysfunction Assessment and plan: 39-year-old gentleman with upper extremity fistula that is oozing from 2 puncture sites after cannulation. He is otherwise afebrile with reassuring vital signs. He was given desmopressin. Direct digital pressure was applied, followed by silver nitrate cautery, followed by gentle pressure bandages, all of which resolved the patient's bleeding. He is observed in this ER for hours without clinical decompensation. He can follow-up with his outpatient solution make up operator, or vascular surgeon. Critical care attestation.: If time is entered above; I have spent that time in minutes in the direct care of this critically ill patient, excluding procedure time. ED Disposition Clinical Impression: ESRD on hemodialysis Hemorrhage of arteriovenous fistula Qualifiers: Encounter type: initial encounter Qualified Code(s): T82.838A - Hemorrhage due to vascular prosthetic devices, implants and grafts, initial encounter Disposition: DC- TO HOME OR SELFCARE Is pt being admited?: No Does the pt Need Aspirin: No Condition: Stable Additional Instructions: Continue current outpatient medications. Avoid consumption of Motrin, ibuprofen, Naprosyn, Aleve. Follow-up with your solution make up operator within the next week. Follow-up with your vascular surgeon for right upper extremity fistula within the next 2 weeks. If bleeding reoccurs, applied gentle pressure with fingertip for 5 to 10 minutes. This typically will stop bleeding. Please return to the emergency room right away with new, worsened or different symptoms, or symptoms not present on the initial emergency room evaluation. Referrals: ABDIEL RAO MD [Staff Physician] - 3-5 Days MICHEL PATEL MD [Staff Physician] - 3-5 Days
[2019-08-01 21:28] LABS: Hemoglobin 11.7 gm/dl (11.8-15.2); Mean Corpuscular HGB Conc 34 % (32-34); Mean Corpuscular Volume 93 fl (84-94); Red Blood Count 3.75 M/mm3 (3.65-5.03); Red Cell Distribution Width 16.6 % (13.2-15.2)
[2019-08-01 21:31] LABS: Platelet Count 88 K/mm3 (140-440)
[2019-08-01 21:36] LABS: INR 1.66 (0.87-1.13); Partial Thromboplastin Time 39.4 Sec. (24.2-36.6)
[2019-08-01 22:10] VITALS: BP 125/75
[2019-08-01] MEDS: LIDOCAINE 2%/EPINEPHRINE 1:100,000 VIAL (20 ML) INFILTRATI ONE ×2 (22:13→22:45)
[2019-08-01 22:18] LABS: Anisocytosis 1+; Total Cells Counted 100
== END 2019-08-01 22:45 | disposition home or self-care (01) ==
LOC: ED 20:15
DX: T82.838A Hemorrhage due to vascular prosthetic devices, implants and grafts, initial encounter (principal); I12.0 Hypertensive chronic kidney disease with stage 5 chronic kidney disease or end stage renal disease; N18.6 End stage renal disease; F03.90 Unspecified dementia, unspecified severity, without behavioral disturbance, psychotic disturbance, mood disturbance, and anxiety; Z79.899 Other long term (current) drug therapy; Z99.2 Dependence on renal dialysis; X58.XXXA Exposure to other specified factors, initial encounter
CPT/HCPCS: 36415; 80048; 85007; 85025; 85610; 85730; 96365; 99284; J2597